=== PATIENT | male | born 1945 | race Caucasian/White ===

== ENCOUNTER 2018-05-20 19:59 | Observation (INO) | payer MEDICARE, OTHER ==
[~2018-05-20] VITALS: Ht 172.7 cm; Wt 78.3 kg
--- NOTE | 2018-05-20 20:53 | ED General ---
General Stated Complaint: CONGESTED,COUGH Source of Information: Patient Exam Limitations: No Limitations History of Present Illness Date Seen by Provider: May 20, 2018 Time Seen by Provider: 20:51 Initial Comments To ER with a 3 day history of progressively worsening shortness of breath, productive cough, sharp pain in the left lateral lower chest when coughing, nausea, diarrhea. Denies fevers or chills. He has been vomiting. He took his blood pressure medications earlier today and then vomited up water shortly thereafter, did not see any intact pills but his blood pressure is elevated and he suspects that he didn't absorb much of it. Timing/Duration: 1-2 Days Severity: Moderate Associated Systoms: Cough; No Fever/Chills; Nausea/Vomiting, Shortness of Air Allergies and Home Medications Allergies Coded Allergies: No Known Drug Allergies (Unverified , 05/20/18) Patient Home Medication List Home Medication List Reviewed: Yes Review of Systems Review of Systems Constitutional: see HPI; No chills, No fever EENTM: see HPI Respiratory: see HPI, cough, short of breath Cardiovascular: no symptoms reported Gastrointestinal: No abdominal pain; nausea, vomiting Genitourinary: no symptoms reported Musculoskeletal: no symptoms reported Skin: no symptoms reported Psychiatric/Neurological: No Symptoms Reported Past Tzcvzqc-Ncmpyr-Yoyrpe Hx Patient Social History Recent Foreign Travel: No Contact w/Someone Who Travel: No Physical Exam Vital Signs Vital Signs - First Documented 05/20/18 21:00 Temp 97.5 Pulse 83 Resp 27 B/P (MAP) 186/109 (134) Pulse Ox 97 O2 Delivery Room Air Capillary Refill : Height, Weight, BMI Height: '" Weight: lbs. oz. kg; BMI Method: General Appearance: WD/WN, Other (his oxygen saturation is 91% on room air. He is a lifelong nonsmoker and has no known structural lung disease. Despite this his respiratory rate is 28-30. Regardless of how his labs look, given his tachypnea and respiratory effort I would like to admit at least for observation. ) Eyes: Bilateral Eye Normal Inspection, Bilateral Eye PERRL, Bilateral Eye EOMI HEENT: PERRL/EOMI, TMs Normal Neck: Full Range of Motion, Normal Inspection Respiratory: No Accessory Muscle Use, No Respiratory Distress, Other (crackles posterior bilateral bases left greater than right) Cardiovascular: Regular Rate, Rhythm, Normal Peripheral Pulses Gastrointestinal: Normal Bowel Sounds, Non Tender, Soft Extremity: Normal Capillary Refill, Normal Inspection Neurologic/Psychiatric: Alert, Oriented x3 Skin: Normal Color, Warm/Dry Focused Exam Lactate Level 05/20/18 21:16: Lactic Acid Level 0.81 Lactic Acid Level Laboratory Tests Test 05/20/18 21:16 Lactic Acid Level 0.81 MMOL/L (0.50-2.00) Progress/Results/Core Measures Suspected Sepsis SIRS Temperature: Pulse: Respiratory Rate: Laboratory Tests 05/20/18 21:16: White Blood Count 10.1 Blood Pressure / Mean: 05/20/18 21:16: Lactic Acid Level 0.81 Laboratory Tests 05/20/18 21:16: Creatinine 5.69H, Platelet Count 317, Total Bilirubin 0.4 Results/Orders Lab Results Laboratory Tests Test 05/20/18 21:16 Range/Units White Blood Count 10.1 4.3-11.0 10^3/uL Red Blood Count 3.96 L 4.35-5.85 10^6/uL Hemoglobin 10.8 L 13.3-17.7 G/DL Hematocrit 33 L 40-54 % Mean Corpuscular Volume 83 80-99 FL Mean Corpuscular Hemoglobin 27 25-34 PG Mean Corpuscular Hemoglobin Concent 33 32-36 G/DL Red Cell Distribution Width 14.8 H 10.0-14.5 % Platelet Count 317 130-400 10^3/uL Mean Platelet Volume 9.5 7.4-10.4 FL Neutrophils (%) (Auto) 89 H 42-75 % Lymphocytes (%) (Auto) 7 L 12-44 % Monocytes (%) (Auto) 4 0-12 % Eosinophils (%) (Auto) 0 0-10 % Basophils (%) (Auto) 0 0-10 % Neutrophils # (Auto) 9.0 H 1.8-7.8 X 10^3 Lymphocytes # (Auto) 0.7 L 1.0-4.0 X 10^3 Monocytes # (Auto) 0.4 0.0-1.0 X 10^3 Eosinophils # (Auto) 0.0 0.0-0.3 10^3/uL Basophils # (Auto) 0.0 0.0-0.1 10^3/uL Neutrophils % (Manual) 87 % Lymphocytes % (Manual) 8 % Monocytes % (Manual) 3 % Eosinophils % (Manual) 0 % Basophils % (Manual) 0 % Metamyelocytes % 1 % Band Neutrophils 1 % Blood Morphology Comment NORMAL Sodium Level 135 135-145 MMOL/L Potassium Level 4.4 3.6-5.0 MMOL/L Chloride Level 103 98-107 MMOL/L Carbon Dioxide Level 14 L 21-32 MMOL/L Anion Gap 18 H 5-14 MMOL/L Blood Urea Nitrogen 59 H 7-18 MG/DL Creatinine 5.69 H 0.60-1.30 MG/DL Estimat Glomerular Filtration Rate 10 BUN/Creatinine Ratio 10 Glucose Level 138 H 70-105 MG/DL Lactic Acid Level 0.81 0.50-2.00 MMOL/L Calcium Level 8.8 8.5-10.1 MG/DL Corrected Calcium 8.8 8.5-10.1 MG/DL Total Bilirubin 0.4 0.1-1.0 MG/DL Aspartate Amino Transf (AST/SGOT) 30 5-34 U/L Alanine Aminotransferase (ALT/SGPT) 89 H 0-55 U/L Alkaline Phosphatase 175 H 40-136 U/L Troponin I < 0.028 <0.028 NG/ML Total Protein 7.7 6.4-8.2 GM/DL Albumin 4.0 3.2-4.5 GM/DL My Orders Orders - TORREY ANDERS APRN Cbc And Manual Diff (05/20/18 20:48) Comprehensive Metabolic Panel (05/20/18 20:48) Ua Culture If Indicated (05/20/18 20:48) Iv Heplock-Insert (Order) (05/20/18 20:48) Troponin I (05/20/18 20:48) Ekg Tracing (05/20/18 20:48) Chest Pa/Lat (2 View) (05/20/18 20:48) Metoprolol Tartrate Injection (Lopressor (05/20/18 21:00) Ns Iv 1000 Ml (Sodium Chloride 0.9%) (05/20/18 21:00) Ondansetron Injection (Zofran Injectio (05/20/18 21:00) Albuterol/Ipra Inhalation Soln (Duoneb I (05/20/18 21:30) Svn Small Volume Nebulizer (05/20/18 21:18) Blood Culture (05/20/18 21:20) Lactic Acid Analyzer (05/20/18 21:20) Ceftriaxone For Iv Use (Rocephin For I (05/20/18 21:30) Medications Given in ED Current Medications Medications Dose Ordered Sig/Kailey Route Start Time Stop Time Status Last Admin Dose Admin Albuterol/ Ipratropium 3 ml ONCE ONCE INH 05/20/18 21:30 05/20/18 21:31 DC 05/20/18 21:57 3 ML Ceftriaxone Sodium 1000 mg/ Sodium Chloride 50 ml @ 100 mls/hr ONCE ONCE IV 05/20/18 21:30 05/20/18 21:59 DC 05/20/18 21:54 100 MLS/HR Metoprolol Tartrate 5 mg ONCE ONCE IV 05/20/18 21:00 05/20/18 21:01 DC 05/20/18 21:26 5 MG Ondansetron HCl 4 mg ONCE ONCE IVP 05/20/18 21:00 05/20/18 21:01 DC 05/20/18 21:25 4 MG Vital Signs/I&O 05/20/18 05/20/18 21:00 21:57 Temp 97.5 Pulse 83 Resp 27 B/P (MAP) 186/109 (134) Pulse Ox 97 92 O2 Delivery Room Air Room Air Capillary Refill : Diagnostic Imaging Diagonstic Imaging: Xray Plain Films/CT/US/NM/MRI: chest Comments NAME: DENIS DAVIS [facility] REC#: [id number] PT STATUS: REG ER : 1945 PHYSICIAN: TORREY ANDERS APRN ADMIT DATE: 05/20/18/ER Draft Date of Exam:05/20/18 CHEST PA/LAT (2 VIEW) PATIENT HISTORY: Cough and congestion, shortness of air. TECHNIQUE: 2 views of the chest COMPARISON: None FINDINGS: Lung volumes are normal. There are airspace opacities in the left perihilar region in the left lung base. There is a small left pleural effusion with associated atelectasis. The cardiac silhouette is normal in size. No pneumothorax is seen. IMPRESSION: 1. Airspace opacities in the left lung concerning for pneumonia in the appropriate clinical setting. Recommend followup to resolution as an underlying neoplastic process is not excluded. Dictated on workstation # [id number] Dict: 05/20/182127 Trans: 05/20/182130 [facility] [id number] Interpreted by: CELI NOGUERA MD Electronically signed by: Departure Communication (Admissions) Time/Spoke to Admitting Phy: 22:[address] Bess. Discussed admission versus transfer. The patient is aware of his renal failure and states "that about normal" when I discuss his creatinine with him but I do not have any priors for comparison. He follows with Dr. Cantu out of [place] who uses [facility] here in [place] for blood draws. He states that he has a known chronic kidney disease secondary to his hypertension from an adrenal tumor and chronic hypertension. He did have a renal ultrasound here done in 2012 for this reason. I discussed with [facility] who accepted him in transfer. I then told the patient he would need to be transferred. He declined stating "no, I'll go home and follow up with Dr. Latrell roberts was before I go to [place]". I discussed with him that I would talk to Dr. Bess about admission for observation if the patient would be willing to sign a refusal of transport form acknowledging that we cannot manage emergent complications of renal failure here. He would be willing to sign this form. I spoke with Dr. Bess and he is agreeable keeping the patient here if we can give another liter of normal saline and recheck labs in the morning. He denies any structural lung disease or recent antibiotics or risk factors for healthcare associated pneumonia so I'll use Rocephin and doxycycline. Impression Primary Impression: Left lower lobe pneumonia Qualified Codes: J18.1 - Lobar pneumonia, unspecified organism Additional Impression: Chronic kidney disease Qualified Codes: N18.9 - Chronic kidney disease, unspecified Disposition: ADMITTED INPATIENT Condition: Stable Admissions Decision to Admit Reason: Admit from ER (General) Decision to Admit/Date: May 20, 2018 Time/Decision to Admit Time: 21:26 Departure-Patient Inst. Referrals: ELLA CANTU DO (PCP) Primary Care Physician TORREY ANDERS APRN May 20, 2018 20:53
[2018-05-20] MEDS ORDERED: ONDANSETRON 4 MG/2 ML (SDV) Z0FRAN IVP ONE (21:00)
[2018-05-20] MEDS ORDERED: NS IV 1000 ML 1,000 ML IV SCH (21:00)
[2018-05-20] MEDS ORDERED: meTOprolol 5 MG/5 ML (LOPRESSOR) VIAL IV ONE (21:00)
[2018-05-20 21:27] LABS: BASOPHILS % (AUTO) 0 % (0-10); EOSINOPHILS % (AUTO) 0 % (0-10); HEMATOCRIT 33 % (40-54); HEMOGLOBIN 10.8 G/DL (13.3-17.7); LYMPHOCYTES # (AUTO) 0.7 X 10^3 (1.0-4.0); LYMPHOCYTES % (AUTO) 7 % (12-44); MEAN CORPUSCULAR HEMOGLOBIN 27 PG (25-34); MEAN CORPUSCULAR HGB CONC 33 G/DL (32-36); MEAN CORPUSCULAR VOLUME 83 FL (80-99); MEAN PLATELET VOLUME 9.5 FL (7.4-10.4); MONOCYTES # (AUTO) 0.4 X 10^3 (0.0-1.0); MONOCYTES % (AUTO) 4 % (0-12); NEUTROPHILS % (AUTO) 89 % (42-75); PLATELET COUNT 317 10^3/uL (130-400); RED BLOOD COUNT 3.96 10^6/uL (4.35-5.85); RED CELL DISTRIBUTION WIDTH 14.8 % (10.0-14.5); WHITE BLOOD COUNT 10.1 10^3/uL (4.3-11.0)
[2018-05-20] MEDS ORDERED: RT-ALBUTEROL/IPRATROPIUM 3 ML (DUONEB) VIAL INH ONE (21:30)
[2018-05-20] MEDS ORDERED: cefTRIAXone FOR IV USE 1,000 MG in NS (IVPB) 50 ML IV ONE (21:30)
--- NOTE | 2018-05-20 21:32 | Diagnostic Imaging Report ---
PATIENT HISTORY: Cough and congestion, shortness of air. TECHNIQUE: 2 views of the chest COMPARISON: None FINDINGS: Lung volumes are normal. There are airspace opacities in the left perihilar region in the left lung base. There is a small left pleural effusion with associated atelectasis. The cardiac silhouette is normal in size. No pneumothorax is seen. IMPRESSION: 1. Airspace opacities in the left lung concerning for pneumonia in the appropriate clinical setting. Recommend followup to resolution as an underlying neoplastic process is not excluded. Dictated by: Dictated on workstation # [id number]
[2018-05-20 21:46] LABS: ALANINE AMINOTRANSFERASE 89 U/L (0-55); ALKALINE PHOSPHATASE 175 U/L (40-136); BILIRUBIN,TOTAL 0.4 MG/DL (0.1-1.0); BUN/CREATININE RATIO 10; CALCIUM 8.8 MG/DL (8.5-10.1); CARBON DIOXIDE 14 MMOL/L (21-32); CHLORIDE 103 MMOL/L (98-107); CREATININE SERUM 5.69 MG/DL (0.60-1.30); GFR ESTIMATED 10; GLUCOSE 138 MG/DL (70-105); POTASSIUM 4.4 MMOL/L (3.6-5.0); SODIUM 135 MMOL/L (135-145); TOTAL PROTEIN 7.7 GM/DL (6.4-8.2)
[2018-05-20 22:03] LABS: BAND NEUTROPHILS 1 %; BASOPHILS % (MANUAL) 0 %; EOSINOPHILS % (MANUAL) 0 %; LYMPHOCYTES % (MANUAL) 8 %; METAMYELOCYTES % 1 %; MONOCYTES % (MANUAL) 3 %; NEUTROPHILS % (MANUAL) 87 %
[2018-05-20 22:04] LABS: RBC MORPH NORMAL
[2018-05-20] MEDS ORDERED: LACTATED RINGERS 1,000 ML IV SCH (23:00)
[2018-05-21] VITALS (8 sets, daily range): BP systolic 168–190; BP diastolic 85–102
--- NOTE | 2018-05-21 00:15 | NUR ---
Hayden was informed that pt could not give urine and will need one during admission. He understood.
--- NOTE | 2018-05-21 00:17 | NUR ---
Per providers orders, pt took night meds prior to going to 4th floor.
--- NOTE | 2018-05-21 00:20 | NUR ---
DENIS DAVIS admitted to room 422-1, with an admitting diagnosis of LLL pneumonia, on 05/20/18 from ED via bed, accompanied by ED staff. DENIS DAVIS introduced to surroundings, call light, bed controls, phone, TV, temperature control, lights, meal times, smoking policy, visitor policy, side rail policy, bathrooms and showers. Patient Rights given to patient in the handbook. DENIS DAVIS verbalizes understanding that [facility] is not responsible for the loss or damage to any personal effects or valuables that are kept in the patients posession during their hospitalization. The following Patient Care Plans were discussed with the patient: Discharge Planning, activity intolerance, and ineffective airway clearance. DENIS DAVIS verbalizes understanding of Interdisciplinary Patient Education. Patient and/or family were informed about the Rapid Response Team and its purpose.
[2018-05-21] MEDS ORDERED: NS IV 1000 ML 1,000 ML ONE (00:30)
[2018-05-21] MEDS: NS IV 1000 ML 1,000 ML IV SCH ×2 (00:44→08:35)
[2018-05-21] MEDS ORDERED: DOXYCYCLINE INJECTION 100 MG in NS (IVPB) 100 ML IV SCH (00:45)
[2018-05-21] MEDS ORDERED: CATHETER FLUSH 10 ML SYR IV PRN (00:45)
[2018-05-21] MEDS ORDERED: ONDANSETRON 4 MG/2 ML (SDV) Z0FRAN IV PRN (00:45)
[2018-05-21] MEDS ORDERED: RT-ALBUTEROL SULF 2.5 MG/3 ML PRE-MIX VIAL INH PRN (02:15)
[2018-05-21 02:26] LABS: BILIRUBIN,URINE NEGATIVE (NEGATIVE); CLARITY,URINE CLEAR; COLOR,URINE YELLOW; GLUCOSE, URINE (UA) 2+ (NEGATIVE); KETONES,URINE NEGATIVE (NEGATIVE); LEUKOCYTE ESTERASE ,URINE NEGATIVE (NEGATIVE); NITRITE,URINE NEGATIVE (NEGATIVE); PH,URINE 6 (5-9); PROTEIN,URINE 4+ (NEGATIVE); UROBILINOGEN,URINE NORMAL (NORMAL)
[2018-05-21 02:32] LABS: BACTERIA,URINE TRACE /HPF; RBC,URINE RARE /HPF; SQUAMOUS EPITHELIAL CELL,UR RARE /HPF; WBC,URINE RARE /HPF
[2018-05-21] MEDS ORDERED: RT-ALBUTEROL SULF 2.5 MG/3 ML PRE-MIX VIAL INH SCH (03:00)
[2018-05-21] MEDS: CATHETER FLUSH 10 ML SYR IV SCH ×3 (03:53→20:26)
[2018-05-21 05:57] LABS: BASOPHILS % (AUTO) 0 % (0-10); EOSINOPHILS % (AUTO) 0 % (0-10); HEMATOCRIT 27 % (40-54); HEMOGLOBIN 8.5 G/DL (13.3-17.7); LYMPHOCYTES # (AUTO) 0.8 X 10^3 (1.0-4.0); LYMPHOCYTES % (AUTO) 12 % (12-44); MEAN CORPUSCULAR HEMOGLOBIN 27 PG (25-34); MEAN CORPUSCULAR HGB CONC 32 G/DL (32-36); MEAN CORPUSCULAR VOLUME 84 FL (80-99); MEAN PLATELET VOLUME 9.5 FL (7.4-10.4); MONOCYTES # (AUTO) 0.5 X 10^3 (0.0-1.0); MONOCYTES % (AUTO) 8 % (0-12); NEUTROPHILS # (AUTO) 5.5 X 10^3 (1.8-7.8); NEUTROPHILS % (AUTO) 80 % (42-75); PLATELET COUNT 242 10^3/uL (130-400); RED BLOOD COUNT 3.17 10^6/uL (4.35-5.85); RED CELL DISTRIBUTION WIDTH 14.5 % (10.0-14.5); WHITE BLOOD COUNT 6.8 10^3/uL (4.3-11.0)
[2018-05-21 06:36] LABS: CALCIUM 7.5 MG/DL (8.5-10.1); CREATININE SERUM 5.27 MG/DL (0.60-1.30); POTASSIUM 4.4 MMOL/L (3.6-5.0)
[2018-05-21] MEDS: RT-ALBUTEROL SULF 2.5 MG/3 ML PRE-MIX VIAL INH SCH ×3 (06:56→19:12)
[2018-05-21] MEDS ORDERED: FLU QUADRIvalent (5+ YOA) 2018-2019 (AFLURIA) 0.5 ML IM ONE (08:00)
[2018-05-21] MEDS ORDERED: CLON0.2T PO (09:10)
[2018-05-21] MEDS ORDERED: AMLO10TA6 PO (09:10)
[2018-05-21] MEDS ORDERED: METO-395 PO (09:10)
[2018-05-21] MEDS ORDERED: LACT1CAP72 PO (09:13)
[2018-05-21] MEDS ORDERED: OMG1KC PO (09:13)
[2018-05-21] MEDS ORDERED: VALE100C PO (09:13)
[2018-05-21] MEDS ORDERED: MELA5CAP PO (09:13)
[2018-05-21] MEDS ORDERED: CHOL10007 PO (09:13)
[2018-05-21] MEDS ORDERED: ASCO-262 PO (09:13)
[2018-05-21] MEDS ORDERED: DIPH25CA79 PO (09:13)
--- NOTE | 2018-05-21 09:21 | NUR ---
SPOKE WITH THE PATIENT ABOUT HIS MEDICATIONS. HE HAD HIS 3 PRESCRIPTION BOTTLES WITH HIM AND VERIFIED HOW HE TAKES THEM. IN ADDITION THE EXT MED HX SHOWS HE FILLED SPIRONOLACTONE 25MG #24 02-18-18 HOWEVER HE STATES HE IS NOT CURRENTLY TAKING IT. THERE WAS SOME CONFUSION ON THE DIRECTIONS AND HE WAS TAKING IT 1/2 DAILY HOWEVER IT WAS NOT WRITTEN THAT WAY WHEN HE FILLED IT SO HE RAN OUT EARLY THEN AFTER HE WAS OUT FOR SO LONG HE JUST DIDN'T RESUME TAKING IT. HE STATES HE NEEDS TO SPEAK WITH HIS PCP ABOUT THIS. HE STATES IT HAS BEEN SEVERAL WEEKS SINCE HE HAS HAD A DOSE. HE TAKES THE FOLLOWING OTC: VITAMIN C DAILY VITAMIN D DAILY PROBIOTIC DAILY FISH OIL DAILY VALERIAN ROOT HS (SLEEP) BENADRYL HS (SLEEP) MELATONIN HS (SLEEP)
--- NOTE | 2018-05-21 11:00 | NUR ---
Voiced concern about patient's blood pressure to attending physician at this time, also mentioned patient's concern about possible blood in his stool. Monitoring vital signs closely. No new orders received. Med reconciliation currently not addressed yet by attending physician. Will continue to monitor.
--- NOTE | 2018-05-21 11:53 | History & Physical-Hospitalist ---
History of Present Illness HPI/Chief Complaint The patient is a 72-year-old white male who presented to the emergency room last night with complaints of nausea and generalized weakness. He reported that he began to feel ill on Saturday. This progressed through Saturday and by Saturday he felt terrible. He finally gave up and came to the emergency room yesterday. He had nausea but only if he put food in his mouth. Yesterday morning he placed his anti-hypertensives in his mouth and swallowed with water only to vomit. He has been hypertensive for many years. 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 This was surgically removed but did not change his blood pressure issues much. In recent years he knows that his kidney function has declined. He has seen Dr. Latrell roberts in [place]. His circumstances had changed considerably his after a long illness. He has an undependable car and finds it difficult to get to [place]. He had previously seen a beam racker in consultation in [place].found that to be too expensive. He is unable to give any numerical information relative to the recent serum creatinines Source: patient Exam Limitations: no limitations Date Seen 05/21/18 Time Seen by a Provider: 11:44 Attending Physician Gerardo Lemos MD PCP Rafita Aguirre DO Referring Physician Date of Admission May 20, 2018 at 21:19 Home Medications & Allergies Home Medications Reviewed patient Home Medication Reconciliation performed by pharmacy medication reconciliations preventative maintenance technician and/or nursing. Patients Allergies have been reviewed. Allergies Allergies Coded Allergies No Known Drug Allergies (Unverified05/20/18) Past Wwusedi-Tefjxz-Wehrkv Hx Past Med/Social Hx: Reviewed Nursing Past Med/Soc Hx Patient Social History Alcohol Use: Denies Use Recreational Drug Use: No Smoking Status: Never a Smoker Physical Abuse Screen: No Sexual Abuse: No Recent Foreign Travel: No Contact w/other who traveled: No Recent Hopitalizations: No Recent Infectious Disease Expo: No Seasonal Allergies Seasonal Allergies: No Past Medical History Surgeries: Adrenal Currently Using CPAP: No Currently Using BIPAP: No Cardiac: Hypertension Musculoskeletal: Scoliosis Psychosocial: Depression History of Blood Disorders: No Adverse Reaction to Blood Dobbs: No Family History Aneurysm 19 MOTHER FH: lung cancer 19 FATHER Hypertension 19 MOTHER G8 SISTER Review of Systems Constitutional: see HPI EENTM: no symptoms reported Respiratory: cough Cardiovascular: no symptoms reported Gastrointestinal: nausea Genitourinary: no symptoms reported Musculoskeletal: no symptoms reported Skin: no symptoms reported Psychiatric/Neurological: No Symptoms Reported Physical Exam Physical Exam Vital Signs Vital Signs - First Documented 05/20/18 05/21/18 21:00 20:00 Temp 97.5 Pulse 83 Resp 27 B/P (MAP) 186/109 (134) Pulse Ox 97 O2 Delivery Room Air FiO2 50 Capillary Refill : Less Than 3 Seconds Height, Weight, BMI Height: 5'8.00" Weight: 172lbs. 11.2oz. 78.683194kr; 26.3 BMI Method:Stated General Appearance: Mild Distress HEENT: Normal ENT Inspection Neck: Normal Inspection Respiratory: Decreased Breath Sounds, Rhonci Cardiovascular: Regular Rate, Rhythm, No Edema, No Gallop, No JVD, No Murmur, Normal Peripheral Pulses Gastrointestinal: Normal Bowel Sounds, No Organomegaly, No Pulsatile Mass, Non Tender, Soft Back: Normal Inspection, No CVA Tenderness, No Vertebral Tenderness Extremity: Normal Capillary Refill, Normal Inspection, Normal Range of Motion, Non Tender, No Calf Tenderness Neurologic/Psychiatric: Alert, Oriented x3, No Motor/Sensory Deficits, Normal Mood/Affect Skin: Normal Color, Warm/Dry Lymphatic: No Adenopathy Results Results/Procedures Labs Patient resulted labs reviewed. Assessment/Plan Admission Diagnosis Dehydration. 2.end-stage renal failure. 3.hypertension. 4.past history of adrenal adenoma/hyper Aldosteronism Admission Status: Observation Clinical Quality Measures DVT/VTE Risk/Contraindication: Risk Factor Score Per Nursin RFS Level Per Nursing on Admit: 4+=Very High GERARDO LEMOS MD May 21, 2018 11:53
--- NOTE | 2018-05-21 14:00 | NUR ---
This RN spoke with Dr. Bess at this time about his lack of ability to breath, o2 saturations down to 89% at this time on 2 L per N/C. New orders received to increase the oxygen and give lasix 40 mg iv x1 now. RT paged and breathing treatment given and patient is maintaining his saturations at this time. Addendum: 05/21/18 at 1751 by BRAEDEN ROSENTHAL RN noted by this RN that crackles were present bilaterally to all burciaga of his lungs.
[2018-05-21] MEDS ORDERED: FUROSEMIDE 40 MG/4 ML INJ (LASIX) IVP NR ×2 (14:04→17:30)
[2018-05-21] MEDS: meTOprolol SUCCINATE 100 MG (TOPROL XL) TAB PO SCH ×2 (14:11→19:48)
--- NOTE | 2018-05-21 15:38 | Progress Note-Hospitalist ---
Progress Note Progress Notes/Assess & Plan Date Seen 05/21/18 Time Seen by Provider: 15:37 Assessment & Plan I have talked to the hospitalist service at [facility] in [place]. They have accepted him in transfer for nephrology services. Focused Exam Lactate Level 05/20/18 21:16: Lactic Acid Level 0.81 JOSS LEMOS MD May 21, 2018 15:38
[2018-05-21] MEDS ORDERED: DOXYCYCLINE 100 MG (VIBRAMYCIN) TABLET PO SCH (17:00)
--- NOTE | 2018-05-21 17:25 | NUR ---
Patient rang his call light at this time and reports that he is short of air again, this RN paged RT at this time.
--- NOTE | 2018-05-21 17:52 | NUR ---
RT staff requesting that this RN contact Dr. Bess for orders to try the bipap at this time. Patient reported to the RT staff that " i'm getting tierd of breathing." This RN notified Dr. Bess at this time of his oxygen saturations that were 86% on 7L. New orders received at this time to implement the bipap and give another dose of lasix 40 mg iv. This RN will cont to monitor this patient until he transfers from this facility.
--- NOTE | 2018-05-21 18:14 | NUR ---
PATIENT IS RESTING IN BED COMFORTABLY WITH BIPAP ON AT THIS TIME. DENIES PAIN TO THIS RN, THIS RN WILL CONT. TO MONITOR THIS PATIENT UNTIL SHIFT CHANGE OR TRANSFER TO [facility].
[2018-05-21] MEDS ORDERED: cefTRIAXone 1 GM/NS 50 ML IVPB IV SCH ×2 (21:00)
[2018-05-21] MEDS ORDERED: cloNIDine 0.2 MG (CATAPRES) TAB PO SCH (21:00)
--- NOTE | 2018-05-21 21:17 | NUR ---
This RN contacted [facility] Admissions to see if a bed was available for the pt to transfer yet and they said that they didn't currently have a bed yet.
--- NOTE | 2018-05-21 21:30 | NUR ---
This RN told Jewelry Sales Coordinator that [facility] still doesn't have a bed and pt BP is still elevated 170's/90's after BP medications. Ethylene Plant Operator reported to this RN that she called and spoke with their trailer park manager and was told that they have one bed available but that the room needed cleaned and informed her that they would call her back with the room number.
--- NOTE | 2018-05-22 00:29 | NUR ---
This RN called and spoke with admissions and was tod that the patient's bed will be ready as soon as it's done being cleaned but gave this RN the okay to begin transport. Patient will be taken to room 183 on the medical unit and number to call to give report is [phone].
--- NOTE | 2018-05-22 00:43 | NUR ---
[facility] Transport truck on the way to transfer pt to [facility] in [place]. Addendum: 05/22/18 at 0150 by HEATHER DENNIS RN Dispatch was informed by this RN that truck with BiPAP will be needed for this pt.
--- NOTE | 2018-05-22 00:46 | NUR ---
This RN called report to SRIDHAR Zurita at [facility] in [place].
[2018-05-22 00:56] VITALS: BP 167/87
--- NOTE | 2018-05-22 01:15 | NUR ---
[facility] arrived and has no BiPAP machine but has CPAP available. RT Zion called to room by this RN to see if pt is stable enough to leave on CPAP. RT Zion assisted with switching pt to CPAP at 10 sonograms of H2O setting. Patient O2 sats 93% while on CPAP before leaving.
--- NOTE | 2018-05-22 01:30 | NUR ---
Transport left facility with pt to transfer to [facility] in [place].
[2018-05-22] MEDS ORDERED: OMEGA 3 (FISH OIL) 1000 MG CAP PO SCH (09:00)
[2018-05-22] MEDS ORDERED: amLODIPine 10 MG (NORVASC) TAB PO SCH (09:00)
== END 2018-05-22 01:30 | disposition short-term general hospital (02) ==
LOC: EDUNIT# 19:59 → ER 20:00 → 4TH 21:19
PROVIDERS: ADMIT Internal Medicine; ATTEND Internal Medicine
DX: I12.0 Hypertensive chronic kidney disease with stage 5 chronic kidney disease or end stage renal disease (principal); N18.6 End stage renal disease; E86.0 Dehydration; J18.1 Lobar pneumonia, unspecified organism; M41.9 Scoliosis, unspecified; F32.9 Major depressive disorder, single episode, unspecified
CPT/HCPCS: 36415; 71046; 80048; 80053; 81000; 83605; 84484; 85007; 85025; 85027; 87040; 93005; 94640; 94660; 94760; 96361; 96365; 96375; G0378

== ENCOUNTER → 2018-07-14 | Outpatient (CLI) | payer MEDICARE ==
[~2018-07-14] VITALS: Ht 172.7 cm; Wt 70.2 kg
[~2018-07-14] MED LIST: AMLO10TA7 PO; ASCO-262 PO; CHOL10007 PO; CLON0.2T PO; DIPH25CA79 PO; LACT1CAP72 PO; MELA5CAP PO; METO-395 PO; NIFE10CA PO; OMG1KC PO; VALE100C PO
== END | disposition home or self-care (01) ==
LOC: PREOP 05:33
PROVIDERS: ATTEND Surgery
DX: Z01.818 Encounter for other preprocedural examination (principal)

== ENCOUNTER → 2018-08-08 | Outpatient (CLI) | payer MEDICARE | END | disposition home or self-care (01) | LOC: PREOP 05:38 | PROVIDERS: ATTEND Family Medicine | DX: Z01.818 Encounter for other preprocedural examination (principal) ==

== ENCOUNTER 2018-08-14 07:25 | Day surgery (SDC) | payer MEDICARE ==
[~2018-08-14] VITALS: Ht 172.7 cm; Wt 70.2 kg
[2018-08-14] MEDS ORDERED: ceFAZolin INJECTION 1,000 MG in WATER (STERILE) FOR INJECTION 10 ML IV ONE (07:30)
[2018-08-14] MEDS ORDERED: LACTATED RINGERS 1,000 ML IV PRN (07:30)
[2018-08-14 08:15] VITALS: BP 155/86
[2018-08-14 08:16] LABS: CALCIUM 8.8 MG/DL (8.5-10.1); CREATININE SERUM 4.51 MG/DL (0.60-1.30); POTASSIUM 4.8 MMOL/L (3.6-5.0)
[2018-08-14] MEDS ORDERED: NS IV 500 ML 500 ML IV SCH (09:15)
[2018-08-14] MEDS ORDERED: ONDANSETRON 4 MG/2 ML (SDV) Z0FRAN ONE ×2 (09:24→11:46)
[2018-08-14] MEDS ORDERED: SEVOFLURANE (ULTANE) 15 ML INHAL SOLN ONE ×2 (09:24→12:54)
[2018-08-14] MEDS ORDERED: fentaNYL INJECTION 100 MCG/2 ML AMP ONE ×3 (09:24→13:14)
[2018-08-14] MEDS ORDERED: LIDOCAINE PF 2% 5 ML (XYLOCAINE) VIAL ONE ×2 (09:24→11:46)
[2018-08-14] MEDS ORDERED: proPOfol 200 MG/20 ML (DIPRIVAN) VIAL IV ONE ×2 (09:24→11:46)
[2018-08-14] MEDS ORDERED: BUP/EPI 0.5% 1:200,000 (SENSORCAINE) 30 ML VIAL ONE (11:39)
[2018-08-14] MEDS ORDERED: HEParin (CENTRAL IV FLUSH) 500 UNIT/5 ML SYR ONE (11:39)
[2018-08-14] MEDS ORDERED: LIDOCAINE 1% INJ 20 ML 20 ML VIAL ONE (11:39)
[2018-08-14] MEDS ORDERED: ROCURONIUM 10 MG/ML 5 ML SYRINGE IV ONE (11:46)
[2018-08-14] MEDS ORDERED: DEXAMETHASONE 10 MG/ML (DECADRON) 1 ML VIAL ONE (11:46)
[2018-08-14] MEDS ORDERED: NEOSTIGMINE 1 MG/ML 5 ML SYRINGE ONE (12:44)
[2018-08-14] MEDS ORDERED: GLYCOPYRROLATE 0.2 MG/ML (ROBINUL) 2 ML VIAL ONE (12:44)
--- NOTE | 2018-08-14 13:12 | Progress Note-Post Operative ---
Post-Operative Progess Note Surgeon (s)/Tying Machine Operator Lumber (s) Surgeon DUSTY MANJARREZ DO Tying Machine Operator Lumber: Dr. Carlson Pre-Operative Diagnosis Chronic kidney disease, UMBILICAL HERNIA Post-Operative Diagnosis same Procedure & Operative Findings Date of Procedure 08/14/18 Procedure Performed/Findings lap primary umiblical hernia repair placement peritoneal dialysis catheter 57 cm Anesthesia Type gen Estimated Blood Loss Estimated blood loss (mL): min Specimens/Packing Specimens Removed na DUSTY MANJARREZ DO Aug 14, 2018 13:12
[2018-08-14] MEDS ORDERED: ACHD5005 PO (13:14)
[2018-08-14] MEDS ORDERED: ONDANSETRON 4 MG/2 ML (SDV) Z0FRAN IVP PRN (13:15)
[2018-08-14] MEDS ORDERED: fentaNYL INJECTION 100 MCG/2 ML AMP IVP ONE (13:15)
--- NOTE | 2018-08-14 13:15 | Discharge Inst-Simple/Standard ---
Discharge Inst-Standard Discharge Medications New, Converted or Re-Newed RX: RX on Chart Patient Instructions/Follow Up Plan of Care/Instructions/FU: 2 weeks Aman Activity as Tolerated: No Discharge Diet: Regular Diet Other Inst to Patient Follow up Appt: Make appointment for 2 week. Instructions: No lifting greater than 10 pounds. No strenuous activity. May shower in 24 hours, no tub bath or soaking. Use incentive spirometer at home as directed. No Smoking Skin/Wound Care: Keep areas clean and dry. Symptoms to Report: Appetite Changes, Extremity Discoloration, Numbness/Tingling, Swelling Increased , Bleeding Excessive, Eyesight Changes, Pain Increased, Urine Color Change, Constipation(Persistent), Fever over 101 degree F, Pain/Pressure in chest, Urinating Difficulty, Cough Up/Vomit Blood, Heart Beat Irreg/Pounding, Pain/ Pressure in jaw, Vaginal Bleeding Increase, Cramps in feet or legs, Lightheadedness, Pain/Pressure in shoulder, Diarrhea(Persistent), Memory Changes Suddenly, Questions/Concerns, Weight gain consecutive days, Dizziness/ Fainting, Nausea/Vomiting, Shortness of Breath, Weight gain over 2 pounds If questions or concerns contact your physician Or seek help at emergency department. DUSTY MANJARREZ DO Aug 14, 2018 13:15
--- NOTE | 2018-08-14 13:35 | Anesthesia-General Post-Op ---
General Patient Condition Mental Status/LOC: Same as Preop Cardiovascular: Satisfactory Nausea/Vomiting: Absent Respiratory: Satisfactory Pain: Controlled Complications: Absent Post Op Complications Complications None Follow Up Care/Instructions Patient Instructions None needed. Anesthesia/Patient Condition Patient Condition Patient is doing well, no complaints, stable vital signs, no apparent adverse anesthesia problems. ALANIS MALAVE DO Aug 14, 2018 13:35
[2018-08-14 13:55] VITALS: BP 162/94
[2018-08-14 14:25] VITALS: BP 168/101
[2018-08-14 14:55] VITALS: BP 175/105
[2018-08-14 15:05] VITALS: BP 175/105
--- NOTE | 2018-08-15 07:07 | OPERATIVE REPORT ---
DATE OF SERVICE: 08/14/2018 PREOPERATIVE DIAGNOSES: Chronic kidney disease and umbilical hernia. POSTOPERATIVE DIAGNOSES: Chronic kidney disease and umbilical hernia. PROCEDURE: Laparoscopic primary umbilical hernia repair and placement of peritoneal dialysis catheter, 57 cm. SURGEON: Dusty Newton DO. SENIOR CLINICAL STUDY MANAGER: Dr. Carlson, assisted in retraction, dissection and closure. ANESTHESIA: General. ESTIMATED BLOOD LOSS: Minimal. COMPLICATIONS: None. INDICATIONS: The patient is a 72-year-old male with umbilical hernia. He wishes to have it repaired and also with need of peritoneal dialysis catheter. He understands the risks and benefits of the procedure and wished to proceed with procedure. Consent was signed in the chart. DESCRIPTION OF PROCEDURE: The patient was taken to the operating suite and was prepped and draped in sterile fashion. A surgical pause was performed. An incision was made superior to the umbilicus. A 12 mm incision was made. The cautery was used to dissect down to the fascia, which was scored, grasped, elevated and the abdomen was then entered. A 0 Vicryl was placed in a [id number] fashion for closure at the end of the case. A balloon trocar was inserted and pneumoperitoneum was achieved. Under direct visualization of the laparoscope, the hernia was visualized. There was a small defect and no contents within it. A stab incision was made and the 0 Vicryl was placed for closure. Just to the right of the umbilicus, an 8 mm incision was made and an 8 mm trocar was inserted in the angle towards the pelvis for insertion of the peritoneal dialysis catheter. The peritoneal dialysis catheter was inserted and the cuff was brought just inside of the rectus muscle. The catheter was then tunneled out extending on the right laterally. The catheter was then flushed with 500 mL of saline and withdrew, filled without difficulty and the remainder of the saline was left for keeping the catheter flow. The incisions were then closed using 4-0 Monocryl. The skin incision where the 0 Vicryl was placed on the fascia previously was then tied. The skin was then closed using a 4-0 Monocryl. For positioning reasons of the catheter, a 5 mm trocar was placed in the left lower quadrant previous to closure and this was withdrawn as well. The skin was then closed using a 4-0 Monocryl. Over the incisions, the areas were washed and dried and skin Affix was placed over the incisions after they were closed. A sterile bandage was applied. The patient tolerated the procedure well without any complications and he was taken to the recovery room in stable condition. Dr. Carlson assisted in retraction, dissection and closure. Job ID: [id number] DocumentID: [id number] Dictated Date: 08/14/2018 13:53:55 Legal Aide Date: 08/14/2018 16:00:08 Dictated By: DUSTY NEWTON DO
== END 2018-08-14 15:25 | disposition home or self-care (01) ==
LOC: SDC 07:25
PROVIDERS: ATTEND Surgery
DX: K42.9 Umbilical hernia without obstruction or gangrene (principal); I12.9 Hypertensive chronic kidney disease with stage 1 through stage 4 chronic kidney disease, or unspecified chronic kidney disease; N18.9 Chronic kidney disease, unspecified; G57.93 Unspecified mononeuropathy of bilateral lower limbs; Z79.899 Other long term (current) drug therapy
CPT/HCPCS: 36415; 80048; 87081; 94664

== ENCOUNTER 2018-11-26 06:18 | Outpatient (CLI) | payer MEDICARE ==
[~2018-11-26] VITALS: Ht 172.7 cm; Wt 69.9 kg
[~2018-11-26 06:18] MED LIST changes: +ACHD5005 PO
== END 2018-11-26 11:26 | disposition home or self-care (01) ==
LOC: PREOP 06:18
PROVIDERS: ATTEND Surgery
DX: Z01.818 Encounter for other preprocedural examination (principal)

== ENCOUNTER 2018-11-27 11:28 | Day surgery (SDC) | payer MEDICARE ==
[~2018-11-27] VITALS: Ht 172.7 cm; Wt 69.9 kg
[2018-11-27] MEDS ORDERED: ceFAZolin INJECTION 1,000 MG ONE (11:39)
[2018-11-27 11:50] VITALS: BP 131/78
[2018-11-27] MEDS ORDERED: LACTATED RINGERS 1,000 ML IV PRN (12:16)
[2018-11-27] MEDS ORDERED: ceFAZolin INJECTION 1,000 MG in WATER (STERILE) FOR INJECTION 10 ML IV ONE (12:30)
[2018-11-27] MEDS ORDERED: NS IV 500 ML 500 ML IV SCH (12:45)
--- NOTE | 2018-11-27 13:30 | Progress Note-Pre Operative ---
Pre-Operative Progress Note H&P Reviewed The H&P was reviewed, patient examined and no changes noted. Date Seen by Provider: Nov 27, 2018 Time Seen by Provider: 13:30 Date H&P Reviewed: Nov 27, 2018 Time H&P Reviewed: 13:30 Pre-Operative Diagnosis: renal failure DUSTY MANJARREZ DO Nov 27, 2018 13:30
[2018-11-27] MEDS ORDERED: LIDOCAINE 1% INJ 20 ML 20 ML VIAL ONE (13:31)
[2018-11-27] MEDS ORDERED: BUP/EPI 0.5% 1:200,000 (MARCAINE) 10ML VIAL IJ ONE (13:31)
[2018-11-27] MEDS ORDERED: LIDOCAINE PF 2% 5 ML (XYLOCAINE) VIAL ONE (13:53)
[2018-11-27] MEDS ORDERED: proPOfol 200 MG/20 ML (DIPRIVAN) VIAL IV ONE (13:53)
[2018-11-27] MEDS ORDERED: MIDAZOLAM 2 MG/2 ML (VERSED) VIAL ONE (13:54)
[2018-11-27 14:33] VITALS: BP 114/71
[2018-11-27 14:40] VITALS: BP 117/68
--- NOTE | 2018-11-27 14:48 | Discharge Inst-Simple/Standard ---
Discharge Inst-Standard Patient Instructions/Follow Up Plan of Care/Instructions/FU: 2 weeks luis Activity as Tolerated: Yes Discharge Diet: Regular Diet Other Inst to Patient Follow up Appt: Make appointment for 2 week. Instructions: No strenuous activity. May shower in 24 hours, no tub bath or soaking. Use incentive spirometer at home as directed. No Smoking Skin/Wound Care: May remove bandages in 24 hours and keep area clean and dry. Replace bandage daily till healed. Symptoms to Report: Appetite Changes, Extremity Discoloration, Numbness/Tingling, Swelling Incr eased, Bleeding Excessive, Eyesight Changes, Pain Increased, Urine Color Change, Constipation(Persistent), Fever over 101 degree F, Pain/Pressure in chest, Urinating Difficulty, Cough Up/Vomit Blood, Heart Beat Irreg/Pounding, Pain/Pressure in jaw, Vaginal Bleeding Increase, Cramps in feet or legs, Lightheadedness, Pain/Pressure in shoulder, Diarrhea(Persistent), Memory Changes Suddenly, Questions/Concerns, Weight gain consecutive days, Dizziness/Fainting, Nausea/Vomiting, Shortness of Breath, Weight gain over 2 pounds If questions or concerns contact your physician Or seek help at emergency department. DUSTY MANJARREZ DO Nov 27, 2018 14:48
[2018-11-27 14:50] VITALS: BP 116/71
--- NOTE | 2018-11-27 14:50 | Progress Note-Post Operative ---
Post-Operative Progess Note Surgeon (s)/Network Cable Installer (s) Surgeon DUSTY MANJARREZ DO Network Cable Installer: na Pre-Operative Diagnosis renal failure Post-Operative Diagnosis same Procedure & Operative Findings Date of Procedure 11/27/18 Procedure Performed/Findings removal hemodialysis catheter Anesthesia Type mac c local Estimated Blood Loss Estimated blood loss (mL): min Specimens/Packing Specimens Removed na DUSTY MANJARREZ DO Nov 27, 2018 14:50
[2018-11-27 15:00] VITALS: BP_SYST 118; BP_SYST 125; BP_DIAS 73
[2018-11-27 15:30] VITALS: BP 142/85
--- NOTE | 2018-11-27 17:58 | Anesthesia-General Post-Op ---
MAC Patient Condition Mental Status/LOC: Same as Preop Cardiovascular: Satisfactory Nausea/Vomiting: Absent Respiratory: Satisfactory Pain: Controlled Complications: Absent Post Op Complications Complications None Follow Up Care/Instructions Patient Instructions None needed. Anesthesiology Discharge Order Discharge Order Patient is doing well, no complaints, stable vital signs, no apparent adverse anesthesia problems. No complications reported per nursing. MAURICIO MOSS CRNA Nov 27, 2018 17:58
--- NOTE | 2018-11-28 04:30 | OPERATIVE REPORT ---
DATE OF SERVICE: 11/27/2018 PREOPERATIVE DIAGNOSIS: Chronic kidney disease. POSTOPERATIVE DIAGNOSIS: Chronic kidney disease. PROCEDURE: Removal hemodialysis catheter, right chest. SURGEON: Dusty Newton DO ANESTHESIA: MAC with local. ESTIMATED BLOOD LOSS: Minimal. COMPLICATIONS: None. INDICATIONS: The patient is a 73-year-old male with renal failure, who has chosen to do peritoneal dialysis. The patient still has hemodialysis catheter, which needs to be removed. He has been cleared for this to be removed. He understands risks and benefits of procedure and wished to proceed with procedure. Consent was signed in the chart. DESCRIPTION OF PROCEDURE: The patient was taken to the operating suite. He was prepped and draped in sterile fashion. Timeout was performed. Local anesthetic was infiltrated around the catheter. A hemostat was used to begin dissecting around the catheter with gentle traction until the cuff was dissected around and the catheter was freed and then was slowly withdrawn until completely removed. Pressure was held for 10 minutes at the insertion site. The area was then washed and dried and sterile bandage was applied. The patient tolerated procedure well without any complications, taken to recovery room in stable condition. Job ID: [id number] DocumentID: [id number] Dictated Date: 11/27/2018 17:08:51 Instrument Tester Date: 11/28/2018 02:57:42 Dictated By: DUSTY NEWTON DO
== END 2018-11-27 15:45 | disposition home or self-care (01) ==
LOC: SDC 11:28
PROVIDERS: ATTEND Surgery
DX: I12.9 Hypertensive chronic kidney disease with stage 1 through stage 4 chronic kidney disease, or unspecified chronic kidney disease (principal); N18.9 Chronic kidney disease, unspecified; Z11.2 Encounter for screening for other bacterial diseases; K42.9 Umbilical hernia without obstruction or gangrene; F32.9 Major depressive disorder, single episode, unspecified; M41.9 Scoliosis, unspecified; Z87.01 Personal history of pneumonia (recurrent); Z79.899 Other long term (current) drug therapy
CPT/HCPCS: 87081

== ENCOUNTER 2019-02-25 18:22 | Emergency (ER) | payer MEDICARE ==
[~2019-02-25] VITALS: Ht 172 cm; Wt 81.0 kg
--- NOTE | 2019-02-25 18:50 | ED General ---
General Chief Complaint: General Problems/Pain Stated Complaint: WEAKNESS Nursing Triage Note: Pt to [facility] via WC with son present. Pt c/o overall weakness overall weakness for a few weeks. Pt states he just discontinued peritoneal dialysis 2 wks ago. Nursing Sepsis Screen: No Definite Risk Source of Information: Patient Exam Limitations: No Limitations (ALICIA SIFUENTES STUDENT) History of Present Illness Date Seen by Provider: Feb 25, 2019 Time Seen by Provider: 18:30 Initial Comments Patient presents to the ED today complaining of two weeks of worsening fatigue and weakness throughout the body. He is a dialysis patient that had been receiving treatment since May. In the spring, they created a peritoneal access which resulted in significant nausea, prohibiting the patient from eating. He decided to stop receiving dialysis two weeks ago; the nausea went away but this is when the fatigue and weakness began. He denies any other associated symptoms. Timing/Duration: Other (2 weeks) Severity: Moderate Modifying Factors: improves with Immobilization; worse with Movement; improves with Rest Associated Systoms: Loss of Appetite, Weakness (ALICIA SIFUENTES STUDENT) Initial Comments Denies recent fever or chills. Notes fatigue is increasing since stopping peritoneal dialysis. He follows with Dr. Mccarthy at [facility] in [place]. Otherwise as above. Timing/Duration: Other (2 weeks) Severity: Moderate Associated Systoms: No Chest Pain, No Cough, No Diaphoresis, No Fever/Chills; Loss of Appetite; No Nausea/Vomiting; Shortness of Air, Weakness (RICARDO BOURNE MD) Allergies and Home Medications Allergies Coded Allergies: No Known Drug Allergies (Unverified , 07/14/18) Home Medications Amlodipine Besylate 10 Mg Tablet, 10 MG PO DAILY, (Reported) Ascorbate Calcium 500 Mg Tablet, 500 MG PO DAILY, (Reported) Cholecalciferol (Vitamin D3) 1,000 Unit Capsule, 1,000 UNIT PO DAILY, (Reported) Clonidine HCl 0.2 Mg Tablet, 0.2 MG PO BID, (Reported) Diphenhydramine HCl 25 Mg Capsule, 25 MG PO HS, (Reported) Lactobacillus Combo No.10 1 Each Capsule, 1 CAP PO DAILY, (Reported) Melatonin 5 Mg Capsule, 5 MG PO HS, (Reported) Metoprolol Succinate 100 Mg Tab.er.24h, 100 MG PO HS, (Reported) Nifedipine 10 Mg Capsule, 10 MG PO DAILY, (Reported) Clever 3 Polyunsat Fatty Acids 1,000 Mg Cap, 1,000 MG PO DAILY, (Reported) Valerian Root 100 Mg Capsule, 100 MG PO HS, (Reported) Patient Home Medication List Home Medication List Reviewed: Yes (RICARDO BOURNE MD) Review of Systems Review of Systems Constitutional: see HPI EENTM: no symptoms reported Respiratory: no symptoms reported Cardiovascular: no symptoms reported Gastrointestinal: see HPI Genitourinary: no symptoms reported Musculoskeletal: see HPI Skin: no symptoms reported Psychiatric/Neurological: No Symptoms Reported Hematologic/Lymphatic: No Symptoms Reported Immunological/Allergic: no symptoms reported (ALICIA SIFUENTES STUDENT) Constitutional: see HPI EENTM: no symptoms reported Respiratory: No cough, No dyspnea on exertion; short of breath; No wheezing Cardiovascular: No chest pain, No edema Gastrointestinal: see HPI Genitourinary: no symptoms reported Musculoskeletal: No back pain; muscle weakness Skin: change in color (pallor); No lesions Psychiatric/Neurological: See HPI (RICARDO BOURNE MD) All Other Systems Reviewed Negative Unless Noted: Yes (RICARDO BOURNE MD) Past Dqddcej-Wvyxzr-Fklvbn Hx Past Med/Social Hx: Reviewed Nursing Past Med/Soc Hx (RICARDO BOURNE MD) Patient Social History 2nd Hand Smoke Exposure: No Recent Foreign Travel: No Contact w/Someone Who Travel: No Recent Infectious Disease Expo: No Recent Hopitalizations: Yes (MAY 2018-PNEUMOIA) (ALICIA SIFUENTES STUDENT) Seasonal Allergies Seasonal Allergies: No (ALICIA SIFUENTES) Past Medical History Surgeries: Yes (left adrenal gland removed, umb hernia with peritoneal cath) Adrenal Respiratory: Yes Pneumonia Currently Using CPAP: No Currently Using BIPAP: No Cardiac: Yes Hypertension Neurological: No Genitourinary: Yes (STARTING DIALYSIS) Renal Failure Gastrointestinal: No Musculoskeletal: Yes Scoliosis 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, 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) HEENT: Yes (GLASSES) Loss of Vision: Bilateral Hearing Impairment: Denies Cancer: No Psychosocial: Yes (depression after , patient says its better now) Depression Integumentary: No Blood Disorders: Yes (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) Adverse Reaction/Blood Tranf: No (ALICIA SIFUENTES) Family Medical History Reviewed Nursing Family Hx (RICARDO BOURNE MD) Aneurysm 19 MOTHER FH: lung cancer 19 FATHER Hypertension 19 MOTHER G8 SISTER Physical Exam Vital Signs Vital Signs - First Documented 02/25/19 18:28 Temp 35.1 Pulse 84 Resp 19 B/P (MAP) 140/77 (98) Pulse Ox 100 O2 Delivery Room Air (RICARDO BOURNE MD) Vital Signs Capillary Refill : Less Than 3 Seconds (ALICIA SIFUENTES STUDENT) Height, Weight, BMI Height: 5'8.00" Weight: 154lbs. 0.0oz. 69.469091mv; 27.00 BMI Method:Stated General Appearance: Other (Patient appears very fatigued) Eyes: Bilateral Eye Conjunctivae Pale HEENT: PERRL/EOMI, Pharynx Normal Neck: Normal Inspection, Non Tender, Supple Respiratory: Chest Non Tender, No Accessory Muscle Use, No Respiratory Distress, Crackles Cardiovascular: Regular Rate, Rhythm, No Gallop, No JVD, No Murmur, Normal Peripheral Pulses, Other Gastrointestinal: Normal Bowel Sounds, No Organomegaly, No Pulsatile Mass, Non Tender, Soft Back: Normal Inspection, No CVA Tenderness, No Vertebral Tenderness Extremity: Non Tender, No Calf Tenderness, Pedal Edema Neurologic/Psychiatric: Alert, Oriented x3, Normal Mood/Affect Skin: Pallor Lymphatic: No Adenopathy (ALICIA SIFUENTES STUDENT) General Appearance: No Apparent Distress, WD/WN HEENT: Pharynx Normal, Pale Conjunctivae (L), Pale Conjunctivae (R) Neck: Non Tender, Supple Respiratory: Chest Non Tender, No Accessory Muscle Use, No Respiratory Distress, Crackles Cardiovascular: Regular Rate, Rhythm, No Murmur, Normal Peripheral Pulses Gastrointestinal: Non Tender, Soft Back: Normal Inspection, No CVA Tenderness, No Vertebral Tenderness Extremity: Non Tender, No Calf Tenderness Neurologic/Psychiatric: Alert, Oriented x3, Normal Mood/Affect Skin: Warm/Dry, Pallor (RICARDO BOURNE MD) Focused Exam Lactate Level 02/25/19 19:27: Lactic Acid Level 1.01 (RICARDO BOURNE MD) Lactic Acid Level Laboratory Tests Test 02/25/19 19:27 Lactic Acid Level 1.01 MMOL/L (0.50-2.00) (RICARDO BOURNE MD) Progress/Results/Core Measures Suspected Sepsis Recent Fever Within 48 Hours: No Infection Criteria Present: None New/Unexplained Altered Menta: No Sepsis Screen: No Definite Risk SIRS Temperature: Pulse: 84 Respiratory Rate: 19 Blood Pressure 140 /77 Mean: 98 (ALICIA SIFUENTES PA STUDENT) Results/Orders Lab Results Laboratory Tests Test 02/25/19 18:40 02/25/19 19:27 Range/Units White Blood Count 9.1 4.3-11.0 10^3/uL Red Blood Count 2.49 L 4.35-5.85 10^6/uL Hemoglobin 7.5 L 13.3-17.7 G/DL Hematocrit 22 L 40-54 % Mean Corpuscular Volume 86 80-99 FL Mean Corpuscular Hemoglobin 30 25-34 PG Mean Corpuscular Hemoglobin Concent 35 32-36 G/DL Red Cell Distribution Width 12.4 10.0-14.5 % Platelet Count 292 130-400 10^3/uL Mean Platelet Volume 10.0 7.4-10.4 FL Neutrophils (%) (Auto) 82 H 42-75 % Lymphocytes (%) (Auto) 12 12-44 % Monocytes (%) (Auto) 6 0-12 % Eosinophils (%) (Auto) 0 0-10 % Basophils (%) (Auto) 0 0-10 % Neutrophils # (Auto) 7.4 1.8-7.8 X 10^3 Lymphocytes # (Auto) 1.1 1.0-4.0 X 10^3 Monocytes # (Auto) 0.5 0.0-1.0 X 10^3 Eosinophils # (Auto) 0.0 0.0-0.3 10^3/uL Basophils # (Auto) 0.0 0.0-0.1 10^3/uL Prothrombin Time 13.2 12.2-14.7 SEC INR Comment 1.0 0.8-1.4 Activated Partial Thromboplast Time 30 24-35 SEC Sodium Level 122 *L 135-145 MMOL/L Potassium Level 4.7 3.6-5.0 MMOL/L Chloride Level 80 L 98-107 MMOL/L Carbon Dioxide Level 15 L 21-32 MMOL/L Anion Gap 27 H 5-14 MMOL/L Blood Urea Nitrogen 117 *H 7-18 MG/DL Creatinine 28.22 H 0.60-1.30 MG/DL Estimat Glomerular Filtration Rate 2 BUN/Creatinine Ratio 4 Glucose Level 140 H 70-105 MG/DL Calcium Level 7.0 L 8.5-10.1 MG/DL Corrected Calcium 7.3 L 8.5-10.1 MG/DL Phosphorus Level 9.5 H 2.3-4.7 MG/DL Magnesium Level 2.8 H 1.6-2.4 MG/DL Total Bilirubin 0.5 0.1-1.0 MG/DL Aspartate Amino Transf (AST/SGOT) 21 5-34 U/L Alanine Aminotransferase (ALT/SGPT) 31 0-55 U/L Alkaline Phosphatase 124 40-136 U/L C-Reactive Protein High Sensitivity 5.92 H 0.00-0.50 MG/DL Total Protein 6.9 6.4-8.2 GM/DL Albumin 3.6 3.2-4.5 GM/DL Lactic Acid Level 1.01 0.50-2.00 MMOL/L (RICARDO BOURNE MD) My Orders Orders - RICARDO BOURNE MD Chest Pa/Lat (2 View) (02/25/19 18:42) Cbc With Automated Diff (02/25/19 18:42) Comprehensive Metabolic Panel (02/25/19 18:42) Hs C Reactive Protein (02/25/19 18:42) Magnesium (02/25/19 18:42) Protime With Inr (02/25/19 18:42) Partial Thromboplastin Time (02/25/19 18:42) Ua Culture If Indicated (02/25/19 18:42) Phosphorus (02/25/19 18:42) Ed Iv/Invasive Line Start (02/25/19 18:42) Ekg Tracing (02/25/19 18:42) Lactic Acid Analyzer (02/25/19 19:20) Blood Culture (02/25/19 19:20) Ns Iv 500 Ml (Sodium Chloride 0.9%) (02/25/19 20:33) (RICARDO BOURNE MD) Medications Given in ED Current Medications Medications Dose Ordered Sig/Kailey Route Start Time Stop Time Status Last Admin Dose Admin Sodium Chloride 500 ml @ 0 mls/hr Q0M ONCE IV 02/25/19 20:33 02/25/19 20:35 DC 02/25/19 20:40 0 MLS/HR (RICARDO BOURNE MD) Vital Signs/I&O 02/25/19 18:28 Temp 35.1 Pulse 84 Resp 19 B/P (MAP) 140/77 (98) Pulse Ox 100 O2 Delivery Room Air (RICARDO BOURNE MD) Vital Signs/I&O Capillary Refill : Less Than 3 Seconds (ALICIA SIFUENTES PA STUDENT) Blood Pressure Mean: 98 Progress Note : Progress Note Seen and evaluated the patient and agree with above except as indicated. Have directed the plan of care. IV 2, labs, EKG and chest x-ray ordered. Monitor patient. 1929: Creatinine greater than 28 and BUN elevated. Sodium and chloride low potassium okay. Patient will require transfer to dialysis center. Concerns for 5 basilar atelectasis/infiltrate so we will go ahead and get blood cultures and lactic acid. Awaiting UA. We will begin transfer proceedings. 2046: I did speak with Dr. Watson, hospitalist on-call at [facility] in [facility]. She accepts patient for transfer due to need for dialysis which we are unable to provide here. I did discuss this with the patient and he agrees. I have ordered normal saline 500 mL bolus. We will hold on antibiotics at this point as the chest x-ray is likely atelectasis. This was discussed with the accepting physician and she agrees. Patient will go by EMS. There may be delayed due to multiple transfers occurring currently. This was discussed with the accepting hospital they agreed. Pending bed assignment. Monitor patient. (RICARDO BOURNE MD) ECG Initial ECG Impression Date: Feb 25, 2019 Initial ECG Impression Time: 18:46 Initial ECG Rate: 80 Initial ECG Rhythm: Normal Sinus Comment Sinus rhythm with normal axis. No evidence of ST elevation IL. Borderline prolonged QT interval. Similar to previous of 05/20/18. Interpreted by me. (RICARDO BOURNE MD) Diagnostic Imaging Diagonstic Imaging: Xray Plain Films/CT/US/NM/MRI: chest Comments NAME: DENIS DAVIS MED REC#: [id number] PT STATUS: REG ER : 1945 PHYSICIAN: RICARDO BOURNE MD ADMIT DATE: 02/25/19/ER Signed Date of Exam: 02/25/19 CHEST PA/LAT (2 VIEW) EXAMINATION: PA and lateral chest at 7:05 p.m. INDICATION: Kidney failure, weakness. FINDINGS: The heart size is within normal limits and stable when compared to 05/20/2018. The previous study did note alveolar/interstitial pulmonary infiltrates involving the left lung. On this study, the left lung does seem better aerated, but a small amount of atelectasis/infiltrate and fluid has developed in the left lung base. Furthermore, the right lower lobe is now partially obscured by atelectasis/infiltrate and fluid. There is also now a vague area of increased density about the right hilum. The lung apices are clear. The mediastinum is not widened. The osseous structures are intact. IMPRESSION: There are mixed results. The left lung does seem better aerated when compared to the prior study. However, bibasilar atelectasis/infiltrate and small bilateral pleural effusions have developed since the prior study, with greater involvement on the right. A follow-up study would be recommended for further evaluation. Dictated by: Dictated on workstation # [id number] Dict: 02/25/191908 Trans: 02/25/191912 Interpreted by: YOLI MACIAS MD Electronically signed by: YOLI MACIAS MD 02/25/191912 (RICARDO BOURNE MD) Departure Impression Primary Impression: End stage renal disease on dialysis Additional Impressions: Anemia Qualified Codes: D64.9 - Anemia, unspecified Elevated serum creatinine Hyponatremia Disposition: XF SHT-TRM HOSP Condition: Stable Transfer Transfer Reason: Exceeds level of care Time Spoke to Accepting Phy: 20:47 Transfer Facility: [place], [place], Dr. Watson accepting Method of Transfer: EMS (RICARDO BOURNE MD) Departure-Patient Inst. Referrals: ELLA CANTU DO (PCP/Family) Primary Care Physician ALICIA SIFUENTES STUDENT Feb 25, 2019 18:50 RICARDO BOURNE MD Feb 25, 2019 19:40
[2019-02-25 18:55] LABS: BASOPHILS % (AUTO) 0 % (0-10); EOSINOPHILS % (AUTO) 0 % (0-10); HEMATOCRIT 22 % (40-54); HEMOGLOBIN 7.5 G/DL (13.3-17.7); LYMPHOCYTES # (AUTO) 1.1 X 10^3 (1.0-4.0); LYMPHOCYTES % (AUTO) 12 % (12-44); MEAN CORPUSCULAR HEMOGLOBIN 30 PG (25-34); MEAN CORPUSCULAR HGB CONC 35 G/DL (32-36); MEAN CORPUSCULAR VOLUME 86 FL (80-99); MONOCYTES # (AUTO) 0.5 X 10^3 (0.0-1.0); MONOCYTES % (AUTO) 6 % (0-12); NEUTROPHILS # (AUTO) 7.4 X 10^3 (1.8-7.8); NEUTROPHILS % (AUTO) 82 % (42-75); PLATELET COUNT 292 10^3/uL (130-400); RED CELL DISTRIBUTION WIDTH 12.4 % (10.0-14.5); WHITE BLOOD COUNT 9.1 10^3/uL (4.3-11.0)
[2019-02-25 19:02] LABS: PROTHROMBIN TIME PATIENT 13.2 SEC (12.2-14.7)
[2019-02-25 19:09] LABS: ALBUMIN 3.6 GM/DL (3.2-4.5); BILIRUBIN,TOTAL 0.5 MG/DL (0.1-1.0); CREATININE SERUM 28.22 MG/DL (0.60-1.30); MAGNESIUM 2.8 MG/DL (1.6-2.4); PHOSPHORUS 9.5 MG/DL (2.3-4.7); POTASSIUM 4.7 MMOL/L (3.6-5.0); TOTAL PROTEIN 6.9 GM/DL (6.4-8.2)
--- NOTE | 2019-02-25 19:12 | Diagnostic Imaging Report ---
EXAMINATION: PA and lateral chest at 7:05 p.m. INDICATION: Kidney failure, weakness. FINDINGS: The heart size is within normal limits and stable when compared to 05/20/2018. The previous study did note alveolar/interstitial pulmonary infiltrates involving the left lung. On this study, the left lung does seem better aerated, but a small amount of atelectasis/infiltrate and fluid has developed in the left lung base. Furthermore, the right lower lobe is now partially obscured by atelectasis/infiltrate and fluid. There is also now a vague area of increased density about the right hilum. The lung apices are clear. The mediastinum is not widened. The osseous structures are intact. IMPRESSION: There are mixed results. The left lung does seem better aerated when compared to the prior study. However, bibasilar atelectasis/infiltrate and small bilateral pleural effusions have developed since the prior study, with greater involvement on the right. A follow-up study would be recommended for further evaluation. Dictated by: Dictated on workstation # [id number]
[2019-02-25] MEDS ORDERED: NS IV 500 ML 500 ML IV ONE (20:33)
--- NOTE | 2019-02-25 21:41 | NUR ---
updated pt that we are waiting on a room number from [facility]. Pt is relaxing in bed at this time and states he does not have any needs.
--- NOTE | 2019-02-25 22:13 | NUR ---
Recieved room number from [facility] at this time.
--- NOTE | 2019-02-25 22:22 | NUR ---
Report called to SRIDHAR Mcfadden at this time.
--- NOTE | 2019-02-25 22:26 | NUR ---
[facility] dispatch called out at this time for transfer.
[2019-02-26 00:57] VITALS: BP 136/67
== END 2019-02-26 00:59 | disposition short-term general hospital (02) ==
LOC: EDUNIT# 18:22 → ER 18:23
DX: I12.0 Hypertensive chronic kidney disease with stage 5 chronic kidney disease or end stage renal disease (principal); N18.6 End stage renal disease; D63.1 Anemia in chronic kidney disease; R79.89 Other specified abnormal findings of blood chemistry; E87.1 Hypo-osmolality and hyponatremia; F32.9 Major depressive disorder, single episode, unspecified; Z99.2 Dependence on renal dialysis; Z80.0 Family history of malignant neoplasm of digestive organs; Z87.01 Personal history of pneumonia (recurrent); Z86.018 Personal history of other benign neoplasm; Z82.49 Family history of ischemic heart disease and other diseases of the circulatory system
CPT/HCPCS: 36415; 71046; 80053; 83605; 83735; 84100; 85025; 85610; 85730; 86141; 87040; 93005

== ENCOUNTER → 2019-04-01 | Outpatient (CLI) | payer MEDICARE | LOC: LAB 15:07 | PROVIDERS: ATTEND Internal Medicine Cardiovascular Disease | DX: I10 Essential (primary) hypertension (principal) | CPT/HCPCS: 36415; 82088 ==

== ENCOUNTER → 2019-04-07 | Outpatient (CLI) | payer MEDICARE ==
[~2019-04-07] VITALS: Ht 173 cm; Wt 70.0 kg
[~2019-04-07] MED LIST changes: +CATHETER FLUSH 10 ML SYR IV PRN; +REGADENOSON 0.4 MG/5 ML SYR (LEXISCAN) IV ONE
[2019-04-07 09:13] VITALS: BP 172/103
== END ==
LOC: CARD 07:35
PROVIDERS: ATTEND Internal Medicine Cardiovascular Disease
DX: I48.0 Paroxysmal atrial fibrillation (principal); I12.0 Hypertensive chronic kidney disease with stage 5 chronic kidney disease or end stage renal disease; N18.5 Chronic kidney disease, stage 5; I50.31 Acute diastolic (congestive) heart failure
CPT/HCPCS: 78452; 93017

== ENCOUNTER 2019-04-10 00:11 | Emergency (ER) | payer MEDICARE ==
[~2019-04-10] VITALS: Ht 172 cm; Wt 54.0 kg
[~2019-04-10 00:11] MED LIST changes: -CATHETER FLUSH 10 ML SYR IV PRN; -REGADENOSON 0.4 MG/5 ML SYR (LEXISCAN) IV ONE
[2019-04-10 00:32] LABS: BASOPHILS % (AUTO) 0 % (0-10); EOSINOPHILS # (AUTO) 0.1 10^3/uL (0.0-0.3); EOSINOPHILS % (AUTO) 1 % (0-10); HEMATOCRIT 33 % (40-54); HEMOGLOBIN 10.3 G/DL (13.3-17.7); LYMPHOCYTES # (AUTO) 1.9 X 10^3 (1.0-4.0); LYMPHOCYTES % (AUTO) 16 % (12-44); MEAN CORPUSCULAR HEMOGLOBIN 30 PG (25-34); MEAN CORPUSCULAR HGB CONC 32 G/DL (32-36); MEAN CORPUSCULAR VOLUME 97 FL (80-99); MEAN PLATELET VOLUME 9.4 FL (7.4-10.4); MONOCYTES # (AUTO) 0.5 X 10^3 (0.0-1.0); MONOCYTES % (AUTO) 4 % (0-12); NEUTROPHILS # (AUTO) 9.6 X 10^3 (1.8-7.8); NEUTROPHILS % (AUTO) 79 % (42-75); PLATELET COUNT 288 10^3/uL (130-400); RED CELL DISTRIBUTION WIDTH 16.1 % (10.0-14.5); WHITE BLOOD COUNT 12.2 10^3/uL (4.3-11.0)
[2019-04-10 00:42] LABS: INR 1.1 (0.8-1.4); PROTHROMBIN TIME PATIENT 15.1 SEC (12.2-14.7)
[2019-04-10 00:48] LABS: ALBUMIN 3.7 GM/DL (3.2-4.5); BILIRUBIN,TOTAL 0.5 MG/DL (0.1-1.0); CALCIUM 8.3 MG/DL (8.5-10.1); CREATININE SERUM 6.51 MG/DL (0.60-1.30); TOTAL PROTEIN 6.8 GM/DL (6.4-8.2)
[2019-04-10] MEDS ORDERED: CEFEPIME INJECTION 1,000 MG in WATER (STERILE) FOR INJECTION 10 ML IV ONE (01:00)
[2019-04-10 01:22] VITALS: BP 179/102
--- NOTE | 2019-04-10 01:45 | ED Respiratory ---
General Chief Complaint: Respiratory Problems Stated Complaint: SOB Source: patient Exam Limitations: no limitations History of Present Illness Date Seen by Provider: Apr 10, 2019 Time Seen by Provider: 00:13 Initial Comments This 73-year-old gentleman on dialysis for end-stage renal failure is brought to the emergency room in respiratory distress. He normally uses oxygen at 4 L by nasal cannula and increased it to 5 L at home. He developed cough within the last 24 hours. His last dialysis was on April 08. EMS reports a DuoNeb treatment was administered along with nasal cannula oxygen which improved his auction saturation to 96 percent. On arrival he is very pale, moving air very poorly, and has extremely wet breath sounds. BiPAP was immediately ordered. Patient denied any fever. He denies any history of respiratory problems such as COPD. He receives his nephrology care at [facility]. Allergies and Home Medications Allergies Coded Allergies: No Known Drug Allergies (Unverified , 07/14/18) Home Medications Amlodipine Besylate 10 Mg Tablet, 10 MG PO DAILY, (Reported) Ascorbate Calcium 500 Mg Tablet, 500 MG PO DAILY, (Reported) Cholecalciferol (Vitamin D3) 1,000 Unit Capsule, 1,000 UNIT PO DAILY, (Reported) Clonidine HCl 0.2 Mg Tablet, 0.2 MG PO BID, (Reported) Diphenhydramine HCl 25 Mg Capsule, 25 MG PO HS, (Reported) Lactobacillus Combo No.10 1 Each Capsule, 1 CAP PO DAILY, (Reported) Melatonin 5 Mg Capsule, 5 MG PO HS, (Reported) Metoprolol Succinate 100 Mg Tab.er.24h, 100 MG PO HS, (Reported) Nifedipine 10 Mg Capsule, 10 MG PO DAILY, (Reported) Mica 3 Polyunsat Fatty Acids 1,000 Mg Cap, 1,000 MG PO DAILY, (Reported) Valerian Root 100 Mg Capsule, 100 MG PO HS, (Reported) Patient Home Medication List Home Medication List Reviewed: Yes Review of Systems Review of Systems Constitutional: no symptoms reported EENTM: no symptoms reported Respiratory: see HPI Cardiovascular: no symptoms reported Gastrointestinal: no symptoms reported Genitourinary: see HPI Musculoskeletal: no symptoms reported Skin: no symptoms reported Psychiatric/Neurological: No Symptoms Reported Hematologic/Lymphatic: No Symptoms Reported Past Ujqqobm-Aizjvx-Goypyc Hx Past Med/Social Hx: Reviewed and Corrections made Patient Social History 2nd Hand Smoke Exposure: No Recent Foreign Travel: No Contact w/Someone Who Travel: No Recent Hopitalizations: Yes (MAY 2018-PNEUMOIA) Seasonal Allergies Seasonal Allergies: No Past Medical History Surgeries: Yes (left adrenal gland removed, umb hernia with peritoneal cath, dialysis catheter and right chest) Adrenal Respiratory: Yes (chronic hypoxia, uses supplemental O2 at 4 L/m) Pneumonia Currently Using CPAP: No Currently Using BIPAP: No Cardiac: Yes Hypertension Neurological: No Genitourinary: Yes Renal Failure, Dialysis Gastrointestinal: No Musculoskeletal: Yes Scoliosis 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, 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) HEENT: Yes (GLASSES) Loss of Vision: Bilateral Hearing Impairment: Denies Cancer: No Psychosocial: Yes (depression after , patient says its better now) Depression Integumentary: No Blood Disorders: Yes (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) Adverse Reaction/Blood Tranf: No Family Medical History Reviewed Nursing Family Hx Aneurysm 19 MOTHER FH: lung cancer 19 FATHER Hypertension 19 MOTHER G8 SISTER Physical Exam Vital Signs - First Documented 04/09/19 04/10/19 00:15 00:13 Temp 36.7 Pulse 112 Resp 40 B/P (MAP) 163/103 (123) Pulse Ox 100 O2 Delivery NIV Bilevel O2 Flow Rate 80.00 Capillary Refill : Height: 5'8.00" Weight: 154lbs. 0.0oz. [id number]; 23.38 BMI Method:Stated General Appearance: WD/WN, moderate distress HEENT: PERRL/EOMI, normal ENT inspection Neck: normal inspection Respiratory: respiratory distress, accessory muscle use, crackles, rhonchi, other (poor air movement with very coarse rhonchi and crackles throughout. 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 II-XII nml as tested, no motor/sensory deficits, alert, normal mood/affect, oriented x 3 Skin: normal color, warm/dry Focused Exam Lactate Level 04/10/19 00:18: Lactic Acid Level 3.93*H 04/10/19 03:00: Lactic Acid Level 0.75 Lactic Acid Level Laboratory Tests Test 04/10/19 00:18 04/10/19 03:00 Lactic Acid Level 3.93 MMOL/L (0.50-2.00) *H 0.75 MMOL/L (0.50-2.00) Progress/Results/Core Measures Suspected Sepsis SIRS Temperature: Pulse: Respiratory Rate: Laboratory Tests 04/10/19 00:18: White Blood Count 12.2H Blood Pressure / Mean: 04/10/19 00:18: Lactic Acid Level 3.93*H 04/10/19 03:00: Lactic Acid Level 0.75 Laboratory Tests 04/10/19 00:18: Creatinine 6.51H, INR Comment 1.1, Platelet Count 288, Total Bilirubin 0.5 Results/Orders Lab Results Laboratory Tests Test 04/10/19 00:18 04/10/19 03:00 Range/Units White Blood Count 12.2 H 4.3-11.0 10^3/uL Red Blood Count 3.39 L 4.35-5.85 10^6/uL Hemoglobin 10.3 L 13.3-17.7 G/DL Hematocrit 33 L 40-54 % Mean Corpuscular Volume 97 80-99 FL Mean Corpuscular Hemoglobin 30 25-34 PG Mean Corpuscular Hemoglobin Concent 32 32-36 G/DL Red Cell Distribution Width 16.1 H 10.0-14.5 % Platelet Count 288 130-400 10^3/uL Mean Platelet Volume 9.4 7.4-10.4 FL Neutrophils (%) (Auto) 79 H 42-75 % Lymphocytes (%) (Auto) 16 12-44 % Monocytes (%) (Auto) 4 0-12 % Eosinophils (%) (Auto) 1 0-10 % Basophils (%) (Auto) 0 0-10 % Neutrophils # (Auto) 9.6 H 1.8-7.8 X 10^3 Lymphocytes # (Auto) 1.9 1.0-4.0 X 10^3 Monocytes # (Auto) 0.5 0.0-1.0 X 10^3 Eosinophils # (Auto) 0.1 0.0-0.3 10^3/uL Basophils # (Auto) 0.0 0.0-0.1 10^3/uL Prothrombin Time 15.1 H 12.2-14.7 SEC INR Comment 1.1 0.8-1.4 Activated Partial Thromboplast Time 32 24-35 SEC Sodium Level 136 135-145 MMOL/L Potassium Level 6.0 H 3.6-5.0 MMOL/L Chloride Level 97 L 98-107 MMOL/L Carbon Dioxide Level 22 21-32 MMOL/L Anion Gap 17 H 5-14 MMOL/L Blood Urea Nitrogen 42 H 7-18 MG/DL Creatinine 6.51 H 0.60-1.30 MG/DL Estimat Glomerular Filtration Rate 8 BUN/Creatinine Ratio 6 Glucose Level 173 H 70-105 MG/DL Lactic Acid Level 3.93 *H 0.75 0.50-2.00 MMOL/L Calcium Level 8.3 L 8.5-10.1 MG/DL Corrected Calcium 8.5 8.5-10.1 MG/DL Total Bilirubin 0.5 0.1-1.0 MG/DL Aspartate Amino Transf (AST/SGOT) 53 H 5-34 U/L Alanine Aminotransferase (ALT/SGPT) 87 H 0-55 U/L Alkaline Phosphatase 185 H 40-136 U/L C-Reactive Protein High Sensitivity 4.64 H 0.00-0.50 MG/DL Total Protein 6.8 6.4-8.2 GM/DL Albumin 3.7 3.2-4.5 GM/DL My Orders Orders - LIZETTE BOO MD Cbc With Automated Diff (04/10/19:) Comprehensive Metabolic Panel (04/10/19:) Blood Culture (04/10/19:) Sputum Culture (04/10/19:) Protime With Inr (04/10/19:) Partial Thromboplastin Time (04/10/19:) Chest 1 View, Ap/Pa Only (04/10/19:) Ed Iv/Invasive Line Start (04/10/19:19) Ed Iv/Invasive Line Start (04/10/19:) Vital Signs Adult Sepsis Patie Q15M (04/10/19:) O2 (04/10/19:) Remove Rings In Anticipation O (04/10/19:) Lactic Acid Analyzer (04/10/19:) Hs C Reactive Protein (04/10/19 00:22) Ekg Tracing (04/10/19:) Monitor-Rhythm Ecg Trace Only (04/10/19:) Sodium Polystyrene Sulfonate (Kayexalate (04/10/19 02:00) Furosemide Injection (Lasix Injection) (04/10/19 02:00) Calcium Gluconate 10% Inj (Calcium Glu (04/10/19 02:00) Insulin (Regular) Human (Humulin R (Per (04/10/19 02:00) D50w (Emergency) Syringe (Dextrose 50% 5 (04/10/19 02:00) Accucheck Stat ONCE (04/10/19 03:15) Medications Given in ED Current Medications Medications Dose Ordered Sig/Kailey Route Start Time Stop Time Status Last Admin Dose Admin Calcium Gluconate 4.65 meq ONCE ONCE IV 04/10/19 02:00 04/10/19 02:02 DC 04/10/19 02:47 4.65 MEQ Cefepime HCl 1000 mg/Sterile Water 10 ml @ 200 mls/hr ONCE ONCE IV 04/10/19 01:00 04/10/19 01:02 DC 04/10/19 01:36 200 MLS/HR Dextrose 50 ml ONCE ONCE IV 04/10/19 02:00 04/10/19 02:02 DC 04/10/19 02:46 50 ML Furosemide 80 mg ONCE ONCE IVP 04/10/19 02:00 04/10/19 02:02 DC 04/10/19 02:47 80 MG Insulin Human Regular 5 unit ONCE ONCE IV 04/10/19 02:00 04/10/19 02:02 DC 04/10/19 03:00 5 UNIT Sodium Polystyrene Sulfonate 15 gm ONCE ONCE PO 04/10/19 02:00 04/10/19 02:02 DC 04/10/19 02:47 15 GM Vital Signs/I&O 04/09/19 04/10/19 04/10/19 04/10/19 00:15 00:13 00:13 01:22 Temp 36.7 Pulse 112 66 68 Resp 40 32 20 B/P (MAP) 163/103 (123) Pulse Ox 100 99 99 100 O2 Delivery NIV Bilevel NIV Bilevel O2 Flow Rate 80.00 60.00 Capillary Refill : Progress Note #1: Time: 01:43 Progress Note Patient received a DuoNeb treatment by EMS. He was placed on BiPAP immediately upon arrival with excellent improvement in both respiratory comfort and breath sounds on auscultation. He has mild leukocytosis and mild elevation in CRP. Pulmonary congestion with superimposed pneumonia cannot be ruled out on x-ray. He is being treated for possible pneumonia, and antibiotic therapy is being initiated with cefepime. Progress Note #2: Time: 03:05 Progress Note Patient continues to do well. He does however get very short of breath and anxious when BiPAP is removed. Case was discussed with Dr. Ojeda, hospitalist at [facility] at 01:35. He accepted transfer. He requested that the hyperkalemia be addressed with Kayexalate, insulin, D50, and calcium gluconate, and Lasix. These medications were administered. EMS is preparing to transfer now. ECG Initial ECG Impression Date: Apr 10, 2019 Initial ECG Impression Time: 01:57 Initial ECG Rate: 64 Initial ECG Rhythm: Normal Sinus Initial ECG Intervals: Normal Initial ECG Impression: Normal Comment Normal sinus rhythm with no ST elevation or depression. No abnormal intervals or axis deviation. Peaked T waves in V3 and V4 consistent with hyperkalemia. Diagnostic Imaging Diagonstic Imaging: Xray Plain Films/CT/US/NM/MRI: chest Comments Chest x-ray shows pulmonary congestion with possible superimposed infiltrate, left greater than right Departure Impression Primary Impression: Respiratory distress Additional Impressions: End stage renal failure on dialysis Hyperkalemia Disposition: 02 XFER SHT-TRM HOSP Condition: Improved Transfer Transfer Reason: Exceeds level of care Time Spoke to Accepting Phy: 01:[address] Ojeda Transfer Time: 03:20 Transfer Facility: [facility] Method of Transfer: EMS Departure-Patient Inst. Referrals: ELLA CANTU DO (PCP/Family) Primary Care Physician LIZETTE BOO MD Apr 10, 2019 01:45 POS
[2019-04-10] MEDS ORDERED: SOD POLYSTERENE 15 GM/60 ML (KAYEXALATE) UNIT DOSE PO ONE (02:00)
[2019-04-10] MEDS ORDERED: DEXTROSE 50% 50 ML (IMS) SYR IV ONE (02:00)
[2019-04-10] MEDS ORDERED: inSUlin (REGULAR) HUMAN 1 UNIT/0.01 ML (CHARGE PER UNIT) IV ONE (02:00)
[2019-04-10] MEDS ORDERED: CALCIUM GLUC. 10% 4.65 MEQ/10 ML VIAL IV ONE (02:00)
[2019-04-10] MEDS ORDERED: FUROSEMIDE 40 MG/4 ML INJ (LASIX) IVP ONE (02:00)
--- NOTE | 2019-04-10 03:20 | NUR ---
EMS STAFF ONSITE FOR PT TRANSPORT.
[2019-04-10 03:45] VITALS: BP 193/106
--- NOTE | 2019-04-10 06:15 | Diagnostic Imaging Report ---
INDICATION: Shortness of breath COMPARISON: 02/25/2019 FINDINGS: Single view of the chest demonstrates new infiltrates in the hilum and bases bilaterally. The heart is prominent. There are increasing bilateral pleural effusions, left greater than right. There is no pneumothorax. The central venous catheter is in good position. IMPRESSION: New bilateral pulmonary infiltrates with effusions representing CHF versus pneumonia. Follow-up recommended. Dictated by: Dictated on workstation # [id number]
== END 2019-04-10 03:45 | disposition short-term general hospital (02) ==
LOC: EDUNIT# 00:11 → ER 00:13
DX: I12.0 Hypertensive chronic kidney disease with stage 5 chronic kidney disease or end stage renal disease (principal); N18.6 End stage renal disease; E87.5 Hyperkalemia; R09.02 Hypoxemia; R06.03 Acute respiratory distress; J44.9 Chronic obstructive pulmonary disease, unspecified; F32.9 Major depressive disorder, single episode, unspecified; D63.1 Anemia in chronic kidney disease; Z80.1 Family history of malignant neoplasm of trachea, bronchus and lung; Z87.01 Personal history of pneumonia (recurrent); Z86.018 Personal history of other benign neoplasm; Z99.2 Dependence on renal dialysis; Z99.81 Dependence on supplemental oxygen; Z82.49 Family history of ischemic heart disease and other diseases of the circulatory system
CPT/HCPCS: 36415; 71045; 80053; 83605; 85025; 85610; 85730; 86141; 87040; 87070; 87077; 87185; 87186; 87205; 93005; 93041

== ENCOUNTER 2019-11-03 05:47 | Outpatient (RCR) | payer MEDICARE ==
[~2019-11-03] VITALS: Ht 172 cm; Wt 68.6 kg
[~2019-11-03 05:47] MED LIST changes: +ASPI-586 PO; +CALC667T7 PO; +CARV25TA PO; +FOLI1TAB40 PO; +GUAI400T86 PO; +HYDR-83 PO; -METO-395 PO; +MTP100TCR PO; +NIFE60TA2 PO
== END 2019-11-03 15:43 | disposition home or self-care (01) ==
LOC: PREOP 05:47
PROVIDERS: ATTEND Surgery
DX: Z01.818 Encounter for other preprocedural examination (principal); Z11.59 Encounter for screening for other viral diseases
CPT/HCPCS: 87635

== ENCOUNTER 2019-11-06 12:11 | Day surgery (SDC) | payer MEDICARE ==
[2019-11-06] VITALS (7 sets, daily range): BP systolic 11–145; BP diastolic 66–79
[~2019-11-06] VITALS: Ht 172 cm; Wt 68.6 kg
[2019-11-06] MEDS ORDERED: ceFAZolin INJECTION 1,000 MG in WATER (STERILE) FOR INJECTION 10 ML IV ONE (12:30)
[2019-11-06] MEDS ORDERED: BUP/EPI 0.5% 1:200,000 (SENSORCAINE) 30 ML VIAL ONE (12:31)
--- OUTSIDE RECORDS SUMMARY | 2019-11-06 12:31 | XMS REPORT | Continuity of Care Document ---
Author Organization Unknown Address Unknown Phone Unavailable Allergies Active Description Code Type Severity Reaction Onset Reported/Identified Relationship to Patient Clinical Status Yes No Known Drug Allergies [id number] Drug Allergy Unknown N/A 11/02/2019 Medications There is no data. Problems Date Dx Coded Attending Type Code Diagnosis Diagnosed By 05/20/2018 ORIANA ALCANTARA MD Ot 585 .3 CHRONIC KIDNEY DISEASE, STAGE III (MODER 05/20/2018 ORIANA ALCANTARA MD Ot 585 .3 CHRONIC KIDNEY DISEASE, STAGE III (MODER 05/22/2018 JOSS LEMOS MD Ot E86 .0 DEHYDRATION 05/22/2018 JOSS LEMOS MD Ot F32 .9 MAJOR DEPRESSIVE DISORDER, SINGLE EPISOD 05/22/2018 JOSS LEMOS MD Ot I12 .0 HYP CHR KIDNEY DISEASE W STAGE 5 CHR KID 05/22/2018 JOSS LEMOS MD Ot J18 .1 LOBAR PNEUMONIA, UNSPECIFIED ORGANISM 05/22/2018 JOSS LEMOS MD Ot M41 .9 SCOLIOSIS, UNSPECIFIED 05/22/2018 JOSS LEMOS MD Ot N18 .6 END STAGE RENAL DISEASE 07/15/2018 DUSTY MANJARREZ DO Ot Z01.818 ENCOUNTER FOR OTHER PREPROCEDURAL EXAMIN 08/11/2018 ERIK MANJARREZ DO Ot Z01.818 ENCOUNTER FOR OTHER PREPROCEDURAL EXAMIN 08/14/2018 DUSTY MANJARREZ DO Ot G57. 93 UNSPECIFIED MONONEUROPATHY OF BILATERAL 08/14/2018 DUSTY MANJARREZ DO Ot I12. 9 HYPERTENSIVE CHRONIC KIDNEY DISEASE W ST 08/14/2018 DUSTY MANJARREZ DO Ot K42. 9 UMBILICAL HERNIA WITHOUT OBSTRUCTION OR 08/14/2018 DUSTY MANJARREZ DO Ot N18. 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 93 UNSPECIFIED MONONEUROPATHY OF BILATERAL 08/18/2018 DUSTY MANJARREZ DO Ot I12. 9 HYPERTENSIVE CHRONIC KIDNEY DISEASE W ST 08/18/2018 DUSTY MANJARREZ DO Ot K42. 9 UMBILICAL HERNIA WITHOUT OBSTRUCTION OR 08/18/2018 DUSTY MANJARREZ DO Ot N18. 9 CHRONIC KIDNEY DISEASE, UNSPECIFIED 08/18/2018 DUSTY MANJARREZ DO Ot Z79.899 OTHER CARE HOME (CURRENT) DRUG THERAPY 11/26/2018 DUSTY MANJARREZ DO Ot Z01.818 ENCOUNTER FOR OTHER PREPROCEDURAL EXAMIN 11/27/2018 DUSTY MANJARREZ DO Ot Z01.818 ENCOUNTER FOR OTHER PREPROCEDURAL EXAMIN 11/27/2018 DUSTY MANJARREZ DO Ot F32. 9 MAJOR DEPRESSIVE DISORDER, SINGLE EPISOD 11/27/2018 DUSTY MANJARREZ DO Ot I12. 9 HYPERTENSIVE CHRONIC KIDNEY DISEASE W ST 11/27/2018 DUSTY MANJARREZ DO Ot K42. 9 UMBILICAL HERNIA WITHOUT OBSTRUCTION OR 11/27/2018 DUSTY MANJARREZ DO Ot M41. 9 SCOLIOSIS, UNSPECIFIED 11/27/2018 DUSTY MANAJRREZ DO Ot N18. 9 CHRONIC KIDNEY DISEASE, UNSPECIFIED 11/27/2018 DUSTY MANJARREZ DO Ot Z11. 2 ENCOUNTER FOR SCREENING FOR OTHER BACTER 11/27/2018 DUSTY MANJARREZ DO Ot Z79.899 OTHER PROGRAM DIRECTOR/MORNING SHOW HOST (CURRENT) DRUG THERAPY 11/27/2018 DUSTY MANJARREZ DO Ot Z87. 01 PERSONAL HISTORY OF PNEUMONIA (RECURRENT 02/26/2019 STEFFEN MITCHELL, RICARDO Rubin Ot D63.1 ANEMIA IN CHRONIC KIDNEY DISEASE 02/26/2019 RICARDO BOURNE MD Ot E87.1 HYPO-OSMOLALITY AND HYPONATREMIA 02/26/2019 RICARDO BOURNE MD Ot F32.9 MAJOR DEPRESSIVE DISORDER, SINGLE EPISOD 02/26/2019 RICARDO BOURNE MD Ot I12.0 HYP CHR KIDNEY DISEASE W STAGE 5 CHR KID 02/26/2019 RICARDO BOURNE MD Ot N18.6 END STAGE RENAL DISEASE 02/26/2019 RICARDO BOURNE MD Ot R53.1 WEAKNESS 02/26/2019 RICARDO BOURNE MD, Ot R79.89 OTHER SPECIFIED ABNORMAL FINDINGS OF BLO 02/26/2019 RICARDO BOURNE MD, Ot Z80.0 FAMILY HISTORY OF MALIGNANT NEOPLASM OF 02/26/2019 RICARDO BOURNE MD, Ot Z82.49 FAMILY HX OF ISCHEM HEART DIS AND OTH DI 02/26/2019 RICARDO BOURNE MD, Ot Z86.018 PERSONAL HISTORY OF OTHER BENIGN NEOPLAS 02/26/2019 RICARDO BOURNE MD, Ot Z87.01 PERSONAL HISTORY OF PNEUMONIA (RECURRENT 02/26/2019 RICARDO BOURNE MD, Ot Z99.2 DEPENDENCE ON RENAL DIALYSIS 04/03/2019 RICHELLE MITCHELL FACC, ALI FACP CCDS Ot I10 ESSENTIAL (PRIMARY) HYPERTENSION 04/10/2019 RICHELLE MITCHELL FACC, ALI FACP CCDS Ot I12.0 HYP CHR KIDNEY DISEASE W STAGE 5 CHR KID 04/10/2019 RICHELLE MITCHELL FACC, ALI FACP CCDS Ot I48.0 PAROXYSMAL ATRIAL FIBRILLATION 04/10/2019 RICHELLE MITCHELL FACC, ALI FACP CCDS Ot I50.31 ACUTE DIASTOLIC (CONGESTIVE) HEART FAILU 04/10/2019 RICHELLE MITCHELL FACC, ALI FACP CCDS Ot N18.5 CHRONIC KIDNEY DISEASE, STAGE 5 04/10/2019 LIZETTE BOO MD Ot D63.1 ANEMIA IN CHRONIC KIDNEY DISEASE 04/10/2019 LIZETTE BOO MD Ot E87.5 HYPERKALEMIA 04/10/2019 LIZETTE BOO MD Ot F32.9 MAJOR DEPRESSIVE DISORDER, SINGLE EPISOD 04/10/2019 LIZETTE BOO MD Ot I12.0 HYP CHR KIDNEY DISEASE W STAGE 5 CHR KID 04/10/2019 LIZETTE BOO MD Ot J44.9 CHRONIC OBSTRUCTIVE PULMONARY DISEASE, U 04/10/2019 LIZETTE BOO MD Ot N18.6 END STAGE RENAL DISEASE 04/10/2019 LIZETTE BOO MD Ot R06.03 ACUTE RESPIRATORY DISTRESS 04/10/2019 LIZETTE BOO MD Ot R09.02 HYPOXEMIA 04/10/2019 LIZETTE BOO MD Ot Z80.1 FAMILY HISTORY OF MALIG NEOPLASM OF TRAC 04/10/2019 LIZETTE BOO MD Ot Z82.49 FAMILY HX OF ISCHEM HEART DIS AND OTH DI 04/10/2019 LIZETTE BOO MD Ot Z86.018 PERSONAL HISTORY OF OTHER BENIGN NEOPLAS 04/10/2019 LIZETTE BOO MD Ot Z87.01 PERSONAL HISTORY OF PNEUMONIA (RECURRENT 04/10/2019 LIZETTE BOO MD Ot Z99.2 DEPENDENCE ON RENAL DIALYSIS 04/10/2019 LIZETTE BOO MD Ot Z99.81 DEPENDENCE ON SUPPLEMENTAL OXYGEN 04/14/2019 LIZETTE BOO MD Ot D63.1 ANEMIA IN CHRONIC KIDNEY DISEASE 04/14/2019 LIZETTE BOO MD Ot E87.5 HYPERKALEMIA 04/14/2019 LIZETTE BOO MD Ot F32.9 MAJOR DEPRESSIVE DISORDER, SINGLE EPISOD 04/14/2019 LIZETTE BOO MD Ot I12.0 HYP CHR KIDNEY DISEASE W STAGE 5 CHR KID 04/14/2019 LIZETTE BOO MD Ot J44.9 CHRONIC OBSTRUCTIVE PULMONARY DISEASE, U 04/14/2019 LIZETTE BOO MD Ot N18.6 END STAGE RENAL DISEASE 04/14/2019 LIZETTE BOO MD Ot R06.03 ACUTE RESPIRATORY DISTRESS 04/14/2019 LIZETTE BOO MD Ot R09.02 HYPOXEMIA 04/14/2019 LIZETTE BOO MD Ot Z80.1 FAMILY HISTORY OF MALIG NEOPLASM OF TRAC 04/14/2019 LIZETTE BOO MD Ot Z82.49 FAMILY HX OF ISCHEM HEART DIS AND OTH DI 04/14/2019 LIZETTE BOO MD Ot Z86.018 PERSONAL HISTORY OF OTHER BENIGN NEOPLAS 04/14/2019 LIZETTE BOO MD Ot Z87.01 PERSONAL HISTORY OF PNEUMONIA (RECURRENT 04/14/2019 LIZETTE BOO MD Ot Z99.2 DEPENDENCE ON RENAL DIALYSIS 04/14/2019 LIZETTE BOO MD Ot Z99.81 DEPENDENCE ON SUPPLEMENTAL OXYGEN 04/24/2019 RICHELLE MITCHELL FACC, VANDANA NEVILLE CCDS Ot I12.0 HYP CHR KIDNEY DISEASE W STAGE 5 CHR KID 04/24/2019 RICHELLE MITCHELL FACC, VANDANA LITTLEPhillip CCDS Ot I48.0 PAROXYSMAL ATRIAL FIBRILLATION 04/24/2019 RICHELLE MITCHELL FACC, VANDANA LITTLEP CCDS Ot I50.31 ACUTE DIASTOLIC (CONGESTIVE) HEART FAILU 04/24/2019 RICHELLE MITCHELL FACC, VANDANA NEVILLE CCDS Ot N18.5 CHRONIC KIDNEY DISEASE, STAGE 5 Procedures There is no data. Results Test Result Range Blood CBC with ordered manual differenti al panel - 05/20/18 21:16 Blood leukocytes automated count (number/volume) 10.1 10*3/uL 4.3-11.0 Blood erythrocytes automated count (number/volume) 3.96 10*6/uL 4.35-5.85 Venous blood hemoglobin measurement (mass/volume) 10.8 g/dL 13.3-17.7 Blood hematocrit (volume fraction) 33 % 40-54 Automated erythrocyte mean corpuscular volume 83 [ foz_us] 80-99 Automated erythrocyte mean corpuscular h emoglobin (mass per erythrocyte) 27 pg 25-34 Automated erythrocyte mean corpuscular h emoglobin concentration measurement (mass/volume) 33 g/dL 32-36 Automated erythrocyte distribution width ratio 14. 8 % 10.0- 14.5 Automated blood platelet count (count/volume) 317 10*3/uL 130-400 Automated blood platelet mean volume measurement 9.5 [foz_us] 7.4-10.4 Automated blood neutrophils/100 leukocytes 89 % 42-75 Automated blood lymphocytes/100 leukocytes 7 % 12-44 Blood monocytes/100 leukocytes 3 % NRG Automated blood eosinophils/100 leukocytes 0 % 0-10 Automated blood basophils/100 leukocytes 0 % 0-10 Blood neutrophils automated count (number/volume) 9.0 10*3 1.8-7.8 Blood lymphocytes automated count (number/volume) 0.7 10*3 1.0-4.0 Blood monocytes automated count (number/volume) 0. 4 10*3 0.0-1.0 Automated eosinophil count 0.0 10*3/uL 0 .0-0.3 Automated blood basophil count (count/volume) 0.0 10*3/uL 0.0-0.1 Manual blood segmented neutrophils/100 leukocytes 87 % NRG Blood band neutrophils/100 leukocytes 1 % NRG Manual blood lymphocytes/100 leukocytes 8 % NRG Manual eosinophils/100 leukocytes in nose 0 % NRG Manual blood basophils/100 leukocytes 0 % NRG Blood erythrocyte morphology finding identification NORMAL NRG Manual blood metamyelocytes/100 leukocytes 1 % NRG Blood lactic acid measurement (moles/vol ume) - 05/20/18 21:16 Blood lactic acid measurement (moles/volume) 0.81 mmol/L 0.50-2.00 Comprehensive metabolic panel - 05/20/18 21:16 Serum or plasma sodium measurement (moles/volume) 135 mmol/L 135-145 Serum or plasma potassium measurement (moles/volume) 4.4 mmol/L 3.6-5.0 Serum or plasma chloride measurement (moles/volume) 103 mmol/L 98-107 Carbon dioxide 14 mmol/L 21-32 Serum or plasma anion gap determination (moles/volume) 18 mmol/L 5-14 Serum or plasma urea nitrogen measurement (mass/volume ) 59 mg/dL 7-18 Serum or plasma creatinine measurement (mass/volume) 5.69 mg/dL 0.60-1.30 Serum or plasma urea nitrogen/creatinine mass ratio 10 NRG Serum or plasma creatinine measurement w ith calculation of estimated glomerular filtration rate 10 NRG Serum or plasma glucose measurement (mass/volume) 138 mg/dL 70-105 Serum or plasma calcium measurement (mass/volume) 8.8 mg/dL 8.5-10.1 Serum or plasma total bilirubin measurement (mass/volu me) 0.4 mg/dL 0.1-1.0 Serum or plasma alkaline phosphatase lorrie surement (enzymatic activity/volume) 175 U/L 40-136 Serum or plasma aspartate aminotransfera se measurement (enzymatic activity/volume) 30 U/L 5-34 Serum or plasma alanine aminotransferase measurement (enzymatic activity/volume) 89 U/L 0-55 Serum or plasma protein measurement (mass/volume) 7.7 g/dL 6.4-8.2 Serum or plasma albumin measurement (mass/volume) 4.0 g/dL 3.2-4.5 CALCIUM CORRECTED 8.8 mg/dL 8.5-10.1 Serum or plasma troponin i.cardiac measu rement (mass/volume) - 01/08/19 21:16 Serum or plasma troponin i.cardiac measurement (mass/v olume) < ng/mL <0.028 Bacterial blood culture - 05/20/18 21:16 Bacterial blood culture NG NRG Bacterial blood culture - 05/20/18 21:36 Bacterial blood culture NG NRG Complete urinalysis with reflex to cultu re - 05/21/18 00:50 Urine color determination YELLOW NRG Urine clarity determination CLEAR NR G Urine pH measurement by test strip 6 5-9 Specific gravity of urine by test strip 1.010 1.016-1.022 Urine protein assay by test strip, semi-quantitative 4+ NEGATIVE Urine glucose detection by automated test strip 2+ NEGATIVE Erythrocytes detection in urine sediment by light micr oscopy 2+ NEGATIVE Urine ketones detection by automated test strip NE GATIVE NEGATIVE Urine nitrite detection by test strip NEGATIVE NEGATIVE Urine total bilirubin detection by test strip NEGA TIVE NEGATIVE Urine urobilinogen measurement by automated test strip (mass/volume) NORMAL NORMAL Urine leukocyte esterase detection by dipstick NEG ATIVE NEGATIVE Automated urine sediment erythrocyte cou nt by microscopy (number/high power field) RARE NRG Automated urine sediment leukocyte count by microscopy (number/high power field) RARE NRG Bacteria detection in urine sediment by light microsco py TRACE NRG Squamous epithelial cells detection in u rine sediment by light microscopy RARE NRG Crystals detection in urine sediment by light microsco py NONE NRG Casts detection in urine sediment by light microscopy NONE NRG Mucus detection in urine sediment by light microscopy SMALL NRG Complete urinalysis with reflex to culture NO NRG Complete blood count (CBC) with automate d white blood cell (WBC) differential - 05/21/18 05:45 Blood leukocytes automated count (number/volume) 6.8 10*3/uL 4.3-11.0 Blood erythrocytes automated count (number/volume) 3.17 10*6/uL 4.35-5.85 Venous blood hemoglobin measurement (mass/volume) 8.5 g/dL 13.3-17.7 Blood hematocrit (volume fraction) 27 % 40-54 Automated erythrocyte mean corpuscular volume 84 [ foz_us] 80-99 Automated erythrocyte mean corpuscular h emoglobin (mass per erythrocyte) 27 pg 25-34 Automated erythrocyte mean corpuscular h emoglobin concentration measurement (mass/volume) 32 g/dL 32-36 Automated erythrocyte distribution width ratio 14. 5 % 10.0- 14.5 Automated blood platelet count (count/volume) 242 10*3/uL 130-400 Automated blood platelet mean volume measurement 9.5 [foz_us] 7.4-10.4 Automated blood neutrophils/100 leukocytes 80 % 42-75 Automated blood lymphocytes/100 leukocytes 12 % 12-44 Blood monocytes/100 leukocytes 8 % 0-12 Automated blood eosinophils/100 leukocytes 0 % 0-10 Automated blood basophils/100 leukocytes 0 % 0-10 Blood neutrophils automated count (number/volume) 5.5 10*3 1.8-7.8 Blood lymphocytes automated count (number/volume) 0.8 10*3 1.0-4.0 Blood monocytes automated count (number/volume) 0. 5 10*3 0.0-1.0 Automated eosinophil count 0.0 10*3/uL 0 .0-0.3 Automated blood basophil count (count/volume) 0.0 10*3/uL 0.0-0.1 Whole blood basic metabolic panel - 01/29 05:45 Serum or plasma sodium measurement (moles/volume) 135 mmol/L 135-145 Serum or plasma potassium measurement (moles/volume) 4.4 mmol/L 3.6-5.0 Serum or plasma chloride measurement (moles/volume) 108 mmol/L 98-107 Carbon dioxide 14 mmol/L 21-32 Serum or plasma anion gap determination (moles/volume) 13 mmol/L 5-14 Serum or plasma urea nitrogen measurement (mass/volume ) 57 mg/dL 7-18 Serum or plasma creatinine measurement (mass/volume) 5.27 mg/dL 0.60-1.30 Serum or plasma urea nitrogen/creatinine mass ratio 11 NRG Serum or plasma creatinine measurement w ith calculation of estimated glomerular filtration rate 11 NRG Serum or plasma glucose measurement (mass/volume) 116 mg/dL 70-105 Serum or plasma calcium measurement (mass/volume) 7.5 mg/dL 8.5-10.1 Methicillin resistant Staphylococcus aur eus (MRSA) screening culture - 08/14/18 07:35 Methicillin resistant Staphylococcus aureus (MRSA) scr eening culture NEG NRG Whole blood basic metabolic panel - 08/29 07:50 Serum or plasma sodium measurement (moles/volume) 134 mmol/L 135-145 Serum or plasma potassium measurement (moles/volume) 4.8 mmol/L 3.6-5.0 Serum or plasma chloride measurement (moles/volume) 99 mmol/L 98-107 Carbon dioxide 22 mmol/L 21-32 Serum or plasma anion gap determination (moles/volume) 13 mmol/L 5-14 Serum or plasma urea nitrogen measurement (mass/volume ) 34 mg/dL 7-18 Serum or plasma creatinine measurement (mass/volume) 4.51 mg/dL 0.60-1.30 Serum or plasma urea nitrogen/creatinine mass ratio 8 NRG Serum or plasma creatinine measurement w ith calculation of estimated glomerular filtration rate 13 NRG Serum or plasma glucose measurement (mass/volume) 102 mg/dL 70-105 Serum or plasma calcium measurement (mass/volume) 8.8 mg/dL 8.5-10.1 Methicillin resistant Staphylococcus aur eus (MRSA) screening culture - 11/27/18 11:47 Methicillin resistant Staphylococcus aureus (MRSA) scr eening culture NEG NRG Complete blood count (CBC) with automate d white blood cell (WBC) differential - 02/25/19 18:40 Blood leukocytes automated count (number/volume) 9.1 10*3/uL 4.3-11.0 Blood erythrocytes automated count (number/volume) 2.49 10*6/uL 4.35-5.85 Venous blood hemoglobin measurement (mass/volume) 7.5 g/dL 13.3-17.7 Blood hematocrit (volume fraction) 22 % 40-54 Automated erythrocyte mean corpuscular volume 86 [ foz_us] 80-99 Automated erythrocyte mean corpuscular h emoglobin (mass per erythrocyte) 30 pg 25-34 Automated erythrocyte mean corpuscular h emoglobin concentration measurement (mass/volume) 35 g/dL 32-36 Automated erythrocyte distribution width ratio 12. 4 % 10.0- 14.5 Automated blood platelet count (count/volume) 292 10*3/uL 130-400 Automated blood platelet mean volume measurement 10.0 [foz_us] 7.4-10.4 Automated blood neutrophils/100 leukocytes 82 % 42-75 Automated blood lymphocytes/100 leukocytes 12 % 12-44 Blood monocytes/100 leukocytes 6 % 0-12 Automated blood eosinophils/100 leukocytes 0 % 0-10 Automated blood basophils/100 leukocytes 0 % 0-10 Blood neutrophils automated count (number/volume) 7.4 10*3 1.8-7.8 Blood lymphocytes automated count (number/volume) 1.1 10*3 1.0-4.0 Blood monocytes automated count (number/volume) 0. 5 10*3 0.0-1.0 Automated eosinophil count 0.0 10*3/uL 0 .0-0.3 Automated blood basophil count (count/volume) 0.0 10*3/uL 0.0-0.1 PT panel in platelet poor plasma by coag ulation assay - 02/25/19 18:40 Prothrombin time (PT) in platelet poor plasma by coagu lation assay 13.2 s 12.2-14.7 INR in platelet poor plasma or blood by coagulation as say 1.0 0.8-1.4 Activated partial thromboplastin time (a PTT) in platelet poor plasma bycoagulation assay - 02/25/19 18:40 Activated partial thromboplastin time (a PTT) in platelet poor plasma bycoagulation assay 30 s 24-35 Comprehensive metabolic panel - 02/25/19 18:40 Serum or plasma sodium measurement (moles/volume) 122 mmol/L 135-145 Serum or plasma potassium measurement (moles/volume) 4.7 mmol/L 3.6-5.0 Serum or plasma chloride measurement (moles/volume) 80 mmol/L 98-107 Carbon dioxide 15 mmol/L 21-32 Serum or plasma anion gap determination (moles/volume) 27 mmol/L 5-14 Serum or plasma urea nitrogen measurement (mass/volume ) 117 mg/dL 7-18 Serum or plasma creatinine measurement (mass/volume) 28.22 mg/dL 0.60-1.30 Serum or plasma urea nitrogen/creatinine mass ratio 4 NRG Serum or plasma creatinine measurement w ith calculation of estimated glomerular filtration rate 2 NRG Serum or plasma glucose measurement (mass/volume) 140 mg/dL 70-105 Serum or plasma calcium measurement (mass/volume) 7.0 mg/dL 8.5-10.1 Serum or plasma total bilirubin measurement (mass/volu me) 0.5 mg/dL 0.1-1.0 Serum or plasma alkaline phosphatase lorrie surement (enzymatic activity/volume) 124 U/L 40-136 Serum or plasma aspartate aminotransfera se measurement (enzymatic activity/volume) 21 U/L 5-34 Serum or plasma alanine aminotransferase measurement (enzymatic activity/volume) 31 U/L 0-55 Serum or plasma protein measurement (mass/volume) 6.9 g/dL 6.4-8.2 Serum or plasma albumin measurement (mass/volume) 3.6 g/dL 3.2-4.5 CALCIUM CORRECTED 7.3 mg/dL 8.5-10.1 Serum or plasma phosphate measurement (m ass/volume) - 02/25/19 18:40 Serum or plasma phosphate measurement (mass/volume) 9.5 mg/dL 2.3-4.7 Magnesium - 02/25/19 18:40 Magnesium 2.8 mg/dL 1.6-2.4 Serum or plasma C reactive protein measu rement (mass/volume) - 02/25/19 18:40 Serum or plasma C reactive protein measurement (mass/v olume) 5.92 mg/dL 0.00-0.50 Blood lactic acid measurement (moles/vol ume) - 02/25/19 19:27 Blood lactic acid measurement (moles/volume) 1.01 mmol/L 0.50-2.00 Bacterial blood culture - 02/25/19 19:27 Bacterial blood culture NG NRG Bacterial blood culture - 02/25/19 19:30 Bacterial blood culture NG NRG [id number] - 04/01/19 15:33 [id number] 15.6 % NRG Plasma renin activity - 04/01/19 15:33 RENIN 0.3 ng/mL NRG Complete blood count (CBC) with automate d white blood cell (WBC) differential - 04/10/19 00:18 Blood leukocytes automated count (number/volume) 12.2 10*3/uL 4.3-11.0 Blood erythrocytes automated count (number/volume) 3.39 10*6/uL 4.35-5.85 Venous blood hemoglobin measurement (mass/volume) 10.3 g/dL 13.3-17.7 Blood hematocrit (volume fraction) 33 % 40-54 Automated erythrocyte mean corpuscular volume 97 [ foz_us] 80-99 Automated erythrocyte mean corpuscular h emoglobin (mass per erythrocyte) 30 pg 25-34 Automated erythrocyte mean corpuscular h emoglobin concentration measurement (mass/volume) 32 g/dL 32-36 Automated erythrocyte distribution width ratio 16. 1 % 10.0- 14.5 Automated blood platelet count (count/volume) 288 10*3/uL 130-400 Automated blood platelet mean volume measurement 9.4 [foz_us] 7.4-10.4 Automated blood neutrophils/100 leukocytes 79 % 42-75 Automated blood lymphocytes/100 leukocytes 16 % 12-44 Blood monocytes/100 leukocytes 4 % 0-12 Automated blood eosinophils/100 leukocytes 1 % 0-10 Automated blood basophils/100 leukocytes 0 % 0-10 Blood neutrophils automated count (number/volume) 9.6 10*3 1.8-7.8 Blood lymphocytes automated count (number/volume) 1.9 10*3 1.0-4.0 Blood monocytes automated count (number/volume) 0. 5 10*3 0.0-1.0 Automated eosinophil count 0.1 10*3/uL 0 .0-0.3 Automated blood basophil count (count/volume) 0.0 10*3/uL 0.0-0.1 Blood lactic acid measurement (moles/vol ume) - 04/10/19 00:18 Blood lactic acid measurement (moles/volume) 3.93 mmol/L 0.50-2.00 Comprehensive metabolic panel - 04/10/19 00:18 Serum or plasma sodium measurement (moles/volume) 136 mmol/L 135-145 Serum or plasma potassium measurement (moles/volume) 6.0 mmol/L 3.6-5.0 Serum or plasma chloride measurement (moles/volume) 97 mmol/L 98-107 Carbon dioxide 22 mmol/L 21-32 Serum or plasma anion gap determination (moles/volume) 17 mmol/L 5-14 Serum or plasma urea nitrogen measurement (mass/volume ) 42 mg/dL 7-18 Serum or plasma creatinine measurement (mass/volume) 6.51 mg/dL 0.60-1.30 Serum or plasma urea nitrogen/creatinine mass ratio 6 NRG Serum or plasma creatinine measurement w ith calculation of estimated glomerular filtration rate 8 NRG Serum or plasma glucose measurement (mass/volume) 173 mg/dL 70-105 Serum or plasma calcium measurement (mass/volume) 8.3 mg/dL 8.5-10.1 Serum or plasma total bilirubin measurement (mass/volu me) 0.5 mg/dL 0.1-1.0 Serum or plasma alkaline phosphatase lorrie surement (enzymatic activity/volume) 185 U/L 40-136 Serum or plasma aspartate aminotransfera se measurement (enzymatic activity/volume) 53 U/L 5-34 Serum or plasma alanine aminotransferase measurement (enzymatic activity/volume) 87 U/L 0-55 Serum or plasma protein measurement (mass/volume) 6.8 g/dL 6.4-8.2 Serum or plasma albumin measurement (mass/volume) 3.7 g/dL 3.2-4.5 CALCIUM CORRECTED 8.5 mg/dL 8.5-10.1 Serum or plasma C reactive protein measu rement (mass/volume) - 04/10/19 00:18 Serum or plasma C reactive protein measurement (mass/v olume) 4.64 mg/dL 0.00-0.50 PT panel in platelet poor plasma by coag ulation assay - 04/10/19 00:18 Prothrombin time (PT) in platelet poor plasma by coagu lation assay 15.1 s 12.2-14.7 INR in platelet poor plasma or blood by coagulation as say 1.1 0.8-1.4 Activated partial thromboplastin time (a PTT) in platelet poor plasma bycoagulation assay - 04/10/19 00:18 Activated partial thromboplastin time (a PTT) in platelet poor plasma bycoagulation assay 32 s 24-35 Bacterial blood culture - 04/10/19 00:18 Bacterial blood culture NG NRG Sputum Gram stain - 04/10/19 00:31 Sputum Gram stain RELEVANT, INTERPRET WITH CAUTION . NRG Bacterial sputum culture - 04/10/19 00:3 1 FREE TEXT EXTERNAL SUSCEPTIBILITY REPORTED 04-13-19 , 1313 NR QUANTITY OF GROWTH . NRG CALL POSITIVES (F1 HELP) FINAL FAXED TO [facility] 04-13-19 NR PBP2 METHICILLIN-SENSITIVE STAPH AUREUS NRG Bacterial sputum culture SEE COMMEN NRG Dirithromycin susceptibility test by dis k diffusion - 04/10/19 00:31 Oxacillin susceptibility test by minimum inhibitory co ncentration 0.5 NRG Clindamycin susceptibility test by minimum inhibitory concentration <= NRG Erythromycin susceptibility test by minimum inhibitory concentration <= NRG Trimethoprim/sulfamethoxazole susceptibi lity test by minimum inhibitoryconcentration <= NRG Vancomycin susceptibility test by minimum inhibitory c oncentration 1 NRG Levofloxacin susceptibility test by minimum inhibitory concentration <= NRG Rifampin susceptibility test by minimum inhibitory con centration <= NRG Cefazolin susceptibility test by minimum inhibitory co ncentration <= NRG Linezolid susceptibility test by minimum inhibitory co ncentration 2 NRG Penicillin G susceptibility test by minimum inhibitory concentration > NRG Moxifloxacin susceptibility test by minimum inhibitory concentration <= NRG Minocycline susc CELSO <= NRG Bacterial blood culture - 04/10/19 00:41 Bacterial blood culture NG NRG Serum or plasma lactate measurement (mol es/volume) - 04/10/19 03:00 Serum or plasma lactate measurement (moles/volume) 0.75 mmol/L 0.50-2.00 Coronavirus SARS-CoV-2 SO 2018 - 0 07:57 Coronavirus Ab [Units/volume] in Serum Negative Negative Encounters ACCT No. Visit Date/Time Discharge Status Pt. Type Provider Facility Loc./Unit Complaint [id number] 11/03/2019 05:47:00 15:43:00 DIS Outpatient DUSTY MANJARREZ DO [facility] PREOP CHRONIC KIDNEY DISEASE [id number] 04/10/2019 00:13:00 03:45:00 DIS Emergency LIZETTE BOO MD [facility] [facility] SOB [id number] 04/07/2019 07:35:00 23:59:59 CLS Outpatient VANDANA PEOPLES MD, FACC, FACP DS [facility] CARD PAF, HYPERT ENSION [id number] 04/01/2019 15:07:00 23:59:59 CLS Outpatient VANDANA PEOPLES MD, FACC, FACP DS [facility] LAB HYPERTENSIO N [id number] 02/25/2019 18:23:00 00:59:00 DIS Emergency RICARDO BOURNE MD [facility] ER WEAKNESS [id number] 11/27/2018 11:28:00 15:45:00 DIS Outpatient DUSTY MANJARREZ DO [facility] SDC RENAL FAILURE [id number] 11/26/2018 06:18:00 11:26:00 DIS Outpatient DUSTY MANJARREZ DO [facility] PREOP RENAL FAILURE [id number] 08/14/2018 07:25:00 23:59:59 CLS Outpatient DUSTY MANJARREZ DO Via [facility] DIALYSIS,UMBILICAL [place] [id number] 08/08/2018 05:38:00 23:59:59 CLS Outpatient MANJARREZ ERIK PASCAL [facility] PREOP UMBILICAL HERNIA REPAIR , PERITONEAL DIALYSIS CATH [id number] 07/14/2018 05:33:00 23:59:59 CLS Outpatient DUSTY MANJARREZ DO [facility] PREOP DIALYSIS,UMBILICAL [place] [id number] 05/20/2018 21:19:00 01:30:00 DIS Inpatient AMINTA MITCHELL, JOSS Soto [facility] 4TH LLL PNUEMONIA [id number] 12/01/2012 11:17:00 23:59:59 CLS Outpatient QUINTON MITCHELL, KATE Mariee [facility] RAD CKD 3 [id number] 11/06/2019 13:00:00 P EN Preadmit DUSTY [facility]
[2019-11-06] MEDS ORDERED: NS IV 500 ML 500 ML IV PRN (12:34)
--- NOTE | 2019-11-06 12:35 | NUR ---
no cmp needed per jamaal kaur, exercise teacher
[2019-11-06] MEDS ORDERED: proPOfol 200 MG/20 ML (DIPRIVAN) VIAL IV ONE ×3 (12:36→13:28)
--- NOTE | 2019-11-06 12:42 | Progress Note-Pre Operative ---
Pre-Operative Progress Note H&P Reviewed The H&P was reviewed, patient examined and no changes noted. Date Seen by Provider: Nov 06, 2019 Time Seen by Provider: 12:41 Date H&P Reviewed: Nov 06, 2019 Time H&P Reviewed: 12:41 Pre-Operative Diagnosis: CHRONIC KIDNEY DISEASE DUSTY MANJARREZ DO Nov 06, 2019 12:42
[2019-11-06] MEDS ORDERED: LIDOCAINE PF 2% 5 ML (XYLOCAINE) VIAL ONE (12:44)
[2019-11-06] MEDS ORDERED: ceFAZolin INJECTION 1,000 MG ONE (12:47)
[2019-11-06] MEDS ORDERED: WATER (STERILE) FOR INJECTION 10 ML ONE (12:47)
--- NOTE | 2019-11-06 13:25 | Progress Note-Post Operative ---
Post-Operative Progess Note Surgeon (s)/Medical Billing Supervisor (s) Surgeon DUSTY MANJARREZ DO Medical Billing Supervisor: na Pre-Operative Diagnosis CHRONIC KIDNEY DISEASE Post-Operative Diagnosis same Procedure & Operative Findings Date of Procedure 11/06/19 Procedure Performed/Findings removal right chest hemodialysis catheter Anesthesia Type mac c local Estimated Blood Loss Estimated blood loss (mL): min Specimens/Packing Specimens Removed na DUSTY MANJARREZ DO Nov 06, 2019 13:25
--- NOTE | 2019-11-06 13:27 | Discharge Inst-Simple/Standard ---
Discharge Inst-Standard Patient Instructions/Follow Up Plan of Care/Instructions/FU: 2 weeks Aman Activity as Tolerated: Yes Discharge Diet: Regular Diet Other Inst to Patient Follow up Appt: Make appointment for 2 week. Instructions: No strenuous activity. May shower in 24 hours, no tub bath or soaking. Use incentive spirometer at home as directed. No Smoking Skin/Wound Care: Keep area clean and dry until skin heals. Symptoms to Report: Appetite Changes, Extremity Discoloration, Numbness/Tingling, Swelling Increased, Bleeding Excessive, Eyesight Changes, Pain Increased, Urine Color Change, Constipation(Persistent), Fever over 101 degree F, Pain/Pressure in chest, Urinating Difficulty, Cough Up/Vomit Blood, Heart Beat Irreg/Pounding, Pain/Pressure in jaw, Vaginal Bleeding Increase, Cramps in feet or legs, Lightheadedness, Pain/Pressure in shoulder, Diarrhea(Persistent), Memory Changes Suddenly, Questions/Concerns, Weight gain consecutive days, Dizziness/Fainting, Nausea/Vomiting, Shortness of Breath, Weight gain over 2 pounds If questions or concerns contact your physician Or seek help at emergency department. DUSTY MANJARREZ DO Nov 06, 2019 13:27
--- NOTE | 2019-11-06 14:32 | Anesthesia-General Post-Op ---
MAC Patient Condition Mental Status/LOC: Same as Preop Cardiovascular: Satisfactory Nausea/Vomiting: Absent Respiratory: Satisfactory Pain: Controlled Complications: Absent Post Op Complications Complications None Follow Up Care/Instructions Patient Instructions None needed. Anesthesiology Discharge Order Discharge Order Patient is doing well, no complaints, stable vital signs, no apparent adverse anesthesia problems. No complications reported per nursing. MAURICIO MOSS GRAIN ELEVATOR MAN Nov 06, 2019 14:32
--- NOTE | 2019-11-07 01:02 | OPERATIVE REPORT ---
DATE OF SERVICE: 11/06/2019 PREOPERATIVE DIAGNOSIS: Chronic kidney disease. POSTOPERATIVE DIAGNOSIS: Chronic kidney disease. PROCEDURE PERFORMED: Removal of right chest hemodialysis catheter. SURGEON: Dusty Newton DO ANESTHESIA: MAC with local. ESTIMATED BLOOD LOSS: Minimal. COMPLICATIONS: None. INDICATIONS: The patient is a 74-year-old male with a need for hemodialysis catheter to be removed. He has a left fistula access now on the left upper extremity. He understands the risks and benefits of procedure and wished to proceed with the procedure. Consent was signed in the chart. DESCRIPTION OF PROCEDURE: The patient was taken to the operating suite and was prepped and draped in sterile fashion. Timeout was performed. Local anesthetic was infiltrated around the catheter. Hemostat was used to dissect around the catheter until the cuff was able to be freed and the catheter was then removed in its entirety. The pressure was held at the insertion point on the internal jugular vein and hemostasis was achieved. The area was washed and dried, and sterile bandage was applied. The patient tolerated the procedure well without any complications and taken to recovery room in stable condition. Job ID: [id number] DocumentID: [id number] Dictated Date: 11/06/2019 13:30:29 Building Performance Specialist Date: 11/06/2019 20:45:28 Dictated By: DUSTY NEWTON DO
== END 2019-11-06 15:00 | disposition home or self-care (01) ==
LOC: SDC 12:11
PROVIDERS: ATTEND Surgery
DX: Z49.01 Encounter for fitting and adjustment of extracorporeal dialysis catheter (principal); I13.2 Hypertensive heart and chronic kidney disease with heart failure and with stage 5 chronic kidney disease, or end stage renal disease; N18.5 Chronic kidney disease, stage 5; I48.0 Paroxysmal atrial fibrillation; Z79.01 Long term (current) use of anticoagulants; Z82.3 Family history of stroke; Z79.82 Long term (current) use of aspirin; Z79.899 Other long term (current) drug therapy
CPT/HCPCS: 87081

== ENCOUNTER 2019-12-04 16:40 | Observation (INO) | payer MEDICARE ==
[~2019-12-04] VITALS: Ht 172.7 cm; Wt 68.0 kg
[~2019-12-04 16:40] MED LIST changes: +HYDR-3812 PO; -HYDR-83 PO
--- NOTE | 2019-12-04 17:04 | ED Respiratory ---
General Stated Complaint: SOB Source: patient Exam Limitations: no limitations (KAREN KWONG) History of Present Illness Date Seen by Provider: Dec 04, 2019 Time Seen by Provider: 16:35 Initial Comments Patient presents ER by EMS from [facility] where he was finishing up his Saturday dialysis for his end-stage renal disease secondary to hypertension. He was having shortness of air progressively worsening over the past several weeks. He has a history of anemia on Epogen. He follows with Dr. Mccarthy, nephrology at [place], [place]. He said about 6 months ago this happened and he had to go to [place] for about a week or so and get blood products. He has not needed any since then. No history of heart disease. No chest pain cough fever chills nausea vomiting diarrhea. His shortness of breath is worse with exertion but not as bad at rest. He says he was instructed by the techs at dialysis if his symptoms got worse he needed to go to the ER so he decided to come get checked out. He is not having any black tarry stools or hematemesis. No history of colonoscopy or EGD. He is on aspirin. No history of lung disease or smoking ever. He does not depend on supplemental oxygen. EMS reports he was 87% on room air when they arrived safely put him on 3 L which brought him up to 99-100%. (KAREN KWONG) Allergies and Home Medications Allergies Coded Allergies: No Known Drug Allergies (Unverified , 11/02/19) Home Medications Ascorbate Calcium 500 Mg Tablet, 500 MG PO DAILY, (Reported) Aspirin 81 Mg Tablet.dr, 81 MG PO DAILY, (Reported) Calcium Acetate 667 Mg Tablet, 4 CAP PO TID, (Reported) Carvedilol 25 Mg Tablet, 25 MG PO BID, (Reported) Cholecalciferol (Vitamin D3) 25 Mcg Capsule, 25 MCG PO DAILY, (Reported) Clonidine HCl 0.2 Mg Tablet, 0.4 MG PO BID, (Reported) Diphenhydramine HCl 25 Mg Capsule, 25 MG PO HS, (Reported) Folic Acid/Vitamin B Comp W-C 1 Each Tablet, 1 EACH PO DAILY, (Reported) Guaifenesin 400 Mg Tablet, 400 MG PO BID, (Reported) Hydrocodone/Acetaminophen 1 Each Tablet, 1 EACH PO PRN, (Reported) Lactobacillus Combo No.10 1 Each Capsule, 1 CAP PO DAILY, (Reported) Melatonin 5 Mg Capsule, 5 MG PO HS, (Reported) Nifedipine 60 Mg Tab.er.24, 60 MG PO BID, (Reported) Valerian Root 100 Mg Capsule, 100 MG PO HS, (Reported) Patient Home Medication List Home Medication List Reviewed: Yes (KAREN KWONG) Review of Systems Review of Systems Constitutional: No chills, No fever, No malaise; weakness EENTM: No ear discharge, No ear pain Respiratory: No cough, No orthopnea, No phlegm; short of breath; No wheezing Genitourinary: No discharge, No dysuria Musculoskeletal: No back pain, No joint pain Skin: No pruritus, No rash (KAREN KWONG) All Other Systems Reviewed Negative Unless Noted: Yes (KAREN KWONG) Past Ixkclxf-Rcuvps-Htzzts Hx Patient Social History Alcohol Use: Denies Use Recreational Drug Use: No Smoking Status: Never a Smoker 2nd Hand Smoke Exposure: No Recent Hopitalizations: No (KAREN KWONG) Immunizations Up To Date Tetanus Booster (TDap): Unknown PED Vaccines UTD: Yes (KAREN KWONG) Seasonal Allergies Seasonal Allergies: Yes (MILD) (KAREN KWONG) Past Medical History Surgeries: Yes (L ADRENAL GLAND REMOVED, HEMODIALYSIS CATHETER/REMOVAL AND REPLACEMENT X2) Adrenal Respiratory: No Pneumonia Currently Using CPAP: No Currently Using BIPAP: No Cardiac: Yes Hypertension Neurological: No Sexually Transmitted Disease: No HIV/AIDS: No Genitourinary: Yes Renal Failure, Dialysis Gastrointestinal: No Musculoskeletal: Yes Scoliosis 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, 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 0.0oz. 69.823601xi; 23.18 BMI Method:Stated General Appearance: WD/WN, mild distress Eyes: Bilateral Eye Normal Inspection, Bilateral Eye PERRL, Bilateral Eye EOMI HEENT: PERRL/EOMI, normal ENT inspection, pharynx normal Neck: full range of motion, normal inspection Respiratory: lungs clear, normal breath sounds, no accessory muscle use, resp iratory distress (Xiks-ez-vphfizte with oxygen sats 92% on room air at rest) Cardiovascular: normal peripheral pulses, regular rate, rhythm Gastrointestinal: normal bowel sounds, non tender, soft Extremities: normal range of motion, non-tender, normal capillary refill, pedal edema (trace) Neurologic/Psychiatric: no motor/sensory deficits, alert, normal mood/affect, oriented x 3 Skin: normal color, warm/dry (KAREN KWONG) Progress/Results/Core Measures Suspected Sepsis SIRS Temperature: Pulse: Respiratory Rate: Blood Pressure / Mean: (KAREN KWONG) Results/Orders Lab Results Laboratory Tests Test 12/04/19 16:54 12/04/19 16:59 Range/Units C-Reactive Protein High Sensitivity 4.53 H 0.00-0.50 MG/DL White Blood Count 8.0 4.3-11.0 10^3/uL Red Blood Count 3.25 L 4.35-5.85 10^6/uL Hemoglobin 9.9 L 13.3-17.7 G/DL Hematocrit 32 L 40-54 % Mean Corpuscular Volume 99 80-99 FL Mean Corpuscular Hemoglobin 30 25-34 PG Mean Corpuscular Hemoglobin Concent 31 L 32-36 G/DL Red Cell Distribution Width 15.6 H 10.0-14.5 % Platelet Count 412 H 130-400 10^3/uL Mean Platelet Volume 9.1 7.4-10.4 FL Neutrophils (%) (Auto) 76 H 42-75 % Lymphocytes (%) (Auto) 15 12-44 % Monocytes (%) (Auto) 6 0-12 % Eosinophils (%) (Auto) 2 0-10 % Basophils (%) (Auto) 0 0-10 % Neutrophils # (Auto) 6.1 1.8-7.8 X 10^3 Lymphocytes # (Auto) 1.2 1.0-4.0 X 10^3 Monocytes # (Auto) 0.5 0.0-1.0 X 10^3 Eosinophils # (Auto) 0.2 0.0-0.3 10^3/uL Basophils # (Auto) 0.0 0.0-0.1 10^3/uL Prothrombin Time 13.4 12.2-14.7 SEC INR Comment 1.0 0.8-1.4 Activated Partial Thromboplast Time 34 24-35 SEC Blood Gas Puncture Site R RAD Blood Gas Patient Temperature 37.1 Arterial Blood pH 7.56 H 7.37-7.43 Arterial Blood Partial Pressure CO2 36 35-45 MMHG Arterial Blood Partial Pressure O2 75 L 79-93 MMHG Arterial Blood HCO3 32 H 23-27 MMOL/L Arterial Blood Total CO2 33.3 H 21.0-31.0 MMOL/L Arterial Blood Oxygen Saturation 94 94-100 % Arterial Blood Base Excess 9.2 H -2.5-2.5 MMOL/L Franklin Test YES-POS Blood Gas Ventilator Setting NO Blood Gas Inspired Oxygen 2LNC Sodium Level 138 135-145 MMOL/L Potassium Level 3.8 3.6-5.0 MMOL/L Chloride Level 96 L 98-107 MMOL/L Carbon Dioxide Level 32 21-32 MMOL/L Anion Gap 10 5-14 MMOL/L Blood Urea Nitrogen 23 H 7-18 MG/DL Creatinine 4.43 H 0.60-1.30 MG/DL Estimat Glomerular Filtration Rate 13 BUN/Creatinine Ratio 5 Glucose Level 100 70-105 MG/DL Calcium Level 8.4 L 8.5-10.1 MG/DL Corrected Calcium 8.7 8.5-10.1 MG/DL Magnesium Level 2.1 1.6-2.4 MG/DL Total Bilirubin 0.4 0.1-1.0 MG/DL Aspartate Amino Transf (AST/SGOT) 33 5-34 U/L Alanine Aminotransferase (ALT/SGPT) 36 0-55 U/L Alkaline Phosphatase 129 40-136 U/L Myoglobin 228.5 H 10.0-92.0 NG/ML Troponin I < 0.028 <0.028 NG/ML Total Protein 6.8 6.4-8.2 GM/DL Albumin 3.6 3.2-4.5 GM/DL (LIZETTE BOO MD) My Orders Orders - LIZETTE BOO MD Hs C Reactive Protein (12/04/19 17:27) Consult Physician (12/04/19 19:01) (LIZETTE BOO MD) Vital Signs/I&O 12/04/19 12/04/19 16:40 16:40 Temp 37.1 Pulse 86 Resp 20 B/P (MAP) 174/94 (120) Pulse Ox 98 O2 Delivery Nasal Cannula Nasal Cannula O2 Flow Rate 2.00 2.00 (LIZETTE BOO MD) Vital Signs/I&O Capillary Refill : (KAREN KWONG) Progress Note : Time: 16:59 Progress Note We'll keep him on 2 L which is keeping him in the 96-98% range. We'll get a chest x-ray EKG labs to include an ABG. (KAREN KWONG) Progress Note #1: Time: 19:03 Progress Note Care of this patient was assumed from Dr. Kwong. There was no significant concern for infection after review of x-ray and labs. Shortness of breath has been more insidious process over several weeks. Chest x-ray did show pulmonary congestion and pleural effusions. Dr. Carlson was consulted and performed bedside ultrasound finding a significant amount of fluid on the left chest and a lesser amount on the right chest. After discussion of options, patient elects to proceed with thoracentesis of the left chest in the emergency room. After consent was obtained Dr. Carlson perform the procedure which yielded 700 mL of pleural fluid. We will obtain a postprocedural chest x-ray and test patient's function and oxygen saturation after ambulation. Progress Note #2: Time: 19:37 Progress Note Oxygen saturation was 90-92 percent on room air after ambulating 100 feet. Dy spnea was still present but improved. Patient took his evening medications. He does not feel comfortable committing to discharge home as he lives alone and he wants to be sure he remains stable through the night. Dr. Carlson and Dr. Shah agree with admission for observation. If he is still having dyspnea and hypoxia in the morning, and attempt may be made at thoracentesis of the right chest. I addressed CODE STATUS and patient elects DO NOT RESUSCITATE. (LIZETTE BOO MD) ECG Initial ECG Impression Date: Dec 04, 2019 Initial ECG Impression Time: 16:50 Initial ECG Rate: 87 Initial ECG Rhythm: Normal Sinus Initial ECG Intervals: QT (531) Initial ECG Impression: Normal, Nonspecific Changes Initial ECG Comparisson: No Previous ECG Available Comment Sinus arrhythmia without clinically relevant ST changes. (KAREN KWONG) Initial ECG Impression Date: Dec 04, 2019 (LIZETTE BOO MD) Diagnostic Imaging Diagonstic Imaging: Xray Plain Films/CT/US/NM/MRI: chest Reviewed: Reviewed by Me (KAREN KWONG) Comments Chest x-ray reviewed by me and report reviewed. Compared with prior. See report below: NAME: [facility] REC#: [id number] PT STATUS: REG ER : 1945 PHYSICIAN: TORREY ANDERS PNEUMATIC SYSTEM CONVEYOR OPERATOR ADMIT DATE: 12/04/19/ER Draft Date of Exam:12/04/19 CHEST 1 VIEW, AP/PA ONLY INDICATION: Dyspnea, nausea and emesis. EXAMINATION: AP view of the chest is obtained with comparison made to study of 04/10/2019. FINDINGS: There is continued pulmonary venous congestion with basilar atelectasis and probable edema. There is also blunting of left costophrenic sulcus. Overall aeration of the lungs has slightly improved. Right jugular central venous catheter has been discontinued. IMPRESSION: Mild overall improvement in pulmonary edema with residual perihilar and basilar density and associated pleural fluid, greater on the left. Findings suggest probable mild improvement in congestive heart failure. Dictated on workstation # [id number] Dict: 12/04/19 1722 Trans: 12/04/19 1725 [facility] [id number] Interpreted by: KATLIN BURRELL MD (LIZETTE BOO MD) Transfer of Care Transfer of Care Time: 17:05 Care transferred to: Dr. Malik (KAREN KWONG) Departure Communication (Admissions) Time/Spoke to Admitting Phy: 19:30 Dr. Shah Time/Spoke to Consulting Phy: 19:25 Dr. Carlson (LIZETTE BOO MD) Impression Primary Impression: Pleural effusion Additional Impressions: Dyspnea Qualified Codes: R06.00 - Dyspnea, unspecified Hypoxia End stage renal disease on dialysis Disposition: ADMITTED INPATIENT Condition: Improved Admissions Decision to Admit Reason: Admit from ER (General) Decision to Admit/Date: Dec 04, 2019 Time/Decision to Admit Time: 19:30 (LIZETET BOO MD) Departure-Patient Inst. Referrals: ELLA CANTU DO (PCP/Family) Primary Care Physician KAREN KWONG Dec 04, 2019 17:04 LIZETTE BOO MD Dec 04, 2019 17:40
[2019-12-04 17:07] LABS: BASOPHILS % (AUTO) 0 % (0-10); EOSINOPHILS # (AUTO) 0.2 10^3/uL (0.0-0.3); EOSINOPHILS % (AUTO) 2 % (0-10); HEMATOCRIT 32 % (40-54); HEMOGLOBIN 9.9 G/DL (13.3-17.7); LYMPHOCYTES # (AUTO) 1.2 X 10^3 (1.0-4.0); LYMPHOCYTES % (AUTO) 15 % (12-44); MEAN CORPUSCULAR HEMOGLOBIN 30 PG (25-34); MEAN CORPUSCULAR HGB CONC 31 G/DL (32-36); MEAN CORPUSCULAR VOLUME 99 FL (80-99); MEAN PLATELET VOLUME 9.1 FL (7.4-10.4); MONOCYTES # (AUTO) 0.5 X 10^3 (0.0-1.0); MONOCYTES % (AUTO) 6 % (0-12); NEUTROPHILS # (AUTO) 6.1 X 10^3 (1.8-7.8); NEUTROPHILS % (AUTO) 76 % (42-75); PLATELET COUNT 412 10^3/uL (130-400); RED CELL DISTRIBUTION WIDTH 15.6 % (10.0-14.5)
[2019-12-04 17:12] LABS: ABG BASE EXCESS 9.2 MMOL/L (-2.5-2.5); ABG OXYGEN SATURATION 94 % (94-100); ABG PCO2 36 MMHG (35-45); ABG PH 7.56 (7.37-7.43); ABG PO2 75 MMHG (79-93); ABG TCO2 33.3 MMOL/L (21.0-31.0); ALLENS TEST YES-POS
[2019-12-04 17:13] LABS: INSPIRED O2 2LNC; PATIENT TEMP 37.1; VENTILATOR NO
[2019-12-04 17:24] LABS: ALBUMIN 3.6 GM/DL (3.2-4.5); POTASSIUM 3.8 MMOL/L (3.6-5.0)
--- NOTE | 2019-12-04 17:25 | Diagnostic Imaging Report ---
INDICATION: Dyspnea, nausea and emesis. EXAMINATION: AP view of the chest is obtained with comparison made to study of 04/10/2019. FINDINGS: There is continued pulmonary venous congestion with basilar atelectasis and probable edema. There is also blunting of left costophrenic sulcus. Overall aeration of the lungs has slightly improved. Right jugular central venous catheter has been discontinued. IMPRESSION: Mild overall improvement in pulmonary edema with residual perihilar and basilar density and associated pleural fluid, greater on the left. Findings suggest probable mild improvement in congestive heart failure. Dictated by: Dictated on workstation # [id number]
[2019-12-04 17:26] LABS: CALCIUM 8.4 MG/DL (8.5-10.1)
[2019-12-04 17:27] LABS: PROTHROMBIN TIME PATIENT 13.4 SEC (12.2-14.7); TOTAL PROTEIN 6.8 GM/DL (6.4-8.2)
[2019-12-04 17:29] LABS: BILIRUBIN,TOTAL 0.4 MG/DL (0.1-1.0)
[2019-12-04 17:30] LABS: CREATININE SERUM 4.43 MG/DL (0.60-1.30)
[2019-12-04 17:34] LABS: MAGNESIUM 2.1 MG/DL (1.6-2.4)
--- NOTE | 2019-12-04 19:18 | Diagnostic Imaging Report ---
INDICATION: Dyspnea with nausea and emesis. EXAMINATION: AP view of the chest was obtained. COMPARISON: Study of earlier in the day. There is continued mild pulmonary venous congestion and blunting of the costophrenic sulci, greater on the left. No pneumothorax or other significant change is identified. IMPRESSION: Findings remain compatible with probable congestive heart failure and pulmonary edema with bilateral pleural fluid, greater on the left. Dictated by: Dictated on workstation # [id number]
--- NOTE | 2019-12-04 19:40 | Consultation - Surgery ---
History of Present Illness History of Present Illness Patient Consulted On(cordelia/time) 12/04/19 19:34 Time Seen by Provider: 18:14 History of Present Illness Surgery asked to consult regarding Pleural Effusion. HPI per ED: Patient presents ER by EMS from [facility] where he was finishing up his Saturday dialysis for his end-stage renal disease secondary to hypertension. He was having shortness of air progressively worsening over the past several weeks. He has a history of anemia on Epogen. He follows with Dr. Mccarthy, nephrology at [place], [place]. He said about 6 months ago this happened and he had to go to [place] for about a week or so and get blood products. He has not needed any since then. No history of heart disease. No chest pain cough fever chills nausea vomiting diarrhea. His shortness of breath is worse with exertion but not as bad at rest. He says he was instructed by the techs at dialysis if his symptoms got worse he needed to go to the ER so he decided to come get checked out. He is not having any black tarry stools or hematemesis. No history of colonoscopy or EGD. He is on aspirin. No history of lung disease or smoking ever. He does not depend on supplemental oxygen. EMS reports he was 87% on room air when they arrived safely put him on 3 L which brought him up to 99-100%. When I saw pt he was sitting up in bed with minimal respiratory distress, but Pulse ox was 94% on NC. He stated last time this happened they had to drain his lungs and got 1500ml off left and 700ml from the right. Allergies and Home Medications Allergies Coded Allergies: No Known Drug Allergies (Unverified , 11/02/19) Home Medications Ascorbate Calcium 500 Mg Tablet, 500 MG PO DAILY, (Reported) Aspirin 81 Mg Tablet.dr, 81 MG PO DAILY, (Reported) Calcium Acetate 667 Mg Tablet, 4 CAP PO TID, (Reported) Carvedilol 25 Mg Tablet, 25 MG PO BID, (Reported) Cholecalciferol (Vitamin D3) 25 Mcg Capsule, 25 MCG PO DAILY, (Reported) Clonidine HCl 0.2 Mg Tablet, 0.4 MG PO BID, (Reported) Diphenhydramine HCl 25 Mg Capsule, 25 MG PO HS, (Reported) Folic Acid/Vitamin B Comp W-C 1 Each Tablet, 1 EACH PO DAILY, (Reported) Guaifenesin 400 Mg Tablet, 400 MG PO BID, (Reported) Hydrocodone/Acetaminophen 1 Each Tablet, 1 EACH PO PRN, (Reported) Lactobacillus Combo No.10 1 Each Capsule, 1 CAP PO DAILY, (Reported) Melatonin 5 Mg Capsule, 5 MG PO HS, (Reported) Nifedipine 60 Mg Tab.er.24, 60 MG PO BID, (Reported) Valerian Root 100 Mg Capsule, 100 MG PO HS, (Reported) Patient Home Medication List Home Medication List Reviewed: Yes Past Ulgfwei-Ibjufr-Lezjkf Hx Patient Social History Alcohol Use: Denies Use Recreational Drug Use: No Smoking Status: Never a Smoker 2nd Hand Smoke Exposure: No Recent Foreign Travel: No Contact w/Someone Who Travel: No Recent Infectious Disease Expo: No Recent Hopitalizations: No Immunizations Up To Date Tetanus Booster (TDap): Unknown PED Vaccines UTD: Yes Seasonal Allergies Seasonal Allergies: Yes (MILD) Surgeries History of Surgeries: Yes (L ADRENAL GLAND REMOVED, HEMODIALYSIS CATHETER/REMOVAL AND REPLACEMENT X2) Surgeries: Adrenal Respiratory History of Respiratory Disorde: Yes (hx of pleural effusions) Respiratory Disorders: Pneumonia Cardiovascular History of Cardiac Disorders: Yes Cardiac Disorders: Hypertension Neurological History of Neurological Disord: No Reproductive System Sexually Transmitted Disease: No HIV/AIDS: No Genitourinary History of Genitourinary Disor: Yes Genitourinary Disorders: Renal Failure, Dialysis Gastrointestinal History of Gastrointestinal Di: No Musculoskeletal History of Musculoskeletal Dis: Yes Musculoskeletal Disorders: Scoliosis Endocrine History of Endocrine Disorders: Yes (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, 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) HEENT History of HEENT Disorders: Yes (GLASSES) Loss of Vision: Bilateral Hearing Impairment: Denies Cancer History of Cancer: No Psychosocial History of Psychiatric Problem: No Behavioral Health Disorders: Depression Integumentary History of Skin or Integumenta: No Blood Transfusions History of Blood Disorders: Yes (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) Adverse Reaction to a Blood Tr: No Family Medical History Significant Family History: Cancer, Hypertension Family Medial History: Aneurysm 19 MOTHER FH: lung cancer 19 FATHER Hypertension 19 MOTHER G8 SISTER Review of Systems-General Constitutional: malaise, weakness EENTM: No blurred vision, No double vision, No mouth pain, No mouth swelling, No epistaxis Respiratory: dyspnea on exertion; No hemoptysis; short of breath Cardiovascular: No chest pain, No palpitations Gastrointestinal: No abdominal pain, No nausea, No vomiting Genitourinary: No dysuria, No frequency, No hematuria Musculoskeletal: joint pain, joint swelling, muscle stiffness Skin: No change in color, No change in hair/nails Psychiatric/Neurological: Denies Anxiety, Denies Depressed, Denies Seizure, Denies Tremors Other pt denies any hx of abnormal bleeding or bruising Physical Exam-General Problems Physical Exam Vital Signs Vital Signs - First Documented 12/04/19 16:40 Temp 37.1 Pulse 86 Resp 20 B/P (MAP) 174/94 (120) Pulse Ox 98 O2 Delivery Nasal Cannula O2 Flow Rate 2.00 Capillary Refill : Less Than 3 Seconds General Appearance: mild distress, thin Eyes: Bilateral Eye PERRL, Bilateral Eye EOMI HEENT: pharynx normal; No scleral icterus (R), No scleral icterus (L) Neck: non-tender, full range of motion, normal inspection Respiratory: respiratory distress (mild), decreased breath sounds (at bases), accessory muscle use, crackles (at bases) Cardiovascular: regular rate, rhythm, no murmur Gastrointestinal: normal bowel sounds, non tender, soft, no organomegaly, no pulsatile mass Back: no CVA tenderness, no vertebral tenderness Extremities: normal range of motion, no pedal edema, no calf tenderness, normal capillary refill Neurologic/Psychiatric: registered nurse II-XII nml as tested, no motor/sensory deficits, alert, normal mood/affect, oriented x 3 Skin: normal color, warm/dry Lymphatic: no adenopathy (neck, axilla or groin) Data Review Labs Laboratory Tests 12/04/19 16:54: C-Reactive Protein High Sensitivity 4.53H 12/04/19 16:59: White Blood Count 8.0, Red Blood Count 3.25L, Hemoglobin 9.9L, Hematocrit 32L, Mean Corpuscular Volume 99, Mean Corpuscular Hemoglobin 30, Mean Corpuscular Hemoglobin Concent 31L, Red Cell Distribution Width 15.6H, Platelet Count 412H, Mean Platelet Volume 9.1, Neutrophils (%) (Auto) 76H, Lymphocytes (%) (Auto) 15, Monocytes (%) (Auto) 6, Eosinophils (%) (Auto) 2, Basophils (%) (Auto) 0, Neutrophils # (Auto) 6.1, Lymphocytes # (Auto) 1.2, Monocytes # (Auto) 0.5, Eosinophils # (Auto) 0.2, Basophils # (Auto) 0.0, Prothrombin Time 13.4, INR Comment 1.0, Activated Partial Thromboplast Time 34, Blood Gas Puncture Site R RAD, Blood Gas Patient Temperature 37.1, Arterial Blood pH 7.56H, Arterial Blood Partial Pressure CO2 36, Arterial Blood Partial Pressure O2 75L, Arterial Blood HCO3 32H, Arterial Blood Total CO2 33.3H, Arterial Blood Oxygen Saturation 94, Arterial Blood Base Excess 9.2H, Franklin Test YES-POS, Blood Gas Ventilator Setting NO, Blood Gas Inspired Oxygen 2LNC, Sodium Level 138, Potassium Level 3.8, Chloride Level 96L, Carbon Dioxide Level 32, Anion Gap 10, Blood Urea Nitrogen 23H, Creatinine 4.43H, Estimat Glomerular Filtration Rate 13, BUN/Creatinine Ratio 5, Glucose Level 100, Calcium Level 8.4L, Corrected Calcium 8.7, Magnesium Level 2.1, Total Bilirubin 0.4, Aspartate Amino Transf (AST/SGOT) 33, Alanine Aminotransferase (ALT/SGPT) 36, Alkaline Phosphatase 129, Myoglobin 228.5H, Troponin I < 0.028, Total Protein 6.8, Albumin 3.6 Radiology Signed Date of Exam:12/04/19 CHEST 1 VIEW, AP/PA ONLY INDICATION: Dyspnea, nausea and emesis. EXAMINATION: AP view of the chest is obtained with comparison made to study of 04/10/2019. FINDINGS: There is continued pulmonary venous congestion with basilar atelectasis and probable edema. There is also blunting of left costophrenic sulcus. Overall aeration of the lungs has slightly improved. Right jugular central venous catheter has been discontinued. IMPRESSION: Mild overall improvement in pulmonary edema with residual perihilar and basilar density and associated pleural fluid, greater on the left. Findings suggest probable mild improvement in congestive heart failure. Dictated by: Dictated on workstation # [id number] Dict: 12/04/191721 Trans: 12/04/19 183 [facility] [id number] Interpreted by: KATLIN BURRELL MD Electronically signed by: KATLIN BURRELL MD 12/04/19 183 Assessment/Plan Assessment/Plan Assessment/Plan Pleural Effusion SOB Congestive Heart Failure End Stage Renal Disease I put an US on the pt to assess the amount of fluid in his pleural cavity; he had it bilaterally but left was worse than the right. We discussed options; going to [place], Thoracentesis here and then either home or stay the night to be monitored. I told him I would like to start with the left and then possibly do a thoracentesis on the right; but the right side has less fluid and therefore higher possibility of pneumothorax from procedure. In addition, all pt really wanted was to be able to breathe better and he make get that from just draining the left side. We discussed risks and complications of the procedure; not limited to pain, bleeding, infection, scar and pneumothorax. All questions answered to his satisfaction and will do thoracentesis at bedside. ALLAN LEACH DO Dec 04, 2019 19:40
--- NOTE | 2019-12-04 19:53 | Progress Note-Post Operative ---
Post-Operative Progess Note Surgeon (s)/Water Quality Technician (s) Surgeon ALLAN LEACH DO Water Quality Technician: none Pre-Operative Diagnosis Pleural effusion Left worse than right Post-Operative Diagnosis pleural effusion b/l Procedure & Operative Findings Date of Procedure 12/04/19 Procedure Performed/Findings Left Side Thoracentesis with US guidance Anesthesia Type Local lidocaine Estimated Blood Loss Estimated blood loss (mL): scant Specimens/Packing Specimens Removed appx 700ml of yellowish fluid ALLAN LEACH DO Dec 04, 2019 19:53
--- NOTE | 2019-12-04 20:25 | NUR ---
DENIS DVAIS admitted to room 409-1, with an admitting diagnosis of pleural effusion, hypoxia, ESRD on dialysis, on 12/04/19 from [place] via wheelchair, accompanied by staff.DENIS DAVIS introduced to surroundings, call light, bed controls, phone, TV, temperature control, lights, meal times, smoking policy, visitor policy, side rail policy, bathrooms and showers. Patient Rights given to patient in the handbook. DENIS DAVIS verbalizes understanding that [facility] is not responsible for the loss or damage to any personal effects or valuables that are kept in the patients posession during their hospitalization. DENIS DAVIS verbalizes understanding of Interdisciplinary Patient Education. Patient and/or family were informed about the Rapid Response Team and its purpose.
[2019-12-04 20:30] VITALS: BP 158/83
--- OUTSIDE RECORDS SUMMARY | 2019-12-04 20:55 | XMS REPORT | Continuity of Care Document ---
Author Organization Unknown Address Unknown Phone Unavailable Allergies Active Description Code Type Severity Reaction Onset Reported/Identified Relationship to Patient Clinical Status Yes No Known Drug Allergies [id number] Drug Allergy Unknown N/A 11/02/2019 Medications There [...] 08/14/2018 DUSTY MANJARREZ DO Ot Z79.899 OTHER DIE HARDENER (CURRENT) DRUG THERAPY 08/18/2018 DUSTY MANJARREZ DO Ot G57. 93 UNSPECIFIED MONONEUROPATHY OF BILATERAL 08/18/2018 DUSTY MANJARREZ DO Ot I12. 9 HYPERTENSIVE CHRONIC KIDNEY DISEASE W ST 08/18/2018 DUSTY MANJARREZ DO Ot K42. 9 UMBILICAL HERNIA WITHOUT OBSTRUCTION OR 08/18/2018 DUSTY MANJARREZ DO Ot N18. 9 CHRONIC KIDNEY DISEASE, UNSPECIFIED 08/18/2018 DUSTY MANJARREZ DO Ot Z79.899 OTHER ALF (CURRENT) DRUG THERAPY 11/26/2018 DUSTY MANJARREZ DO [...] Ot M41. 9 SCOLIOSIS, UNSPECIFIED 11/27/2018 DUSTY MANJARREZ DO Ot N18. 9 CHRONIC KIDNEY DISEASE, UNSPECIFIED 11/27/2018 DUSTY MANJARREZ DO Ot Z11. 2 ENCOUNTER FOR SCREENING FOR OTHER BACTER 11/27/2018 DUSTY MANJARREZ DO Ot Z79.899 OTHER DIE HARDENER (CURRENT) DRUG THERAPY 11/27/2018 DUSTY MANJARREZ DO [...] CHR KID 04/24/2019 RICHELLE MITCHELL FACC, VANDANA FITCHP CCDS Ot I48.0 PAROXYSMAL ATRIAL FIBRILLATION 04/24/2019 RICHELLE MITCHELL FACC, VANDANA FITCHP CCDS Ot I50.31 ACUTE DIASTOLIC (CONGESTIVE) HEART FAILU 04/24/2019 RICHELLE MITCHELL FACC, VANDANA NEVILLE CCDS Ot N18.5 CHRONIC KIDNEY DISEASE, STAGE 5 11/06/2019 MANJARREZ DO, DUSTY D Ot I13. 2 HYP HRT CHR KDNY DIS W HRT FAIL AND W 11/06/2019 MANJARREZ DO, DUSTY D Ot I48. 0 PAROXYSMAL ATRIAL FIBRILLATION 11/06/2019 MANJARREZ DO, DUSTY D Ot N18. 5 CHRONIC KIDNEY DISEASE, STAGE 5 11/06/2019 MANJARREZ DO, DUSTY D Ot Z49. 01 ENCOUNTER FOR FIT/ADJST OF EXTRACORPOREA 11/06/2019 MANJARREZ DO, DUSTY D Ot Z79. 01 DIE HARDENER (CURRENT) USE OF ANTICOAGULANT 11/06/2019 MANJARREZ DO, DUSTY D Ot Z79. 82 DIE HARDENER (CURRENT) USE OF ASPIRIN 11/06/2019 MANJARREZ DO, DUSTY D Ot Z79.899 OTHER DIE HARDENER (CURRENT) DRUG THERAPY 11/06/2019 MANJARREZ DO, DUSTY D Ot Z82. 3 FAMILY HISTORY OF STROKE 11/10/2019 MANJARREZ DO, DUSTY D Ot I13. 2 HYP HRT CHR KDNY DIS W HRT FAIL AND W 11/10/2019 MANJARREZ DO, DUSTY D Ot I48. 0 PAROXYSMAL ATRIAL FIBRILLATION 11/10/2019 MANJARREZ DO, DUSTY D Ot N18. 5 CHRONIC KIDNEY DISEASE, STAGE 5 11/10/2019 MANJARREZ DO, DUSTY D Ot Z49. 01 ENCOUNTER FOR FIT/ADJST OF EXTRACORPOREA 11/10/2019 MANJARREZ DO, DUSTY D Ot Z79. 01 ALF (CURRENT) USE OF ANTICOAGULANT 11/10/2019 MANJARREZ DO, DUSTY D Ot Z79. 82 ALF (CURRENT) USE OF ASPIRIN 11/10/2019 MANJARREZ DO, DUSTY D Ot Z79.899 OTHER DIE HARDENER (CURRENT) DRUG THERAPY 11/10/2019 MANJARREZ DO, DUSTY D Ot Z82. 3 FAMILY HISTORY OF STROKE Procedures There is no data. Results Test [...] plasma troponin i.cardiac measu rement (mass/volume) - 05/20/18 21:16 Serum or plasma troponin i.cardiac measurement [...] 02/25/19 19:30 Bacterial blood culture NG NRG [id number] - 04/01/19 15:33 [id number] 15.6 % NRG Plasma renin activity - [...] TEXT EXTERNAL SUSCEPTIBILITY REPORTED 04-13-19 , 1313 NRG QUANTITY OF GROWTH . NRG CALL POSITIVES (F1 HELP) FINAL FAXED TO [facility] 04-13-19 NRG PBP2 METHICILLIN-SENSITIVE STAPH AUREUS NRG Bacterial sputum [...] (moles/volume) 0.75 mmol/L 0.50-2.00 Coronavirus SARS-CoV-2 SO 2019 - 0 07:57 Coronavirus Ab [Units/volume] in Serum Negative Negative Methicillin resistant Staphylococcus aur eus (MRSA) screening culture - 11/06/19 12:40 Methicillin resistant Staphylococcus aureus (MRSA) scr eening culture NEG NRG Serum or plasma C reactive protein measu rement (mass/volume) - 12/04/19 16:54 Serum or plasma C reactive protein measurement (mass/v olume) 4.53 mg/dL 0.00-0.50 Complete blood count (CBC) with automate d white blood cell (WBC) differential - 12/04/19 16:59 Blood leukocytes automated count (number/volume) 8.0 10*3/uL 4.3-11.0 Blood erythrocytes automated count (number/volume) 3.25 10*6/uL 4.35-5.85 Venous blood hemoglobin measurement (mass/volume) 9.9 g/dL 13.3-17.7 Blood hematocrit (volume fraction) 32 % 40-54 Automated erythrocyte mean corpuscular volume 99 [ foz_us] 80-99 Automated erythrocyte mean corpuscular h emoglobin (mass per erythrocyte) 30 pg 25-34 Automated erythrocyte mean corpuscular h emoglobin concentration measurement (mass/volume) 31 g/dL 32-36 Automated erythrocyte distribution width ratio 15. 6 % 10.0- 14.5 Automated blood platelet count (count/volume) 412 10*3/uL 130-400 Automated blood platelet mean volume measurement 9.1 [foz_us] 7.4-10.4 Automated blood neutrophils/100 leukocytes 76 % 42-75 Automated blood lymphocytes/100 leukocytes 15 % 12-44 Blood monocytes/100 leukocytes 6 % 0-12 Automated blood eosinophils/100 leukocytes 2 % 0-10 Automated blood basophils/100 leukocytes 0 % 0-10 Blood neutrophils automated count (number/volume) 6.1 10*3 1.8-7.8 Blood lymphocytes automated count (number/volume) 1.2 10*3 1.0-4.0 Blood monocytes automated count (number/volume) 0. 5 10*3 0.0-1.0 Automated eosinophil count 0.2 10*3/uL 0 .0-0.3 Automated blood basophil count (count/volume) 0.0 10*3/uL 0.0-0.1 Arterial blood gas measurement - 0 16:59 Blood pCO2 36 mm[Hg] 35-45 Blood pO2 75 mm[Hg] 79-93 Arterial blood bicarbonate measurement (moles/volume) 32 mmol/L 23-27 Arterial blood base excess by calculation 9.2 mmol /L -2.5-2.5 Arterial blood oxygen saturation measurement 94 % 94-100 * Inhaled oxygen flow rate 2LNC NRG Arterial blood pH measurement with patient temperature correction 7.56 7.37-7.43 Arterial blood carbon dioxide, total measurement (mole s/volume) 33.3 mmol/L 21.0-31.0 Body site R RAD NRG Assessment of wrist artery patency prior to arterial p uncture YES-POS NRG Setting of ventilation mode NO NR G Measurement of body temperature 37.1 NRG Comprehensive metabolic panel - 12/04/19 16:59 Serum or plasma sodium measurement (moles/volume) 138 mmol/L 135-145 Serum or plasma potassium measurement (moles/volume) 3.8 mmol/L 3.6-5.0 Serum or plasma chloride measurement (moles/volume) 96 mmol/L 98-107 Carbon dioxide 32 mmol/L 21-32 Serum or plasma anion gap determination (moles/volume) 10 mmol/L 5-14 Serum or plasma urea nitrogen measurement (mass/volume ) 23 mg/dL 7-18 Serum or plasma creatinine measurement (mass/volume) 4.43 mg/dL 0.60-1.30 Serum or plasma urea nitrogen/creatinine mass ratio 5 NRG Serum or plasma creatinine measurement w ith calculation of estimated glomerular filtration rate 13 NRG Serum or plasma glucose measurement (mass/volume) 100 mg/dL 70-105 Serum or plasma calcium measurement (mass/volume) 8.4 mg/dL 8.5-10.1 Serum or plasma total bilirubin measurement (mass/volu me) 0.4 mg/dL 0.1-1.0 Serum or plasma alkaline phosphatase lorrie surement (enzymatic activity/volume) 129 U/L 40-136 Serum or plasma aspartate aminotransfera se measurement (enzymatic activity/volume) 33 U/L 5-34 Serum or plasma alanine aminotransferase measurement (enzymatic activity/volume) 36 U/L 0-55 Serum or plasma protein measurement (mass/volume) 6.8 g/dL 6.4-8.2 Serum or plasma albumin measurement (mass/volume) 3.6 g/dL 3.2-4.5 CALCIUM CORRECTED 8.7 mg/dL 8.5-10.1 PT panel in platelet poor plasma by coag ulation assay - 12/04/19 16:59 Prothrombin time (PT) in platelet poor plasma by coagu lation assay 13.4 s 12.2-14.7 INR in platelet poor plasma or blood by coagulation as say 1.0 0.8-1.4 Activated partial thromboplastin time (a PTT) in platelet poor plasma bycoagulation assay - 12/04/19 16:59 Activated partial thromboplastin time (a PTT) in platelet poor plasma bycoagulation assay 34 s 24-35 Magnesium - 12/04/19 16:59 Magnesium 2.1 mg/dL 1.6-2.4 Myoglobin, serum - 12/04/19 16:59 Myoglobin, serum 228.5 ng/mL 10.0-92.0 Serum or plasma troponin i.cardiac measu rement (mass/volume) - 12/04/19 16:59 Serum or plasma troponin i.cardiac measurement (mass/v olume) < ng/mL <0.028 Encounters ACCT No. Visit Date/Time Discharge Status Pt. Type Provider Facility Loc./Unit Complaint [id number] 11/06/2019 12:11:00 15:00:00 DIS Outpatient DUSTY MANJARREZ DO [facility] SDC CHRONIC KIDNEY DISEASE [id number] 11/03/2019 05:47:00 15:43:00 DIS Outpatient DUSTY MANJARREZ DO [facility] PREOP CHRONIC KIDNEY DISEASE [id number] 04/10/2019 00:13:00 03:45:00 DIS Emergency LIZETTE BOO MD [facility] ER SOB [id number] 04/07/2019 07:35:00 23:59:59 CLS Outpatient RICHELLE MITCHELL FACC, VANDANA FITCHP CC DS [facility] CARD PAF, HYPERT ENSION [id number] 04/01/2019 15:07:00 23:59:59 CLS Outpatient RICHELLE MITCHELL FACC, VANDANA NEVILLE CC DS [facility] LAB HYPERTENSIO N [id number] 02/25/2019 18:23:00 00:59:00 DIS Emergency STEFFEN MITCHELL, RICARDO Rubin [facility] ER WEAKNESS [id number] 11/27/2018 11:28:00 15:45:00 DIS Outpatient MANJARREZ DODUSTY D [facility] RENAL FAILURE [id number] 11/26/2018 06:18:00 11:26:00 DIS Outpatient MANJARREZ DODUSTY D [facility] PREOP RENAL FAILURE [id number] 08/14/2018 07:25:00 23:59:59 CLS Outpatient MANJARREZ DODUSTY [facility] DIALYSIS,UMBILICAL [place] [id number] 08/08/2018 05:38:00 23:59:59 CLS Outpatient MANJARREZ ERIK PASCAL [facility] PREOP UMBILICAL HERNIA REPAIR , PERITONEAL DIALYSIS CATH [id number] 07/14/2018 05:33:00 23:59:59 CLS Outpatient DUSTY MANJARREZ DO [facility] PREOP DIALYSIS,UMBILICAL ENID [place] [id number] 05/20/2018 21:19:00 01:30:00 DIS Inpatient AMINTA MITCHELL, JOSS Soto [facility] 4TH LLL PNUEMONIA [id number] 12/01/2012 11:17:00 23:59:59 CLS Outpatient QUINTON MITCHELL, KATE Mariee [facility] RAD CKD 3 [id number] 12/04/2019 19:37:[address] Inpatient HAWA MITCHELL, LANEY Mariee [facility] 4TH PLEURAL EFFUSION,HYPOXIA,ESR D ON DIALYSIS
[2019-12-04] MEDS ORDERED: ONDANSETRON 4 MG/2 ML (SDV) Z0FRAN IV PRN (21:15)
--- OUTSIDE RECORDS SUMMARY | 2019-12-04 21:52 | XMS REPORT | Continuity of Care Document ---
Author Organization Unknown Address Unknown Phone Unavailable Allergies Active Description Code Type Severity Reaction Onset Reported/Identified Relationship to Patient Clinical Status Yes No Known Drug Allergies [id number] Drug Allergy Unknown N/A 11/02/2019 Medications There [...] 08/14/2018 DUSTY MANJARREZ DO Ot Z79.899 OTHER NON CDL DRIVER (CURRENT) DRUG THERAPY 08/18/2018 DUSTY MANJARREZ DO Ot G57. 93 UNSPECIFIED MONONEUROPATHY OF BILATERAL 08/18/2018 DUSTY MANJARREZ DO Ot I12. 9 HYPERTENSIVE CHRONIC KIDNEY DISEASE W ST 08/18/2018 DUSTY MANJARREZ DO Ot K42. 9 UMBILICAL HERNIA WITHOUT OBSTRUCTION OR 08/18/2018 DUSTY MANJARREZ DO Ot N18. 9 CHRONIC KIDNEY DISEASE, UNSPECIFIED 08/18/2018 DUSTY MANJARREZ DO Ot Z79.899 OTHER HALF-WAY (CURRENT) DRUG THERAPY 11/26/2018 DUSTY MANJARREZ DO Ot Z01.818 ENCOUNTER FOR OTHER PREPROCEDURAL EXAMIN 11/27/2018 DUSTY MANJARREZ DO Ot Z01.818 ENCOUNTER FOR OTHER PREPROCEDURAL EXAMIN 11/27/2018 DUSTY MANJARREZ DO Ot F32. 9 MAJOR DEPRESSIVE DISORDER, SINGLE EPISOD 11/27/2018 DUSTY MANJARREZ DO Ot I12. 9 HYPERTENSIVE CHRONIC KIDNEY DISEASE W ST 11/27/2018 DSUTY MANJARREZ DO Ot K42. 9 UMBILICAL HERNIA WITHOUT OBSTRUCTION OR 11/27/2018 DUSTY MANJARREZ DO Ot M41. 9 SCOLIOSIS, UNSPECIFIED 11/27/2018 DUSTY MANJARREZ DO Ot N18. 9 CHRONIC KIDNEY DISEASE, UNSPECIFIED 11/27/2018 DUSTY MANJARREZ DO Ot Z11. 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 01 NON CDL DRIVER (CURRENT) USE OF ANTICOAGULANT 11/06/2019 MANJARREZ DO, DUSTY D Ot Z79. 82 NON CDL DRIVER (CURRENT) USE OF ASPIRIN 11/06/2019 MANJARREZ DO, DUSTY D Ot Z79.899 OTHER NON CDL DRIVER (CURRENT) DRUG THERAPY 11/06/2019 MANJARREZ DO, DUSTY [...] MANJARREZ DO, DUSTY D Ot Z79. 01 HALF-WAY (CURRENT) USE OF ANTICOAGULANT 11/10/2019 MANJARREZ DO, DUSTY D Ot Z79. 82 HALF-WAY (CURRENT) USE OF ASPIRIN 11/10/2019 MANJARREZ DO, DUSTY D Ot Z79.899 OTHER NON CDL DRIVER (CURRENT) DRUG THERAPY 11/10/2019 MANJARREZ DO, DUSTY [...] 02/25/19 19:30 Bacterial blood culture NG NRG [id number] - 04/01/19 15:33 [id number] 15.6 % NRG Plasma renin activity - [...] CALL POSITIVES (F1 HELP) FINAL FAXED TO [facility] 04-13-19 NRG PBP2 METHICILLIN-SENSITIVE STAPH AUREUS [...] Status Pt. Type Provider Facility Loc./Unit Complaint [id number] 11/06/2019 12:11:00 15:00:00 DIS Outpatient DUSTY MANJARREZ DO [facility] SDC CHRONIC KIDNEY DISEASE [id number] 11/03/2019 05:47:00 15:43:00 DIS Outpatient DUSTY MANJARREZ DO [facility] PREOP CHRONIC KIDNEY DISEASE [id number] 04/10/2019 00:13:00 03:45:00 DIS Emergency LIZETTE BOO MD [facility] ER SOB [id number] 04/07/2019 07:35:00 23:59:59 CLS Outpatient RICHELLE MITCHELL FACC, VANDANA FITCHP CC DS [facility] CARD PAF, HYPERT ENSION [id number] 04/01/2019 15:07:00 23:59:59 CLS Outpatient RICHELLE MITCHELL FACC, VANDANA NEVILLE CC DS [facility] LAB HYPERTENSIO N [id number] 02/25/2019 18:23:00 00:59:00 DIS Emergency STEFFEN MITCHELL, RICARDO Rubin [facility] ER WEAKNESS [id number] 11/27/2018 11:28:00 15:45:00 DIS Outpatient MANJARREZ DODUSTY D [facility] RENAL FAILURE [id number] 11/26/2018 06:18:00 11:26:00 DIS Outpatient MANJARREZ DODUSTY D [facility] PREOP RENAL FAILURE [id number] 08/14/2018 07:25:00 23:59:59 CLS Outpatient MANJARREZ DODUSTY [facility] DIALYSIS,UMBILICAL [place] [id number] 08/08/2018 05:38:00 23:59:59 CLS Outpatient MANJARREZ ERIK PASCAL [facility] PREOP UMBILICAL HERNIA REPAIR , PERITONEAL DIALYSIS CATH [id number] 07/14/2018 05:33:00 23:59:59 CLS Outpatient DUSTY MANJARREZ DO [facility] PREOP DIALYSIS,UMBILICAL [place] [id number] 05/20/2018 21:19:00 01:30:00 DIS Inpatient AMINTA MITCHELL, JOSS Soto [facility] 4TH LLL PNUEMONIA [id number] 12/01/2012 11:17:00 23:59:59 CLS Outpatient QUINTON MITCHELL, KATE Mariee [facility] RAD CKD 3 [id number] 12/04/2019 19:37:[address] Inpatient HAWA MITCHELL, LANEY Mariee [facility] 4TH PLEURAL EFFUSION,HYPOXIA,ESR D ON DIALYSIS
[2019-12-04 23:50] VITALS: BP 162/81
--- NOTE | 2019-12-05 01:25 | NUR ---
PT EXPRESSES CONCERN ABOUT HIS BLOOD PRESSURE OF 162/81. STATES HE USUALLY TAKE CLONIDINE 0.2-0.4 PRN FOR ELEVATED BLOOR PRESSURE. THIS NURSE NOTIFIED OF PT'S CONCERNS. ORDERED CLONIDINE 0.2 ONCE.
[2019-12-05] MEDS ORDERED: cloNIDine 0.2 MG (CATAPRES) TAB PO ONE ×2 (01:30→12:15)
--- NOTE | 2019-12-05 03:39 | NUR ---
pt provided this nurse with his home medication list. This nurse was able to reconcile part of the list. some medications did not have a dosage or frequency listed, and patient does not know.
[2019-12-05 04:25] VITALS: BP 161/86
--- NOTE | 2019-12-05 05:11 | OPERATIVE REPORT ---
DATE OF SERVICE: 12/04/2019 PREOPERATIVE DIAGNOSIS: Bilateral pleural effusions, left worse than right. POSTOPERATIVE DIAGNOSIS: Bilateral pleural effusions. PROCEDURE: Left-sided thoracentesis with ultrasound guidance. SURGEON: Demar Carlson DO VENTILATION MECHANIC: None. ANESTHESIA: Local lidocaine. BLOOD LOSS: Scant. FLUIDS: None. SPECIMEN: Just over 700 mL of yellowish fluid. INDICATION FOR PROCEDURE: The patient is a 74-year-old male with a history of congestive heart failure, pleural effusions and some shortness of breath, needing a thoracentesis. FINDINGS: The patient had a thoracentesis on the left side. The pre-ultrasound image showed a lot of fluid; postop day image showed less fluid, and we got out about just over 700 mL of yellowish fluid. He was breathing better and was actually 92% on room air after walking. PROCEDURE NOTE: After informed consent was obtained, the patient in his bed in the ER was placed, kind of hunched over a table, resting on a pillow, shirt was pulled up. He was then sterilely prepped, checked with the ultrasound, could see fluid in the lung, went just below the clavicle just lateral probably to the midclavicular line on the posterior and marked this area with a marking pen and then this area was sterilely prepped and draped in normal fashion. Local lidocaine was used to infiltrate the skin and then able to push this needle in and got a flash of ascitic fluid, then pulled this needle out. I made a stab incision with a #11 blade and then used the paracentesis safety needle, advanced carefully through this area along the same direction as we used for the local lidocaine, able to get into the pleural cavity, got a good flash of ascitic fluid and then advanced the catheter and removed the safety needle. Once this was done, we then hooked this up to a vacutainer and got out about 700. Attempted to have the patient sit up. Also pulled the catheter out just a little bit and then attached to another vacutainer and only got out few more mL and then could not get any more fluid to come out. At this point, then pulled the catheter out and placed a Band-Aid. Area was cleaned and dried and the patient tolerated this. Sponge, instrument and needle count correct at the end of the case. Job ID: [id number] DocumentID: [id number] Dictated Date: 12/04/2019 19:53:36 District Plant Supervisor Date: 12/05/2019 05:10:46 Dictated By: DO KELLI SELBY
[2019-12-05 05:59] LABS: TRIGLYCERIDES 194 MG/DL (<150); VLDL CHOLESTEROL 39 MG/DL (5-40)
[2019-12-05 06:04] LABS: HDL CHOLESTEROL 32 MG/DL (40-60)
[2019-12-05 07:30] VITALS: BP 173/83
[2019-12-05] MEDS ORDERED: CALCIUM ACETATE 667 MG CAP (PHOSLO) PO SCH (08:00)
[2019-12-05] MEDS ORDERED: NIFEdipine ER 60 MG (PROCARDIA XL) TAB PO SCH (09:00)
[2019-12-05] MEDS ORDERED: ASPIRIN E.C. 81 MG (ECOTRIN) TAB PO SCH (09:00)
[2019-12-05] MEDS ORDERED: CARVEDILOL 12.5 MG (COREG) TABLET PO SCH (09:00)
--- NOTE | 2019-12-05 11:59 | Discharge Summary ---
Discharge Summary Hospital Course Was the Problem List Reviewed?: Yes Problems/Dx: (1) Pleural effusion Status: Acute (2) End stage renal disease on dialysis Status: Chronic Hospital Course Date of Admission: Dec 04, 2019 at 19:37 Admission Diagnosis : Pleural effusion Family Physician/Provider: Rafita Aguirre DO Date of Discharge: 12/05/19 Discharge Diagnosis: Pleural effusion Hospital Course: Alli Fine is a 74-year-old male with ESRD on hemodialysis who presented with shortness of breath and was found to have bilateral pleural effusions. Gen. surgery was consulted and performed a thoracentesis of the left pleural fluid and removed about 700 mL. He had required some supplemental oxygen initially but this need resolved. His pleural effusion was thought to be due to volume overload with end-stage renal disease. He should continue hemodialysis as scheduled. He should follow-up with his primary care physician. Labs and Pending Lab Test: Laboratory Tests 12/04/19 16:54: C-Reactive Protein High Sensitivity 4.53H 12/04/19 16:59: White Blood Count 8.0, Red Blood Count 3.25L, Hemoglobin 9.9L, Hematocrit 32L, Mean Corpuscular Volume 99, Mean Corpuscular Hemoglobin 30, Mean Corpuscular Hemoglobin Concent 31L, Red Cell Distribution Width 15.6H, Platelet Count 412H, Mean Platelet Volume 9.1, Neutrophils (%) (Auto) 76H, Lymphocytes (%) (Auto) 15, Monocytes (%) (Auto) 6, Eosinophils (%) (Auto) 2, Basophils (%) (Auto) 0, Neutrophils # (Auto) 6.1, Lymphocytes # (Auto) 1.2, Monocytes # (Auto) 0.5, Eosinophils # (Auto) 0.2, Basophils # (Auto) 0.0, Prothrombin Time 13.4, INR Comment 1.0, Activated Partial Thromboplast Time 34, Blood Gas Puncture Site R RAD, Blood Gas Patient Temperature 37.1, Arterial Blood pH 7.56H, Arterial Blood Partial Pressure CO2 36, Arterial Blood Partial Pressure O2 75L, Arterial Blood HCO3 32H, Arterial Blood Total CO2 33.3H, Arterial Blood Oxygen Saturation 94, Arterial Blood Base Excess 9.2H, Franklin Test YES-POS, Blood Gas Ventilator Setting NO, Blood Gas Inspired Oxygen 2LNC, Sodium Level 138, Potassium Level 3.8, Chloride Level 96L, Carbon Dioxide Level 32, Anion Gap 10, Blood Urea Nitrogen 23H, Creatinine 4.43H, Estimat Glomerular Filtration Rate 13, BUN/Creatinine Ratio 5, Glucose Level 100, Calcium Level 8.4L, Corrected Calcium 8.7, Magnesium Level 2.1, Total Bilirubin 0.4, Aspartate Amino Transf (AST/SGOT) 33, Alanine Aminotransferase (ALT/SGPT) 36, Alkaline Phosphatase 129, Myoglobin 228.5H, Troponin I < 0.028, Total Protein 6.8, Albumin 3.6 12/05/19 05:11: Triglycerides Level 194H, Total Cholesterol [Pending], Cholesterol Level , LDL Cholesterol Direct [Pending], VLDL Cholesterol 39, HDL Cholesterol 32L Home Meds Active Reported Guaifenesin 400 Mg Tablet 400 Mg PO BID Hydrocodone-Acetamin 5-325 mg (Hydrocodone/Acetaminophen) 1 Each Tablet 1 Each PO PRN Dialyvite Tablet (Folic Acid/Vitamin B Comp W-C) 1 Each Tablet 1 Each PO DAILY Calcium Acetate 667 Mg Tablet 4 Cap PO TID Aspir 81 (Aspirin) 81 Mg Tablet.dr 81 Mg PO DAILY Carvedilol 25 Mg Tablet 25 Mg PO BID Vitamin D3 (Cholecalciferol (Vitamin D3)) 25 Mcg Capsule 25 Mcg PO DAILY Procardia Xl (Nifedipine) 60 Mg Tab.er.24 60 Mg PO BID Probiotic (Lactobacillus Combo No.10) 1 Each Capsule 1 Cap PO DAILY Vitamin C (Ascorbate Calcium) 500 Mg Tablet 500 Mg PO DAILY Benadryl (Diphenhydramine HCl) 25 Mg Capsule 25 Mg PO HS Melatonin 5 Mg Capsule 5 Mg PO HS Valerian Root 100 Mg Capsule 100 Mg PO HS Clonidine HCl 0.2 Mg Tablet 0.4 Mg PO BID Assessment/Pt Instructions Take medications as prescribed. Follow-up with your primary care physician. Continue hemodialysis MWF. Discharge Planning: <30 minutes discharge planning Discharge Instructions Discharge Diet: Low Sodium Diet Activity as Tolerated: Yes Discharge Physical Examination Vital Signs Vital Signs Date Time Temp Pulse Resp B/P (MAP) Pulse Ox O2 Delivery O2 Flow Rate FiO2 12/05/19 08:00 98 Nasal Cannula 1.00 12/05/19 07:30 35.9 81 20 173/83 (113) General Appearance: No Apparent Distress, WD/WN HEENT: PERRL/EOMI, Pharynx Normal Respiratory: Lungs Clear, Normal Breath Sounds, No Respiratory Distress Cardiovascular: Regular Rate, Rhythm, No Edema, No Murmur Gastrointestinal: Normal Bowel Sounds, Non Tender, Soft Extremity: Normal Inspection, Non Tender, No Pedal Edema Skin: Normal Color, Warm/Dry Neurologic/Psychiatric: Alert, Oriented x3, No Motor/Sensory Deficits, Normal Mood/Affect Allergies: Coded Allergies: No Known Drug Allergies (Unverified , 11/02/19) Discharge Summary Date of Admission Dec 04, 2019 at 19:37 Date of Discharge Discharge Date: Dec 05, 2019 Discharge Time: 09:45 Admission Diagnosis Pleural effusion Consults/Procedures Consulations General surgery Discharge Diagnosis (1) Pleural effusion Status: Acute (2) End stage renal disease on dialysis Status: Chronic Clinical Quality Measures DVT/VTE Risk/Contraindication: Risk Factor Score Per Nursin RFS Level Per Nursing on Admit: 3=High LANEY SHAIKH MD Dec 05, 2019 11:53
[2019-12-05 12:00] VITALS: BP 185/84
[2019-12-05 12:11] LABS: CHOLESTEROL 140 MG/DL (< 200)
--- NOTE | 2019-12-05 12:32 | NUR ---
Patient given one time dose of clonidine 0.2mg at this time for BP of 185/84, will continue to monitor.
--- NOTE | 2019-12-05 13:22 | NUR ---
Verbal orders from Dr. Carlson to call in prescription for Phenergan 25mg PO q4h PRN for nausea #40 tablets Prescription called into [facility] at this time.
[2019-12-05] MEDS ORDERED: PROM25TA14 PO (13:38)
--- NOTE | 2019-12-05 13:45 | Progress Note - Surgery ---
Subjective Time Seen by a Provider: 12:07 Subjective/Events-last exam Pt seen and examined, not having any trouble breathing and Pulse Ox 94-99% on RA. He does complain of nausea and vomiting; vomited up lunch, but ate breakfast without any problem. He states this has been occurring for past 3 weeks and is not really sure if a nything brings it on or makes it better. He had a similar episode last summer, but thought it was due to his peritoneal dialysis catheter. Once catheter was removed things seemed to get better. Review of Systems General: No Fatigue, No Malaise Pulmonary: No Dyspnea, No Cough Cardiovascular: No: Chest Pain, Palpitations Gastrointestinal: Nausea, Vomiting; No: Abdominal Pain Genitourinary: No Dysuria, No Frequency Objective Exam Vital Signs Date Time Temp Pulse Resp B/P (MAP) Pulse Ox O2 Delivery O2 Flow Rate FiO2 12/05/19 13:00 74 12/05/19 12:00 35.3 75 20 185/84 (117) 93 Nasal Cannula 1.00 12/05/19 08:00 98 Nasal Cannula 1.00 12/05/19 07:30 35.9 81 20 173/83 (113) 98 Nasal Cannula 1.00 12/05/19 07:00 77 12/05/19 04:25 37.8 78 20 161/86 (111) 92 Nasal Cannula 1.00 12/05/19 02:45 94 Nasal Cannula 1.00 12/05/19 01:00 88 12/04/19 23:50 37.2 81 20 162/81 (108) 92 Nasal Cannula 1.00 12/04/19 22:30 92 Room Air 12/04/19 22:04 89 12/04/19 20:30 Room Air 12/04/19 20:30 36.4 68 20 158/83 96 Room Air 2.00 12/04/19 20:15 86 14 179/95 94 Room Air 12/04/19 16:40 37.1 86 20 174/94 (120) 98 Nasal Cannula 2.00 12/04/19 16:40 Nasal Cannula 2.00 I & O 12/05/19 07:00 Intake Total 100 ml Balance 100 ml Capillary Refill : Less Than 3 Seconds General Appearance: No Apparent Distress, WD/WN HEENT: PERRL/EOMI, Pharynx Normal Respiratory: Lungs Clear, Normal Breath Sounds (upper lobes), No Accessory Muscle Use, No Respiratory Distress, Crackles (at bases), Decreased Breath Sounds (at bases) Cardiovascular: Regular Rate, Rhythm, No Edema, No Murmur Gastrointestinal: normal bowel sounds, non tender, soft, no organomegaly, no pulsatile mass Extremity: Normal Inspection, Non Tender, No Pedal Edema Neurologic/Psychiatric: Alert, Oriented x3, No Motor/Sensory Deficits, Normal Mood/Affect Skin: Normal Color, Warm/Dry Results Lab Laboratory Tests 12/04/19 16:54: C-Reactive Protein High Sensitivity 4.53H 12/04/19 16:59: White Blood Count 8.0, Red Blood Count 3.25L, Hemoglobin 9.9L, Hematocrit 32L, Mean Corpuscular Volume 99, Mean Corpuscular Hemoglobin 30, Mean Corpuscular Hemoglobin Concent 31L, Red Cell Distribution Width 15.6H, Platelet Count 412H, Mean Platelet Volume 9.1, Neutrophils (%) (Auto) 76H, Lymphocytes (%) (Auto) 15, Monocytes (%) (Auto) 6, Eosinophils (%) (Auto) 2, Basophils (%) (Auto) 0, Neutrophils # (Auto) 6.1, Lymphocytes # (Auto) 1.2, Monocytes # (Auto) 0.5, Eosinophils # (Auto) 0.2, Basophils # (Auto) 0.0, Prothrombin Time 13.4, INR Comment 1.0, Activated Partial Thromboplast Time 34, Blood Gas Puncture Site R RAD, Blood Gas Patient Temperature 37.1, Arterial Blood pH 7.56H, Arterial Blood Partial Pressure CO2 36, Arterial Blood Partial Pressure O2 75L, Arterial Blood HCO3 32H, Arterial Blood Total CO2 33.3H, Arterial Blood Oxygen Saturation 94, Arterial Blood Base Excess 9.2H, Franklin Test YES-POS, Blood Gas Ventilator Setting NO, Blood Gas Inspired Oxygen 2LNC, Sodium Level 138, Potassium Level 3. 8, Chloride Level 96L, Carbon Dioxide Level 32, Anion Gap 10, Blood Urea Nitrogen 23H, Creatinine 4.43H, Estimat Glomerular Filtration Rate 13, BUN/Creatinine Ratio 5, Glucose Level 100, Calcium Level 8.4L, Corrected Calcium 8.7, Magnesium Level 2.1, Total Bilirubin 0.4, Aspartate Amino Transf (AST/SGOT) 33, Alanine Aminotransferase (ALT/SGPT) 36, Alkaline Phosphatase 129, Myoglobin 228.5H, Troponin I < 0.028, Total Protein 6.8, Albumin 3.6 12/05/19 05:11: Triglycerides Level 194H, Cholesterol Level 140, LDL Cholesterol Direct 83, VLDL Cholesterol 39, HDL Cholesterol 32L Assessment/Plan Assessment/Plan Assessment/Plan Pleural Effusion - improved SOB - resolved Congestive Heart Failure End Stage Renal Disease Nausea and Vomiting Pt is much better from a pulmonary standpoint and not requiring any supplemental O2; most likely this can be improved with his dialysis (M-W-F). We discussed EGD/Colonoscopy and work-up for his N/V; which can be done inpt or outpt (because it is chronic). I recommended he continue the work-up as an outpt and [facility] the Zofran does not seem to be helping. He can see a GI in [place] or I would be more than happy to help here in [place] (most of his other doctors are in [place]). Clinical Quality Measures DVT/VTE Risk/Contraindication: Risk Factor Score Per Nursin RFS Level Per Nursing on Admit: 3=High ALLAN LEACH DO Dec 05, 2019 13:45
[2019-12-05 14:00] VITALS: BP 185/84
== END 2019-12-05 14:00 | disposition home or self-care (01) ==
LOC: EDUNIT# 16:40 → ER 16:42 → 4TH 19:37
PROVIDERS: ADMIT Internal Medicine; ATTEND Internal Medicine
DX: J90 Pleural effusion, not elsewhere classified (principal); I13.2 Hypertensive heart and chronic kidney disease with heart failure and with stage 5 chronic kidney disease, or end stage renal disease; I50.9 Heart failure, unspecified; N18.6 End stage renal disease; R11.2 Nausea with vomiting, unspecified; F32.9 Major depressive disorder, single episode, unspecified; Z66 Do not resuscitate; R09.02 Hypoxemia; Z99.2 Dependence on renal dialysis; Z79.82 Long term (current) use of aspirin; Z79.899 Other long term (current) drug therapy; D64.9 Anemia, unspecified; M41.9 Scoliosis, unspecified; Z87.01 Personal history of pneumonia (recurrent)
CPT/HCPCS: 32555; 71045; 80053; 80061; 82805; 83735; 83874; 84484; 85025; 85610; 85730; 86141; 93005; 94760 ×2; 99291; G0378; 36415

== ENCOUNTER 2020-01-09 18:05 | Emergency (ER) | payer MEDICARE ==
[~2020-01-09] VITALS: Ht 172.7 cm; Wt 68.0 kg
[~2020-01-09 18:05] MED LIST changes: +PROM25TA14 PO
[2020-01-09] MEDS ORDERED: ONDANSETRON 4 MG/2 ML (SDV) Z0FRAN IVP ONE (19:00)
--- NOTE | 2020-01-09 19:27 | ED General ---
General Chief Complaint: General Problems/Pain Stated Complaint: TIRED,NAUSEA Nursing Triage Note: PT AMB TO TRIAGE WITH COMPLAINT OF FEELING "ROUGH". STATES HAS NOT FELT WELL TODAY, STATES HAS BEEN TIRED, WEAK, AND OUT OF SORTS. STATES HE FEELS LIKE HE DOES AFTER HAVING DIALYSIS. LAST HAD DIALYSIS YESTERDAY Nursing Sepsis Screen: No Definite Risk Source of Information: Patient Exam Limitations: No Limitations (LIZETTE FERRIS MD) Source of Information: Patient Exam Limitations: No Limitations (CHUY JOHN STUDENT) History of Present Illness Date Seen by Provider: Jan 09, 2020 (LIZETTE FERRIS MD) Time Seen by Provider: 19:17 Initial Comments This is a 74 YO male who presents to the ED for complaints of fatigue and nausea. Pt states he has a hard time describing his sx, just says he "feels like crap". Pt has history of CKD secondary to HTN and dialyszed yesterday. He says this is normally the way he feels after dialysis, but usually feels better the next day. Pt says he felt fine this morning and took a walk, but in the afternoon his sx of nausea and fatigue began. He took some Phenergan today, which improved his nausea. Next dialysis is scheduled for Saturday. Pt takes Lasix on the days he does not have dialysis and is sometimes able to produce a small amount of urine. Denies respiratory sx, fever, chills, headache, or COVID exposures. Modifying Factors: improves with Medication Associated Systoms: No Cough, No Fever/Chills, No Headaches (CHUY JOHN STUDENT) Allergies and Home Medications Allergies Coded Allergies: No Known Drug Allergies (Unverified , 11/02/19) Home Medications Ascorbate Calcium 500 Mg Tablet, 500 MG PO DAILY, (Reported) Aspirin 81 Mg Tablet.dr, 81 MG PO DAILY, (Reported) Calcium Acetate 667 Mg Tablet, 4 CAP PO TID, (Reported) Carvedilol 25 Mg Tablet, 25 MG PO BID, (Reported) Cholecalciferol (Vitamin D3) 25 Mcg Capsule, 25 MCG PO DAILY, (Reported) Clonidine HCl 0.2 Mg Tablet, 0.4 MG PO BID, (Reported) Diphenhydramine HCl 25 Mg Capsule, 25 MG PO HS, (Reported) Folic Acid/Vitamin B Comp W-C 1 Each Tablet, 1 EACH PO DAILY, (Reported) Guaifenesin 400 Mg Tablet, 400 MG PO BID, (Reported) Hydrocodone/Acetaminophen 1 Each Tablet, 1 EACH PO PRN, (Reported) Lactobacillus Combo No.10 1 Each Capsule, 1 CAP PO DAILY, (Reported) Melatonin 5 Mg Capsule, 5 MG PO HS, (Reported) Nifedipine 60 Mg Tab.er.24, 60 MG PO BID, (Reported) Promethazine HCl 25 Mg Tablet, 25 MG PO Q6H PRN for NAUSEA/VOMITING Prescribed by: ALLAN LEACH on 12/05/19 1338 Valerian Root 100 Mg Capsule, 100 MG PO HS, (Reported) Patient Home Medication List Home Medication List Reviewed: Yes (LIZETTE FERRIS MD) Review of Systems Review of Systems Constitutional: see HPI EENTM: see HPI Respiratory: no symptoms reported Cardiovascular: no symptoms reported Gastrointestinal: see HPI Genitourinary: no symptoms reported Musculoskeletal: no symptoms reported Skin: no symptoms reported Psychiatric/Neurological: No Symptoms Reported Hematologic/Lymphatic: See HPI Immunological/Allergic: no symptoms reported (CHUY JOHN MED STUDENT) All Other Systems Reviewed Negative Unless Noted: Yes (CHUY JOHN MED STUDENT) Past Dchmrea-Qfbmvs-Sprlgp Hx Past Med/Social Hx: Reviewed Nursing Past Med/Soc Hx (LIZETTE FERRIS MD) Patient Social History Alcohol Use: Denies Use Recreational Drug Use: No Smoking Status: Never a Smoker 2nd Hand Smoke Exposure: No Recent Foreign Travel: No Contact w/Someone Who Travel: No Recent Infectious Disease Expo: No Recent Hopitalizations: No (LIZETTE FERRIS MD) Immunizations Up To Date Tetanus Booster (TDap): Unknown PED Vaccines UTD: Yes Date of Pneumonia Vaccine: Dec 05, 2015 (LIZETTE FERRIS MD) Seasonal Allergies Seasonal Allergies: Yes (MILD) (LIZETTE FERRIS MD) Past Medical History Surgeries: Yes (L ADRENAL GLAND REMOVED, HEMODIALYSIS CATHETER/REMOVAL AND REPLACEMENT X2) Adrenal Respiratory: Yes (hx of pleural effusions) Pneumonia Currently Using CPAP: No Currently Using BIPAP: No Cardiac: Yes Hypertension Neurological: No Sexually Transmitted Disease: No HIV/AIDS: No Genitourinary: Yes Renal Failure, Dialysis Gastrointestinal: No Musculoskeletal: Yes Scoliosis 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, 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) HEENT: Yes (GLASSES) Loss of Vision: Bilateral Hearing Impairment: Denies Cancer: No Psychosocial: No Depression Integumentary: No Blood Disorders: Yes (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) Adverse Reaction/Blood Tranf: No (LIZETTE FERRIS MD) Family Medical History Aneurysm 19 MOTHER FH: lung cancer 19 FATHER Hypertension 19 MOTHER G8 SISTER Cancer, Hypertension (LIZETTE FERRIS MD) Physical Exam-Suspected Sepsis Physical Exam Vital Signs Vital Signs - First Documented 01/09/20 18:43 Temp 36.5 Pulse 80 Resp 20 B/P (MAP) 153/92 (112) Pulse Ox 100 O2 Delivery Room Air (CHUY JOHN STUDENT) Vital Signs Capillary Refill : Less Than 3 Seconds (LIZETTE FERRIS MD) Blood Pressure Mean: 112 Height, Weight, BMI Height: 5'8.00" Weight: 154lbs. 0.0oz. [id number]; 22.00 BMI Method:Stated (LIZETTE FERRIS MD) General Appearance: No Apparent Distress, WD/WN Eyes: Bilateral Eye EOMI HEENT: Moist Mucous Membranes Neck: Normal Inspection, Supple Respiratory: Lungs Clear, Normal Breath Sounds, No Accessory Muscle Use, No Respiratory Distress Cardiovascular: Regular Rate, Rhythm, No Murmur Gastrointestinal: Non Tender, Soft Extremity: Normal Inspection, Normal Range of Motion Neurologic/Psychiatric: Alert, Oriented x3, Normal Mood/Affect Skin: normal color, warm/dry Lymphatic: No Adenopathy (CHUY JOHN STUDENT) Progress/Results/Core Measures Suspected Sepsis Recent Fever Within 48 Hours: No Infection Criteria Present: None New/Unexplained Altered Menta: No Sepsis Screen: No Definite Risk SIRS Temperature: Pulse: 80 Respiratory Rate: 20 Laboratory Tests 01/09/20 19:35: White Blood Count 7.3 Blood Pressure 153 /92 Mean: 112 Laboratory Tests 01/09/20 19:35: Creatinine 5.43H, Platelet Count 276, Total Bilirubin 0.5 (LIZETTE FERRIS MD) Results/Orders Lab Results Laboratory Tests Test 01/09/20 19:35 Range/Units White Blood Count 7.3 4.3-11.0 10^3/uL Red Blood Count 4.33 L 4.35-5.85 10^6/uL Hemoglobin 13.2 L 13.3-17.7 G/DL Hematocrit 42 40-54 % Mean Corpuscular Volume 97 80-99 FL Mean Corpuscular Hemoglobin 31 25-34 PG Mean Corpuscular Hemoglobin Concent 32 32-36 G/DL Red Cell Distribution Width 15.9 H 10.0-14.5 % Platelet Count 276 130-400 10^3/uL Mean Platelet Volume 8.9 7.4-10.4 FL Neutrophils (%) (Auto) 67 42-75 % Lymphocytes (%) (Auto) 21 12-44 % Monocytes (%) (Auto) 9 0-12 % Eosinophils (%) (Auto) 3 0-10 % Basophils (%) (Auto) 1 0-10 % Neutrophils # (Auto) 4.9 1.8-7.8 X 10^3 Lymphocytes # (Auto) 1.5 1.0-4.0 X 10^3 Monocytes # (Auto) 0.6 0.0-1.0 X 10^3 Eosinophils # (Auto) 0.2 0.0-0.3 10^3/uL Basophils # (Auto) 0.0 0.0-0.1 10^3/uL Sodium Level 135 135-145 MMOL/L Potassium Level 3.9 3.6-5.0 MMOL/L Chloride Level 93 L 98-107 MMOL/L Carbon Dioxide Level 27 21-32 MMOL/L Anion Gap 15 H 5-14 MMOL/L Blood Urea Nitrogen 30 H 7-18 MG/DL Creatinine 5.43 H 0.60-1.30 MG/DL Estimat Glomerular Filtration Rate 10 BUN/Creatinine Ratio 6 Glucose Level 96 70-105 MG/DL Calcium Level 9.1 8.5-10.1 MG/DL Corrected Calcium 9.1 8.5-10.1 MG/DL Magnesium Level 2.4 1.6-2.4 MG/DL Total Bilirubin 0.5 0.1-1.0 MG/DL Aspartate Amino Transf (AST/SGOT) 29 5-34 U/L Alanine Aminotransferase (ALT/SGPT) 29 0-55 U/L Alkaline Phosphatase 90 40-136 U/L Total Protein 7.0 6.4-8.2 GM/DL Albumin 4.0 3.2-4.5 GM/DL (CHUY JOHN MED STUDENT) Medications Given in ED Current Medications Medications Dose Ordered Sig/Kailey Route Start Time Stop Time Status Last Admin Dose Admin Ondansetron HCl 8 mg ONCE ONCE IVP 01/09/20 19:00 01/09/20 19:03 DC 01/09/20 19:35 8 MG (CHUY JOHN MED STUDENT) Vital Signs/I&O 01/09/20 01/09/20 18:43 21:13 Temp 36.5 36.6 Pulse 80 71 Resp 20 18 B/P (MAP) 153/92 (112) 150/85 (112) Pulse Ox 100 100 O2 Delivery Room Air Room Air (CHUY JOHN STUDENT) Vital Signs/I&O Capillary Refill : Less Than 3 Seconds (LIZETTE FERRIS MD) Blood Pressure Mean: 112 Departure Impression Primary Impression: Malaise Additional Impression: End stage renal disease on dialysis Disposition: HOME, SELF-CARE Condition: Improved Departure-Patient Inst. Decision time for Depature: 21:03 (LIZETTE FERRIS MD) Referrals: ELLA CANTU DO (PCP/Family) Primary Care Physician Patient Instructions: Dialysis and Diet Add. Discharge Instructions: Follow-up with your primary care provider as soon as possible if you are still having symptoms by Saturday. If symptoms worsen, please return to the ER. You may call Dr. Ferris in the ER until 6:00 AM with any questions or concerns. All discharge instructions reviewed with patient and/or family. Voiced understanding. I have personally interviewed and examined this patient along with Chuy li, MS 3. I have reviewed MS 3 documentation and agree with her history, physical, and assessments except were otherwise noted. patient presented to the emergency room with concerns about a general feeling of malaise. He had a difficult time defining the sensation. However, while awaiting my assessment symptoms spontaneously resolved and he feels at his baseline now. Urinalysis was not collected as he was not able to produce a urine specimen while in the ER. I sent him home with a specimen cup and invited him to call me to arrange for an outpatient urinalysis if he felt symptoms were returning. Exam: Gen.: Alert, oriented, no acute distress HEENT: Normocephalic and atraumatic Heart: Regular rate and rhythm without murmur Lungs: Clear to auscultation bilaterally with normal effort Abdomen: Soft, nontender Neuropsych: Alert, oriented, no focal deficits, normal mood and affect. (LIZETTE FERRIS MD) LIZETTE FERRIS MD Jan 09, 2020 19:27 CHUY JOHN MED STUDENT Jan 09, 2020 19:49
--- NOTE | 2020-01-09 19:35 | NUR ---
pt denies being able to void at this time.
[2020-01-09 19:42] LABS: BASOPHILS % (AUTO) 1 % (0-10); EOSINOPHILS # (AUTO) 0.2 10^3/uL (0.0-0.3); EOSINOPHILS % (AUTO) 3 % (0-10); HEMATOCRIT 42 % (40-54); HEMOGLOBIN 13.2 G/DL (13.3-17.7); LYMPHOCYTES # (AUTO) 1.5 X 10^3 (1.0-4.0); LYMPHOCYTES % (AUTO) 21 % (12-44); MEAN CORPUSCULAR HEMOGLOBIN 31 PG (25-34); MEAN CORPUSCULAR HGB CONC 32 G/DL (32-36); MEAN CORPUSCULAR VOLUME 97 FL (80-99); MEAN PLATELET VOLUME 8.9 FL (7.4-10.4); MONOCYTES # (AUTO) 0.6 X 10^3 (0.0-1.0); MONOCYTES % (AUTO) 9 % (0-12); NEUTROPHILS # (AUTO) 4.9 X 10^3 (1.8-7.8); NEUTROPHILS % (AUTO) 67 % (42-75); PLATELET COUNT 276 10^3/uL (130-400); RED CELL DISTRIBUTION WIDTH 15.9 % (10.0-14.5); WHITE BLOOD COUNT 7.3 10^3/uL (4.3-11.0)
[2020-01-09 19:53] LABS: POTASSIUM 3.9 MMOL/L (3.6-5.0)
[2020-01-09 19:55] LABS: CALCIUM 9.1 MG/DL (8.5-10.1)
[2020-01-09 19:58] LABS: BILIRUBIN,TOTAL 0.5 MG/DL (0.1-1.0)
[2020-01-09 20:00] LABS: CREATININE SERUM 5.43 MG/DL (0.60-1.30)
[2020-01-09 20:02] LABS: MAGNESIUM 2.4 MG/DL (1.6-2.4)
[2020-01-09 21:13] VITALS: BP 150/85
== END 2020-01-09 21:16 | disposition home or self-care (01) ==
LOC: EDUNIT# 18:05 → ER 18:07
DX: I12.0 Hypertensive chronic kidney disease with stage 5 chronic kidney disease or end stage renal disease (principal); N18.6 End stage renal disease; D63.1 Anemia in chronic kidney disease; Z99.2 Dependence on renal dialysis; Z79.82 Long term (current) use of aspirin; Z80.1 Family history of malignant neoplasm of trachea, bronchus and lung
CPT/HCPCS: 36415; 80053; 83735; 85025

== ENCOUNTER 2020-05-21 19:56 | Emergency (ER) | payer MEDICARE, OTHER ==
[~2020-05-21] VITALS: Ht 172.7 cm; Wt 74.8 kg
[~2020-05-21 19:56] MED LIST changes: +AMLO-251 PO; -AMLO10TA7 PO; +CLN.2T PO; -CLON0.2T PO; -HYDR-3812 PO
[2020-05-21] MEDS ORDERED: ONDANSETRON 4 MG/2 ML (SDV) Z0FRAN IVP ONE (20:00)
--- NOTE | 2020-05-21 20:05 | ED General ---
General Stated Complaint: DISORIENTED Source of Information: Patient Exam Limitations: No Limitations History of Present Illness Date Seen by Provider: May 21, 2020 Time Seen by Provider: 20:03 Initial Comments To ER with c/o dizziness that began around 5pm today followed by vomiting. He is a hemodialysis patient on MWF and received a full dose yesterday. Timing/Duration: 1-2 Days Severity: Moderate Associated Systoms: Nausea/Vomiting Allergies and Home Medications Allergies Coded Allergies: No Known Drug Allergies (Unverified , 11/02/19) Home Medications Ascorbate Calcium 500 Mg Tablet, 500 MG PO DAILY, (Reported) Aspirin 81 Mg Tablet.dr, 81 MG PO DAILY, (Reported) Calcium Acetate 667 Mg Tablet, 4 CAP PO TID, (Reported) Carvedilol 25 Mg Tablet, 25 MG PO BID, (Reported) Cholecalciferol (Vitamin D3) 25 Mcg Capsule, 25 MCG PO DAILY, (Reported) Clonidine HCl 0.2 Mg Tablet, 0.4 MG PO BID, (Reported) Diphenhydramine HCl 25 Mg Capsule, 25 MG PO HS, (Reported) Folic Acid/Vitamin B Comp W-C 1 Each Tablet, 1 EACH PO DAILY, (Reported) Guaifenesin 400 Mg Tablet, 400 MG PO BID, (Reported) Hydrocodone/Acetaminophen 1 Each Tablet, 1 EACH PO PRN, (Reported) Lactobacillus Combo No.10 1 Each Capsule, 1 CAP PO DAILY, (Reported) Melatonin 5 Mg Capsule, 5 MG PO HS, (Reported) Nifedipine 60 Mg Tab.er.24, 60 MG PO BID, (Reported) Promethazine HCl 25 Mg Tablet, 25 MG PO Q6H PRN for NAUSEA/VOMITING Prescribed by: ALLAN LEACH on 12/05/19 1338 Valerian Root 100 Mg Capsule, 100 MG PO HS, (Reported) Patient Home Medication List Home Medication List Reviewed: Yes Review of Systems Review of Systems Constitutional: see HPI EENTM: see HPI Respiratory: no symptoms reported Cardiovascular: no symptoms reported; No chest pain (he denies chest pain) Genitourinary: no symptoms reported Musculoskeletal: no symptoms reported Skin: no symptoms reported Psychiatric/Neurological: No Symptoms Reported Hematologic/Lymphatic: No Symptoms Reported Immunological/Allergic: no symptoms reported Past Bsuuwkv-Iqkurx-Vwwcgi Hx Patient Social History 2nd Hand Smoke Exposure: No Recent Hopitalizations: No Immunizations Up To Date Tetanus Booster (TDap): Unknown PED Vaccines UTD: Yes Date of Pneumonia Vaccine: Dec 05, 2015 Seasonal Allergies Seasonal Allergies: Yes (MILD) Past Medical History Surgeries: Yes (L ADRENAL GLAND REMOVED, HEMODIALYSIS CATHETER/REMOVAL AND REPLACEMENT X2) Adrenal Respiratory: Yes (hx of pleural effusions) Pneumonia Currently Using CPAP: No Currently Using BIPAP: No Cardiac: Yes Hypertension Neurological: No Sexually Transmitted Disease: No HIV/AIDS: No Genitourinary: Yes Renal Failure, Dialysis Gastrointestinal: No Musculoskeletal: Yes Scoliosis 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, 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 0.0oz. [id number]; 22.00 BMI Method:Stated General Appearance: No Apparent Distress, WD/WN Eyes: Bilateral Eye Normal Inspection, Bilateral Eye PERRL, Bilateral Eye EOMI Neck: Full Range of Motion, Normal Inspection Respiratory: Lungs Clear, Normal Breath Sounds, No Accessory Muscle Use, No Respiratory Distress Cardiovascular: Regular Rate, Rhythm, Normal Peripheral Pulses Gastrointestinal: Normal Bowel Sounds, Non Tender, Soft Extremity: Normal Capillary Refill, Normal Inspection Neurologic/Psychiatric: Alert, Oriented x3 Skin: Warm/Dry, Other (ashen with cyanotic nail beds but sats are fine. He believes his color to be normal for him. ) Focused Exam Lactate Level 05/21/20 20:24: Lactic Acid Level 0.93 Lactic Acid Level Laboratory Tests Test 05/21/20 20:24 Lactic Acid Level 0.93 MMOL/L (0.50-2.00) Progress/Results/Core Measures Suspected Sepsis SIRS Temperature: Pulse: Respiratory Rate: Laboratory Tests 05/21/20 20:02: White Blood Count 8.7 Blood Pressure / Mean: 05/21/20 20:24: Lactic Acid Level 0.93 Laboratory Tests 05/21/20 20:02: Creatinine 7.31H, Platelet Count 254, Total Bilirubin 0.4 Results/Orders Lab Results Laboratory Tests Test 05/21/20 20:02 05/21/20 20:10 05/21/20 20:24 Range/Units White Blood Count 8.7 4.3-11.0 10^3/uL Red Blood Count 3.58 L 4.30-5.52 10^6/uL Hemoglobin 11.3 L 13.3-17.7 g/dL Hematocrit 35 L 40-54 % Mean Corpuscular Volume 98 80-99 fL Mean Corpuscular Hemoglobin 32 25-34 pg Mean Corpuscular Hemoglobin Concent 32 32-36 g/dL Red Cell Distribution Width 13.4 10.0-14.5 % Platelet Count 254 130-400 10^3/uL Mean Platelet Volume 9.0 9.0-12.2 fL Immature Granulocyte % (Auto) 0 % Neutrophils (%) (Auto) 77 H 42-75 % Lymphocytes (%) (Auto) 13 12-44 % Monocytes (%) (Auto) 9 0-12 % Eosinophils (%) (Auto) 0 0-10 % Basophils (%) (Auto) 0 0-10 % Neutrophils # (Auto) 6.7 1.8-7.8 10^3/uL Lymphocytes # (Auto) 1.1 1.0-4.0 10^3/uL Monocytes # (Auto) 0.8 0.0-1.0 10^3/uL Eosinophils # (Auto) 0.0 0.0-0.3 10^3/uL Basophils # (Auto) 0.0 0.0-0.1 10^3/uL Immature Granulocyte # (Auto) 0.0 0.0-0.1 10^3/uL Methemoglobin 0.5 0.4-1.5 % Sodium Level 133 L 135-145 MMOL/L Potassium Level 5.4 H 3.6-5.0 MMOL/L Chloride Level 89 L 98-107 MMOL/L Carbon Dioxide Level 25 21-32 MMOL/L Anion Gap 19 H 5-14 MMOL/L Blood Urea Nitrogen 56 H 7-18 MG/DL Creatinine 7.31 H 0.60-1.30 MG/DL Estimat Glomerular Filtration Rate 7 BUN/Creatinine Ratio 8 Glucose Level 146 H 70-105 MG/DL Calcium Level 8.9 8.5-10.1 MG/DL Corrected Calcium 8.7 8.5-10.1 MG/DL Total Bilirubin 0.4 0.1-1.0 MG/DL Aspartate Amino Transf (AST/SGOT) 44 H 5-34 U/L Alanine Aminotransferase (ALT/SGPT) 37 0-55 U/L Alkaline Phosphatase 109 40-136 U/L Troponin I < 0.028 <0.028 NG/ML Total Protein 7.8 6.4-8.2 GM/DL Albumin 4.3 3.2-4.5 GM/DL Coronavirus 2019 (JERARDO) Positive H Negative Lactic Acid Level 0.93 0.50-2.00 MMOL/L My Orders Orders - TORREY ANDERS APRN Cbc With Automated Diff (05/21/20 19:59) Comprehensive Metabolic Panel (05/21/20 19:59) Blood Culture (05/21/20 19:59) Lactic Acid Analyzer (05/21/20 19:59) Ekg Tracing (05/21/20 19:59) Troponin I (05/21/20 19:59) Chest 1 View, Ap/Pa Only (05/21/20 19:59) Ed Iv/Invasive Line Start (05/21/20 19:59) Methemoglobin (05/21/20 19:59) Ondansetron Injection (Zofran Injectio (05/21/20 20:00) Ct Head Wo (05/21/20 20:02) Covid 19 Inhouse Test (05/21/20 20:06) Medications Given in ED Current Medications Medications Dose Ordered Sig/Kailey Route Start Time Stop Time Status Last Admin Dose Admin Ondansetron HCl 8 mg ONCE ONCE IVP 05/21/20 20:00 05/21/20 20:01 DC 05/21/20 20:18 8 MG Vital Signs/I&O 05/21/20 05/21/20 19:56 21:27 Temp 37.3 Pulse 80 79 Resp 18 14 B/P (MAP) 167/85 (112) 149/88 Pulse Ox 97 96 O2 Delivery Room Air Room Air Capillary Refill : Diagnostic Imaging Diagonstic Imaging: Xray, CT Comments NAME: DENIS DAVIS MED REC#: [id number] PT STATUS: REG ER : 1945 PHYSICIAN: TORREY ANDERS APRN ADMIT DATE: 05/21/20/ER Draft Date of Exam:05/21/20 CT HEAD WO INDICATION: Altered mental status, dizziness and vomiting, dialysis patient. TECHNIQUE: Multiple contiguous axial images were obtained through the brain without the use of intravenous contrast. Auto Exposure Controls were utilized during the CT exam to meet ALARA standards for radiation dose reduction. COMPARISON: There is no prior CT for comparison. FINDINGS: There are diffuse atrophic changes of moderate severity. There are patchy low-density changes throughout the deep white matter compatible with chronic ischemic change. There is no subdural or epidural collection. There is no acute hemorrhage, mass effect or midline shift. Ventricles are normal in size. 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 Calvarial windows appear normal. IMPRESSION: Diffuse atrophic changes. Extensive chronic ischemic changes in the deep white matter with an old lacunar infarct in the left thalamus. No acute hemorrhage, mass effect or acute appearing intracranial process. Dictated on workstation # [id number] Dict: 05/21/202058 Trans: 05/21/202102 [facility] [id number] Interpreted by: MARISOL BURRIS MD Electronically signed by: Departure Communication (Admissions) He is 97 % on room air without accessory muscle use. HR 75. Does not need to be admitted at this time. He does meet criteria for Bamlanivimab so Ill fill out the paperwork for that. I discussed with him the experimental nature of this drug and the emergency use authorization by the FDA. He would like to use it if possible. He has been alert and oriented during his entire stay here, very pleasant and with an NIH of 0. Impression Primary Impression: CKD (chronic kidney disease) requiring chronic dialysis Additional Impression: COVID-19 Disposition: 01 HOME, SELF-CARE Condition: Stable Departure-Patient Inst. Decision time for Depature: 21:48 Referrals: ELLA CANTU DO (PCP/Family) Primary Care Physician Patient Instructions: Coronavirus Disease 2019 (COVID-19) ED Add. Discharge Instructions: 1. Your Covid test is positive. You are high risk for developing complications from Covid and because of that you meet criteria for infusion of a monoclonal antibody called Bamlanivimab. The hospital will call you on Saturday to determine the time for you to show up for the infusion. TORREY ANDERS APRN May 21, 2020 20:05
[2020-05-21 20:11] LABS: BASOPHILS % (AUTO) 0 % (0-10); EOSINOPHILS % (AUTO) 0 % (0-10); HEMATOCRIT 35 % (40-54); HEMOGLOBIN 11.3 g/dL (13.3-17.7); LYMPHOCYTES # (AUTO) 1.1 10^3/uL (1.0-4.0); LYMPHOCYTES % (AUTO) 13 % (12-44); MEAN CORPUSCULAR HEMOGLOBIN 32 pg (25-34); MEAN CORPUSCULAR HGB CONC 32 g/dL (32-36); MEAN CORPUSCULAR VOLUME 98 fL (80-99); MONOCYTES # (AUTO) 0.8 10^3/uL (0.0-1.0); MONOCYTES % (AUTO) 9 % (0-12); NEUTROPHILS # (AUTO) 6.7 10^3/uL (1.8-7.8); NEUTROPHILS % (AUTO) 77 % (42-75); PLATELET COUNT 254 10^3/uL (130-400); WHITE BLOOD COUNT 8.7 10^3/uL (4.3-11.0)
[2020-05-21 20:33] LABS: ALANINE AMINOTRANSFERASE 37 U/L (0-55); ALBUMIN 4.3 GM/DL (3.2-4.5); ALKALINE PHOSPHATASE 109 U/L (40-136); BILIRUBIN,TOTAL 0.4 MG/DL (0.1-1.0); BUN/CREATININE RATIO 8; CALCIUM 8.9 MG/DL (8.5-10.1); CARBON DIOXIDE 25 MMOL/L (21-32); CHLORIDE 89 MMOL/L (98-107); CREATININE SERUM 7.31 MG/DL (0.60-1.30); GFR ESTIMATED 7; GLUCOSE 146 MG/DL (70-105); POTASSIUM 5.4 MMOL/L (3.6-5.0); SODIUM 133 MMOL/L (135-145); TOTAL PROTEIN 7.8 GM/DL (6.4-8.2)
--- NOTE | 2020-05-21 21:02 | Diagnostic Imaging Report ---
INDICATION: Weakness and dizziness, dialysis patient. EXAMINATION: Frontal chest was obtained at 0851 p.m. COMPARISON: 12/04/2019. FINDINGS: The heart is mildly enlarged. There is mild central vascular congestion without acute edema. There is improved aeration of both lung bases compared to the prior study. The left pleural effusion seen on the prior study has resolved. There is no pleural fluid at this time. There is no pneumothorax. IMPRESSION: Mild cardiomegaly and central vascular prominence with no dottie edema, consolidation or pleural fluid. Overall improvement compared to the prior study of 12/04/2019. Dictated by: Dictated on workstation # [id number]
--- NOTE | 2020-05-21 21:04 | Diagnostic Imaging Report ---
INDICATION: Altered mental status, dizziness and vomiting, dialysis patient. TECHNIQUE: Multiple contiguous axial images were obtained through the brain without the use of intravenous contrast. Auto Exposure Controls were utilized during the CT exam to meet ALARA standards for radiation dose reduction. COMPARISON: There is no prior CT for comparison. FINDINGS: There are diffuse atrophic changes of moderate severity. There are patchy low-density changes throughout the deep white matter compatible with chronic ischemic change. There is no subdural or epidural collection. There is no acute hemorrhage, mass effect or midline shift. Ventricles are normal in size. 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 Calvarial windows appear normal. IMPRESSION: Diffuse atrophic changes. Extensive chronic ischemic changes in the deep white matter with an old lacunar infarct in the left thalamus. No acute hemorrhage, mass effect or acute appearing intracranial process. Dictated by: Dictated on workstation # [id number]
[2020-05-21] MEDS ORDERED: RX-ONDANSETRON 4 MG ODT (ZOFRAN) PPK #4 PO STA (22:06)
[2020-05-21 22:20] VITALS: BP 127/77
--- NOTE | 2020-05-21 22:55 | NUR ---
PT 'S SON IS HERE. PT'S IV WAS TAKEN OUT AND GIVEN TAKE HOME RX.
== END 2020-05-21 22:55 | disposition home or self-care (01) ==
LOC: ER 19:56
DX: I12.0 Hypertensive chronic kidney disease with stage 5 chronic kidney disease or end stage renal disease (principal); N18.6 End stage renal disease; U07.1 COVID-19; Z80.1 Family history of malignant neoplasm of trachea, bronchus and lung; Z82.49 Family history of ischemic heart disease and other diseases of the circulatory system; Z79.82 Long term (current) use of aspirin
CPT/HCPCS: 70450; 71045; 80053; 83050; 83605; 84484; 85025; 87040; 99284; U0002; 36415; 87635; 93005

== ENCOUNTER 2020-05-23 22:00 | Emergency (ER) | payer OTHER ==
[~2020-05-23] VITALS: Ht 172.7 cm; Wt 74.8 kg
[2020-05-23] MEDS ORDERED: LACTATED RINGERS 1,000 ML IV ONE (22:15)
[2020-05-23] MEDS ORDERED: ACETAMINOPHEN 500 MG TAB (TYLENOL) PO ONE (22:30)
--- NOTE | 2020-05-23 22:35 | NUR ---
urinal given to pt. urine specimen requested.
[2020-05-23 22:36] LABS: BASOPHILS % (AUTO) 0 % (0-10); EOSINOPHILS % (AUTO) 0 % (0-10); HEMATOCRIT 31 % (40-54); HEMOGLOBIN 10.5 g/dL (13.3-17.7); LYMPHOCYTES # (AUTO) 0.7 10^3/uL (1.0-4.0); LYMPHOCYTES % (AUTO) 13 % (12-44); MEAN CORPUSCULAR HEMOGLOBIN 32 pg (25-34); MEAN CORPUSCULAR HGB CONC 34 g/dL (32-36); MEAN CORPUSCULAR VOLUME 95 fL (80-99); MEAN PLATELET VOLUME 9.3 fL (9.0-12.2); MONOCYTES # (AUTO) 0.6 10^3/uL (0.0-1.0); MONOCYTES % (AUTO) 10 % (0-12); NEUTROPHILS # (AUTO) 4.5 10^3/uL (1.8-7.8); NEUTROPHILS % (AUTO) 77 % (42-75); PLATELET COUNT 258 10^3/uL (130-400); WHITE BLOOD COUNT 5.8 10^3/uL (4.3-11.0)
[2020-05-23 22:47] LABS: CALCIUM 8.3 MG/DL (8.5-10.1)
[2020-05-23 22:49] LABS: TOTAL PROTEIN 7.8 GM/DL (6.4-8.2)
[2020-05-23 22:50] LABS: BILIRUBIN,TOTAL 0.3 MG/DL (0.1-1.0)
[2020-05-23 22:51] LABS: FIBRIN DEGRADATION PRODUCTS 1.71 UG/ML (0.00-0.49); PROTHROMBIN TIME PATIENT 13.8 SEC (12.2-14.7)
[2020-05-23 22:52] LABS: CREATININE SERUM 5.28 MG/DL (0.60-1.30)
[2020-05-23 23:09] LABS: ERYTHROCYTE SEDIMENTATION RATE 83 MM/HR (0-30)
[2020-05-23] MEDS ORDERED: cefTRIAXone FOR IV USE 1,000 MG in WATER (STERILE) FOR INJECTION 10 ML IV ONE (23:45)
[2020-05-23] MEDS ORDERED: AZITHROMYCIN 250 MG TAB (ZITHROMAX) PO ONE (23:45)
[2020-05-23] MEDS ORDERED: CEFD300C3 PO (23:55)
[2020-05-23] MEDS ORDERED: AZIT500T PO (23:55)
--- NOTE | 2020-05-23 23:55 | ED General ---
General Chief Complaint: Altered Mental Status Stated Complaint: AMS/COVID POSITIVE Nursing Triage Note: brought in by [facility] for c/o altered mental status. Nursing Sepsis Screen: Possible Sepsis Risk Source of Information: Patient, Old Records History of Present Illness Date Seen by Provider: May 23, 2020 Time Seen by Provider: 22:07 Initial Comments PT ARRIVES VIA EMS FROM HOME EMS WAS CALLED FOR "ALTERED MENTAL STATUS" --"NOT COHERENT USUAL" PT IS COVID+ AND SEEN HERE 05/21/19 AND WAS SCHEDULED TO HAVE OUTPATIENT MONOCLONAL ANTIBODY INFUSION ( BAMLANIVIMAB) TODAY, BUT WAS A NO-SHOW. PT STATES "NOBODY CALLED ME" PT IS DIALYSIS PATIENT--[id number]--AND HAD NORMAL DIALYSIS TODAY PT HAS FEVER OF 102.6 ON ARRIVAL--PT IS UNAWARE THAT HE HAD FEVER, HAS NOT CHECKED TEMP AT HOME AND HAS NOT TAKEN ANY TYLENOL OR ANYTHING FOR HIS FEVER NO COUGH NO SHORTNESS OF BREATH DENIES NAUSEA/VOMITING/DIARRHEA/ABDOMINAL PAIN DENIES HEADACHE DENIES BODY ACHES DENIES LOSS OF TASTE OR SMELL DENIES SORE THROAT PT HAS NO COMPLAINTS. PT HAD COMPLAINTS OF DIZZINESS AND VOMITING ON 05/21/20, BUT PT STATES HE IS NOT HAVING THOSE SYMPTOMS TODAY. O2 SAT 98% ON ROOM AIR FOR EMS AND IS SAME ON ARRIVAL HERE. [id number]--SPOKE WITH PT'S SON, WHO CLAIMS HE DID NOT KNOW THAT PT WAS SCHEDULED FOR THE INFUSION TODAY. PCP: MADHAVI URIAS ICT HELP DESK OFFICER: DR. MARTINEZ-GOES TO [facility] Allergies and Home Medications Allergies Coded Allergies: No Known Drug Allergies (Unverified , 11/02/19) Home Medications Ascorbate Calcium 500 Mg Tablet, 500 MG PO DAILY, (Reported) Aspirin 81 Mg Tablet.dr, 81 MG PO DAILY, (Reported) Azithromycin 500 Mg Tablet, 500 MG PO DAILY Prescribed by: DOROTEO STEVENS on 05/23/202354 Calcium Acetate 667 Mg Tablet, 4 CAP PO TID, (Reported) Carvedilol 25 Mg Tablet, 25 MG PO BID, (Reported) Cefdinir 300 Mg Capsule, 300 MG PO BID Prescribed by: DOROTEO STEVENS on 05/23/202354 Cholecalciferol (Vitamin D3) 25 Mcg Capsule, 25 MCG PO DAILY, (Reported) Clonidine HCl 0.2 Mg Tablet, 0.4 MG PO BID, (Reported) Diphenhydramine HCl 25 Mg Capsule, 25 MG PO HS, (Reported) Folic Acid/Vitamin B Comp W-C 1 Each Tablet, 1 EACH PO DAILY, (Reported) Guaifenesin 400 Mg Tablet, 400 MG PO BID, (Reported) Hydrocodone/Acetaminophen 1 Each Tablet, 1 EACH PO PRN, (Reported) Lactobacillus Combo No.10 1 Each Capsule, 1 CAP PO DAILY, (Reported) Melatonin 5 Mg Capsule, 5 MG PO HS, (Reported) Nifedipine 60 Mg Tab.er.24, 60 MG PO BID, (Reported) Promethazine HCl 25 Mg Tablet, 25 MG PO Q6H PRN for NAUSEA/VOMITING Prescribed by: ALLAN LEACH on 12/05/19 1338 Valerian Root 100 Mg Capsule, 100 MG PO HS, (Reported) Patient Home Medication List Home Medication List Reviewed: Yes Review of Systems Review of Systems Constitutional: see HPI EENTM: no symptoms reported Respiratory: see HPI; No cough, No short of breath Cardiovascular: No chest pain Gastrointestinal: no symptoms reported; No abdominal pain, No diarrhea, No nausea, No vomiting Genitourinary: no symptoms reported Musculoskeletal: no symptoms reported Skin: no symptoms reported Psychiatric/Neurological: See HPI; Denies Headache Hematologic/Lymphatic: No Symptoms Reported Past [id number] Hx Past Med/Social Hx: Reviewed and Corrections made Patient Social History Alcohol Use: Denies Use Smoking Status: Never a Smoker 2nd Hand Smoke Exposure: No Recent Infectious Disease Expo: No Recent Hopitalizations: No Immunizations Up To Date Tetanus Booster (TDap): Unknown PED Vaccines UTD: Yes Date of Pneumonia Vaccine: Dec 05, 2015 Seasonal Allergies Seasonal Allergies: Yes (MILD) Past Medical History Surgeries: Yes (L ADRENAL GLAND REMOVED, HEMODIALYSIS CATHETER/REMOVAL AND REPLACEMENT X2) Adrenal Respiratory: Yes (hx of pleural effusions; COVID + 05/21/20) Pneumonia Currently Using CPAP: No Currently Using BIPAP: No Cardiac: Yes Hypertension Neurological: No Sexually Transmitted Disease: No HIV/AIDS: No Genitourinary: Yes Renal Failure, Dialysis Gastrointestinal: No Musculoskeletal: Yes Scoliosis 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, 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 0.0oz. [id number]; 25.00 BMI Method:Stated General Appearance: No Apparent Distress, WD/WN, Other (DOES NOT APPEAR ACUTELY ILL OR TO BE IN ANY DISCOMFORT OR DISTRESS. ) HEENT: Other (ORAL MUCOSA MOIST) Respiratory: Normal Breath Sounds, No Accessory Muscle Use, No Respiratory Distress Cardiovascular: Regular Rate, Rhythm, No Edema, No JVD, No Murmur Gastrointestinal: Non Tender, Soft Back: No CVA Tenderness Extremity: Normal Inspection, No Pedal Edema Neurologic/Psychiatric: Alert, Oriented x3 (BUT HAS LIMITED MEMORY), No Motor/Sensory Deficits (GROSSLY INTACT), Normal Mood/Affect, cruise guide II-XII Norm as Tested Skin: Normal Color, Warm/Dry Focused Exam Lactate Level 05/23/20 21:10: Lactic Acid Level 1.31 Lactic Acid Level Progress/Results/Core Measures Suspected Sepsis Recent Fever Within 48 Hours: Yes Infection Criteria Present: Documented Infection New/Unexplained Altered Menta: No Sepsis Screen: Possible Sepsis Risk SIRS Temperature: Pulse: 132 Respiratory Rate: 18 Laboratory Tests 05/23/20 21:10: White Blood Count 5.8 Blood Pressure 164 /93 Mean: 116 05/23/20 21:10: Lactic Acid Level 1.31 Laboratory Tests 05/23/20 21:10: Creatinine 5.28#H, INR Comment 1.0, Platelet Count 258, Total Bilirubin 0.3 Results/Orders Lab Results Laboratory Tests Test 05/23/20 21:10 Range/Units White Blood Count 5.8 4.3-11.0 10^3/uL Red Blood Count 3.29 L 4.30-5.52 10^6/uL Hemoglobin 10.5 L 13.3-17.7 g/dL Hematocrit 31 L 40-54 % Mean Corpuscular Volume 95 80-99 fL Mean Corpuscular Hemoglobin 32 25-34 pg Mean Corpuscular Hemoglobin Concent 34 32-36 g/dL Red Cell Distribution Width 13.7 10.0-14.5 % Platelet Count 258 130-400 10^3/uL Mean Platelet Volume 9.3 9.0-12.2 fL Immature Granulocyte % (Auto) 0 % Neutrophils (%) (Auto) 77 H 42-75 % Lymphocytes (%) (Auto) 13 12-44 % Monocytes (%) (Auto) 10 0-12 % Eosinophils (%) (Auto) 0 0-10 % Basophils (%) (Auto) 0 0-10 % Neutrophils # (Auto) 4.5 1.8-7.8 10^3/uL Lymphocytes # (Auto) 0.7 L 1.0-4.0 10^3/uL Monocytes # (Auto) 0.6 0.0-1.0 10^3/uL Eosinophils # (Auto) 0.0 0.0-0.3 10^3/uL Basophils # (Auto) 0.0 0.0-0.1 10^3/uL Immature Granulocyte # (Auto) 0.0 0.0-0.1 10^3/uL Erythrocyte Sedimentation Rate 83 H 0-30 MM/HR Prothrombin Time 13.8 12.2-14.7 SEC INR Comment 1.0 0.8-1.4 Activated Partial Thromboplast Time 34 24-35 SEC D-Dimer 1.71 H 0.00-0.49 UG/ML Sodium Level 134 L 135-145 MMOL/L Potassium Level 4.0 3.6-5.0 MMOL/L Chloride Level 90 L 98-107 MMOL/L Carbon Dioxide Level 26 21-32 MMOL/L Anion Gap 18 H 5-14 MMOL/L Blood Urea Nitrogen 35 H 7-18 MG/DL Creatinine 5.28 #H 0.60-1.30 MG/DL Estimat Glomerular Filtration Rate 11 BUN/Creatinine Ratio 7 Glucose Level 90 70-105 MG/DL Lactic Acid Level 1.31 0.50-2.00 MMOL/L Calcium Level 8.3 L 8.5-10.1 MG/DL Corrected Calcium 8.3 L 8.5-10.1 MG/DL Total Bilirubin 0.3 0.1-1.0 MG/DL Aspartate Amino Transf (AST/SGOT) 45 H 5-34 U/L Alanine Aminotransferase (ALT/SGPT) 36 0-55 U/L Alkaline Phosphatase 88 40-136 U/L Lactate Dehydrogenase 272 H 125-220 U/L C-Reactive Protein High Sensitivity 7.64 H 0.00-0.50 MG/DL Total Protein 7.8 6.4-8.2 GM/DL Albumin 4.0 3.2-4.5 GM/DL Procalcitonin 2.50 H <0.10 NG/ML Micro Results Microbiology 05/23/20 Influenza Types A,B Antigen (CELSO) - Final, Complete 05/23/20 Blood Culture - Preliminary, Resulted No growth 05/23/20 Blood Culture - Preliminary, Resulted No growth My Orders Orders - ODROTEO STEVENS DO Cbc With Automated Diff (05/23/20 22:05) Comprehensive Metabolic Panel (05/23/20 22:05) Fibrin Degradation Products (05/23/20 22:05) Procalcitonin (Pct) (05/23/20 22:05) Hs C Reactive Protein (05/23/20 22:05) Erythrocyte Sedimentation Rate (05/23/20 22:05) LDH (05/23/20 22:05) Blood Culture (05/23/20 22:05) Influenza A And B Antigens (05/23/20 22:05) Chest 1 View, Ap/Pa Only (05/23/20 22:05) Protime With Inr (05/23/20 22:05) Partial Thromboplastin Time (05/23/20 22:05) Ed Iv/Invasive Line Start (05/23/20 22:05) Vital Signs Adult Sepsis Patie Q15M (05/23/20 22:05) O2 (05/23/20 22:05) Remove Rings In Anticipation O (05/23/20 22:05) Lactic Acid Analyzer (05/23/20 22:05) Ed Iv/Invasive Line Start (05/23/20 22:05) Lactated Ringers (Lr 1000 Ml Iv Solution (05/23/20 22:15) Acetaminophen Tablet (Tylenol Tablet) (05/23/20 22:30) Ceftriaxone For Iv Use (Rocephin For I (05/23/20 23:45) Azithromycin Tablet (Zithromax Tablet) (05/23/20 23:45) Medications Given in ED Vital Signs/I&O Capillary Refill : Less Than 3 Seconds Blood Pressure Mean: 116 Progress Note : Progress Note PLACED IN ISOLATION ROOM PPE WORN AT ALL TIMES TEMP 102.6 ON ARRIVAL. GIVEN TYLENOL FOR FEVER AND TEMP DOWN TO 100.0 AT DISMISSAL PT DOES NOT APPEAR CONFUSED OR LETHARGIC PT HAS NO COMPLAINTS OF ANY KIND DURING ENTIRE ER STAY O2 SATS 97-98% ON ROOM AIR THROUGHOUT ER STAY ADVISED PT OF NEED FOR MONOCLONAL ANTIBODY INFUSION, AND WILL ARRANGE FOR PT TO HAVE IT DONE TOMORROW. WILL DISCUSS THIS WITH SON WELL. WILL TREAT WITH ANTIBIOTICS A PRECAUTION, DUE TO HIGH RISK OF COMPLICATIONS SUCH PNEUMONIA Diagnostic Imaging Comments CXR--MILD VASCULAR CONGESTION, NO OBVIOUS CONSOLIDATION. POSSIBLE BILATERAL ATELECTASIS--PENDING RADIOLOGIST REVIEW Departure Communication (Admissions) [id number]--SPOKE WITH PT'S SON AND UPDATE GIVEN. ADVISED HIM OF MISSED APPOINTMENT FOR INFUSION TODAY ( HE CLAIMS HE WAS UNAWARE OF THIS). ADVISED SON IT WOULD BE RESCHEDULED FOR TOMORROW, AND HE IS TO CALL TOMORROW AND SPEAK WITH PHARMACY OR RIMMA ARANDA RN TO ARRANGE THIS IF HE HAS NOT HEARD FROM HOSPITAL IN THE MORNING. 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 Referrals: ELLA CANTU DO (PCP/Family) Primary Care Physician Patient Instructions: Bamlanivimab, Bamlanivimab FDA Fact Sheet, COVID19 Add. Discharge Instructions: CONTINUE YOUR REGULAR MEDICATIONS PRESCRIBED CONTINUE DIALYSIS USUAL TYLENOL 1 GRAM EVERY 6 HOURS NEEDED FOR FEVER OVER 101 CHECK YOUR TEMPERATURE EVERY 4-6 HOURS CALL THE [facility] NUMBER AND SPEAK WITH PHARMACY OR WITH RIMMA ARANDA RN IN ER TO SCHEDULE TIME TO COME IN A GET YOUR MONOCLONAL ANTIBODY ( BAMLANIVIMAB) INFUSION. RETURN TO ER IF YOU DEVELOP DIFFICULTY BREATHING OR WORSENING OF SYMPTOMS All discharge instructions reviewed with patient and/or family. Voiced und erstanding. Scripts Azithromycin (Zithromax) 500 Mg Tablet 500 MG PO DAILY for 5 Days, #5 TAB Prov: DOROTEO STEVENS DO 05/23/20 Cefdinir (Cefdinir) 300 Mg Capsule 300 MG PO BID, #20 CAP Prov: DOROTEO STEVENS DO 05/23/20 DOROTEO STEVENS DO May 23, 2020 23:55
--- NOTE | 2020-05-23 23:58 | NUR ---
PT'S SON CALLED ET. UPDATED BY DR STEVENS.
[2020-05-24] VITALS: BP 123/89
--- NOTE | 2020-05-24 06:53 | Diagnostic Imaging Report ---
History: COVID positive, shortness of air COMPARISON: 05/21/2020 FINDINGS: Single frontal view chest demonstrates increased airspace opacities in the peripheral left midlung. There are mild right infrahilar opacities, which may be chronic. No pleural effusion or pneumothorax is seen. Lung volumes are large. The cardiac silhouette is normal in size. There is mild central vascular congestion. IMPRESSION: 1. Peripheral airspace opacities in the left lung, concerning for pneumonia. Report was faxed/called to Dr. Arroyo by joshua at 6:53 am. Dictated by: Dictated on workstation # [id number]
== END 2020-05-24 00:32 | disposition home or self-care (01) ==
LOC: EDUNIT# 22:00 → ER 22:01
DX: U07.1 COVID-19 (principal); I12.0 Hypertensive chronic kidney disease with stage 5 chronic kidney disease or end stage renal disease; N18.6 End stage renal disease; D63.1 Anemia in chronic kidney disease; F32.9 Major depressive disorder, single episode, unspecified; Z99.2 Dependence on renal dialysis; Z86.018 Personal history of other benign neoplasm; Z80.1 Family history of malignant neoplasm of trachea, bronchus and lung; Z79.82 Long term (current) use of aspirin
CPT/HCPCS: 36415; 71045; 80053; 83605; 83615; 84145; 85025; 85379; 85610; 85652; 85730; 86141; 87040; 87804

== ENCOUNTER 2020-05-26 12:24 | Emergency (ER) | payer OTHER ==
[~2020-05-26] VITALS: Ht 172 cm; Wt 68.0 kg
[~2020-05-26 12:24] MED LIST changes: +AZIT500T PO; +CEFD300C3 PO
[2020-05-26] MEDS ORDERED: NS IV 1000 ML 1,000 ML ONE (12:37)
[2020-05-26] MEDS ORDERED: ACETAMINOPHEN 500 MG TAB (TYLENOL) ONE (12:37)
--- NOTE | 2020-05-26 12:41 | ED General ---
General Chief Complaint: General Problems/Pain Stated Complaint: COVID + Nursing Triage Note: DX WITH COVID ON SAT. STATES HE IS NO LONGER ABLE TO CARE FOR HIM SELF DUE TO WEAKNESS AND DOES NOT HAVE TRANSPORTATION TO DIALYSIS DUE TO COVID. Nursing Sepsis Screen: No Definite Risk Source of Information: Patient Exam Limitations: No Limitations History of Present Illness Date Seen by Provider: May 26, 2020 Time Seen by Provider: 12:24 Initial Comments Patient presents ER by EMS from home with chief complaint he was diagnosed 5 days ago with COVID-19 with weakness, body aches chills. No recent fever nausea vomiting but he has had some diarrhea. He says he feels tired like he cannot go on living alone. He has 2 sons who live in [facility] who tell him they are going to move him closer to them after he is done with his Covid. He is on dialysis Saturday. His last dialysis was yesterday. He has difficulties getting to dialysis because of transportation. His primary care doctor is in [place]. He does feel short of breath and is not having a productive cough. He came to the ER where he was diagnosed and was set up to do Bamlanivimab on Saturday as well as Saturday and missed both appointments due to transportation. The patient does not have a history of coronary disease or lung disease. Never a smoker. Nephrology by Dr. Mccarthy. EMS reports he was able to walk to the cot and they felt that he looks better today than he did when they ran him over the weekend. Allergies and Home Medications Allergies Coded Allergies: No Known Drug Allergies (Unverified , 11/02/19) Home Medications Ascorbate Calcium 500 Mg Tablet, 500 MG PO DAILY, (Reported) Aspirin 81 Mg Tablet.dr, 81 MG PO DAILY, (Reported) Azithromycin 500 Mg Tablet, 500 MG PO DAILY Prescribed by: DOROTEO STEVENS on 05/23/202354 Calcium Acetate 667 Mg Tablet, 4 CAP PO TID, (Reported) Carvedilol 25 Mg Tablet, 25 MG PO BID, (Reported) Cefdinir 300 Mg Capsule, 300 MG PO BID Prescribed by: DOROTEO STEVENS on 05/23/202354 Cholecalciferol (Vitamin D3) 25 Mcg Capsule, 25 MCG PO DAILY, (Reported) Clonidine HCl 0.2 Mg Tablet, 0.4 MG PO BID, (Reported) Diphenhydramine HCl 25 Mg Capsule, 25 MG PO HS, (Reported) Folic Acid/Vitamin B Comp W-C 1 Each Tablet, 1 EACH PO DAILY, (Reported) Guaifenesin 400 Mg Tablet, 400 MG PO BID, (Reported) Hydrocodone/Acetaminophen 1 Each Tablet, 1 EACH PO PRN, (Reported) Lactobacillus Combo No.10 1 Each Capsule, 1 CAP PO DAILY, (Reported) Melatonin 5 Mg Capsule, 5 MG PO HS, (Reported) Nifedipine 60 Mg Tab.er.24, 60 MG PO BID, (Reported) Promethazine HCl 25 Mg Tablet, 25 MG PO Q6H PRN for NAUSEA/VOMITING Prescribed by: ALLAN LEACH on 12/05/19 1338 Valerian Root 100 Mg Capsule, 100 MG PO HS, (Reported) Patient Home Medication List Home Medication List Reviewed: Yes Review of Systems Review of Systems Constitutional: No chills, No diaphoresis EENTM: No ear discharge, No ear pain Respiratory: No cough, No short of breath Cardiovascular: No chest pain, No Hx of Intervention, No palpitations Gastrointestinal: No abdominal pain; diarrhea; No nausea, No vomiting Genitourinary: No discharge, No dysuria Musculoskeletal: No back pain, No joint pain Skin: No dryness, No lesions Psychiatric/Neurological: Denies Anxiety; Depressed All Other Systems Reviewed Negative Unless Noted: Yes Past Etwnjgf-Evztlw-Uffbpb Hx Patient Social History Alcohol Use: Denies Use Smoking Status: Never a Smoker 2nd Hand Smoke Exposure: No Recent Infectious Disease Expo: No Recent Hopitalizations: No Immunizations Up To Date Tetanus Booster (TDap): Unknown PED Vaccines UTD: Yes Date of Pneumonia Vaccine: Dec 05, 2015 Seasonal Allergies Seasonal Allergies: Yes (MILD) Past Medical History Surgeries: Yes (L ADRENAL GLAND REMOVED, HEMODIALYSIS CATHETER/REMOVAL AND REPLACEMENT X2) Adrenal Respiratory: Yes (hx of pleural effusions; COVID + 05/21/20) Pneumonia Currently Using CPAP: No Currently Using BIPAP: No Cardiac: Yes Hypertension Neurological: No Sexually Transmitted Disease: No HIV/AIDS: No Genitourinary: Yes Renal Failure, Dialysis Gastrointestinal: No Musculoskeletal: Yes Scoliosis 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, 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) HEENT: Yes (GLASSES) Loss of Vision: Bilateral Hearing Impairment: Denies Cancer: No Psychosocial: Yes Depression Integumentary: No Blood Disorders: Yes (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 0.0oz. [id number]; 22.00 BMI Method:Stated General Appearance: Anxious, Mild Distress Eyes: Bilateral Eye Normal Inspection, Bilateral Eye PERRL, Bilateral Eye EOMI HEENT: PERRL/EOMI, TMs Normal, Normal ENT Inspection; No Pharynx Normal, No Moist Mucous Membranes (Mildly dry oral mucosa) Neck: Full Range of Motion, Normal Inspection Respiratory: Lungs Clear, Normal Breath Sounds, No Accessory Muscle Use, Respiratory Distress (Mild respiratory distress with oxygen saturations 93% on room air at rest.) Cardiovascular: Regular Rate, Rhythm, Normal Peripheral Pulses Gastrointestinal: Normal Bowel Sounds, Non Tender, Soft Extremity: Normal Capillary Refill, Normal Inspection, No Pedal Edema Neurologic/Psychiatric: Alert, Oriented x3, Other (Flat, depressed affect) Skin: Normal Color, Warm/Dry Progress/Results/Core Measures Suspected Sepsis Recent Fever Within 48 Hours: No Infection Criteria Present: None New/Unexplained Altered Menta: No Sepsis Screen: No Definite Risk SIRS Temperature: Pulse: 90 Respiratory Rate: 16 Laboratory Tests 05/26/20 12:25: White Blood Count 6.4 Blood Pressure 131 /70 Mean: 90 Laboratory Tests 05/26/20 12:25: Creatinine 7.75#H, INR Comment 1.1, Platelet Count 243, Total Bilirubin 0.4 Results/Orders Lab Results Laboratory Tests Test 05/26/20 12:25 05/26/20 12:36 Range/Units White Blood Count 6.4 4.3-11.0 10^3/uL Red Blood Count 3.30 L 4.30-5.52 10^6/uL Hemoglobin 10.2 L 13.3-17.7 g/dL Hematocrit 31 L 40-54 % Mean Corpuscular Volume 95 80-99 fL Mean Corpuscular Hemoglobin 31 25-34 pg Mean Corpuscular Hemoglobin Concent 33 32-36 g/dL Red Cell Distribution Width 13.8 10.0-14.5 % Platelet Count 243 130-400 10^3/uL Mean Platelet Volume 9.9 9.0-12.2 fL Immature Granulocyte % (Auto) 1 % Neutrophils (%) (Auto) 79 H 42-75 % Lymphocytes (%) (Auto) 15 12-44 % Monocytes (%) (Auto) 5 0-12 % Eosinophils (%) (Auto) 0 0-10 % Basophils (%) (Auto) 0 0-10 % Neutrophils # (Auto) 5.0 1.8-7.8 10^3/uL Lymphocytes # (Auto) 1.0 1.0-4.0 10^3/uL Monocytes # (Auto) 0.3 0.0-1.0 10^3/uL Eosinophils # (Auto) 0.0 0.0-0.3 10^3/uL Basophils # (Auto) 0.0 0.0-0.1 10^3/uL Immature Granulocyte # (Auto) 0.0 0.0-0.1 10^3/uL Prothrombin Time 14.3 12.2-14.7 SEC INR Comment 1.1 0.8-1.4 Activated Partial Thromboplast Time 39 H 24-35 SEC D-Dimer 2.24 H 0.00-0.49 UG/ML Sodium Level 135 135-145 MMOL/L Potassium Level 4.1 3.6-5.0 MMOL/L Chloride Level 93 L 98-107 MMOL/L Carbon Dioxide Level 24 21-32 MMOL/L Anion Gap 18 H 5-14 MMOL/L Blood Urea Nitrogen 53 H 7-18 MG/DL Creatinine 7.75 #H 0.60-1.30 MG/DL Estimat Glomerular Filtration Rate 7 BUN/Creatinine Ratio 7 Glucose Level 110 H 70-105 MG/DL Calcium Level 7.9 L 8.5-10.1 MG/DL Corrected Calcium 8.2 L 8.5-10.1 MG/DL Total Bilirubin 0.4 0.1-1.0 MG/DL Aspartate Amino Transf (AST/SGOT) 54 H 5-34 U/L Alanine Aminotransferase (ALT/SGPT) 34 0-55 U/L Alkaline Phosphatase 74 40-136 U/L C-Reactive Protein High Sensitivity 17.38 H 0.00-0.50 MG/DL Total Protein 7.2 6.4-8.2 GM/DL Albumin 3.6 3.2-4.5 GM/DL Procalcitonin 2.61 H <0.10 NG/ML Blood Gas Puncture Site RT RAD Blood Gas Patient Temperature 97.7 Arterial Blood pH 7.56 H 7.37-7.43 Arterial Blood Partial Pressure CO2 29 L 35-45 MMHG Arterial Blood Partial Pressure O2 61 L 79-93 MMHG Arterial Blood HCO3 27 23-27 MMOL/L Arterial Blood Total CO2 27.7 21.0-31.0 MMOL/L Arterial Blood Oxygen Saturation 92 L 94-100 % Arterial Blood Base Excess 4.2 H -2.5-2.5 MMOL/L Franklin Test YES-POS Blood Gas Ventilator Setting NO Blood Gas Inspired Oxygen ROOM AIR Micro Results Microbiology 05/26/20 Influenza Types A,B Antigen (CELOS) - Final, Complete My Orders Orders - KAREN MARTINEZ Arterial Blood Gas (05/26/20 12:37) Ed Iv/Invasive Line Start (05/26/20 12:39) Ns Iv 1000 Ml (Sodium Chloride 0.9%) (05/26/20 12:45) Acetaminophen Tablet (Tylenol Tablet) (05/26/20 12:45) Dexamethasone Injection (Decadron Inje (05/26/20 12:39) Ua Culture If Indicated (05/26/20 12:40) Cbc With Automated Diff (05/26/20 12:40) Comprehensive Metabolic Panel (05/26/20 12:40) Hs C Reactive Protein (05/26/20 12:40) Procalcitonin (Pct) (05/26/20 12:40) Chest 1 View, Ap/Pa Only (05/26/20 12:40) Fibrin Degradation Products (05/26/20 12:40) Protime With Inr (05/26/20 12:41) Partial Thromboplastin Time (05/26/20 12:41) Blood Culture (05/26/20 12:41) Ns Iv 1000 Ml (Sodium Chloride 0.9%) (05/26/20 12:37) Acetaminophen Tablet (Tylenol Tablet) (05/26/20 12:37) Influenza A And B Antigens (05/26/20 13:12) Cefepime Injection (Maxipime Injection) (05/26/20 13:45) Vancomycin Injection (Vancomycin Injecti (05/26/20 13:45) Guaifenesin Tablet (Mucinex Tablet) (05/26/20 13:45) Sputum Culture (05/26/20 13:39) Urine Culture (05/26/20 13:40) Vital Signs Adult Sepsis Patie Q15M (05/26/20 13:40) O2 (05/26/20 13:40) Remove Rings In Anticipation O (05/26/20 13:40) Heparin Injection (Heparin Injection) (05/26/20 14:00) Heparin (Bolus Per Protocol) (Heparin (B (05/26/20 13:52) Vancomycin Injection (Vancomycin Injecti (05/26/20 14:01) Medications Given in ED Current Medications Medications Dose Ordered Sig/Kailey Route Start Time Stop Time Status Last Admin Dose Admin Acetaminophen 1,000 mg ONCE ONCE PO 05/26/20 12:45 05/26/20 12:46 DC 05/26/20 12:43 1,000 MG Cefepime HCl 1000 mg/Sterile Water 10 ml @ 200 mls/hr ONCE ONCE IV 05/26/20 13:45 05/26/20 13:47 DC 05/26/20 14:00 200 MLS/HR Guaifenesin 600 mg ONCE ONCE PO 05/26/20 13:45 05/26/20 13:46 DC 05/26/20 13:58 600 MG Heparin Sodium (Porcine) 5,000 units ONCE ONCE SC 05/26/20 14:00 05/26/20 14:01 DC 05/26/20 14:03 5,000 UNITS Vancomycin HCl 1250 mg/Sodium Chloride 250 ml @ 210 mls/hr ONCE ONCE IV 05/26/20 13:45 05/26/20 14:56 DC 05/26/20 14:12 210 MLS/HR Vital Signs/I&O 05/26/20 05/26/20 12:24 12:57 Temp 36.5 Pulse 90 Resp 16 B/P (MAP) 131/70 (90) Pulse Ox 96 O2 Delivery Room Air Nasal Cannula O2 Flow Rate 2.00 Capillary Refill : Less Than 3 Seconds Blood Pressure Mean: 90 Progress Note #1: Time: 13:00 Progress Note Patient is having some general malaise and weakness possibly related to his low oxygen saturation. We got an ABG ordered and will get a chest x-ray looking for opportunistic infection as well as CRP and procalcitonin. Tylenol 1000 mg for his body aches. Normal saline as he does clinically appear to be a little dry. Progress Note #2: Time: 13:41 Progress Note Interval increased left upper lobe consolidation concerning for bacterial pneumonia with significant increased markers of inflammation. His hypoxemia is corrected with 2 L of oxygen by nasal cannula keeping his oxygen sats at 99%. He has asked for something to help with his sputum so we ordered some Mucinex. Discussed admission with the patient and he agrees. We do not have inpatient dialysis available here. 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 [facility] in [place] is also on diversion however they will call me back with a doctor for [facility]. Diagnostic Imaging Diagonstic Imaging: Xray Plain Films/CT/US/NM/MRI: chest Comments NAME: DENIS DAVIS MED REC#: [id number] PT STATUS: REG ER : 1945 PHYSICIAN: KAREN MARTINEZ MD ADMIT DATE: 05/26/20/ER Signed Date of Exam:05/26/20 CHEST 1 VIEW, AP/PA ONLY HISTORY: Shortness of air, COVID positive. TECHNIQUE: Frontal view of the chest. COMPARISON: 05/23/2020. FINDINGS: Lung volumes are large. There is increased airspace consolidation in the left upper lung compared to the prior exam. No pleural effusion or pneumothorax is seen. The cardiac silhouette is stable in size. IMPRESSION: 1. Increased airspace consolidation in the left upper lobe, consistent with worsening pneumonia. Dictated by: Dictated on workstation # [id number] Dict: 05/26/20 1308 Trans: 05/26/20 1321 [id number] [id number] Interpreted by: CELI NOGUERA MD Electronically signed by: CELI NOGUERA MD 05/26/20 1321 Reviewed: Reviewed by Me Departure Impression Primary Impression: COVID-19 Disposition: 02 XFER SHT-TRM HOSP Condition: Stable Transfer Transfer Reason: Exceeds level of care (Intermittent hemodialysis inpatient) Time Spoke to Accepting Phy: 14:15 Transfer Progress Notes Discussed the case with Dr. Garcia. He accepts the patient to the floor at [place], [place]. 1500: [facility] [place] Transfer Facility: [place], [place] Method of Transfer: EMS Departure-Patient Inst. Referrals: ELLA CANTU DO (PCP/Family) Primary Care Physician KAREN MARTINEZ May 26, 2020 12:41
[2020-05-26 12:45] LABS: ABG BASE EXCESS 4.2 MMOL/L (-2.5-2.5); ABG OXYGEN SATURATION 92 % (94-100); ABG PCO2 29 MMHG (35-45); ABG PH 7.56 (7.37-7.43); ABG PO2 61 MMHG (79-93); ABG TCO2 27.7 MMOL/L (21.0-31.0)
[2020-05-26] MEDS ORDERED: ACETAMINOPHEN 500 MG TAB (TYLENOL) PO ONE (12:45)
[2020-05-26] MEDS ORDERED: NS IV 1000 ML 1,000 ML IV SCH (12:45)
[2020-05-26 12:48] LABS: ALLENS TEST YES-POS; INSPIRED O2 ROOM AIR; VENTILATOR NO
[2020-05-26 12:48] LABS: BASOPHILS % (AUTO) 0 % (0-10); EOSINOPHILS % (AUTO) 0 % (0-10); HEMATOCRIT 31 % (40-54); HEMOGLOBIN 10.2 g/dL (13.3-17.7); LYMPHOCYTES % (AUTO) 15 % (12-44); MEAN CORPUSCULAR HEMOGLOBIN 31 pg (25-34); MEAN CORPUSCULAR HGB CONC 33 g/dL (32-36); MEAN CORPUSCULAR VOLUME 95 fL (80-99); MEAN PLATELET VOLUME 9.9 fL (9.0-12.2); MONOCYTES # (AUTO) 0.3 10^3/uL (0.0-1.0); MONOCYTES % (AUTO) 5 % (0-12); NEUTROPHILS % (AUTO) 79 % (42-75); PLATELET COUNT 243 10^3/uL (130-400); WHITE BLOOD COUNT 6.4 10^3/uL (4.3-11.0)
[2020-05-26 12:49] LABS: PATIENT TEMP 97.7
[2020-05-26 12:53] LABS: ALBUMIN 3.6 GM/DL (3.2-4.5); POTASSIUM 4.1 MMOL/L (3.6-5.0)
[2020-05-26 12:54] LABS: CALCIUM 7.9 MG/DL (8.5-10.1)
[2020-05-26 12:56] LABS: TOTAL PROTEIN 7.2 GM/DL (6.4-8.2)
[2020-05-26 12:57] LABS: BILIRUBIN,TOTAL 0.4 MG/DL (0.1-1.0)
[2020-05-26 12:59] LABS: CREATININE SERUM 7.75 MG/DL (0.60-1.30)
[2020-05-26 13:03] LABS: FIBRIN DEGRADATION PRODUCTS 2.24 UG/ML (0.00-0.49); INR 1.1 (0.8-1.4); PROTHROMBIN TIME PATIENT 14.3 SEC (12.2-14.7)
--- NOTE | 2020-05-26 13:16 | Diagnostic Imaging Report ---
HISTORY: Shortness of air, COVID positive. TECHNIQUE: Frontal view of the chest. COMPARISON: 05/23/2020. FINDINGS: Lung volumes are large. There is increased airspace consolidation in the left upper lung compared to the prior exam. No pleural effusion or pneumothorax is seen. The cardiac silhouette is stable in size. IMPRESSION: 1. Increased airspace consolidation in the left upper lobe, consistent with worsening pneumonia. Dictated by: Dictated on workstation # [id number]
[2020-05-26] MEDS ORDERED: guaiFENesin (MUCINEX) 600 MG TAB PO ONE (13:45)
[2020-05-26] MEDS ORDERED: CEFEPIME INJECTION 1,000 MG in WATER (STERILE) FOR INJECTION 10 ML IV ONE (13:45)
[2020-05-26] MEDS ORDERED: VANCOMYCIN INJECTION 1,250 MG in NS (IVPB) 250 ML IV ONE (13:45)
--- NOTE | 2020-05-26 13:45 | NUR ---
IN TALKING TO PT AT THIS TIME. PHARMACY NOTIFIED OF NEEDING MUCINEX.
[2020-05-26] MEDS ORDERED: HEParin 1000 UNIT/ML (10ML VIAL) FOR BOLUS ONE (13:52)
[2020-05-26] MEDS ORDERED: VANCOMYCIN 500 MG/VIAL IV ONE (14:01)
--- NOTE | 2020-05-26 14:10 | NUR ---
PT TALKED TO SON ON THE PHONE.
--- NOTE | 2020-05-26 14:21 | NUR ---
[facility] HAS ACCEDPTED ET THEY WILL CALL WITH A ROOM NUMBER.
--- NOTE | 2020-05-26 14:22 | NUR ---
TALKING TO THE PT AT THIS TIME.
--- NOTE | 2020-05-26 15:04 | NUR ---
[facility] CONTACTED FOR TRANSFER.
--- NOTE | 2020-05-26 15:22 | NUR ---
PT NOTIFIED THAT WE HAVE BEEN GIVEN A ROOM AT [facility] AND EMS HAS BEEN CONTACTED.
--- NOTE | 2020-05-26 15:49 | NUR ---
[facility] here to transfer pt.
[2020-05-26 16:00] VITALS: BP 112/61
== END 2020-05-26 16:00 | disposition short-term general hospital (02) ==
LOC: EDUNIT# 12:24 → ER 12:25
DX: U07.1 COVID-19 (principal); F41.9 Anxiety disorder, unspecified; F32.9 Major depressive disorder, single episode, unspecified; I10 Essential (primary) hypertension; Z80.1 Family history of malignant neoplasm of trachea, bronchus and lung; Z82.49 Family history of ischemic heart disease and other diseases of the circulatory system; Z79.82 Long term (current) use of aspirin
CPT/HCPCS: 36415; 71045; 80053; 82805; 84145; 85025; 85379; 85610; 85730; 86141; 87040; 87804

== ENCOUNTER 2021-06-26 18:27 | Emergency (ER) | payer MEDICARE, OTHER ==
[~2021-06-26] VITALS: Ht 172 cm; Wt 65.0 kg
[2021-06-26] MEDS ORDERED: ONDANSETRON 4 MG/2 ML (SDV) Z0FRAN ONE (19:08)
[2021-06-26] MEDS ORDERED: ONDANSETRON 4 MG/2 ML (SDV) Z0FRAN IVP ONE (19:15)
--- NOTE | 2021-06-26 19:45 | Diagnostic Imaging Report ---
EXAMINATION: Chest 1 view HISTORY: SOB COMPARISON: 05/26/2020 FINDINGS: Heart size is upper limits of normal. There is prominence of the pulmonary vasculature. There are interstitial and airspace opacities within the mid and lower lungs. Small bilateral pleural effusions. No pneumothorax. The osseous structures are intact. IMPRESSION: 1. Cardiomegaly and findings of pulmonary vascular congestion. 2. Interstitial and airspace opacities within the mid and lower lungs which can be seen with pulmonary edema or pneumonia. Dictated by: Dictated on workstation # [id number]
[2021-06-26 20:11] LABS: BASOPHILS % (AUTO) 0 % (0-10); EOSINOPHILS % (AUTO) 0 % (0-10); HEMATOCRIT 31 % (40-54); HEMOGLOBIN 9.9 g/dL (13.3-17.7); LYMPHOCYTES # (AUTO) 0.6 10^3/uL (1.0-4.0); LYMPHOCYTES % (AUTO) 3 % (12-44); MEAN CORPUSCULAR HEMOGLOBIN 32 pg (25-34); MEAN CORPUSCULAR HGB CONC 32 g/dL (32-36); MEAN CORPUSCULAR VOLUME 100 fL (80-99); MEAN PLATELET VOLUME 9.5 fL (9.0-12.2); MONOCYTES # (AUTO) 0.7 10^3/uL (0.0-1.0); MONOCYTES % (AUTO) 4 % (0-12); NEUTROPHILS # (AUTO) 15.5 10^3/uL (1.8-7.8); NEUTROPHILS % (AUTO) 92 % (42-75); PLATELET COUNT 303 10^3/uL (130-400); WHITE BLOOD COUNT 16.9 10^3/uL (4.3-11.0)
[2021-06-26 20:28] LABS: PROTHROMBIN TIME PATIENT 13.2 SEC (12.2-14.7)
[2021-06-26 20:35] LABS: BILIRUBIN,TOTAL 0.6 MG/DL (0.1-1.0); CALCIUM 8.5 MG/DL (8.5-10.1); CREATININE SERUM 8.7 MG/DL (0.60-1.30); TOTAL PROTEIN 7.5 GM/DL (6.4-8.2)
[2021-06-26 20:36] LABS: LYMPHOCYTES % (MANUAL) 2 %; MONOCYTES % (MANUAL) 3 %; NEUTROPHILS % (MANUAL) 95 %; RBC MORPH NORMAL
[2021-06-26 21:00] LABS: POTASSIUM 6.6 MMOL/L (3.6-5.0)
[2021-06-26 21:25] LABS: ABG BASE EXCESS 1.3 MMOL/L (-2.5-2.5); ABG OXYGEN SATURATION 92 % (94-100); ABG PCO2 30 MMHG (35-45); ABG PH 7.52 (7.37-7.43); ABG PO2 55 MMHG (79-93); ABG TCO2 25.2 MMOL/L (21.0-31.0)
[2021-06-26 21:26] LABS: ALLENS TEST YES-POS; INSPIRED O2 4L; PATIENT TEMP 35.8; VENTILATOR NO
[2021-06-26] MEDS ORDERED: SODIUM BICARB 8.4% 50 MEQ/50 ML (ABBOTT) SYR IV ONE (21:30)
[2021-06-26] MEDS ORDERED: DEXTROSE 50% 50 ML (IMS) SYR IV ONE (21:30)
[2021-06-26] MEDS ORDERED: inSUlin (REGULAR) HUMAN 1 UNIT/0.01 ML (CHARGE PER UNIT) SC ONE (21:30)
[2021-06-26] MEDS ORDERED: CALCIUM GLUC. 10% 4.65 MEQ/10 ML VIAL IV ONE (21:30)
--- NOTE | 2021-06-26 21:33 | ED General ---
General Chief Complaint: General Problems/Pain Stated Complaint: N/V, SOB Nursing Triage Note: PT BROUGHT TO ED VIA [facility] FOR SOB, WEAKNESS, DIARRHEA, AND DIZZINESS THAT STARTED TODAY. PT USED TO USE OXYGEN AT HOME BUT REPORTS NOT HADN'T USED IT IN YEARS. 89% ON ROOM AIR. EMS PLACED 20G IN RIGHT HAND. Source of Information: Patient, EMS Exam Limitations: No Limitations History of Present Illness Date Seen by Provider: Jun 26, 2021 Time Seen by Provider: 19:00 Initial Comments Patient is a 75-year-old male who presents to the emergency room with a chief complaint of generalized weakness, dizziness, nausea vomiting, diarrhea and shortness of breath. Symptoms started Saturday night of last week into Saturday morning. Patient states that he felt a little bit better yesterday but symptoms worsened today. He missed his scheduled hemodialysis. He normally dialyzes on Wednesdays and Fridays. 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 Patient states that he was COVID vaccinated in August, he has not received a booster. He denies any known fever. He is not on blood thinners. He has no known diabetes or coronary artery disease. 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 He states that he does most of the time mask when he goes out to [facility] in the community. He denies any known Covid positive contacts. He states he feels a little bit of chest "tightness" with his shortness of breath. No blood in his vomitus or stool. He still makes urine. All other review of systems reviewed and negative except as stated. Timing/Duration: 2-3 Days Severity: Moderate Modifying Factors: improves with Immobilization; worse with Movement Associated Systoms: Loss of Appetite, Malaise, Nausea/Vomiting, Shortness of Air, Weakness Allergies and Home Medications Allergies Coded Allergies: No Known Drug Allergies (Unverified , 11/02/19) Patient Home Medication List Home Medication List Reviewed: Yes Ascorbate Calcium (Vitamin C) 500 Mg Tablet, 500 MG PO DAILY, (Reported) Entered as Reported by: HEATHER BERGERON on 05/21/18 0913 Aspirin (Aspir 81) 81 Mg Tablet., 81 MG PO DAILY, (Reported) Entered as Reported by: MARY MCCRARY on 11/02/19 145 Azithromycin (Zithromax) 500 Mg Tablet, 500 MG PO DAILY Prescribed by: DOROTEO STEVENS on 05/23/20 235 Calcium Acetate (Calcium Acetate) 667 Mg Tablet, 4 CAP PO TID, (Reported) Entered as Reported by: MARY MCCRARY on 11/02/19 145 Carvedilol (Carvedilol) 25 Mg Tablet, 25 MG PO BID, (Reported) Entered as Reported by: MARY MCCRARY on 11/02/19 145 Cefdinir (Cefdinir) 300 Mg Capsule, 300 MG PO BID Prescribed by: DOROTEO STEVENS on 05/23/202354 Cholecalciferol (Vitamin D3) (Vitamin D3) 25 Mcg Capsule, 25 MCG PO DAILY, (Reported) Entered as Reported by: MARY MCCRARY on 11/02/19 145 Clonidine HCl (Clonidine HCl) 0.2 Mg Tablet, 0.4 MG PO BID, (Reported) Entered as Reported by: HEATHER BERGERON on 05/21/18 09 Diphenhydramine HCl (Benadryl) 25 Mg Capsule, 25 MG PO HS, (Reported) Entered as Reported by: HEATHER BERGERON on 05/21/18 09 Folic Acid/Vitamin B Comp W-C (Dialyvite Tablet) 1 Each Tablet, 1 EACH PO DAILY, (Reported) Entered as Reported by: MARY MCCRARY on 11/02/19 145 Guaifenesin (Guaifenesin) 400 Mg Tablet, 400 MG PO BID, (Reported) Entered as Reported by: MARY MCCRARY on 11/02/19 145 Hydrocodone/Acetaminophen (Hydrocodone-Acetamin 5-325 mg) 1 Each Tablet, 1 EACH PO PRN, (Reported) Entered as Reported by: MARY MCCRARY on 11/02/19 145 Lactobacillus Combo No.10 (Probiotic) 1 Each Capsule, 1 CAP PO DAILY, (Reported) Entered as Reported by: HEATHER BERGERON on 05/21/18 09 Melatonin (Melatonin) 5 Mg Capsule, 5 MG PO HS, (Reported) Entered as Reported by: HEATHER BERGERON on 05/21/18 09 Nifedipine (Procardia Xl) 60 Mg Tab.er.24, 60 MG PO BID, (Reported) Entered as Reported by: MARY MCCRARY on 11/02/19 1455 Promethazine HCl (Promethazine Tablet) 25 Mg Tablet, 25 MG PO Q6H PRN for NAUSEA/VOMITING Prescribed by: ALLAN LEACH on 12/05/19 1338 Valerian Root (Valerian Root) 100 Mg Capsule, 100 MG PO HS, (Reported) Entered as Reported by: HEATHER BERGERON on 05/21/18 0913 Review of Systems Review of Systems Constitutional: see HPI EENTM: throat pain ("slight") Respiratory: short of breath Cardiovascular: chest pain ("tightness") Gastrointestinal: diarrhea, loss of appetite, nausea, vomiting ("dry heaves") Musculoskeletal: back pain (back "Ache") Skin: no symptoms reported Psychiatric/Neurological: Weakness (generalized) All Other Systems Reviewed Negative Unless Noted: Yes Past Yjzxuqc-Cnfmei-Yxesky Hx Patient Social History Tobacco Use?: No Substance use?: No Alcohol Use?: No Pt feels they are or have been: No Immunizations Up To Date Tetanus Booster (TDap): Unknown PED Vaccines UTD: Yes First/Initial COVID19 Vaccinat: 07/03 Second COVID19 Vaccination Moises: 07/31 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 SURGERY; ADRENAL GLAND MASS REMOVAL 2011. Surgeries: Yes (L ADRENAL GLAND REMOVED, HEMODIALYSIS CATHETER/REMOVAL AND REPLACEMENT X2) Adrenal Respiratory: Yes (hx of pleural effusions; COVID + 05/21/20) Pneumonia Currently Using CPAP: No Currently Using BIPAP: No Cardiac: Yes Hypertension Neurological: No Sexually Transmitted Disease: No HIV/AIDS: No Genitourinary: Yes Renal Failure, Dialysis Gastrointestinal: No Musculoskeletal: Yes Scoliosis 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, 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) HEENT: Yes (GLASSES) Loss of Vision: Bilateral Hearing Impairment: Denies Cancer: No Psychosocial: Yes Depression Integumentary: No Blood Disorders: Yes (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) Adverse Reaction/Blood Tranf: No Family Medical History Aneurysm 19 MOTHER FH: lung cancer 19 FATHER Hypertension 19 MOTHER G8 SISTER Cancer, Hypertension Physical Exam Vital Signs Vital Signs - First Documented 06/26/21 18:30 Temp 35.8 Pulse 95 Resp 24 B/P (MAP) 171/94 (119) Pulse Ox 96 O2 Delivery Nasal Cannula O2 Flow Rate 4.00 FiO2 96 Capillary Refill : Less Than 3 Seconds Height, Weight, BMI Height: 5'8.00" Weight: 154lbs. 0.0oz. 69.559351or; 21.00 BMI Method:Stated Focused Exam Lactate Level 06/26/21 19:48: Lactic Acid Level 1.09 Lactic Acid Level Laboratory Tests Test 06/26/21 19:48 Lactic Acid Level 1.09 MMOL/L (0.50-2.00) Progress/Results/Core Measures Suspected Sepsis SIRS Temperature: Pulse: 95 Respiratory Rate: 24 Laboratory Tests 06/26/21 19:48: White Blood Count 16.9H Blood Pressure 171 /94 Mean: 119 06/26/21 19:48: Lactic Acid Level 1.09 Laboratory Tests 06/26/21 19:48: Creatinine 8.70H, INR Comment 1.0, Platelet Count 303, Total Bilirubin 0.6 Results/Orders Lab Results Laboratory Tests Test 06/26/21 19:10 06/26/21 19:48 06/26/21 21:14 Range/Units Influenza Type A (RT-PCR) Not Detected Not Detecte Influenza Type B (RT-PCR) Not Detected Not Detecte SARS-CoV-2 RNA (RT-PCR) Detected H Not Detecte White Blood Count 16.9 H 4.3-11.0 10^3/uL Red Blood Count 3.08 L 4.30-5.52 10^6/uL Hemoglobin 9.9 L 13.3-17.7 g/dL Hematocrit 31 L 40-54 % Mean Corpuscular Volume 100 H 80-99 fL Mean Corpuscular Hemoglobin 32 25-34 pg Mean Corpuscular Hemoglobin Concent 32 32-36 g/dL Red Cell Distribution Width 13.7 10.0-14.5 % Platelet Count 303 130-400 10^3/uL Mean Platelet Volume 9.5 9.0-12.2 fL Immature Granulocyte % (Auto) 1 % Neutrophils (%) (Auto) 92 H 42-75 % Lymphocytes (%) (Auto) 3 L 12-44 % Monocytes (%) (Auto) 4 0-12 % Eosinophils (%) (Auto) 0 0-10 % Basophils (%) (Auto) 0 0-10 % Neutrophils # (Auto) 15.5 H 1.8-7.8 10^3/uL Lymphocytes # (Auto) 0.6 L 1.0-4.0 10^3/uL Monocytes # (Auto) 0.7 0.0-1.0 10^3/uL Eosinophils # (Auto) 0.0 0.0-0.3 10^3/uL Basophils # (Auto) 0.0 0.0-0.1 10^3/uL Immature Granulocyte # (Auto) 0.1 0.0-0.1 10^3/uL Neutrophils % (Manual) 95 % Lymphocytes % (Manual) 2 % Monocytes % (Manual) 3 % Blood Morphology Comment NORMAL Prothrombin Time 13.2 12.2-14.7 SEC INR Comment 1.0 0.8-1.4 Activated Partial Thromboplast Time 21 L 24-35 SEC Sodium Level 130 L 135-145 MMOL/L Potassium Level 6.6 #*H 3.6-5.0 MMOL/L Chloride Level 94 L 98-107 MMOL/L Carbon Dioxide Level 18 L 21-32 MMOL/L Anion Gap 18 H 5-14 MMOL/L Blood Urea Nitrogen 75 H 7-18 MG/DL Creatinine 8.70 H 0.60-1.30 MG/DL Estimat Glomerular Filtration Rate 6 BUN/Creatinine Ratio 9 Glucose Level 154 H 70-105 MG/DL Lactic Acid Level 1.09 0.50-2.00 MMOL/L Calcium Level 8.5 8.5-10.1 MG/DL Corrected Calcium 8.5 8.5-10.1 MG/DL Total Bilirubin 0.6 0.1-1.0 MG/DL Aspartate Amino Transf (AST/SGOT) 26 5-34 U/L Alanine Aminotransferase (ALT/SGPT) 42 0-55 U/L Alkaline Phosphatase 87 40-136 U/L Troponin I 0.072 H <0.028 NG/ML C-Reactive Protein High Sensitivity 4.72 H 0.00-0.50 MG/DL Total Protein 7.5 6.4-8.2 GM/DL Albumin 4.0 3.2-4.5 GM/DL Procalcitonin 0.94 H <0.10 NG/ML Blood Gas Puncture Site R RAD Blood Gas Patient Temperature 35.8 Arterial Blood pH 7.52 H 7.37-7.43 Arterial Blood Partial Pressure CO2 30 L 35-45 MMHG Arterial Blood Partial Pressure O2 55 L 79-93 MMHG Arterial Blood HCO3 24 23-27 MMOL/L Arterial Blood Total CO2 25.2 21.0-31.0 MMOL/L Arterial Blood Oxygen Saturation 92 L 94-100 % Arterial Blood Base Excess 1.3 -2.5-2.5 MMOL/L Franklin Test YES-POS Blood Gas Ventilator Setting NO Blood Gas Inspired Oxygen 4L My Orders Orders - IRA ORR MD Ondansetron Injection (Zofran Injectio (06/26/21 19:08) Cbc With Automated Diff (06/26/21 19:12) Comprehensive Metabolic Panel (06/26/21 19:12) Blood Culture (06/26/21 19:12) Sputum Culture (06/26/21 19:12) Urinalysis (06/26/21 19:12) Urine Culture (06/26/21 19:12) Protime With Inr (06/26/21 19:12) Partial Thromboplastin Time (06/26/21 19:12) Chest 1 View, Ap/Pa Only (06/26/21 19:12) Ed Iv/Invasive Line Start (06/26/21 19:12) Ed Iv/Invasive Line Start (06/26/21 19:12) Vital Signs Adult Sepsis Patie Q15M (06/26/21 19:12) O2 (06/26/21 19:12) Remove Rings In Anticipation O (06/26/21 19:12) Lactic Acid Analyzer (06/26/21 19:12) Covid 19 Inhouse Test (06/26/21 19:12) Hs C Reactive Protein (06/26/21 19:12) Procalcitonin (Pct) (06/26/21 19:12) Influenza A And B By Pcr (06/26/21 19:12) Isolation Central Supply Req (06/26/21 19:12) Ondansetron Injection (Zofran Injectio (06/26/21 19:15) Ekg Tracing (06/26/21 19:12) Troponin I [place] (06/26/21 19:12) Manual Differential (06/26/21 19:48) D50w (Emergency) Syringe (Dextrose 50% 5 (06/26/21 21:30) Insulin (Regular) Human (Novolin R (Per (06/26/21 21:30) Sodium Bicarbonate 8.4% Syr (Sodium Bica (06/26/21 21:30) Calcium Gluconate 10% Inj (Calcium Glu (06/26/21 21:30) Arterial Blood Gas (06/26/21 21:22) Acetaminophen Tablet (Tylenol Tablet) (06/26/21 21:45) Dexamethasone Injection (Decadron Injec (06/26/21 21:45) Medications Given in ED Current Medications Medications Dose Ordered Sig/Kailey Route Start Time Stop Time Status Last Admin Dose Admin Acetaminophen 1,000 mg ONCE ONCE PO 06/26/21 21:45 06/26/21 21:46 DC 06/26/21 21:43 1,000 MG Dexamethasone Sodium Phosphate 6 mg ONCE ONCE IV 06/26/21 21:45 06/26/21 21:46 DC 06/26/21 21:48 6 MG Dextrose 50 ml ONCE ONCE IV 06/26/21 21:30 06/26/21 21:31 DC 06/26/21 21:53 50 ML Insulin Human Regular 10 unit ONCE ONCE SC 06/26/21 21:30 06/26/21 21:31 DC 06/26/21 21:46 10 UNIT Ondansetron HCl 4 mg ONCE ONCE IVP 06/26/21 19:15 06/26/21 19:16 DC 06/26/21 21:15 4 MG Vital Signs/I&O 06/26/21 06/26/21 18:30 18:30 Temp 35.8 Pulse 95 Resp 24 B/P (MAP) 171/94 (119) Pulse Ox 96 O2 Delivery Nasal Cannula O2 Flow Rate 4.00 4.00 FiO2 96 Capillary Refill : Less Than 3 Seconds Blood Pressure Mean: 119 Progress Note #1: Time: 21:32 Progress Note Patient reevaluated after imaging studies and labs returned. He does have evidence of Covid pneumonia on chest x-ray. He does have hyperkalemia. Will treat this with insulin, D50, bicarb and calcium gluconate. His EKG shows a slightly widened QRS at 114, QTc 501 and CO interval at 178. He is sinus rhythm at 88 bpm with no ectopy, ST segment elevation or depression. He does have suggestion of peaked T waves across the precordium. Patient is complaining of a little lower back ache for which she routinely takes Tylenol at night. This is offered and accepted. He is satting 98% on 3 to 4 L per nasal cannula. His blood pressure is good his pulse remains in the 80s. He is otherwise without complaint of nausea or diarrhea at this point. We will attempt to find hemodialysis bed with COVID capabilities. [facility] case started for bed placement and patient updated. Progress Note #2: Time: 22:01 Progress Note Discussed with [facility] - capability at [facility]. faxing Covid results and facesheet. They will call back ECG Initial ECG Impression Date: Jun 26, 2021 Initial ECG Impression Time: 19:29 Initial ECG Rate: 88 Initial ECG Rhythm: Normal Sinus Initial ECG Intervals CO 178 QRS 114 QTc 501 No ectopy, ST segment elevation or depression noted. Diagnostic Imaging Diagonstic Imaging: Xray Plain Films/CT/US/NM/MRI: chest Comments [facility] [place] NAME: DENIS DAVIS [facility] REC#: [id number] PT STATUS: REG ER : 1945 PHYSICIAN: IRA ORR MD ADMIT DATE: 06/26/21/ER Signed Date of Exam:06/26/21 CHEST 1 VIEW, AP/PA ONLY EXAMINATION: Chest 1 view HISTORY: SOB COMPARISON: 05/26/2020 FINDINGS: Heart size is upper limits of normal. There is prominence of the pulmonary vasculature. There are interstitial and airspace opacities within the mid and lower lungs. Small bilateral pleural effusions. No pneumothorax. The osseous structures are intact. IMPRESSION: 1. Cardiomegaly and findings of pulmonary vascular congestion. 2. Interstitial and airspace opacities within the mid and lower lungs which can be seen with pulmonary edema or pneumonia. Dictated by: Dictated on workstation # [id number] Dict: 06/26/211941 Trans: 06/26/211947 [facility] [id number] Interpreted by: RAY GARCES DO Electronically signed by: RAY GARCES DO 06/26/211947 Critical Care Note Critical Care Start Time: 19:00 Total Time (minutes) Critical care time 1 hour in the evaluation and management of this 75-year-old with hypoxia, end-stage renal disease, nausea vomiting diarrhea, Covid pneumonia. Time includes evaluation and management, supplemental oxygenation, medication for symptoms. Review of medical record. Discussion with transferring/admitting provider at outlying facility. Departure Impression Primary Impression: Pneumonia due to COVID-19 virus Additional Impressions: ESRD (end stage renal disease) on dialysis Hyperkalemia Departure-Patient Inst. Referrals: ELLA CANTU DO (PCP/Family) Primary Care Physician IRA ORR MD Jun 26, 2021 21:33
[2021-06-26] MEDS ORDERED: ACETAMINOPHEN 500 MG TAB (TYLENOL) PO ONE (21:45)
[2021-06-26] MEDS ORDERED: SOD POLYSTERENE 15 GM/60 ML (KAYEXALATE) UNIT DOSE PO ONE (23:15)
[2021-06-27 02:03] LABS: POTASSIUM 5.6 MMOL/L (3.6-5.0)
[2021-06-27 02:04] LABS: CALCIUM 8.6 MG/DL (8.5-10.1)
[2021-06-27 02:08] LABS: CREATININE SERUM 9.17 MG/DL (0.60-1.30)
[2021-06-27 06:53] LABS: BILIRUBIN,URINE NEGATIVE (NEGATIVE); CLARITY,URINE SL CLOUDY; COLOR,URINE YELLOW; GLUCOSE, URINE (UA) 1+ (NEGATIVE); KETONES,URINE NEGATIVE (NEGATIVE); LEUKOCYTE ESTERASE ,URINE NEGATIVE (NEGATIVE); NITRITE,URINE NEGATIVE (NEGATIVE); PH,URINE 8.5 (5-9); PROTEIN,URINE 1+ (NEGATIVE)
[2021-06-27 07:00] LABS: BACTERIA,URINE TRACE /HPF; RBC,URINE 0-2 /HPF; SQUAMOUS EPITHELIAL CELL,UR 0-2 /HPF; WBC,URINE 0-2 /HPF
[2021-06-27] MEDS ORDERED: BENZONATATE 100 MG (TESSALON) CAPSULE PO ONE (07:00)
[2021-06-27 09:01] VITALS: BP 168/101
== END 2021-06-27 09:13 | disposition short-term general hospital (02) ==
LOC: EDUNIT# 18:27 → ER 18:31
DX: U07.1 COVID-19 (principal); J12.82 Pneumonia due to coronavirus disease 2019; I12.0 Hypertensive chronic kidney disease with stage 5 chronic kidney disease or end stage renal disease; N18.6 End stage renal disease; E87.5 Hyperkalemia; Z79.82 Long term (current) use of aspirin
CPT/HCPCS: 36415; 71045; 80048; 80053; 81000; 82805; 83605; 84145; 84484; 85007; 85027; 85610; 85730; 86141; 87040; 87077; 87088; 87636; 93005

== ENCOUNTER 2021-09-24 12:10 | Emergency (ER) | payer MEDICARE ==
[~2021-09-24] VITALS: Ht 172 cm; Wt 65.7 kg
--- NOTE | 2021-09-24 12:35 | ED General ---
General Stated Complaint: DIALYSIS PT/NAUSEA/SCOLIOSIS PAIN Source of Information: Patient Exam Limitations: No Limitations History of Present Illness Date Seen by Provider: September 24, 2021 Time Seen by Provider: 12:32 Initial Comments Patient is a 76-year-old male with a history of hypertension, chronic kidney disease who presents to ED for nausea. Nausea has been constant for the past 2 to 3 weeks. He has had intermittent nausea over the past 4 years. Started dialysis 4 years ago secondary to kidney failure. 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 Currently following up with Dr. Matos parts casting machine operator at [place]. Dialysis Saturday and Saturday weekly. He states nauseous is worse after dialysis. Has not been able to eat over the past 2 to 3 weeks. Has been drinking tea. Patient is a vegetarian. Was placed on Zofran by nephrology with very minimal improvement. Denies of any abdominal pain, chest pain, shortness of breath, cough, fever. History of low back pain secondary to scoliosis with pain into the lower extremities. States this is chronic with no worsening pain today. Patient had some mild dizziness this morning and this is intermittent. Allergies and Home Medications Allergies Coded Allergies: No Known Drug Allergies (Unverified , 11/02/19) Patient Home Medication List Home Medication List Reviewed: Yes Ascorbate Calcium (Vitamin C) 500 Mg Tablet, 500 MG PO DAILY, (Reported) Entered as Reported by: HEATHER BERGERON on 05/21/18 0913 Aspirin (Aspir 81) 81 Mg Tablet.dr, 81 MG PO DAILY, (Reported) Entered as Reported by: MARY MCCRARY on 11/02/19 1455 Azithromycin (Zithromax) 500 Mg Tablet, 500 MG PO DAILY Prescribed by: DOROTEO STEVENS on 05/23/20 2355 Calcium Acetate (Calcium Acetate) 667 Mg Tablet, 4 CAP PO TID, (Reported) Entered as Reported by: MARY MCCRARY on 11/02/19 1455 Carvedilol (Carvedilol) 25 Mg Tablet, 25 MG PO BID, (Reported) Entered as Reported by: MARY MCCRARY on 11/02/19 1455 Cefdinir (Cefdinir) 300 Mg Capsule, 300 MG PO BID Prescribed by: DOROTEO STEVENS on 05/23/20 1502 Cholecalciferol (Vitamin D3) (Vitamin D3) 25 Mcg Capsule, 25 MCG PO DAILY, (Reported) Entered as Reported by: MARY MCCRARY on 11/02/19 145 Clonidine HCl (Clonidine HCl) 0.2 Mg Tablet, 0.4 MG PO BID, (Reported) Entered as Reported by: HEATHER BERGERON on 05/21/18 09 Diphenhydramine HCl (Benadryl) 25 Mg Capsule, 25 MG PO HS, (Reported) Entered as Reported by: HEATHER BERGERON on 05/21/18 09 Folic Acid/Vitamin B Comp W-C (Dialyvite Tablet) 1 Each Tablet, 1 EACH PO DAILY, (Reported) Entered as Reported by: MARY MCCRARY on 11/02/19 145 Guaifenesin (Guaifenesin) 400 Mg Tablet, 400 MG PO BID, (Reported) Entered as Reported by: MARY MCCRARY on 11/02/19 145 Hydrocodone/Acetaminophen (Hydrocodone-Acetamin 5-325 mg) 1 Each Tablet, 1 EACH PO PRN, (Reported) Entered as Reported by: MARY MCCRARY on 11/02/19 145 Lactobacillus Combo No.10 (Probiotic) 1 Each Capsule, 1 CAP PO DAILY, (Reported) Entered as Reported by: HEATHER BERGERON on 05/21/18912 Melatonin (Melatonin) 5 Mg Capsule, 5 MG PO HS, (Reported) Entered as Reported by: HEATHER BERGERON on 05/21/18912 Nifedipine (Procardia Xl) 60 Mg Tab.er.24, 60 MG PO BID, (Reported) Entered as Reported by: MARY MCCRARY on 11/02/19 145 Promethazine HCl (Promethazine Tablet) 25 Mg Tablet, 25 MG PO Q6H PRN for NAUSEA/VOMITING Prescribed by: ALLAN LEACH on 12/05/19 1338 Promethazine HCl (Promethazine Tablet) 25 Mg Tablet, 25 MG PO Q6H PRN for NAUSEA/VOMITING Prescribed by: REBECCA RUVALCABA on 09/24/21 1414 Valerian Root (Valerian Root) 100 Mg Capsule, 100 MG PO HS, (Reported) Entered as Reported by: HEATHER BERGERON on 05/21/18 0913 Review of Systems Review of Systems Constitutional: No chills, No diaphoresis, No fever, No malaise, No weakness EENTM: No blurred vision, No double vision, No hoarseness, No mouth pain, No throat swelling Respiratory: No cough, No short of breath Cardiovascular: No chest pain Gastrointestinal: No abdominal pain; diarrhea, nausea; No vomiting Genitourinary: No decreased output, No discharge Musculoskeletal: back pain; No joint pain Skin: No change in color, No change in hair/nails All Other Systems Reviewed Negative Unless Noted: Yes Past Mbnmtky-Uvrzyq-Ahefit Hx Immunizations Up To Date Tetanus Booster (TDap): Unknown PED Vaccines UTD: Yes First/Initial COVID19 Vaccinat: 07/03 Second COVID19 Vaccination Moises: 07/31 Seasonal Allergies Seasonal Allergies: Yes (MILD) Past Medical History Surgery/Hospitalization HX: PMH;SCOLIOSIS AND KIDNEY FAILURE. SURGERY; ADRENAL GLAND MASS REMOVAL 2011. Surgeries: Yes (L ADRENAL GLAND REMOVED, HEMODIALYSIS CATHETER/REMOVAL AND REPLACEMENT X2) Adrenal Respiratory: Yes (hx of pleural effusions; COVID + 05/21/20) Pneumonia Currently Using CPAP: No Currently Using BIPAP: No Cardiac: Yes Hypertension Neurological: No Sexually Transmitted Disease: No HIV/AIDS: No Genitourinary: Yes Renal Failure, Dialysis Gastrointestinal: No Musculoskeletal: Yes Scoliosis 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, 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) HEENT: Yes (GLASSES) Loss of Vision: Bilateral Hearing Impairment: Denies Cancer: No Psychosocial: Yes Depression Integumentary: No Blood Disorders: Yes (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) Adverse Reaction/Blood Tranf: No Family Medical History Aneurysm 19 MOTHER FH: lung cancer 19 FATHER Hypertension 19 MOTHER G8 SISTER Cancer, Hypertension Physical Exam Vital Signs Vital Signs - First Documented 09/24/21 12:38 Temp 36.1 Pulse 68 Resp 18 B/P (MAP) 149/68 (95) Pulse Ox 96 Capillary Refill : Height, Weight, BMI Height: 5'8.00" Weight: 154lbs. 0.0oz. 69.507515yr; 21.00 BMI Method:Stated General Appearance: No Apparent Distress, WD/WN Eyes: Bilateral Eye Normal Inspection, Bilateral Eye PERRL, Bilateral Eye EOMI HEENT: PERRL/EOMI, TMs Normal, Normal ENT Inspection, Pharynx Normal Neck: Full Range of Motion, Normal Inspection, Non Tender, Supple Respiratory: Chest Non Tender, Lungs Clear, Normal Breath Sounds, No Accessory Muscle Use, No Respiratory Distress Cardiovascular: Regular Rate, Rhythm, No Edema, No Gallop Gastrointestinal: Normal Bowel Sounds, No Organomegaly, Non Tender Extremity: Normal Capillary Refill, Normal Inspection, Normal Range of Motion, Non Tender Neurologic/Psychiatric: Alert, Oriented x3, No Motor/Sensory Deficits, Normal Mood/Affect, early childhood director II-XII Norm as Tested Progress/Results/Core Measures Suspected Sepsis SIRS Temperature: Pulse: Respiratory Rate: Laboratory Tests 09/24/21 12:27: White Blood Count 7.7 Blood Pressure / Mean: Laboratory Tests 09/24/21 12:27: Creatinine 7.01H, Platelet Count 242, Total Bilirubin 0.7 Results/Orders Lab Results Laboratory Tests Test 09/24/21 12:27 09/24/21 13:48 Range/Units White Blood Count 7.7 4.3-11.0 10^3/uL Red Blood Count 3.37 L 4.30-5.52 10^6/uL Hemoglobin 10.8 L 13.3-17.7 g/dL Hematocrit 33 L 40-54 % Mean Corpuscular Volume 98 80-99 fL Mean Corpuscular Hemoglobin 32 25-34 pg Mean Corpuscular Hemoglobin Concent 33 32-36 g/dL Red Cell Distribution Width 13.9 10.0-14.5 % Platelet Count 242 130-400 10^3/uL Mean Platelet Volume 9.6 9.0-12.2 fL Immature Granulocyte % (Auto) 0 % Neutrophils (%) (Auto) 81 H 42-75 % Lymphocytes (%) (Auto) 11 L 12-44 % Monocytes (%) (Auto) 5 0-12 % Eosinophils (%) (Auto) 1 0-10 % Basophils (%) (Auto) 0 0-10 % Neutrophils # (Auto) 6.3 1.8-7.8 10^3/uL Lymphocytes # (Auto) 0.9 L 1.0-4.0 10^3/uL Monocytes # (Auto) 0.4 0.0-1.0 10^3/uL Eosinophils # (Auto) 0.1 0.0-0.3 10^3/uL Basophils # (Auto) 0.0 0.0-0.1 10^3/uL Immature Granulocyte # (Auto) 0.0 0.0-0.1 10^3/uL Sodium Level 133 L 135-145 MMOL/L Potassium Level 5.1 H 4.4 3.6-5.0 MMOL/L Chloride Level 91 L 98-107 MMOL/L Carbon Dioxide Level 24 21-32 MMOL/L Anion Gap 18 H 5-14 MMOL/L Blood Urea Nitrogen 36 H 7-18 MG/DL Creatinine 7.01 H 0.60-1.30 MG/DL Estimat Glomerular Filtration Rate 7 BUN/Creatinine Ratio 5 Glucose Level 109 H 70-105 MG/DL Calcium Level 8.6 8.5-10.1 MG/DL Corrected Calcium 8.7 8.5-10.1 MG/DL Magnesium Level 2.3 1.6-2.4 MG/DL Total Bilirubin 0.7 0.1-1.0 MG/DL Aspartate Amino Transf (AST/SGOT) 44 H 5-34 U/L Alanine Aminotransferase (ALT/SGPT) 37 0-55 U/L Alkaline Phosphatase 86 40-136 U/L Total Protein 7.1 6.4-8.2 GM/DL Albumin 3.9 3.2-4.5 GM/DL My Orders Orders - JUAN GEIGER Cbc With Automated Diff (09/24/21 12:34) Comprehensive Metabolic Panel (09/24/21 12:34) Magnesium (09/24/21 12:34) Promethazine Injection (Phenergan Injec (09/24/21 13:45) Potassium (09/24/21 13:45) Medications Given in ED Current Medications Medications Dose Ordered Sig/Kailey Route Start Time Stop Time Status Last Admin Dose Admin Promethazine HCl 25 mg ONCE ONCE IVP 09/24/21 13:45 09/24/21 13:46 DC 09/24/21 13:46 25 MG Vital Signs/I&O 09/24/21 09/24/21 12:38 14:43 Temp 36.1 Pulse 68 60 Resp 18 18 B/P (MAP) 149/68 (95) 153/93 Pulse Ox 96 98 Capillary Refill : Departure Communication (PCP) Patient with a history of chronic kidney disease who presents ED with nausea. Has had intermittent nausea for the past 4 years since dialysis. Worse over the past 2 to 3 weeks. Difficulty eating. patient is unclear if they made any adjustments to his dialysis. He states he just has decreased appetite. Was placed on omeprazole by his parts casting machine operator. Patient is a vegetarian. Discussed starting with small food samples. Avoid spicy and fatty foods. Discussed tea versus sandy rambo. Discussed a bland diet. Patient was placed on Zofran with not enough improvement. Was given Phenergan here with improvement. Discussed given a dose for a few days until he can see his parts casting machine operator. Patient schedule d for dialysis tomorrow. Patient lab work showed sodium 133, chloride of 91, potassium of 4.4. This appears to be around his normal baseline. Patient was not given any type of fluid. He has no chest pain, shortness of breath, fever, headache, current dizziness, normal white blood count. Chronic anemia hemoglobin to 10. Patient with chronic low back pain refused any pain medi cation. Discussed with patient he appears well and nontoxic. I do feel like the nausea is secondary to his kidney disease and dialysis. May consider trying a different nausea medication but needs a follow-up with parts casting machine operator. Follow- up with your dialysis tomorrow. Patient agrees with plan of action. Impression Primary Impression: Nausea Additional Impression: CKD (chronic kidney disease) requiring chronic dialysis Disposition: 01 HOME, SELF-CARE Condition: Stable Departure-Patient Inst. Decision time for Depature: 14:10 Referrals: ELLA CANTU DO (PCP/Family) Primary Care Physician Patient Instructions: Chronic Kidney Disease Add. Discharge Instructions: Continue with dialysis. Discussed nausea with your parts casting machine operator. If any worsening symptoms return back to ED. need to follow-up with dialysis tomorrow. Scripts Promethazine HCl (Promethazine Tablet) 25 Mg Tablet 25 MG PO Q6H PRN for NAUSEA/VOMITING, #14 TAB Prov: JUAN GEIGER 09/24/21 JUAN GEIGER September 24, 2021 12:35
[2021-09-24 12:41] LABS: BASOPHILS % (AUTO) 0 % (0-10); EOSINOPHILS # (AUTO) 0.1 10^3/uL (0.0-0.3); EOSINOPHILS % (AUTO) 1 % (0-10); HEMATOCRIT 33 % (40-54); HEMOGLOBIN 10.8 g/dL (13.3-17.7); LYMPHOCYTES # (AUTO) 0.9 10^3/uL (1.0-4.0); LYMPHOCYTES % (AUTO) 11 % (12-44); MEAN CORPUSCULAR HEMOGLOBIN 32 pg (25-34); MEAN CORPUSCULAR HGB CONC 33 g/dL (32-36); MEAN CORPUSCULAR VOLUME 98 fL (80-99); MEAN PLATELET VOLUME 9.6 fL (9.0-12.2); MONOCYTES # (AUTO) 0.4 10^3/uL (0.0-1.0); MONOCYTES % (AUTO) 5 % (0-12); NEUTROPHILS # (AUTO) 6.3 10^3/uL (1.8-7.8); NEUTROPHILS % (AUTO) 81 % (42-75); PLATELET COUNT 242 10^3/uL (130-400); WHITE BLOOD COUNT 7.7 10^3/uL (4.3-11.0)
[2021-09-24 12:54] LABS: ALBUMIN 3.9 GM/DL (3.2-4.5)
[2021-09-24 12:56] LABS: CALCIUM 8.6 MG/DL (8.5-10.1)
[2021-09-24 12:57] LABS: POTASSIUM 5.1 MMOL/L (3.6-5.0); TOTAL PROTEIN 7.1 GM/DL (6.4-8.2)
[2021-09-24 12:58] LABS: BILIRUBIN,TOTAL 0.7 MG/DL (0.1-1.0)
[2021-09-24 13:00] LABS: CREATININE SERUM 7.01 MG/DL (0.60-1.30)
[2021-09-24 13:03] LABS: MAGNESIUM 2.3 MG/DL (1.6-2.4)
[2021-09-24] MEDS ORDERED: PROMETHAZINE INJ 25 MG/ML (PHENERGAN) AMP IVP ONE (13:45)
[2021-09-24] MEDS ORDERED: PROM25TA14 PO (14:14)
[2021-09-24 14:43] VITALS: BP 153/93
== END 2021-09-24 14:42 | disposition home or self-care (01) ==
LOC: EDUNIT# 12:10 → ER 12:12
DX: I12.9 Hypertensive chronic kidney disease with stage 1 through stage 4 chronic kidney disease, or unspecified chronic kidney disease (principal); N18.9 Chronic kidney disease, unspecified; D63.1 Anemia in chronic kidney disease; Z99.2 Dependence on renal dialysis; Z86.16 Personal history of COVID-19; Z28.311 Partially vaccinated for COVID-19
CPT/HCPCS: 36415; 80053; 83735; 84132; 85025

== ENCOUNTER 2021-12-18 04:26 | Emergency (ER) | payer MEDICARE ==
[~2021-12-18] VITALS: Ht 172 cm; Wt 65.0 kg
[2021-12-18] MEDS ORDERED: ONDANSETRON 4 MG (ZOFRAN) ORAL DISSOLVE TAB PO STA (04:41)
--- NOTE | 2021-12-18 04:47 | ED General ---
General Chief Complaint: General Problems/Pain Stated Complaint: NAUSEA,DIZZY Nursing Triage Note: PATIENT STATES LAST HOUR HE HAS BEEN NAUSEATED, WEAKNESS, SHORTNESS OF BREATH. 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 NO KNOWN FEVER NO COUGH NO ABDOMINAL PAIN STATES "A LITTLE BIT" OF DIARRHEA--"NOT MUCH" --THIS AM PT HAS ESRD ON DIALYSIS, ON [id number]---GOES TO [facility] IS DUE FOR DIALYSIS THIS AM AT 0800. PT STILL MAKES URINE--"JUST A LITTLE--NOT MUCH". DENIES ANY PAIN/DIFFICULTY URINATING PT WAS HYPOTENSIVE FOR EMS--BP 90/60 ON ARRIVAL HERE PT HAS NOT TAKEN ANY MORNING MEDICATIONS YET PT STATES HE STARTED TAKING MAGNESIUM THIS WEEKEND, OTHERWISE NO MEDICATION CHANGES. STATES "THERE'S BEEN SOME ISSUES WITH THE BLOOD PRESSURE AND I THOUGHT I HEARD THAT MAGNESIUM MIGHT HELP, SO I STARTED TAKING IT"--3-4 DAYS AGO. HE DID NOT DISCUSS THIS WITH ANY OF HIS DOCTORS OR DIALYSIS STAFF BEFORE HE STARTED TAKING IT. PT IS UNABLE TO STATE WHAT HIS BLOOD PRESSURE READINGS HAVE BEEN--ONLY STATES "IT VARIES" AND IS UNABLE TO STATE IF THEY HAVE BEEN HIGH OR LOW--ONLY STATES "IT VARIES" PT HAS HAD COVID-19 VACCINE X 2--A YEAR AGO. NO BOOSTER VACCINES PT HAS HAD COVID INFECTION TWICE--FIRST TIME WAS IN 2019 AND WAS TRANSFERRED TO [place], [place] THE SECOND TIME WAS IN JUNE OF THIS YEAR, AND WAS TRANSFERRED TO [place], [place]. PT IS NOT DIABETIC PT IS NOT ON ANY BLOOD THINNERS DENIES ANY CARDIAC PROBLEMS OR LUNG PROBLEMS. PCP: DR. CANTU WITH [facility] [place] TUTOR: DR. ALCANTARA AT [facility] [place] Allergies and Home Medications Allergies Coded Allergies: No Known Drug Allergies (Unverified , 11/02/19) Patient Home Medication List Ascorbate Calcium (Vitamin C) 500 Mg Tablet, 500 MG PO DAILY, (Reported) Entered as Reported by: HEATHER BERGERON on 05/21/18 09 Aspirin (Aspir 81) 81 Mg Tablet.dr, 81 MG PO DAILY, (Reported) Entered as Reported by: MARY MCCRARY on 11/02/19 1455 Azithromycin (Zithromax) 500 Mg Tablet, 500 MG PO DAILY Prescribed by: DOROTEO STEVENS on 05/23/20 2355 Calcium Acetate (Calcium Acetate) 667 Mg Tablet, 4 CAP PO TID, (Reported) Entered as Reported by: MARY MCCRARY on 11/02/19 1455 Carvedilol (Carvedilol) 25 Mg Tablet, 25 MG PO BID, (Reported) Entered as Reported by: MARY MCCRARY on 11/02/19 1455 Cefdinir (Cefdinir) 300 Mg Capsule, 300 MG PO BID Prescribed by: DOROTEO STEVENS on 05/23/20 2355 Cholecalciferol (Vitamin D3) (Vitamin D3) 25 Mcg Capsule, 25 MCG PO DAILY, (Reported) Entered as Reported by: MARY MCCRARY on 11/02/19 1455 Clonidine HCl (Clonidine HCl) 0.2 Mg Tablet, 0.4 MG PO BID, (Reported) Entered as Reported by: HEATHER BERGERON on 05/21/18 0910 Diphenhydramine HCl (Benadryl) 25 Mg Capsule, 25 MG PO HS, (Reported) Entered as Reported by: HEATHER BERGERON on 05/21/18 0913 Folic Acid/Vitamin B Comp W-C (Dialyvite Tablet) 1 Each Tablet, 1 EACH PO DAILY, (Reported) Entered as Reported by: MARY MCCRARY on 11/02/19 1455 Guaifenesin (Guaifenesin) 400 Mg Tablet, 400 MG PO BID, (Reported) Entered as Reported by: MARY MCCRARY on 11/02/19 1458 Hydrocodone/Acetaminophen (Hydrocodone-Acetamin 5-325 mg) 1 Each Tablet, 1 EACH PO PRN, (Reported) Entered as Reported by: MARY MCCRARY on 11/02/19 1455 Lactobacillus Combo No.10 (Probiotic) 1 Each Capsule, 1 CAP PO DAILY, (Reported) Entered as Reported by: HEATHER BERGERON on 05/21/18 09 Melatonin (Melatonin) 5 Mg Capsule, 5 MG PO HS, (Reported) Entered as Reported by: HEATHER BERGERON on 05/21/18912 Nifedipine (Procardia Xl) 60 Mg Tab.er.24, 60 MG PO BID, (Reported) Entered as Reported by: MARY MCCRARY on 11/02/19 1455 Promethazine HCl (Promethazine Tablet) 25 Mg Tablet, 25 MG PO Q6H PRN for NAUSEA/VOMITING Prescribed by: ALLAN LEACH on 12/05/19 1338 Promethazine HCl (Promethazine Tablet) 25 Mg Tablet, 25 MG PO Q6H PRN for NAUSEA/VOMITING Prescribed by: REBECCA RUVALCABA on 09/24/21 1414 Valerian Root (Valerian Root) 100 Mg Capsule, 100 MG PO HS, (Reported) Entered as Reported by: HEATHER BERGERON on 05/21/18912 Review of Systems Review of Systems Constitutional: see HPI, diaphoresis, dizziness, malaise, weakness EENTM: no symptoms reported Respiratory: see HPI, dyspnea on exertion, orthopnea, short of breath Cardiovascular: No chest pain, No edema, No palpitations, No syncope Gastrointestinal: see HPI; No abdominal pain; nausea; No vomiting Genitourinary: see HPI Musculoskeletal: no symptoms reported Skin: no symptoms reported Psychiatric/Neurological: No Symptoms Reported Hematologic/Lymphatic: No Symptoms Reported Immunological/Allergic: no symptoms reported Past Adqxuby-Daozhd-Ovkykc Hx Immunizations Up To Date Tetanus Booster (TDap): Unknown PED Vaccines UTD: Yes First/Initial COVID19 Vaccinat: 07/03 Second COVID19 Vaccination Moises: 07/31 Third COVID19 Vaccination Date: 07/03 Seasonal Allergies Seasonal Allergies: Yes (MILD) Past Medical History Surgery/Hospitalization HX: PMH;SCOLIOSIS AND KIDNEY FAILURE. 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 SURGERY; ADRENAL GLAND MASS REMOVAL 2011; LEFT ARM A-V FISTULA/DIALYSIS GRAFT. Surgeries: Yes (L ADRENAL GLAND REMOVED, HEMODIALYSIS CATHETER/REMOVAL / REPLACEMENT X2) Adrenal, Dialysis, Vascular Surgery Respiratory: Yes (hx of pleural effusions; COVID + 05/21/20 AND IN 2019) Pneumonia Currently Using CPAP: No Currently Using BIPAP: No Cardiac: Yes Hypertension Neurological: No Sexually Transmitted Disease: No HIV/AIDS: No Genitourinary: Yes (DIALYSIS M-W-F) Renal Failure, Dialysis Gastrointestinal: No Musculoskeletal: Yes Scoliosis 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, 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) Adrenal Disease HEENT: Yes (GLASSES) Loss of Vision: Bilateral Hearing Impairment: Denies Cancer: No Psychosocial: Yes Depression Integumentary: No Blood Disorders: Yes (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) Adverse Reaction/Blood Tranf: No Family Medical History Aneurysm 19 MOTHER FH: lung cancer 19 FATHER Hypertension 19 MOTHER G8 SISTER Cancer, Hypertension Physical Exam Vital Signs Vital Signs - First Documented 12/18/21 04:33 Temp 36.6 Pulse 60 Resp 23 B/P (MAP) 90/60 (70) Pulse Ox 98 O2 Delivery Nasal Cannula O2 Flow Rate 1.00 Capillary Refill : Less Than 3 Seconds Height, Weight, BMI Height: 5'8.00" Weight: 154lbs. 0.0oz. 69.293428vm; 21.00 BMI Method:Stated General Appearance: No Apparent Distress, Chronically ill, Other (FLAT/DEPRESSED AFFECT. DOES NOT APPEAR TO BE IN ANY DISCOMFORT OR DISTRESS) Respiratory: Normal Breath Sounds, No Accessory Muscle Use, No Respiratory Distress, Decreased Breath Sounds (IN BASES); No Rales, No Rhonci, No Wheezing Cardiovascular: Regular Rate, Rhythm, No Edema, No Murmur Gastrointestinal: Non Tender, Soft, Other (SOFT/REDUCIBLE UMBILICAL HERNIA) Extremity: Non Tender, No Calf Tenderness, No Pedal Edema Neurologic/Psychiatric: Alert, Oriented x3, No Motor/Sensory Deficits, manager financial systems II- XII Norm as Tested Skin: Warm/Dry, Other (COLOR IS CARR AND PALE. ) Focused Exam Lactate Level 12/18/21 04:57: Lactic Acid Level 1.23 Lactic Acid Level Laboratory Tests Test 12/18/21 04:57 Lactic Acid Level 1.23 MMOL/L (0.50-2.00) Progress/Results/Core Measures Suspected Sepsis SIRS Temperature: Pulse: 60 Respiratory Rate: 23 Laboratory Tests 12/18/21 04:57: White Blood Count 8.5 Blood Pressure 90 /60 Mean: 70 12/18/21 04:57: Lactic Acid Level 1.23 Laboratory Tests 12/18/21 04:57: INR Comment 1.0, Platelet Count 238, Total Bilirubin 0.6 Results/Orders Lab Results Laboratory Tests Test 12/18/21 04:45 12/18/21 04:57 Range/Units Influenza Type A (RT-PCR) Not Detected Not Detecte Influenza Type B (RT-PCR) Not Detected Not Detecte SARS-CoV-2 RNA (RT-PCR) Not Detected Not Detecte White Blood Count 8.5 4.3-11.0 10^3/uL Red Blood Count 3.96 L 4.30-5.52 10^6/uL Hemoglobin 11.3 L 13.3-17.7 g/dL Hematocrit 35 L 40-54 % Mean Corpuscular Volume 88 80-99 fL Mean Corpuscular Hemoglobin 29 25-34 pg Mean Corpuscular Hemoglobin Concent 32 32-36 g/dL Red Cell Distribution Width 15.8 H 10.0-14.5 % Platelet Count 238 130-400 10^3/uL Mean Platelet Volume 9.5 9.0-12.2 fL Immature Granulocyte % (Auto) 1 % Neutrophils (%) (Auto) 79 H 42-75 % Lymphocytes (%) (Auto) 12 12-44 % Monocytes (%) (Auto) 6 0-12 % Eosinophils (%) (Auto) 2 0-10 % Basophils (%) (Auto) 1 0-10 % Neutrophils # (Auto) 6.7 1.8-7.8 10^3/uL Lymphocytes # (Auto) 1.0 1.0-4.0 10^3/uL Monocytes # (Auto) 0.5 0.0-1.0 10^3/uL Eosinophils # (Auto) 0.2 0.0-0.3 10^3/uL Basophils # (Auto) 0.1 0.0-0.1 10^3/uL Immature Granulocyte # (Auto) 0.0 0.0-0.1 10^3/uL Prothrombin Time 13.9 12.2-14.7 SEC INR Comment 1.0 0.8-1.4 Activated Partial Thromboplast Time 32 24-35 SEC Sodium Level 138 135-145 MMOL/L Potassium Level 4.4 3.6-5.0 MMOL/L Chloride Level 97 L 98-107 MMOL/L Carbon Dioxide Level 23 21-32 MMOL/L Anion Gap 18 H 5-14 MMOL/L Blood Urea Nitrogen 51 H 7-18 MG/DL Estimat Glomerular Filtration Rate 7 BUN/Creatinine Ratio 7 Glucose Level 175 H 70-105 MG/DL Lactic Acid Level 1.23 0.50-2.00 MMOL/L Calcium Level 8.7 8.5-10.1 MG/DL Corrected Calcium 8.8 8.5-10.1 MG/DL Magnesium Level 2.6 H 1.6-2.4 MG/DL Total Bilirubin 0.6 0.1-1.0 MG/DL Aspartate Amino Transf (AST/SGOT) 24 5-34 U/L Alanine Aminotransferase (ALT/SGPT) 35 0-55 U/L Alkaline Phosphatase 114 40-136 U/L Troponin I < 0.028 <0.028 NG/ML Total Protein 6.8 6.4-8.2 GM/DL Albumin 3.9 3.2-4.5 GM/DL My Orders Orders - DOROTEO STEVENS DO Ed Iv/Invasive Line Start (12/18/21 04:41) Ekg Tracing (12/18/21 04:41) O2 (12/18/21 04:41) Monitor-Rhythm Ecg Trace Only (12/18/21 04:41) Chest 1 View, Ap/Pa Only (12/18/21 04:41) Cbc With Automated Diff (12/18/21 04:41) Comprehensive Metabolic Panel (12/18/21 04:41) Lactic Acid Analyzer (12/18/21 04:41) Magnesium (12/18/21 04:41) Protime With Inr (12/18/21 04:41) Partial Thromboplastin Time (12/18/21 04:41) Troponin I Lynne (12/18/21 04:41) Covid 19 Inhouse Test (12/18/21 04:41) Influenza A And B By Pcr (12/18/21 04:41) Isolation Central Supply Req (12/18/21 04:41) Ondansetron Oral Dissolve Tab (Zofran (12/18/21 04:41) Ondansetron Injection (Zofran Injectio (12/18/21 05:00) Medications Given in ED Current Medications Medications Dose Ordered Sig/Kailey Route Start Time Stop Time Status Last Admin Dose Admin Ondansetron HCl 4 mg ONCE ONCE IVP 12/18/21 05:00 12/18/21 05:01 DC 12/18/21 05:00 4 MG Vital Signs/I&O 12/18/21 12/18/21 04:33 04:38 Temp 36.6 Pulse 60 Resp 23 B/P (MAP) 90/60 (70) Pulse Ox 98 96 O2 Delivery Nasal Cannula Nasal Cannula O2 Flow Rate 1.00 2.00 Capillary Refill : Less Than 3 Seconds Blood Pressure Mean: 70 Progress Note : Progress Note PPE WORN COVID TESTING DONE GIVEN ZOFRAN FOR NAUSEA IV FLUIDS HELD AT THIS TIME DUE TO NEEDING DIALYSIS THIS AM, AND IS C/O BEING SHORT OF BREATH AND EVIDENCE OF FLUID OVERLOAD ON CXR BP QUICKLY UP TO >100 SYSTOLIC SHORTLY AFTER ARRIVAL, AND PT IS SITTING UP ON ER CART. VITALS REMAINED STABLE, WITH NO HYPOTENSION, NO HYPOXIA, NO ARRHTHMIAS, AND NO SYMPTOMS OF ANY KIND FOR THE REMAINDER OF ER STAY ECG Initial ECG Impression Date: Dec 18, 2021 Initial ECG Impression Time: 04:38 Initial ECG Rate: 60 Initial ECG Rhythm: Normal Sinus Initial ECG Impression: Nonspecific Changes Diagnostic Imaging Comments CXR--PLEURAL EFFUSIONS, CHF/FLUID OVERLOAD--PENDING RADIOLOGIST REVIEW Reviewed: Reviewed by Me Departure Impression Primary Impression: ESRD (end stage renal disease) on dialysis Disposition: 01 HOME, SELF-CARE Condition: Stable Departure-Patient Inst. Decision time for Depature: 05:40 Referrals: ELLA CANTU DO (PCP/Family) Primary Care Physician Patient Instructions: End Stage Kidney Disease (DC) Add. Discharge Instructions: GO TO DIALYSIS WHEN YOU LEAVE ER TAKE YOUR MEDICATION PRESCRIBED DISCUSS ANY MEDICATIONS, INCLUDING OVER THE COUNTER MEDICATIONS, WITH YOUR NEPH ROLOGIST AND YOUR FAMILY DR BEFORE YOU TAKE THEM. All discharge instructions reviewed with patient and/or family. Voiced under standing. DOROTEO STEVENS DO Dec 18, 2021 04:47
[2021-12-18] MEDS ORDERED: ONDANSETRON 4 MG/2 ML (SDV) Z0FRAN IVP ONE (05:00)
[2021-12-18 05:01] LABS: BASOPHILS # (AUTO) 0.1 10^3/uL (0.0-0.1); BASOPHILS % (AUTO) 1 % (0-10); EOSINOPHILS # (AUTO) 0.2 10^3/uL (0.0-0.3); EOSINOPHILS % (AUTO) 2 % (0-10); HEMATOCRIT 35 % (40-54); HEMOGLOBIN 11.3 g/dL (13.3-17.7); LYMPHOCYTES % (AUTO) 12 % (12-44); MEAN CORPUSCULAR HEMOGLOBIN 29 pg (25-34); MEAN CORPUSCULAR HGB CONC 32 g/dL (32-36); MEAN CORPUSCULAR VOLUME 88 fL (80-99); MEAN PLATELET VOLUME 9.5 fL (9.0-12.2); MONOCYTES # (AUTO) 0.5 10^3/uL (0.0-1.0); MONOCYTES % (AUTO) 6 % (0-12); NEUTROPHILS # (AUTO) 6.7 10^3/uL (1.8-7.8); NEUTROPHILS % (AUTO) 79 % (42-75); PLATELET COUNT 238 10^3/uL (130-400); WHITE BLOOD COUNT 8.5 10^3/uL (4.3-11.0)
[2021-12-18 05:17] LABS: ALBUMIN 3.9 GM/DL (3.2-4.5)
[2021-12-18 05:18] LABS: CHLORIDE 97 MMOL/L (98-107); POTASSIUM 4.4 MMOL/L (3.6-5.0); SODIUM 138 MMOL/L (135-145)
[2021-12-18 05:19] LABS: CALCIUM 8.7 MG/DL (8.5-10.1)
[2021-12-18 05:20] LABS: GLUCOSE 175 MG/DL (70-105); PROTHROMBIN TIME PATIENT 13.9 SEC (12.2-14.7); TOTAL PROTEIN 6.8 GM/DL (6.4-8.2)
[2021-12-18 05:21] LABS: CARBON DIOXIDE 23 MMOL/L (21-32)
[2021-12-18 05:22] LABS: BILIRUBIN,TOTAL 0.6 MG/DL (0.1-1.0)
[2021-12-18 05:23] LABS: ALKALINE PHOSPHATASE 114 U/L (40-136)
[2021-12-18 05:24] LABS: CREATININE SERUM 7.79 MG/DL (0.60-1.30); GFR ESTIMATED 7
[2021-12-18 05:25] LABS: BUN/CREATININE RATIO 7
[2021-12-18 05:27] LABS: ALANINE AMINOTRANSFERASE 35 U/L (0-55); MAGNESIUM 2.6 MG/DL (1.6-2.4)
--- NOTE | 2021-12-18 06:11 | Diagnostic Imaging Report ---
EXAMINATION: Chest 1 view HISTORY: DYSPNEA COMPARISON: 06/26/2021 FINDINGS: Heart size is mildly enlarged. There are bilateral pleural effusions, left greater than right. There are patchy interstitial opacities within the lung bases, left greater than right. No pneumothorax. The osseous structures are intact. IMPRESSION: 1. Bilateral pleural effusions with adjacent atelectasis or consolidation, left greater than right. Dictated by: Dictated on workstation # [id number]
[2021-12-18 06:27] VITALS: BP 92/64
== END 2021-12-18 06:29 | disposition home or self-care (01) ==
LOC: EDUNIT# 04:26 → ER 04:27
DX: I12.0 Hypertensive chronic kidney disease with stage 5 chronic kidney disease or end stage renal disease (principal); N18.6 End stage renal disease; D63.1 Anemia in chronic kidney disease; Z99.2 Dependence on renal dialysis; Z20.822 Contact with and (suspected) exposure to COVID-19
CPT/HCPCS: 36415; 71045; 80053; 83605; 83735; 84484; 85025; 85610; 85730; 87636; 93005; 93041

== ENCOUNTER 2022-02-09 12:38 | Emergency (ER) | payer MEDICARE ==
[~2022-02-09] VITALS: Ht 170.2 cm; Wt 63.5 kg
--- NOTE | 2022-02-09 13:19 | ED General ---
General Chief Complaint: General Problems/Pain Stated Complaint: IRR LAB RESULTS Nursing Triage Note: PT AMBULATORY TO ROOM. STATES FOR THE PAST COUPLE OF WEEKS HE HAS HAD NAUSEA, DIZZINESS, AND WEAKNESS. PT IS A DIALYSIS PT WHO GETS DIALYSIS MWF, LEFT UPPER ARM FISTULA IN PLACE. PT HAD OUTPT LABS DONE TODAY AND WAS SENT HERE FOR ABNORMAL LABS. PT STATES THEY WERE CONCERNED FOR "HIGH WBC" BUT DOES NOT HAVE A COPY OF LABS WITH HIM. History of Present Illness Date Seen by Provider: Feb 09, 2022 Time Seen by Provider: 13:15 Initial Comments Patient reports that for the past few weeks he has been having nausea, dizziness and weakness for the past few weeks. Was at dialysis today and had routine labs today and was told that his white blood cell count was 18,000. Does not produce much to any urine. Denies fever. Timing/Duration: Other (2 weeks) Modifying Factors: worse with Movement; improves with Rest Associated Systoms: No Chest Pain, No Fever/Chills, No Headaches; Nausea/Vomiting (no vomiting), Weakness (generalized) Allergies and Home Medications Allergies Coded Allergies: No Known Drug Allergies (Unverified , 11/02/19) Patient Home Medication List Home Medication List Reviewed: Yes Ascorbate Calcium (Vitamin C) 500 Mg Tablet, 500 MG PO DAILY, (Reported) Entered as Reported by: HEATHER BERGERON on 05/21/18 0913 Aspirin (Aspir 81) 81 Mg Tablet.dr, 81 MG PO DAILY, (Reported) Entered as Reported by: MARY MCCRARY on 11/02/19 1455 Azithromycin (Zithromax) 500 Mg Tablet, 500 MG PO DAILY Prescribed by: DOROTEO STEVENS on 05/23/20 2355 Calcium Acetate (Calcium Acetate) 667 Mg Tablet, 4 CAP PO TID, (Reported) Entered as Reported by: MARY MCCRARY on 11/02/19 1455 Carvedilol (Carvedilol) 25 Mg Tablet, 25 MG PO BID, (Reported) Entered as Reported by: MARY MCCRARY on 11/02/19 1455 Cefdinir (Cefdinir) 300 Mg Capsule, 300 MG PO BID Prescribed by: DOROTEO STEVENS on 05/23/20 2355 Cholecalciferol (Vitamin D3) (Vitamin D3) 25 Mcg Capsule, 25 MCG PO DAILY, (Reported) Entered as Reported by: MARY MCCRARY on 11/02/19 145 Clonidine HCl (Clonidine HCl) 0.2 Mg Tablet, 0.4 MG PO BID, (Reported) Entered as Reported by: HEATHER BERGERON on 05/21/18 09 Diphenhydramine HCl (Benadryl) 25 Mg Capsule, 25 MG PO HS, (Reported) Entered as Reported by: HEATHER BERGERON on 05/21/18912 Folic Acid/Vitamin B Comp W-C (Dialyvite Tablet) 1 Each Tablet, 1 EACH PO DAILY, (Reported) Entered as Reported by: MARY MCCRARY on 11/02/19 145 Guaifenesin (Guaifenesin) 400 Mg Tablet, 400 MG PO BID, (Reported) Entered as Reported by: MARY MCCRARY on 11/02/19 145 Hydrocodone/Acetaminophen (Hydrocodone-Acetamin 5-325 mg) 1 Each Tablet, 1 EACH PO PRN, (Reported) Entered as Reported by: MARY MCCRARY on 11/02/19 145 Lactobacillus Combo No.10 (Probiotic) 1 Each Capsule, 1 CAP PO DAILY, (Reported) Entered as Reported by: HEATHER BERGERON on 05/21/18912 Melatonin (Melatonin) 5 Mg Capsule, 5 MG PO HS, (Reported) Entered as Reported by: HEATHER BERGERON on 05/21/18912 Nifedipine (Procardia Xl) 60 Mg Tab.er.24, 60 MG PO BID, (Reported) Entered as Reported by: MARY MCCRARY on 11/02/19 145 Promethazine HCl (Promethazine Tablet) 25 Mg Tablet, 25 MG PO Q6H PRN for NAUSEA/VOMITING Prescribed by: ALLAN LEACH on 12/05/19 1338 Promethazine HCl (Promethazine Tablet) 25 Mg Tablet, 25 MG PO Q6H PRN for RYAN SEA/VOMITING Prescribed by: REBECCA RUVALCABA on 09/24/21 1414 Valerian Root (Valerian Root) 100 Mg Capsule, 100 MG PO HS, (Reported) Entered as Reported by: HEATHER BERGERON on 05/21/18912 Review of Systems Review of Systems Constitutional: No chills; dizziness; No fever; weakness (generalized) EENTM: no symptoms reported Respiratory: No cough; dyspnea on exertion, short of breath; No wheezing Cardiovascular: No chest pain, No edema Gastrointestinal: No abdominal pain, No diarrhea; nausea; No vomiting Genitourinary: no symptoms reported Skin: No pruritus, No rash Psychiatric/Neurological: Denies Headache; Weakness (generalized) All Other Systems Reviewed Negative Unless Noted: Yes Past Ybsqzce-Mlwcgt-Rhqrgh Hx Patient Social History Tobacco Use?: No Use of E-Cig and/or Vaping dev: No Substance use?: No Alcohol Use?: No Immunizations Up To Date Tetanus Booster (TDap): Unknown PED Vaccines UTD: Yes Influenza Vaccine Up-to-Date: No; Not Current First/Initial COVID19 Vaccinat: 07/03 Second COVID19 Vaccination Moises: 07/31 Third COVID19 Vaccination Date: 07/03 Seasonal Allergies Seasonal Allergies: Yes (MILD) Past Medical History Surgery/Hospitalization HX: PMH;SCOLIOSIS AND KIDNEY FAILURE. 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 SURGERY; ADRENAL GLAND MASS REMOVAL 2011; LEFT ARM A-V FISTULA/DIALYSIS GRAFT. Surgeries: Yes (L ADRENAL GLAND REMOVED, HEMODIALYSIS CATHETER/REMOVAL / REPLACEMENT X2) Adrenal, Dialysis, Vascular Surgery Respiratory: Yes (hx of pleural effusions; COVID + 05/21/20 AND IN 2019) Pneumonia Currently Using CPAP: No Currently Using BIPAP: No Cardiac: Yes Hypertension Neurological: No Sexually Transmitted Disease: No HIV/AIDS: No Genitourinary: Yes (DIALYSIS M-W-F) Renal Failure, Dialysis Gastrointestinal: No Musculoskeletal: Yes Scoliosis 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, 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) Adrenal Disease HEENT: Yes (GLASSES) Loss of Vision: Bilateral Hearing Impairment: Denies Cancer: No Psychosocial: Yes Depression Integumentary: No Blood Disorders: Yes (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 0.0oz. 69.786744dr; 21.00 BMI Method:Stated General Appearance: No Apparent Distress, WD/WN Neck: Full Range of Motion, Normal Inspection, Non Tender, Supple Respiratory: Chest Non Tender, Lungs Clear, Normal Breath Sounds, No Accessory Muscle Use, No Respiratory Distress Cardiovascular: Regular Rate, Rhythm, No Edema Gastrointestinal: Normal Bowel Sounds, No Organomegaly, No Pulsatile Mass, Non Tender, Soft Back: Normal Inspection Neurologic/Psychiatric: Alert, Oriented x3 Skin: Normal Color, Warm/Dry Progress/Results/Core Measures Suspected Sepsis SIRS Temperature: Pulse: 73 Respiratory Rate: 20 Laboratory Tests 02/09/22 13:25: White Blood Count 8.0 Blood Pressure 126 /65 Mean: 85 Laboratory Tests 02/09/22 13:25: Creatinine 3.31H, Platelet Count 225, Total Bilirubin 0.7 Results/Orders Lab Results Laboratory Tests Test 02/09/22 13:25 Range/Units White Blood Count 8.0 4.3-11.0 10^3/uL Red Blood Count 4.20 L 4.30-5.52 10^6/uL Hemoglobin 11.7 L 13.3-17.7 g/dL Hematocrit 37 L 40-54 % Mean Corpuscular Volume 88 80-99 fL Mean Corpuscular Hemoglobin 28 25-34 pg Mean Corpuscular Hemoglobin Concent 32 32-36 g/dL Red Cell Distribution Width 15.3 H 10.0-14.5 % Platelet Count 225 130-400 10^3/uL Mean Platelet Volume 9.8 9.0-12.2 fL Immature Granulocyte % (Auto) 1 % Neutrophils (%) (Auto) 82 H 42-75 % Lymphocytes (%) (Auto) 10 L 12-44 % Monocytes (%) (Auto) 7 0-12 % Eosinophils (%) (Auto) 1 0-10 % Basophils (%) (Auto) 0 0-10 % Neutrophils # (Auto) 6.5 1.8-7.8 10^3/uL Lymphocytes # (Auto) 0.8 L 1.0-4.0 10^3/uL Monocytes # (Auto) 0.6 0.0-1.0 10^3/uL Eosinophils # (Auto) 0.1 0.0-0.3 10^3/uL Basophils # (Auto) 0.0 0.0-0.1 10^3/uL Immature Granulocyte # (Auto) 0.0 0.0-0.1 10^3/uL Sodium Level 138 135-145 MMOL/L Potassium Level 3.1 L 3.6-5.0 MMOL/L Chloride Level 96 L 98-107 MMOL/L Carbon Dioxide Level 29 21-32 MMOL/L Anion Gap 13 5-14 MMOL/L Blood Urea Nitrogen 15 7-18 MG/DL Creatinine 3.31 H 0.60-1.30 MG/DL Estimat Glomerular Filtration Rate 18 BUN/Creatinine Ratio 5 Glucose Level 113 H 70-105 MG/DL Calcium Level 9.1 8.5-10.1 MG/DL Corrected Calcium 9.1 8.5-10.1 MG/DL Total Bilirubin 0.7 0.1-1.0 MG/DL Aspartate Amino Transf (AST/SGOT) 22 5-34 U/L Alanine Aminotransferase (ALT/SGPT) 27 0-55 U/L Alkaline Phosphatase 153 H 40-136 U/L Total Protein 7.7 6.4-8.2 GM/DL Albumin 4.0 3.2-4.5 GM/DL My Orders Orders - DANTE GERARDO APRN Cbc With Automated Diff (02/09/22 13:19) Comprehensive Metabolic Panel (02/09/22 13:19) Chest 1 View, Ap/Pa Only (02/09/22 13:19) Vital Signs/I&O 02/09/22 02/09/22 13:00 15:12 Temp 36.6 Pulse 73 69 Resp 20 20 B/P (MAP) 126/65 (85) 115/71 Pulse Ox 97 98 Capillary Refill : Blood Pressure Mean: 85 Progress Note : Progress Note Sent after dialysis because of elevated WBC count. Patient does report general ized weakness, dizziness and nausea. Will check labs and determine further treatment from there. 1500: CXR shows improvement of previous seen pleural infusions. WBC count today was 8.0. Potassium was slightly low. He did just have dialysis today. Opted to not supplement at this time due to impaired kidney function. Patient was agreeable in going home. Reasons to return to the ER were discussed with patient in addition. Diagnostic Imaging Diagonstic Imaging: Xray Plain Films/CT/US/NM/MRI: chest Comments NAME: DENIS DAVIS [facility] REC#: [id number] PT STATUS: REG ER : 1945 PHYSICIAN: DANTE GERARDO APRN ADMIT DATE: 02/09/22/ER Signed Date of Exam:02/09/22 CHEST 1 VIEW, AP/PA ONLY EXAMINATION: Chest 1 view HISTORY: shortness of breath COMPARISON: 12/18/2021. FINDINGS: Heart size and pulmonary vasculature are normal. There is a left pleural effusion which is mildly decreased from 12/18/2021. There are persistent interstitial and airspace opacities within the mid and left lower lung. Previously seen right pleural effusion has resolved. No pneumothorax. The osseous structures are intact. IMPRESSION: 1. Decreased pleural effusions within the lung bases with small residual left pleural effusion and adjacent atelectasis or consolidation. Dictated by: Dictated on workstation # [id number] Dict: 02/09/22 1429 Trans: 02/09/22 1438 [id number] Interpreted by: RAY GARCES DO Electronically signed by: RAY GARCES DO 02/09/22 1438 Departure Impression Primary Impression: CKD (chronic kidney disease) requiring chronic dialysis Disposition: 01 HOME, SELF-CARE Condition: Stable Departure-Patient Inst. Decision time for Depature: 15:02 Referrals: ELLA CANTU DO (PCP/Family) Primary Care Physician Add. Discharge Instructions: 1. Home and rest. 2. Continue medications as directed. 3. Continue dialysis as directed. 4. Follow up with PCP as needed. 5. Return here if worse or concerns. All discharge instructions reviewed with patient and/or family. Voiced understanding. DANTE GERARDO APRN Feb 09, 2022 13:19
[2022-02-09 13:41] LABS: BASOPHILS % (AUTO) 0 % (0-10); EOSINOPHILS # (AUTO) 0.1 10^3/uL (0.0-0.3); EOSINOPHILS % (AUTO) 1 % (0-10); HEMATOCRIT 37 % (40-54); HEMOGLOBIN 11.7 g/dL (13.3-17.7); LYMPHOCYTES # (AUTO) 0.8 10^3/uL (1.0-4.0); LYMPHOCYTES % (AUTO) 10 % (12-44); MEAN CORPUSCULAR HEMOGLOBIN 28 pg (25-34); MEAN CORPUSCULAR HGB CONC 32 g/dL (32-36); MEAN CORPUSCULAR VOLUME 88 fL (80-99); MEAN PLATELET VOLUME 9.8 fL (9.0-12.2); MONOCYTES # (AUTO) 0.6 10^3/uL (0.0-1.0); MONOCYTES % (AUTO) 7 % (0-12); NEUTROPHILS # (AUTO) 6.5 10^3/uL (1.8-7.8); NEUTROPHILS % (AUTO) 82 % (42-75); PLATELET COUNT 225 10^3/uL (130-400)
[2022-02-09 13:49] LABS: POTASSIUM 3.1 MMOL/L (3.6-5.0)
[2022-02-09 13:50] LABS: CALCIUM 9.1 MG/DL (8.5-10.1)
[2022-02-09 13:51] LABS: TOTAL PROTEIN 7.7 GM/DL (6.4-8.2)
[2022-02-09 13:53] LABS: BILIRUBIN,TOTAL 0.7 MG/DL (0.1-1.0)
[2022-02-09 13:55] LABS: CREATININE SERUM 3.31 MG/DL (0.60-1.30)
--- NOTE | 2022-02-09 14:34 | Diagnostic Imaging Report ---
EXAMINATION: Chest 1 view HISTORY: shortness of breath COMPARISON: 12/18/2021. FINDINGS: Heart size and pulmonary vasculature are normal. There is a left pleural effusion which is mildly decreased from 12/18/2021. There are persistent interstitial and airspace opacities within the mid and left lower lung. Previously seen right pleural effusion has resolved. No pneumothorax. The osseous structures are intact. IMPRESSION: 1. Decreased pleural effusions within the lung bases with small residual left pleural effusion and adjacent atelectasis or consolidation. Dictated by: Dictated on workstation # [id number]
[2022-02-09 15:12] VITALS: BP 115/71
== END 2022-02-09 15:13 | disposition home or self-care (01) ==
LOC: EDUNIT# 12:38 → ER 12:40
DX: I12.9 Hypertensive chronic kidney disease with stage 1 through stage 4 chronic kidney disease, or unspecified chronic kidney disease (principal); N18.9 Chronic kidney disease, unspecified; Z99.2 Dependence on renal dialysis; Z86.16 Personal history of COVID-19
CPT/HCPCS: 36415; 71045; 80053; 85025

== ENCOUNTER 2022-02-16 17:59 | Emergency (ER) | payer MEDICARE ==
[~2022-02-16] VITALS: Ht 167.7 cm; Wt 58.9 kg
[2022-02-16] MEDS ORDERED: fentaNYL INJ 100 MCG/2 ML AMP IVP ONE (18:30)
[2022-02-16] MEDS ORDERED: LIDOCAINE UROJET 2% GEL 10 ML PKG TOP ONE (18:30)
[2022-02-16] MEDS ORDERED: cefTRIAXone 1 GM PRE-MIX 50 ML IV ONE (18:30)
--- NOTE | 2022-02-16 18:34 | ED GU-Female ---
General Chief Complaint: - Reproductive Stated Complaint: DIFFICULTY URINATING/UTI SYMPTOMS Nursing Triage Note: PT TO RM 9 BY WC WITH COMPLAINT OF URINARY PAIN AND DIARRHEA. SYMPTOMS STARTED SATURDAY NIGHT. PT STATES HE WAS PRESCRIBED CIPROFLOXACIN TODAY. HAD DIALYSIS TODAY Source: patient Exam Limitations: no limitations History of Present Illness Date Seen by Provider: Feb 16, 2022 Time Seen by Provider: 18:29 Initial Comments To er with c/o UTI. He has penile burning and pain worse with urinating x3 days and diarrhea. he is a hemodialysis patient and had a full course of dialysis today. His sugar grinder Dr verdin gave him a dose of ciprofloxacin today but he denies any improvement. no fevers or chills or nausea or vomiting. He has tachycardia and has recently had his carvedilol increased from one tab to 1.5 tab po daily but he does not take that on dialysis days. PCP is Dr Cantu out of [place]. He does still produce a small amount of urine. Timing/Duration: constant Severity/Quality: moderate Location: urethral Radiation: none Activities at Onset: none Prior Genitourinary Problems: none Associated Symptoms: dysuria Allergies and Home Medications Allergies Coded Allergies: No Known Drug Allergies (Unverified , 11/02/19) Patient Home Medication List Home Medication List Reviewed: Yes Ascorbate Calcium (Vitamin C) 500 Mg Tablet, 500 MG PO DAILY, (Reported) Entered as Reported by: HEATHER BERGERON on 05/21/18 0913 Aspirin (Aspir 81) 81 Mg Tablet.dr, 81 MG PO DAILY, (Reported) Entered as Reported by: MARY MCCRARY on 11/02/19 1455 Azithromycin (Zithromax) 500 Mg Tablet, 500 MG PO DAILY Prescribed by: DOROTEO STEVENS on 05/23/20 2355 Calcium Acetate (Calcium Acetate) 667 Mg Tablet, 4 CAP PO TID, (Reported) Entered as Reported by: MARY MCCRARY on 11/02/19 145 Carvedilol (Carvedilol) 25 Mg Tablet, 25 MG PO BID, (Reported) Entered as Reported by: MARY MCCRARY on 11/02/19 1455 Cefdinir (Cefdinir) 300 Mg Capsule, 300 MG PO BID Prescribed by: DOROTEO STEVENS on 05/23/20 2355 Cholecalciferol (Vitamin D3) (Vitamin D3) 25 Mcg Capsule, 25 MCG PO DAILY, (Reported) Entered as Reported by: MARY MCCRARY on 11/02/19 145 Clonidine HCl (Clonidine HCl) 0.2 Mg Tablet, 0.4 MG PO BID, (Reported) Entered as Reported by: HEATHER BERGERON on 05/21/18 09 Diphenhydramine HCl (Benadryl) 25 Mg Capsule, 25 MG PO HS, (Reported) Entered as Reported by: HEATHER BERGERON on 05/21/18912 Folic Acid/Vitamin B Comp W-C (Dialyvite Tablet) 1 Each Tablet, 1 EACH PO DAILY, (Reported) Entered as Reported by: MARY MCCRARY on 11/02/19 145 Guaifenesin (Guaifenesin) 400 Mg Tablet, 400 MG PO BID, (Reported) Entered as Reported by: MARY MCCRARY on 11/02/19 145 Hydrocodone/Acetaminophen (Hydrocodone-Acetamin 5-325 mg) 1 Each Tablet, 1 EACH PO PRN, (Reported) Entered as Reported by: MARY MCCRARY on 11/02/19 145 Hydrocodone/Acetaminophen (Hydrocodone-Acetamin 5-325 mg) 5 Mg-325 Mg Tablet, 1 TAB PO Q4H PRN for PAIN-MODERATE (5-7) Prescribed by: TORREY ANDERS on 02/16/221999 Lactobacillus Combo No.10 (Probiotic) 1 Each Capsule, 1 CAP PO DAILY, (Reported) Entered as Reported by: HEATHER BERGERON on 05/21/18912 Melatonin (Melatonin) 5 Mg Capsule, 5 MG PO HS, (Reported) Entered as Reported by: HEATHER BERGERON on 05/21/18912 Nifedipine (Procardia Xl) 60 Mg Tab.er.24, 60 MG PO BID, (Reported) Entered as Reported by: MARY MCCRARY on 11/02/19 145 Promethazine HCl (Promethazine Tablet) 25 Mg Tablet, 25 MG PO Q6H PRN for NAUSEA/VOMITING Prescribed by: ALLAN LEACH on 12/05/19 1338 Promethazine HCl (Promethazine Tablet) 25 Mg Tablet, 25 MG PO Q6H PRN for NAUSEA/VOMITING Prescribed by: REBECCA RUVALCABA on 09/24/21 1414 Valerian Root (Valerian Root) 100 Mg Capsule, 100 MG PO HS, (Reported) Entered as Reported by: HEATHER BERGERON on 05/21/18 0913 Review of Systems Review of Systems Constitutional: see HPI; No chills, No fever EENTM: see HPI Respiratory: no symptoms reported Cardiovascular: no symptoms reported Genitourinary: see HPI, burning, dysuria; denies frequency, denies flank pain, denies hematuria Musculoskeletal: no symptoms reported Skin: no symptoms reported Psychiatric/Neurological: No Symptoms Reported Past [id number] Hx Patient Social History Tobacco Use?: No Use of E-Cig and/or Vaping dev: No Substance use?: No Alcohol Use?: No Pt feels they are or have been: No Immunizations Up To Date Tetanus Booster (TDap): Unknown PED Vaccines UTD: Yes First/Initial COVID19 Vaccinat: 07/03 Second COVID19 Vaccination Moises: 07/31 Third COVID19 Vaccination Date: 07/03 Seasonal Allergies Seasonal Allergies: Yes (MILD) Past Medical History Surgery/Hospitalization HX: PMH;SCOLIOSIS AND KIDNEY FAILURE. 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 SURGERY; ADRENAL GLAND MASS REMOVAL 2011; LEFT ARM A-V FISTULA/DIALYSIS GRAFT. Surgeries: Yes (L ADRENAL GLAND REMOVED, HEMODIALYSIS CATHETER/REMOVAL / REPLACEMENT X2) Adrenal, Dialysis, Vascular Surgery Respiratory: Yes (hx of pleural effusions; COVID + 05/21/20 AND [place] 2019) Pneumonia Currently Using CPAP: No Currently Using BIPAP: No Cardiac: Yes Hypertension Neurological: No Sexually Transmitted Disease: No HIV/AIDS: No Genitourinary: Yes (DIALYSIS M-W-F) Renal Failure, Dialysis Gastrointestinal: No Musculoskeletal: Yes Scoliosis 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, 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) Adrenal Disease HEENT: Yes (GLASSES) Loss of Vision: Bilateral Hearing Impairment: Denies Cancer: No Psychosocial: Yes Depression Integumentary: No Blood Disorders: Yes (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 0.0oz. [id number]; 20.00 BMI Method:Stated General Appearance: WD/WN, no apparent distress Neck: non-tender, full range of motion Cardiovascular: no murmur, tachycardia, other (narrow complex rate of 135. ) Respiratory: no respiratory distress, no accessory muscle use Gastrointestinal: normal bowel sounds, non tender, soft Extremities: normal range of motion, non-tender Neurologic/Psychiatric: alert, normal mood/affect, oriented x 3 Skin: normal color, warm/dry Progress/Results/Core Measures Suspected Sepsis SIRS Temperature: Pulse: 122 Respiratory Rate: 20 Laboratory Tests 02/16/22 18:30: White Blood Count 11.1H Blood Pressure 153 /113 Mean: 126 Laboratory Tests 02/16/22 18:30: Creatinine 3.55H, Platelet Count 361 Results/Orders Lab Results Laboratory Tests Test 02/16/22 18:30 02/16/22 19:46 Range/Units White Blood Count 11.1 H 4.3-11.0 10^3/uL Red Blood Count 3.93 L 4.30-5.52 10^6/uL Hemoglobin 11.4 L 13.3-17.7 g/dL Hematocrit 35 L 40-54 % Mean Corpuscular Volume 88 80-99 fL Mean Corpuscular Hemoglobin 29 25-34 pg Mean Corpuscular Hemoglobin Concent 33 32-36 g/dL Red Cell Distribution Width 14.7 H 10.0-14.5 % Platelet Count 361 130-400 10^3/uL Mean Platelet Volume 9.6 9.0-12.2 fL Immature Granulocyte % (Auto) 1 % Neutrophils (%) (Auto) 89 H 42-75 % Lymphocytes (%) (Auto) 6 L 12-44 % Monocytes (%) (Auto) 4 0-12 % Eosinophils (%) (Auto) 1 0-10 % Basophils (%) (Auto) 0 0-10 % Neutrophils # (Auto) 9.9 H 1.8-7.8 10^3/uL Lymphocytes # (Auto) 0.6 L 1.0-4.0 10^3/uL Monocytes # (Auto) 0.4 0.0-1.0 10^3/uL Eosinophils # (Auto) 0.1 0.0-0.3 10^3/uL Basophils # (Auto) 0.0 0.0-0.1 10^3/uL Immature Granulocyte # (Auto) 0.1 0.0-0.1 10^3/uL Neutrophils % (Manual) 85 % Lymphocytes % (Manual) 9 % Monocytes % (Manual) 4 % Eosinophils % (Manual) 1 % Basophils % (Manual) 1 % Blood Morphology Comment NORMAL Sodium Level 137 135-145 MMOL/L Potassium Level 3.8 3.6-5.0 MMOL/L Chloride Level 98 98-107 MMOL/L Carbon Dioxide Level 24 21-32 MMOL/L Anion Gap 15 H 5-14 MMOL/L Blood Urea Nitrogen 17 7-18 MG/DL Creatinine 3.55 H 0.60-1.30 MG/DL Estimat Glomerular Filtration Rate 17 BUN/Creatinine Ratio 5 Glucose Level 90 70-105 MG/DL Calcium Level 8.8 8.5-10.1 MG/DL Magnesium Level 1.9 1.6-2.4 MG/DL Urine Color YELLOW Urine Clarity CLEAR Urine pH 8.5 5-9 Urine Specific [place] 1.020 1.016-1.022 Urine Protein 3+ H NEGATIVE Urine Glucose (UA) TRACE H NEGATIVE Urine Ketones NEGATIVE NEGATIVE Urine Nitrite NEGATIVE NEGATIVE Urine Bilirubin NEGATIVE NEGATIVE Urine Urobilinogen 0.2 < = 1.0 MG/DL Urine Leukocyte Esterase NEGATIVE NEGATIVE Urine RBC (Auto) 2+ H NEGATIVE Urine RBC 10-25 H /HPF Urine WBC 5-10 H /HPF Urine Squamous Epithelial Cells NONE /HPF Urine Crystals NONE /LPF Urine Bacteria FEW H /HPF Urine Casts NONE /LPF Urine Mucus NEGATIVE /LPF Urine Culture Indicated YES My Orders Orders - TORREY ANDERS APRN Iv Heplock-Insert (Order) (02/16/22 18:18) Cbc With Automated Diff (02/16/22 18:18) Basic Metabolic Panel (02/16/22 18:18) Fentanyl Inj (Sublimaze Injection) (02/16/22 18:30) Ceftriaxone 1 Gm Pre-Mix (Rocephin 1 Gm (02/16/22 18:30) Ua Culture If Indicated (02/16/22 18:18) Lidocaine 2% (Urojet) (Xylocaine Urojet) (02/16/22 18:30) Ekg Tracing (02/16/22 18:45) Magnesium (02/16/22 18:45) Manual Differential (02/16/22 18:30) C Difficile Ag + Toxin A/B. (02/16/22 19:09) Ct Abd/Pelvis Wo(Kidney Stone) (02/16/22 19:12) Ketorolac Injection (Toradol Injection) (02/16/22 20:00) Metoprolol Tartrate Injection (Lopressor (02/16/22 20:00) Morphine Injection (Morphine Injection (02/16/22 19:57) Ondansetron Injection (Zofran Injectio (02/16/22 20:15) Ondansetron Injection (Zofran Injectio (02/16/22 20:04) Urine Culture (02/16/22 19:46) Medications Given in ED Current Medications Medications Dose Ordered Sig/Kailey Route Start Time Stop Time Status Last Admin Dose Admin Ceftriaxone Sodium/Dextrose 50 ml @ 100 mls/hr ONCE ONCE IV 02/16/22 18:30 02/16/22 18:59 DC 02/16/22 20:06 100 MLS/HR Fentanyl Citrate 50 mcg ONCE ONCE IVP 02/16/22 18:30 02/16/22 18:31 DC 02/16/22 18:36 50 MCG Ketorolac Tromethamine 15 mg ONCE ONCE IVP 02/16/22 20:00 02/16/22 20:01 DC 02/16/22 20:06 15 MG Lidocaine HCl 10 ml ONCE ONCE TOP 02/16/22 18:30 02/16/22 18:31 DC 02/16/22 18:36 10 ML Metoprolol Tartrate 5 mg ONCE ONCE IV 02/16/22 20:00 02/16/22 20:01 DC 02/16/22 20:06 5 MG Ondansetron HCl 4 mg ONCE ONCE IVP 02/16/22 20:15 02/16/22 20:16 DC 02/16/22 20:05 4 MG Vital Signs/I&O 02/16/22 18:15 Temp 36.5 Pulse 122 Resp 20 B/P (MAP) 153/113 (126) Pulse Ox 94 O2 Delivery Room Air Capillary Refill : Less Than 3 Seconds Blood Pressure Mean: 126 Departure Communication (Admissions) Family Conversation NAME: DENIS DAVIS [facility] REC#: [id number] PT STATUS: REG ER : 1945 PHYSICIAN: TORREY ANDERS APRN ADMIT DATE: 02/16/22/ER Signed Date of Exam:02/16/22 CT ABD/PELVIS WO(KIDNEY STONE) PROCEDURE: CT urinary tract, rule out kidney stone. TECHNIQUE: Multiple contiguous axial images were obtained through the abdomen and pelvis without the use of intravenous contrast. Auto Exposure Controls were utilized during the CT exam to meet ALARA standards for radiation dose reduction. INDICATION: Urinary pain. Diarrhea. COMPARISON: None. FINDINGS: Included portions of the lung bases show partially visualized moderate left and mild right pleural effusion. Note is also made of moderate cardiomegaly and small pericardial effusion. CT ABDOMEN: Normal appendix is identified. Small bowel loops are nondistended. There is moderate bilateral renal atrophy. Multiple hypodense renal cysts are present, bilaterally. There is no hydroureteronephrosis or other evidence of obstruction. Right adrenal gland has an unremarkable noncontrast CT appearance. Left adrenal gland cannot be adequately visualized and may be surgically absent. The spleen and liver have an unremarkable noncontrast CT appearance. Hypodense cystic-appearing structure is noted within the pancreatic head anteriorly and measures 2.2 x 1.6 cm (image 75, series 2). Spleen has an otherwise unremarkable noncontrast CT appearance. There is no loculated fluid collection free fluid or free air within the abdomen. No abnormal mesenteric or retroperitoneal adenopathy is seen. There is moderate diffuse calcified aortic arch or atherosclerosis. Osseous structures show no acute abnormality. CT PELVIS: Prostate is enlarged. It measures 4.8 x 5.8 cm. Urinary bladder is minimally distended. There is moderate urinary bladder wall thickening and mild stranding in the pericystic fat. There is a small amount of free fluid within the pelvis. No loculated fluid collection or free air is seen. Osseous structures show no acute abnormality. IMPRESSION: 1. Moderate bilateral renal atrophy. 2. Moderate prostatomegaly. 3. Moderate thickened appearance of the urinary bladder wall. This may be artifact and exaggerated by underdistention, but appearance may also be seen with cystitis as well as detrusor hypertrophy from chronic bladder outlet obstruction. Clinical correlation is advised. 4. Trace pelvic ascites. 5. Cystic structure within the region of the head of the pancreas. This may be on the basis of benign cyst. Neoplasm cannot be excluded. Follow-up in 3 months is recommended. 6. Bilateral pleural effusions, left greater than right. 7. Cardiomegaly with small pericardial effusion. Dictated by: Dictated on workstation # [id number] Dict: 02/16/221936 Trans: 02/16/221953 PJE [id number] Interpreted by: KIYA CAMPO MD Electronically signed by: KIYA CAMPO MD 02/16/221953-Has had no improvement after fentanyl + urethral viscous lidocaine. States he will not produce urine most likely until tomorrow. Impression Primary Impression: Cystitis Additional Impressions: ESRD (end stage renal disease) on dialysis Diarrhea Disposition: 01 HOME, SELF-CARE Condition: Stable Departure-Patient Inst. Decision time for Depature: 19:58 Referrals: ELLA CANTU DO (PCP/Family) Primary Care Physician Patient Instructions: Urinary Tract Infection, Adult (DC) Add. Discharge Instructions: 1. Continue the antibiotics as directed. Pain medication as directed. Return to ER for any worsening such as fevers or intolerable pain. Follow-up with your doctor next week. You will need a repeat CT scan of your abdomen and pelvis in about 3 months to reevaluate the cystic structure on the pancreas to see if there has been any adverse change. All discharge instructions reviewed with patient and/or family. Voiced understanding. Scripts Hydrocodone/Acetaminophen (Hydrocodone-Acetamin 5-325 mg) 5 Mg-325 Mg Tablet 1 TAB PO Q4H PRN for PAIN-MODERATE (5-7), #14 TAB Prov: TORREY ANDERS TEST ENGINEER 02/16/22 TORREY ANDERS TEST ENGINEER Feb 16, 2022 18:34
[2022-02-16 18:52] LABS: BASOPHILS % (AUTO) 0 % (0-10); EOSINOPHILS # (AUTO) 0.1 10^3/uL (0.0-0.3); EOSINOPHILS % (AUTO) 1 % (0-10); HEMATOCRIT 35 % (40-54); HEMOGLOBIN 11.4 g/dL (13.3-17.7); LYMPHOCYTES # (AUTO) 0.6 10^3/uL (1.0-4.0); LYMPHOCYTES % (AUTO) 6 % (12-44); MEAN CORPUSCULAR HEMOGLOBIN 29 pg (25-34); MEAN CORPUSCULAR HGB CONC 33 g/dL (32-36); MEAN CORPUSCULAR VOLUME 88 fL (80-99); MEAN PLATELET VOLUME 9.6 fL (9.0-12.2); MONOCYTES # (AUTO) 0.4 10^3/uL (0.0-1.0); MONOCYTES % (AUTO) 4 % (0-12); NEUTROPHILS # (AUTO) 9.9 10^3/uL (1.8-7.8); NEUTROPHILS % (AUTO) 89 % (42-75); PLATELET COUNT 361 10^3/uL (130-400); WHITE BLOOD COUNT 11.1 10^3/uL (4.3-11.0)
[2022-02-16 19:04] LABS: BASOPHILS % (MANUAL) 1 %; EOSINOPHILS % (MANUAL) 1 %; LYMPHOCYTES % (MANUAL) 9 %; MONOCYTES % (MANUAL) 4 %; NEUTROPHILS % (MANUAL) 85 %; RBC MORPH NORMAL
[2022-02-16 19:07] LABS: CALCIUM 8.8 MG/DL (8.5-10.1); CREATININE SERUM 3.55 MG/DL (0.60-1.30); MAGNESIUM 1.9 MG/DL (1.6-2.4); POTASSIUM 3.8 MMOL/L (3.6-5.0)
--- NOTE | 2022-02-16 19:53 | Diagnostic Imaging Report ---
PROCEDURE: CT urinary tract, rule out kidney stone. TECHNIQUE: Multiple contiguous axial images were obtained through the abdomen and pelvis without the use of intravenous contrast. Auto Exposure Controls were utilized during the CT exam to meet ALARA standards for radiation dose reduction. INDICATION: Urinary pain. Diarrhea. COMPARISON: None. FINDINGS: Included portions of the lung bases show partially visualized moderate left and mild right pleural effusion. Note is also made of moderate cardiomegaly and small pericardial effusion. CT ABDOMEN: Normal appendix is identified. Small bowel loops are nondistended. There is moderate bilateral renal atrophy. Multiple hypodense renal cysts are present, bilaterally. There is no hydroureteronephrosis or other evidence of obstruction. Right adrenal gland has an unremarkable noncontrast CT appearance. Left adrenal gland cannot be adequately visualized and may be surgically absent. The spleen and liver have an unremarkable noncontrast CT appearance. Hypodense cystic-appearing structure is noted within the pancreatic head anteriorly and measures 2.2 x 1.6 cm (image 75, series 2). Spleen has an otherwise unremarkable noncontrast CT appearance. There is no loculated fluid collection free fluid or free air within the abdomen. No abnormal mesenteric or retroperitoneal adenopathy is seen. There is moderate diffuse calcified aortic arch or atherosclerosis. Osseous structures show no acute abnormality. CT PELVIS: Prostate is enlarged. It measures 4.8 x 5.8 cm. Urinary bladder is minimally distended. There is moderate urinary bladder wall thickening and mild stranding in the pericystic fat. There is a small amount of free fluid within the pelvis. No loculated fluid collection or free air is seen. Osseous structures show no acute abnormality. IMPRESSION: 1. Moderate bilateral renal atrophy. 2. Moderate prostatomegaly. 3. Moderate thickened appearance of the urinary bladder wall. This may be artifact and exaggerated by underdistention, but appearance may also be seen with cystitis as well as detrusor hypertrophy from chronic bladder outlet obstruction. Clinical correlation is advised. 4. Trace pelvic ascites. 5. Cystic structure within the region of the head of the pancreas. This may be on the basis of benign cyst. Neoplasm cannot be excluded. Follow-up in 3 months is recommended. 6. Bilateral pleural effusions, left greater than right. 7. Cardiomegaly with small pericardial effusion. Dictated by: Dictated on workstation # [id number]
[2022-02-16 19:55] LABS: BILIRUBIN,URINE NEGATIVE (NEGATIVE); CLARITY,URINE CLEAR; COLOR,URINE YELLOW; GLUCOSE, URINE (UA) TRACE (NEGATIVE); KETONES,URINE NEGATIVE (NEGATIVE); LEUKOCYTE ESTERASE ,URINE NEGATIVE (NEGATIVE); NITRITE,URINE NEGATIVE (NEGATIVE); PH,URINE 8.5 (5-9); PROTEIN,URINE 3+ (NEGATIVE)
[2022-02-16] MEDS ORDERED: morphine INJ 10 MG/ML 1ML (SYR OR VIAL) IVP STA (19:57)
[2022-02-16] MEDS ORDERED: KETOROLAC 30 MG/ML VIAL IVP ONE (20:00)
[2022-02-16] MEDS ORDERED: ACHD5005 PO (20:00)
[2022-02-16] MEDS ORDERED: meTOprolol 5 MG/5 ML (LOPRESSOR) VIAL IV ONE (20:00)
[2022-02-16] MEDS ORDERED: ONDANSETRON 4 MG/2 ML (SDV) Z0FRAN ONE (20:04)
[2022-02-16 20:13] LABS: BACTERIA,URINE FEW /HPF
[2022-02-16] MEDS ORDERED: ONDANSETRON 4 MG/2 ML (SDV) Z0FRAN IVP ONE (20:15)
[2022-02-16 20:40] VITALS: BP 168/112
== END 2022-02-16 21:14 | disposition home or self-care (01) ==
LOC: EDUNIT# 17:59 → ER 18:02
DX: N30.90 Cystitis, unspecified without hematuria (principal); R19.7 Diarrhea, unspecified; I12.0 Hypertensive chronic kidney disease with stage 5 chronic kidney disease or end stage renal disease; N18.6 End stage renal disease; Z99.2 Dependence on renal dialysis; Z91.14 Patient's other noncompliance with medication regimen
CPT/HCPCS: 36415; 51701; 74176; 80048; 81000; 83735; 85007; 85027; 87088; 87324; 87449; 87493; 93005

== ENCOUNTER 2022-03-20 10:39 | Emergency (ER) | payer MEDICARE ==
[2022-03-20] MEDS ORDERED: RT-ALBUTEROL HFA 8.5 GM INHALER IH STA (11:02)
[2022-03-20 11:12] LABS: BASOPHILS % (AUTO) 1 % (0-10); EOSINOPHILS # (AUTO) 0.1 10^3/uL (0.0-0.3); EOSINOPHILS % (AUTO) 1 % (0-10); HEMATOCRIT 35 % (40-54); HEMOGLOBIN 10.9 g/dL (13.3-17.7); LYMPHOCYTES % (AUTO) 11 % (12-44); MEAN CORPUSCULAR HEMOGLOBIN 28 pg (25-34); MEAN CORPUSCULAR HGB CONC 32 g/dL (32-36); MEAN CORPUSCULAR VOLUME 88 fL (80-99); MEAN PLATELET VOLUME 10.2 fL (9.0-12.2); MONOCYTES # (AUTO) 0.5 10^3/uL (0.0-1.0); MONOCYTES % (AUTO) 5 % (0-12); NEUTROPHILS % (AUTO) 82 % (42-75); PLATELET COUNT 237 10^3/uL (130-400); WHITE BLOOD COUNT 8.6 10^3/uL (4.3-11.0)
[2022-03-20 11:21] LABS: ALBUMIN 3.9 GM/DL (3.2-4.5); POTASSIUM 4.5 MMOL/L (3.6-5.0)
[2022-03-20 11:22] LABS: CALCIUM 9.9 MG/DL (8.5-10.1)
[2022-03-20 11:23] LABS: TOTAL PROTEIN 7.5 GM/DL (6.4-8.2)
[2022-03-20 11:25] LABS: BILIRUBIN,TOTAL 0.8 MG/DL (0.1-1.0)
[2022-03-20 11:27] LABS: CREATININE SERUM 5.21 MG/DL (0.60-1.30)
--- NOTE | 2022-03-20 12:47 | Diagnostic Imaging Report ---
INDICATION: Shortness of breath, nausea, vomiting and hypoxia. Compared with study of 02/09/2022. FINDINGS: Bilateral pleural effusions greater left have increased. The heart size increased. There is vascular congestion and worsened pulmonary edema. There is no pneumothorax. IMPRESSION: Interval changes suggest worsened failure pattern. No pneumothorax. Dictated by: Dictated on workstation # [id number]
[2022-03-20] MEDS ORDERED: ONDANSETRON 4 MG/2 ML (SDV) Z0FRAN IVP ONE (14:00)
--- NOTE | 2022-03-20 15:06 | Diagnostic Imaging Report ---
HISTORY: Left pleural effusion. COMPARISON: Radiographs from 03/20/2022. TECHNIQUE: Ultrasound of the posterior left chest for thoracentesis marking. FINDINGS: There is a moderate left pleural effusion. The skin was marked by the technical services manager for paracentesis to be performed by Dr. Newton. IMPRESSION: 1. Moderate left pleural effusion. Dictated by: Dictated on workstation # [id number]
--- NOTE | 2022-03-20 15:11 | Consultation - Surgery ---
[facility] 03/20/22 1511: History of Present Illness History of Present Illness Patient Consulted On(cordelia/time) 03/20/22 15:06 Date Seen by Provider: Mar 20, 2022 Time Seen by Provider: 15:13 History of Present Illness Alli is a 76 yo M with a PMH of ESRD on dialysis, HTN and hx of pleural effusions. Pt presented to ED today via EMS c/o SOB and N/V at home. On arrival, O2 sats were 80% on RA and patient stated he used to wear oxygen at home 3 years ago but no longer needed it. Today he presents with SOB and hypoxia in the ED and is on nasal cannula for oxygen at time of arrival. He notes pain in the chest that is worse with moving and breathing and is not improved by anything. Ultrasound today showed bilateral pleural effusions, left increased since 02/09/22 study. Allergies and Home Medications Allergies Coded Allergies: No Known Drug Allergies (Unverified , 11/02/19) Patient Home Medication List Home Medication List Reviewed: Yes Ascorbate Calcium (Vitamin C) 500 Mg Tablet, 500 MG PO DAILY, (Reported) Entered as Reported by: HEATHER BERGERON on 05/21/18 0913 Aspirin (Aspir 81) 81 Mg Tablet.dr, 81 MG PO DAILY, (Reported) Entered as Reported by: MARY MCCRARY on 11/02/19 145 Azithromycin (Zithromax) 500 Mg Tablet, 500 MG PO DAILY Prescribed by: DOROTEO STEVENS on 05/23/20 235 Calcium Acetate (Calcium Acetate) 667 Mg Tablet, 4 CAP PO TID, (Reported) Entered as Reported by: MARY MCCRARY on 11/02/19 1455 Carvedilol (Carvedilol) 25 Mg Tablet, 25 MG PO BID, (Reported) Entered as Reported by: MARY MCCRARY on 11/02/19 1455 Cefdinir (Cefdinir) 300 Mg Capsule, 300 MG PO BID Prescribed by: DOROTEO STEVENS on 05/23/20 235 Cholecalciferol (Vitamin D3) (Vitamin D3) 25 Mcg Capsule, 25 MCG PO DAILY, (Reported) Entered as Reported by: MARY MCCRARY on 11/02/19 1455 Clonidine HCl (Clonidine HCl) 0.2 Mg Tablet, 0.4 MG PO BID, (Reported) Entered as Reported by: HEATHER BERGERON on 05/21/18909 Diphenhydramine HCl (Benadryl) 25 Mg Capsule, 25 MG PO HS, (Reported) Entered as Reported by: HEATHER BERGERON on 05/21/18912 Folic Acid/Vitamin B Comp W-C (Dialyvite Tablet) 1 Each Tablet, 1 EACH PO DAILY, (Reported) Entered as Reported by: MARY MCCRARY on 11/02/19 145 Guaifenesin (Guaifenesin) 400 Mg Tablet, 400 MG PO BID, (Reported) Entered as Reported by: MARY MCCRARY on 11/02/19 145 Hydrocodone/Acetaminophen (Hydrocodone-Acetamin 5-325 mg) 1 Each Tablet, 1 EACH PO PRN, (Reported) Entered as Reported by: MARY MCCRARY on 11/02/19 145 Hydrocodone/Acetaminophen (Hydrocodone-Acetamin 5-325 mg) 5 Mg-325 Mg Tablet, 1 TAB PO Q4H PRN for PAIN-MODERATE (5-7) Prescribed by: TORREY ANDERS on 02/16/221999 Lactobacillus Combo No.10 (Probiotic) 1 Each Capsule, 1 CAP PO DAILY, (Reported) Entered as Reported by: HEATHER BERGERON on 05/21/18912 Melatonin (Melatonin) 5 Mg Capsule, 5 MG PO HS, (Reported) Entered as Reported by: HEATHER BERGERON on 05/21/18912 Nifedipine (Procardia Xl) 60 Mg Tab.er.24, 60 MG PO BID, (Reported) Entered as Reported by: MARY MCCRARY on 11/02/19 145 Promethazine HCl (Promethazine Tablet) 25 Mg Tablet, 25 MG PO Q6H PRN for NAUSEA/VOMITING Prescribed by: ALLAN LEACH on 12/05/19 1338 Promethazine HCl (Promethazine Tablet) 25 Mg Tablet, 25 MG PO Q6H PRN for NAUSEA/VOMITING Prescribed by: REBECCA RUVALCABA on 09/24/21 1414 Valerian Root (Valerian Root) 100 Mg Capsule, 100 MG PO HS, (Reported) Entered as Reported by: HEATHER BERGERON on 05/21/18912 Past Iuqhzyc-Bxyzub-Pnsmkr Hx Patient Social History 2nd Hand Smoke Exposure: No Recent Hopitalizations: No Alcohol Use?: No Have you traveled recently?: No Immunizations Up To Date Tetanus Booster (TDap): Unknown PED Vaccines UTD: Yes Date of Pneumonia Vaccine: Dec 05, 2015 Seasonal Allergies Seasonal Allergies: Yes (MILD) Surgeries History of Surgeries: Yes (L ADRENAL GLAND REMOVED, HEMODIALYSIS CATHETER/ REMOVAL / REPLACEMENT X2) Surgeries: Adrenal, Dialysis, Vascular Surgery Respiratory History of Respiratory Disorde: Yes (hx of pleural effusions; COVID + 05/21/20 AND [place]) Respiratory Disorders: Pneumonia Cardiovascular History of Cardiac Disorders: Yes Cardiac Disorders: Hypertension Neurological History of Neurological Disord: No Reproductive System Sexually Transmitted Disease: No HIV/AIDS: No Genitourinary History of Genitourinary Disor: Yes (DIALYSIS M-W-F) Genitourinary Disorders: Renal Failure, Dialysis Gastrointestinal History of Gastrointestinal Di: No Musculoskeletal History of Musculoskeletal Dis: Yes Musculoskeletal Disorders: Scoliosis Endocrine History of Endocrine Disorders: Yes (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, adr enal gland was removed) Endocrine Disorders: Adrenal Disease HEENT History of HEENT Disorders: Yes (GLASSES) Loss of Vision: Bilateral Hearing Impairment: Denies Cancer History of Cancer: No Psychosocial History of Psychiatric Problem: Yes Behavioral Health Disorders: Depression Integumentary History of Skin or Integumenta: No Blood Transfusions History of Blood Disorders: Yes (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) Adverse Reaction to a Blood Tr: No Family Medical History Significant Family History: Cancer, Hypertension Family Medial History: Aneurysm 19 MOTHER FH: lung cancer 19 FATHER Hypertension 19 MOTHER G8 SISTER Review of Systems-General Constitutional: No chills, No diaphoresis EENTM: No ear discharge, No ear pain Respiratory: No hemoptysis; short of breath Cardiovascular: No palpitations, No syncope Gastrointestinal: No hematemesis; nausea Genitourinary: No decreased output, No discharge Musculoskeletal: back pain; No gout Skin: No change in color, No change in hair/nails Psychiatric/Neurological: Depressed; Denies Headache All Other Systems Reviewed Negative Unless Noted: Yes Physical Exam-General Problems Physical Exam Vital Signs Vital Signs - First Documented 03/20/22 10:39 Temp 36.6 Pulse 87 Resp 20 B/P (MAP) 191/118 (142) Pulse Ox 96 O2 Delivery Nasal Cannula O2 Flow Rate 2.00 Capillary Refill : General Appearance: mild distress, thin HEENT: PERRL/EOMI, normal ENT inspection Neck: non-tender, full range of motion Respiratory: accessory muscle use, other (chest TTP) Cardiovascular: no edema, no JVD Gastrointestinal: non tender, soft Back: normal inspection, decreased range of motion (2/2 pain) Extremities: normal range of motion, non-tender Neurologic/Psychiatric: alert, oriented x 3 Skin: normal color, warm/dry Lymphatic: no adenopathy Data Review Labs Laboratory Tests 03/20/22 10:43: White Blood Count 8.6, Red Blood Count 3.95L, Hemoglobin 10.9L, Hematocrit 35L, Mean Corpuscular Volume 88, Mean Corpuscular Hemoglobin 28, Mean Corpuscular Hemoglobin Concent 32, Red Cell Distribution Width 15.5H, Platelet Count 237, Mean Platelet Volume 10.2, Immature Granulocyte % (Auto) 0, Neutrophils (%) (Auto) 82H, Lymphocytes (%) (Auto) 11L, Monocytes (%) (Auto) 5, Eosinophils (%) (Auto) 1, Basophils (%) (Auto) 1, Neutrophils # (Auto) 7.0, Lymphocytes # (Auto) 1.0, Monocytes # (Auto) 0.5, Eosinophils # (Auto) 0.1, Basophils # (Auto) 0.0, Immature Granulocyte # (Auto) 0.0, Sodium Level 135, Potassium Level 4.5, Chloride Level 97L, Carbon Dioxide Level 24, Anion Gap 14, Blood Urea Nitrogen 25H, Creatinine 5.21H, Estimat Glomerular Filtration Rate 11, BUN/Creatinine Ratio 5, Glucose Level 97, Calcium Level 9.9, Corrected Calcium 10.0, Magnesium Level 2.0, Total Bilirubin 0.8, Aspartate Amino Transf (AST/SGOT) 18, Alanine Aminotransferase (ALT/SGPT) 17, Alkaline Phosphatase 147H, C-Reactive Protein High Sensitivity 1.56H, B-Type Natriuretic Peptide 3076.8H, Total Protein 7.5, Albumin 3.9 03/20/22 10:57: Influenza Type A (RT-PCR) Not Detected, Influenza Type B (RT-PCR) Not Detected, SARS-CoV-2 RNA (RT-PCR) Not Detected [facility] [place] [place] NAME: ALLI DAVIS [facility] REC#: [id number] PT STATUS: REG ER : 1945 PHYSICIAN: LIZETTE BOO MD ADMIT DATE: 03/20/22/ER Draft Date of Exam:03/20/22 CHEST PA/LAT (2 VIEW) INDICATION: Shortness of breath, nausea, vomiting and hypoxia. Compared with study of 02/09/2022. FINDINGS: Bilateral pleural effusions greater left have increased. The heart size increased. There is vascular congestion and worsened pulmonary edema. There is no pneumothorax. IMPRESSION: Interval changes suggest worsened failure pattern. No pneumothorax. Dictated on workstation # [id number] Dict: 03/20/22 1244 Trans: 03/20/22 1246 [id number] Interpreted by: KATLIN TYSON Electronically signed by: Assessment/Plan Assessment/Plan Assessment/Plan SOB, hypoxia, ESRD bilateral pleural effusion, left increased since 02/09/22 plan for left thoracentesis today in ED to drain effusion pt was consented discussed procedure, risks and benefits DUSTY MANJARREZ DO 03/22/22 1635: History of Present Illness History of Present Illness History of Present Illness Because requested by Dr. Malik for thoracentesis left side for pleural effusion. Patient is a 76-year-old male with end-stage renal disease on dialysis. Patient has pleural effusion on the left and having to come to the emergency department for increased shortness of breath and found to be hypoxic. Patient has had had previous thoracentesis's before. Patient having increasing shortness of breath. He was found to have oxygen saturation in the 80s. Patient had chest x-ray showing left pleural effusion ultrasound performed demonstrating a large pleural effusion. Patient is feels little bit weak. His symptoms are worse with moving. Sitting still helps a little bit. No other complaints at this time. Denies nausea vomiting fever sweats chills or chest pain. Allergies and Home Medications Allergies Coded Allergies: No Known Drug Allergies (Unverified , 11/02/19) Patient Home Medication List Home Medication List Reviewed: Yes Ascorbate Calcium (Vitamin C) 500 Mg Tablet, 500 MG PO DAILY, (Reported) Entered as Reported by: HEATHER BERGERON on 05/21/18 09 Aspirin (Aspir 81) 81 Mg Tablet.dr, 81 MG PO DAILY, (Reported) Entered as Reported by: MARY MCCRARY on 11/02/19 145 Azithromycin (Zithromax) 500 Mg Tablet, 500 MG PO DAILY Prescribed by: DOROTEO STEVENS on 05/23/202354 Calcium Acetate (Calcium Acetate) 667 Mg Tablet, 4 CAP PO TID, (Reported) Entered as Reported by: MARY MCCRARY on 11/02/19 145 Carvedilol (Carvedilol) 25 Mg Tablet, 25 MG PO BID, (Reported) Entered as Reported by: MARY MCCRARY on 11/02/19 145 Cefdinir (Cefdinir) 300 Mg Capsule, 300 MG PO BID Prescribed by: DOROTEO STEVENS on 05/23/202354 Cholecalciferol (Vitamin D3) (Vitamin D3) 25 Mcg Capsule, 25 MCG PO DAILY, (Reported) Entered as Reported by: MARY MCCRARY on 11/02/19 145 Clonidine HCl (Clonidine HCl) 0.2 Mg Tablet, 0.4 MG PO BID, (Reported) Entered as Reported by: HEATHER BERGERON on 05/21/18 09 Diphenhydramine HCl (Benadryl) 25 Mg Capsule, 25 MG PO HS, (Reported) Entered as Reported by: HEATHER BERGERON on 05/21/18 09 Folic Acid/Vitamin B Comp W-C (Dialyvite Tablet) 1 Each Tablet, 1 EACH PO DAILY, (Reported) Entered as Reported by: MARY MCCRARY on 11/02/19 1455 Guaifenesin (Guaifenesin) 400 Mg Tablet, 400 MG PO BID, (Reported) Entered as Reported by: MARY MCCRARY on 11/02/19 1458 Hydrocodone/Acetaminophen (Hydrocodone-Acetamin 5-325 mg) 1 Each Tablet, 1 EACH PO PRN, (Reported) Entered as Reported by: MARY MCCRARY on 11/02/19 145 Hydrocodone/Acetaminophen (Hydrocodone-Acetamin 5-325 mg) 5 Mg-325 Mg Tablet, 1 TAB PO Q4H PRN for PAIN-MODERATE (5-7) Prescribed by: TORREY ANDERS on 02/16/221999 Lactobacillus Combo No.10 (Probiotic) 1 Each Capsule, 1 CAP PO DAILY, (Reported) Entered as Reported by: HEATHER BERGERON on 05/21/18912 Melatonin (Melatonin) 5 Mg Capsule, 5 MG PO HS, (Reported) Entered as Reported by: HEATHER BERGERON on 05/21/18912 Nifedipine (Procardia Xl) 60 Mg Tab.er.24, 60 MG PO BID, (Reported) Entered as Reported by: MARY MCCRARY on 11/02/19 1455 Promethazine HCl (Promethazine Tablet) 25 Mg Tablet, 25 MG PO Q6H PRN for NAUSEA/VOMITING Prescribed by: ALLAN LEACH on 12/05/19 1338 Promethazine HCl (Promethazine Tablet) 25 Mg Tablet, 25 MG PO Q6H PRN for NAUSEA/VOMITING Prescribed by: REBECCA RUVALCABA on 09/24/21 1414 Valerian Root (Valerian Root) 100 Mg Capsule, 100 MG PO HS, (Reported) Entered as Reported by: HEATHER BERGERON on 05/21/18912 Past Zokyffi-Mtusxy-Paymyf Hx Reviewed Nursing Assessment Reviewed/Agree w Nursing PMH: Yes Family Medical History Significant Family History: No Pertinent Family Hx Family Medial History: Aneurysm 19 MOTHER FH: lung cancer 19 FATHER Hypertension 19 MOTHER G8 SISTER Review of Systems-General Constitutional: No chills, No diaphoresis EENTM: No ear discharge, No ear pain Respiratory: No hemoptysis; short of breath Cardiovascular: No chest pain, No palpitations, No syncope Gastrointestinal: No hematemesis, No nausea Genitourinary: No decreased output, No discharge Musculoskeletal: back pain; No gout Skin: No change in color, No change in hair/nails Psychiatric/Neurological: Denies Anxiety; Depressed; Denies Emotional Problems, Denies Headache All Other Systems Reviewed Negative Unless Noted: Yes (Negative excepted noted.) Physical Exam-General Problems Physical Exam General Appearance: mild distress, thin HEENT: PERRL/EOMI, normal ENT inspection Neck: non-tender, full range of motion Respiratory: chest non-tender, accessory muscle use Cardiovascular: no edema, no JVD Gastrointestinal: non tender, soft Rectal: deferred Back: normal inspection, decreased range of motion (2/2 pain) Extremities: normal range of motion, non-tender, other (lue fistula) Neurologic/Psychiatric: alert, oriented x 3 Skin: normal color, warm/dry Lymphatic: no adenopathy Assessment/Plan Assessment/Plan Assessment/Plan SOB, hypoxia, ESRD bilateral pleural effusion, left increased since 02/09/22 plan for left thoracentesis today in ED to drain effusion Consent obtained Patient understands risk and benefits of procedure and wishes to proceed. Procedure left ultrasound-guided thoracentesis Patient had ultrasound performed with pocket in the left chest. The area was prepped draped sterile fashion timeout was performed. Local anesthetic was i nfiltrated left blade scalpel was used to make a small skin incision safety centesis needle and catheter advanced through the chest wall until straw-colored fluid was withdrawn. Catheter was advanced and the needle was removed. 1700 mL of straw-colored fluid withdrawn. The catheter was then removed and sterile bandage was applied. Chest x-ray pending patient tolerated procedure well. Supervisory-Addendum Brief Verification & Attestation Participated in pt care: history, MDM, physical Personally performed: exam, history, MDM, supervision of care Care discussed with: Medical Student Procedures: n/a Results interpretation: Verified all documentation Verification and Attestation of Medical Student E/M Service A medical student performed and documented this service in my presence. I reviewed and verified all information documented by the medical student and made modifications to such information, when appropriate. I personally performed the physical exam and medical decision making. Dusty Manjarrez, Mar 22, 2022,16:40 OLIVIA DELEON Mar 20, 2022 15:11 DUSTY MANJARREZ DO Mar 22, 2022 16:35
--- NOTE | 2022-03-20 15:27 | Diagnostic Imaging Report ---
INDICATION: Pleural effusion. Frontal chest obtained at 3:05 p.m. and compared to 03/20/2022. Compared to the prior study, the left pleural effusion is nearly resolved. There is a [id number] left apical pneumothorax. There is central vascular congestion with bibasilar infiltrate. Small right pleural effusion unchanged. IMPRESSION: Status post left thoracentesis. There is a moderate-sized left apical pneumothorax with minimal remaining left pleural fluid. No change in bibasilar infiltrates are smaller right pleural effusion. Critical finding Faxed to [facility] at 3:26 p.m. by cvb. Dictated by: Dictated on workstation # [id number]
--- NOTE | 2022-03-20 16:17 | ED General ---
General Chief Complaint: Respiratory Problems Stated Complaint: DIZZINESS|NAUSEA|SOB Nursing Triage Note: PT TO [facility] BY [facility] WITH C/O SOB AT HOME, AND N/V. PT SATTING 80% ON RA UPON EMS ARRIVAL. PT STATES HE USED TO WEAR OXYGEN ABOUT 3 YEARS AGO BUT NO LONGER NEEDED IT Source of Information: Patient, EMS, Old Records Exam Limitations: No Limitations (LIZETTE BOO MD) History of Present Illness Date Seen by Provider: Mar 20, 2022 Time Seen by Provider: 10:41 Initial Comments This is 76-year-old gentleman is a dialysis patient who presents to the emergency room today via EMS with complaints of shortness of air, dizziness, and nausea. He had oxygen saturation of 80% on room air during EMSs initial assessment. Initial blood pressure was 218/115. He had not taken his morning medications due to nausea. EMS administered Zofran 4 mg and applied nasal cannula at 6 L/min resulting in resuscitation of oxygen saturation of 99%. Patient denies any significant cough, fever, chills, or other signs or symptoms of acute infectious illness. He is afebrile. Blood sugar was 106. Patient later divulged that he has had history of pleural effusions requiring thoracentesis which were previously done at [place]. His bellhop is Dr. Yao at [place]. His PCP is Dr. Aguirre in [place]. He received dialysis yesterday. His schedule is Saturday, Saturday, Saturday. (LIZETTE BOO MD) Initial Comments Agree with H&P (MICHELLE BRADSHAW MD) Allergies and Home Medications Allergies Coded Allergies: No Known Drug Allergies (Unverified , 11/02/19) Patient Home Medication List Home Medication List Reviewed: Yes (LIZETTE BOO MD) Home Medication List Reviewed: Yes (MICHELLE BRADSHAW MD) Ascorbate Calcium (Vitamin C) 500 Mg Tablet, 500 MG PO DAILY, (Reported) Entered as Reported by: HEATHER BERGERON on 05/21/18 0913 Aspirin (Aspir 81) 81 Mg Tablet.dr, 81 MG PO DAILY, (Reported) Entered as Reported by: MARY MCCRARY on 11/02/19 1455 Azithromycin (Zithromax) 500 Mg Tablet, 500 MG PO DAILY Prescribed by: DOROTEO STEVENS on 05/23/202354 Calcium Acetate (Calcium Acetate) 667 Mg Tablet, 4 CAP PO TID, (Reported) Entered as Reported by: MARY MCCRARY on 11/02/19 145 Carvedilol (Carvedilol) 25 Mg Tablet, 25 MG PO BID, (Reported) Entered as Reported by: MARY MCCRARY on 11/02/19 145 Cefdinir (Cefdinir) 300 Mg Capsule, 300 MG PO BID Prescribed by: DOROTEO STEVENS on 05/23/202354 Cholecalciferol (Vitamin D3) (Vitamin D3) 25 Mcg Capsule, 25 MCG PO DAILY, (Reported) Entered as Reported by: MARY MCCRARY on 11/02/19 145 Clonidine HCl (Clonidine HCl) 0.2 Mg Tablet, 0.4 MG PO BID, (Reported) Entered as Reported by: HEATHER BERGERON on 05/21/18 09 Diphenhydramine HCl (Benadryl) 25 Mg Capsule, 25 MG PO HS, (Reported) Entered as Reported by: HEATHER BERGERON on 05/21/18 09 Folic Acid/Vitamin B Comp W-C (Dialyvite Tablet) 1 Each Tablet, 1 EACH PO DAILY, (Reported) Entered as Reported by: MARY MCCRARY on 11/02/19 145 Guaifenesin (Guaifenesin) 400 Mg Tablet, 400 MG PO BID, (Reported) Entered as Reported by: MARY MCCRARY on 11/02/19 145 Hydrocodone/Acetaminophen (Hydrocodone-Acetamin 5-325 mg) 1 Each Tablet, 1 EACH PO PRN, (Reported) Entered as Reported by: MARY MCCRARY on 11/02/19 145 Hydrocodone/Acetaminophen (Hydrocodone-Acetamin 5-325 mg) 5 Mg-325 Mg Tablet, 1 TAB PO Q4H PRN for PAIN-MODERATE (5-7) Prescribed by: TORREY ANDERS on 02/16/221999 Lactobacillus Combo No.10 (Probiotic) 1 Each Capsule, 1 CAP PO DAILY, (Reported) Entered as Reported by: HEATHER BERGERON on 05/21/18 09 Melatonin (Melatonin) 5 Mg Capsule, 5 MG PO HS, (Reported) Entered as Reported by: HEATHER BERGERON on 05/21/18912 Nifedipine (Procardia Xl) 60 Mg Tab.er.24, 60 MG PO BID, (Reported) Entered as Reported by: MARY MCCRARY on 11/02/19 1455 Promethazine HCl (Promethazine Tablet) 25 Mg Tablet, 25 MG PO Q6H PRN for NAUSEA/VOMITING Prescribed by: ALLAN LEACH on 12/05/19 1338 Promethazine HCl (Promethazine Tablet) 25 Mg Tablet, 25 MG PO Q6H PRN for NAUSEA/VOMITING Prescribed by: REBECCA RUVALCABA on 09/24/21 1414 Valerian Root (Valerian Root) 100 Mg Capsule, 100 MG PO HS, (Reported) Entered as Reported by: HEATHER BERGERON on 05/21/18912 Review of Systems Review of Systems Constitutional: No fever; weakness EENTM: no symptoms reported Respiratory: see HPI Cardiovascular: see HPI Gastrointestinal: see HPI Genitourinary: see HPI Musculoskeletal: no symptoms reported Skin: no symptoms reported Psychiatric/Neurological: See HPI Hematologic/Lymphatic: No Symptoms Reported Immunological/Allergic: no symptoms reported (LIZETTE BOO MD) Past Zucorjg-Zmizfw-Lmattz Hx Patient Social History Tobacco Use?: No Substance use?: No Alcohol Use?: No Pt feels they are or have been: No (LIZETTE BOO MD) Immunizations Up To Date Tetanus Booster (TDap): Unknown PED Vaccines UTD: Yes Influenza Vaccine Up-to-Date: Yes; Up-to-Date First/Initial COVID19 Vaccinat: 07/03 Second COVID19 Vaccination Moises: 07/31 Third COVID19 Vaccination Date: 07/03 (LIZETTE BOO MD) Seasonal Allergies Seasonal Allergies: Yes (MILD) (LIZETTE BOO MD) Past Medical History Surgery/Hospitalization HX: PMH;SCOLIOSIS AND KIDNEY FAILURE. DIAYLSIS--PT STATES RENAL FAILURE ISFROM ALDOSTERONE SECRETING ADRENAL GLAND TUMOR.SURGERY; ADRENAL GLAND MASS REMOVAL 2011; LEFT ARM A-V FISTULA/DIALYSISGRAFT. 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, 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) Adrenal Disease HEENT: Yes (GLASSES) Loss of Vision: Bilateral Hearing Impairment: Denies Cancer: No Psychosocial: Yes Depression Integumentary: No Blood Disorders: Yes (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 0.0oz. 69.458591hp; 20.00 BMI Method:Stated General Appearance: WD/WN, Mild Distress, Thin HEENT: PERRL/EOMI, Normal ENT Inspection Neck: Normal Inspection; No JVD Respiratory: Decreased Breath Sounds, Wheezing, Other (Increased work of breathing) Cardiovascular: Regular Rate, Rhythm, No Murmur, Other (Mild lower extremity edema) Gastrointestinal: Normal Bowel Sounds, Non Tender, Soft Extremity: Non Tender, Swelling (Mild lower extremity edema) Neurologic/Psychiatric: Oriented x3, No Motor/Sensory Deficits, Normal Moo d/Affect, Other (Generalized weakness) Skin: Warm/Dry, Pallor (LIZETTE BOO MD) Progress/Results/Core Measures Suspected Sepsis SIRS Temperature: Pulse: 87 Respiratory Rate: 20 Laboratory Tests 03/20/22 10:43: White Blood Count 8.6 Blood Pressure 191 /118 Mean: 142 Laboratory Tests 03/20/22 10:43: Creatinine 5.21H, Platelet Count 237, Total Bilirubin 0.8 (LIZETTE BOO MD) Results/Orders Lab Results Laboratory Tests Test 03/20/22 10:43 03/20/22 10:57 Range/Units White Blood Count 8.6 4.3-11.0 10^3/uL Red Blood Count 3.95 L 4.30-5.52 10^6/uL Hemoglobin 10.9 L 13.3-17.7 g/dL Hematocrit 35 L 40-54 % Mean Corpuscular Volume 88 80-99 fL Mean Corpuscular Hemoglobin 28 25-34 pg Mean Corpuscular Hemoglobin Concent 32 32-36 g/dL Red Cell Distribution Width 15.5 H 10.0-14.5 % Platelet Count 237 130-400 10^3/uL Mean Platelet Volume 10.2 9.0-12.2 fL Immature Granulocyte % (Auto) 0 % Neutrophils (%) (Auto) 82 H 42-75 % Lymphocytes (%) (Auto) 11 L 12-44 % Monocytes (%) (Auto) 5 0-12 % Eosinophils (%) (Auto) 1 0-10 % Basophils (%) (Auto) 1 0-10 % Neutrophils # (Auto) 7.0 1.8-7.8 10^3/uL Lymphocytes # (Auto) 1.0 1.0-4.0 10^3/uL Monocytes # (Auto) 0.5 0.0-1.0 10^3/uL Eosinophils # (Auto) 0.1 0.0-0.3 10^3/uL Basophils # (Auto) 0.0 0.0-0.1 10^3/uL Immature Granulocyte # (Auto) 0.0 0.0-0.1 10^3/uL Sodium Level 135 135-145 MMOL/L Potassium Level 4.5 3.6-5.0 MMOL/L Chloride Level 97 L 98-107 MMOL/L Carbon Dioxide Level 24 21-32 MMOL/L Anion Gap 14 5-14 MMOL/L Blood Urea Nitrogen 25 H 7-18 MG/DL Creatinine 5.21 H 0.60-1.30 MG/DL Estimat Glomerular Filtration Rate 11 BUN/Creatinine Ratio 5 Glucose Level 97 70-105 MG/DL Calcium Level 9.9 8.5-10.1 MG/DL Corrected Calcium 10.0 8.5-10.1 MG/DL Magnesium Level 2.0 1.6-2.4 MG/DL Total Bilirubin 0.8 0.1-1.0 MG/DL Aspartate Amino Transf (AST/SGOT) 18 5-34 U/L Alanine Aminotransferase (ALT/SGPT) 17 0-55 U/L Alkaline Phosphatase 147 H 40-136 U/L C-Reactive Protein High Sensitivity 1.56 H 0.00-0.50 MG/DL B-Type Natriuretic Peptide 3076.8 H <100.0 PG/ML Total Protein 7.5 6.4-8.2 GM/DL Albumin 3.9 3.2-4.5 GM/DL Influenza Type A (RT-PCR) Not Detected Not Detecte Influenza Type B (RT-PCR) Not Detected Not Detecte SARS-CoV-2 RNA (RT-PCR) Not Detected Not Detecte (MICHELLE BRADSHAW MD) Medications Given in ED Current Medications Medications Dose Ordered Sig/Kailey Route Start Time Stop Time Status Last Admin Dose Admin Hydralazine HCl 10 mg ONCE ONCE IV 03/20/22 17:15 03/20/22 17:16 DC 03/20/22 17:53 10 MG Ondansetron HCl 4 mg ONCE ONCE IVP 03/20/22 14:00 03/20/22 14:01 DC 03/20/22 14:00 4 MG (MICHELLE BRADSHAW MD) Vital Signs/I&O 03/20/22 10:39 Temp 36.6 Pulse 87 Resp 20 B/P (MAP) 191/118 (142) Pulse Ox 96 O2 Delivery Nasal Cannula O2 Flow Rate 2.00 (MICHELLE BRADSHAW MD) Vital Signs/I&O Capillary Refill : (LIZETTE BOO MD) Blood Pressure Mean: 142 Progress Note : Time: 16:20 Progress Note Patient was interviewed and examined upon arrival. He was alert and short of breath with increased work of breathing. He did have some slight wheezing which was treated with albuterol, but he has no history of obstructive lung disease. Blood pressure remained elevated with systolic blood pressures in the 170s and 180s but did improve from the blood pressure measurements obtained by EMS. Patient was found to have a large left pleural effusion with about 1500 mL by ultrasound evaluation. Dr. Manjarrez was consulted and performed thoracentesis. Approximately 1700 mL was drained. Post thoracentesis x-ray revealed a apical pneumothorax. This was discussed with Dr. Manjarrez who requested a repeat x-ray in 4 hours to determine stability. If increasing, ThoraVent will need to be placed. Patient is stable at this time and work of breathing has improved significantly since thoracentesis. His blood pressure medications were given shortly after arrival. His usual dose of Lasix 80 mg p.o. has also now been given. Between the Lasix and thoracentesis, I am hopeful that his blood pressure will improve without further treatment. X-ray has been ordered for 1899. Patient was instructed to use call light if he had increasing shortness of breath. (LIZETTE BOO MD) Progress Note : Progress Note Pt signed out to me by day physician. Repeat chest x-ray shows a stable pneumothorax. Discussed with Dr. Manjarrez, and since pneumo is stable and likely caused by a little air from the tubing from the thoracentesis done earlier, advised to discharge the pt if the pt's oxygen saturation is normal. A factor contributing to this decision is also that patient has a dialysis session scheduled for tomorrow. Patient is stable in the ER with stable vitals and has an oxygen saturation of 90% on room air. We have arranged for patient to go home on home oxygen just in case he needs it and is feeling short of breath. Patient was discharged with instructions on how to use the oxygen. Advised to follow-up with PCP in the next 1 to 3 days. Also advised patient to follow-up with surgery clinic, Dr. Manjarrez. (MICHELLE BRADSHAW MD) ECG Initial ECG Impression Date: Mar 20, 2022 Initial ECG Impression Time: 11:57 Initial ECG Rate: 79 Initial ECG Rhythm: Normal Sinus Initial ECG Intervals: Normal Initial ECG Impression: Normal Comment Normal sinus rhythm with no ST elevation or depression. No abnormal intervals or axis deviation. (LIZETTE BOO MD) Diagnostic Imaging Diagonstic Imaging: Xray Plain Films/CT/US/NM/MRI: chest Comments Chest x-ray viewed by me and report reviewed. See report below: NAME: DENIS DAVIS MED REC#: [id number] PT STATUS: REG ER : 1945 PHYSICIAN: LIZETTE BOO MD ADMIT DATE: 03/20/22/ER Signed Date of Exam:03/20/22 CHEST PA/LAT (2 VIEW) INDICATION: Shortness of breath, nausea, vomiting and hypoxia. Compared with study of 02/09/2022. FINDINGS: Bilateral pleural effusions greater left have increased. The heart size increased. There is vascular congestion and worsened pulmonary edema. There is no pneumothorax. IMPRESSION: Interval changes suggest worsened failure pattern. No pneumothorax. Dictated by: Dictated on workstation # [id number] Dict: 03/20/22 1244 Trans: 03/20/22 1606 SA [id number] Interpreted by: KATLIN TYSON Electronically signed by: KATLIN TYSON 03/20/22 1606 Diagonstic Imaging: Ultrasound Plain Films/CT/US/NM/MRI: chest Comments NAME: SUSANDENIS MED REC#: [id number] PT STATUS: REG ER : 1945 PHYSICIAN: LIZETTE BOO MD ADMIT DATE: 03/20/22/ER Draft Date of Exam:03/20/22 US-NOCHG GUIDE PARA/THOR HISTORY: Left pleural effusion. COMPARISON: Radiographs from 03/20/2022. TECHNIQUE: Ultrasound of the posterior left chest for thoracentesis marking. FINDINGS: There is a moderate left pleural effusion. The skin was marked by the anesthesiology tech for paracentesis to be performed by Dr. Manjarrez. IMPRESSION: 1. Moderate left pleural effusion. Dictated on workstation # [id number] Dict: 03/20/22 1457 Trans: 03/20/[address] [facility] [id number] Interpreted by: CELI NOGUERA MD Diagonstic Imaging: Xray Plain Films/CT/US/NM/MRI: chest Comments NAME: ALINA DAVISJACEY Luna MED REC#: [id number] PT STATUS: REG ER : 1945 PHYSICIAN: LIZETTE BOO MD ADMIT DATE: 03/20/22/ER Draft Date of Exam:03/20/22 CHEST 1 VIEW, AP/PA ONLY INDICATION: Pleural effusion. Frontal chest obtained at 3:05 p.m. and compared to 03/20/2022. Compared to the prior study, the left pleural effusion is nearly resolved. There is a doeus-ro-ypbaqowg left apical pneumothorax. There is central vascular congestion with bibasilar infiltrate. Small right pleural effusion unchanged. IMPRESSION: Status post left thoracentesis. There is a moderate-sized left apical pneumothorax with minimal remaining left pleural fluid. No change in bibasilar infiltrates are smaller right pleural effusion. Critical finding Faxed to [facility] at 3:26 p.m. by cvb. Dictated on workstation # [id number] Dict: 03/20/22 1521 Trans: 03/20/22 1527 [id number] [id number] Interpreted by: MARISOL BURRIS MD (LIZETTE BOO MD) Departure Impression Primary Impression: Pleural effusion, left Additional Impressions: Pneumothorax, left End stage renal failure on dialysis Disposition: 01 HOME, SELF-CARE Condition: Improved Departure-Patient Inst. Referrals: ELLA AGUIRRE DO (PCP) Primary Care Physician DUSTY MANJARREZ DO Patient Instructions: Pneumothorax (Collapsed Lung) (DC), Pleural Effusion (DC), How to Care for a Pleural Catheter, Thoracentesis (DC) Add. Discharge Instructions: Patient was discharged with instructions on how to use the oxygen. Advised to follow-up with PCP in the next 1 to 3 days. Also advised patient to follow-up with surgery clinic, Dr. Manjarrez. All discharge instructions reviewed with patient and/or family. Voiced understanding. LIZETTE BOO MD Mar 20, 2022 16:17 MICHELLE BRADSHAW MD Mar 20, 2022 21:36
[2022-03-20] MEDS ORDERED: hydrALAZINE (APESOLINE) 20 MG/ML VIAL IV ONE (17:15)
--- NOTE | 2022-03-20 19:18 | Diagnostic Imaging Report ---
INDICATION: Pneumothorax AP view of the chest is obtained with comparison made to study of earlier in the day. There is no appreciable change in left apical pneumothorax. Bilateral basilar atelectasis/edema is similar to the previous study. There does appear to be mild pleural fluid, greater on the right. IMPRESSION: Stable appearance of left pneumothorax without midline shift. Dictated by: Dictated on workstation # [id number]
[2022-03-20 21:52] VITALS: BP 139/91
== END 2022-03-20 21:52 ==
LOC: EDUNIT# 10:40 → ER 10:41
DX: J90 Pleural effusion, not elsewhere classified (principal); J93.9 Pneumothorax, unspecified; I12.0 Hypertensive chronic kidney disease with stage 5 chronic kidney disease or end stage renal disease; N18.6 End stage renal disease; Z99.2 Dependence on renal dialysis; Z87.01 Personal history of pneumonia (recurrent); Z86.16 Personal history of COVID-19; Z20.822 Contact with and (suspected) exposure to COVID-19
CPT/HCPCS: 36415; 71045; 71046; 80053; 83735; 83880; 85025; 86141; 87636; 93005; 93041

== ENCOUNTER 2022-06-17 15:51 | Emergency (ER) | payer MEDICARE ==
[~2022-06-17] VITALS: Ht 172 cm; Wt 54.0 kg
--- NOTE | 2022-06-17 16:54 | ED General ---
General Chief Complaint: Lower Extremity Stated Complaint: FEET PAIN Nursing Triage Note: ARRIVED VIA WC TO FAST TRACK WITH BILAT LOWER LEG PAIN/ITCHING FOR A YEAR. DOES NOT KNOW WHAT MAKES IT WORSE TODAY. PT IS ON DIALYSIS MWF AND SHUNT IS IN LEFT ARM. Source of Information: Patient Exam Limitations: No Limitations History of Present Illness Date Seen by Provider: Jun 17, 2022 Time Seen by Provider: 16:32 Initial Comments Patient is a 76-year-old male with a history of hypertension and end-stage renal disease on hemodialysis for the last 3 years who presents to the emergency room with a chief complaint of burning in his feet that radiates up his legs with tingling bilaterally. He has had this problem for at least a year but he thinks it is gotten worse in the last month. He has not talked to his primary care doctor or his lead business systems analyst about it. He occasionally has back pain that is better with lidocaine patches. He takes Tylenol occasionally for the discomfort. He cannot quite delineate the story as to why he decided to come to the emergency department today. He tells me that his chiropractor diagnosed him with "scoliosis" and he thinks that is what is causing his pain. It has been longstanding, nothing acutely changed today. He denies leg swelling. He denies back pain currently. He has no numbness in his groin or loss of bowel or bladder control. He does occasionally still make urine. He denies weakness in his legs but states that he does have to use a cane to ambulate. He is not more short of breath today than usual, he does wear home oxygen. He s tates his cord for his oxygen frequently trips him at home. No chest pain today, no fevers, chills, URI symptoms. All other review of systems reviewed and negative except as stated. Timing/Duration: Other (Chronic, longstanding worse in the last month) Severity: Moderate Associated Systoms: Denies Symptoms, Weakness (mild; burning and tingling) Allergies and Home Medications Allergies Coded Allergies: No Known Drug Allergies (Unverified , 11/02/19) Patient Home Medication List Home Medication List Reviewed: Yes Ascorbate Calcium (Vitamin C) 500 Mg Tablet, 500 MG PO DAILY, (Reported) Entered as Reported by: HEATHER BERGERON on 05/21/18 0913 Aspirin (Aspir 81) 81 Mg Tablet.dr, 81 MG PO DAILY, (Reported) Entered as Reported by: MARY MCCRARY on 11/02/19 145 Azithromycin (Zithromax) 500 Mg Tablet, 500 MG PO DAILY Prescribed by: DOROTEO STEVENS on 05/23/20 235 Calcium Acetate (Calcium Acetate) 667 Mg Tablet, 4 CAP PO TID, (Reported) Entered as Reported by: MARY MCCRARY on 11/02/19 145 Carvedilol (Carvedilol) 25 Mg Tablet, 25 MG PO BID, (Reported) Entered as Reported by: MARY MCCRARY on 11/02/19 145 Cefdinir (Cefdinir) 300 Mg Capsule, 300 MG PO BID Prescribed by: DOROTEO STEVENS on 05/23/202354 Cholecalciferol (Vitamin D3) (Vitamin D3) 25 Mcg Capsule, 25 MCG PO DAILY, (Reported) Entered as Reported by: MARY MCCRARY on 11/02/19 145 Clonidine HCl (Clonidine HCl) 0.2 Mg Tablet, 0.4 MG PO BID, (Reported) Entered as Reported by: HEATHER BERGERON on 05/21/18 0910 Diphenhydramine HCl (Benadryl) 25 Mg Capsule, 25 MG PO HS, (Reported) Entered as Reported by: HEATHER BERGERON on 05/21/18 0913 Folic Acid/Vitamin B Comp W-C (Dialyvite Tablet) 1 Each Tablet, 1 EACH PO DAILY, (Reported) Entered as Reported by: MARY MCCRARY on 11/02/19 1455 Guaifenesin (Guaifenesin) 400 Mg Tablet, 400 MG PO BID, (Reported) Entered as Reported by: MARY MCCRARY on 11/02/19 1458 Hydrocodone/Acetaminophen (Hydrocodone-Acetamin 5-325 mg) 1 Each Tablet, 1 EACH PO PRN, (Reported) Entered as Reported by: MARY MCCRARY on 11/02/19 1455 Hydrocodone/Acetaminophen (Hydrocodone-Acetamin 5-325 mg) 5 Mg-325 Mg Tablet, 1 TAB PO Q4H PRN for PAIN-MODERATE (5-7) Prescribed by: TORREY ANDERS on 02/16/221999 Lactobacillus Combo No.10 (Probiotic) 1 Each Capsule, 1 CAP PO DAILY, (Reported) Entered as Reported by: HEATHER BERGERON on 05/21/18912 Melatonin (Melatonin) 5 Mg Capsule, 5 MG PO HS, (Reported) Entered as Reported by: HEATHER BERGERON on 05/21/18912 Nifedipine (Procardia Xl) 60 Mg Tab.er.24, 60 MG PO BID, (Reported) Entered as Reported by: MARY MCCRARY on 11/02/19 1455 Promethazine HCl (Promethazine Tablet) 25 Mg Tablet, 25 MG PO Q6H PRN for NAUSEA/VOMITING Prescribed by: ALLAN LEACH on 12/05/19 1338 Promethazine HCl (Promethazine Tablet) 25 Mg Tablet, 25 MG PO Q6H PRN for NAUSEA /VOMITING Prescribed by: REBECCA RUVALCABA on 09/24/21 1414 Valerian Root (Valerian Root) 100 Mg Capsule, 100 MG PO HS, (Reported) Entered as Reported by: HEATHER BERGERON on 05/21/18912 Review of Systems Review of Systems Constitutional: see HPI EENTM: no symptoms reported Respiratory: no symptoms reported Cardiovascular: no symptoms reported Gastrointestinal: no symptoms reported Genitourinary: no symptoms reported Musculoskeletal: back pain (Intermittent) Skin: no symptoms reported Psychiatric/Neurological: Paresthesia (Burning and tingling bilateral lower extremities, occasionally in his hands); Denies Weakness All Other Systems Reviewed Negative Unless Noted: Yes Past Mubetma-[id number]-[id number] Hx Patient Social History Substance use?: No Alcohol Use?: No Immunizations Up To Date Tetanus Booster (TDap): Unknown PED Vaccines UTD: Yes First/Initial COVID19 Vaccinat: 07/03 Second COVID19 Vaccination Moises: 07/31 Third COVID19 Vaccination Date: 07/03 COVID19 Vaccine Manager Strategic Development: UNKNOWN Seasonal Allergies Seasonal Allergies: Yes (MILD) Past Medical History Surgery/Hospitalization HX: PMH;SCOLIOSIS AND KIDNEY FAILURE. DIAYLSIS--PT STATES RENAL FAILURE ISFROM ALDOSTERONE SECRETING ADRENAL GLAND TUMOR.SURGERY; ADRENAL GLAND MASS REMOVAL 2011; LEFT ARM A-V FISTULA/DIALYSISGRAFT. 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, 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) Adrenal Disease HEENT: Yes (GLASSES) Loss of Vision: Bilateral Hearing Impairment: Denies Cancer: No Psychosocial: Yes Depression Integumentary: No Blood Disorders: Yes (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) Adverse Reaction/Blood Tranf: No Family Medical History Aneurysm 19 MOTHER FH: lung cancer 19 FATHER Hypertension 19 MOTHER G8 SISTER No Pertinent Family Hx Physical Exam Vital Signs Vital Signs - First Documented 06/17/22 16:00 Temp 36.3 Pulse 56 Resp 16 B/P (MAP) 143/75 (97) Pulse Ox 100 O2 Delivery Nasal Cannula O2 Flow Rate 4.00 Capillary Refill : Less Than 3 Seconds Height, Weight, BMI Height: 5'8.00" Weight: 154lbs. 0.0oz. 69.393185pt; 18.00 BMI Method:Stated General Appearance: No Apparent Distress, Chronically ill, Thin Eyes: Bilateral Eye Normal Inspection, Bilateral Eye PERRL, Bilateral Eye EOMI HEENT: PERRL/EOMI Respiratory: Lungs Clear, Normal Breath Sounds, No Accessory Muscle Use, No Respiratory Distress Cardiovascular: Regular Rate, Rhythm, Normal Peripheral Pulses, Systolic Murmur (Soft systolic ejection murmur right upper sternal border) Extremity: Normal Capillary Refill, Normal Inspection, Normal Range of Motion, Non Tender, No Calf Tenderness, No Pedal Edema Neurologic/Psychiatric: Alert, Oriented x3, No Motor/Sensory Deficits, Normal Mood/Affect, nurse school II-XII Norm as Tested; No Motor Weakness, No Sensory Deficit Skin: Normal Color, Warm/Dry Progress/Results/Core Measures Suspected Sepsis SIRS Temperature: Pulse: 56 Respiratory Rate: 16 Blood Pressure 143 /75 Mean: 97 Results/Orders Vital Signs/I&O 06/17/22 16:00 Temp 36.3 Pulse 56 Resp 16 B/P (MAP) 143/75 (97) Pulse Ox 100 O2 Delivery Nasal Cannula O2 Flow Rate 4.00 Capillary Refill : Less Than 3 Seconds Blood Pressure Mean: 97 Progress Note : Time: 17:50 Progress Note Patient seen and evaluated by me, 76-year-old with bilateral burning and tingling in his lower extremities and feet. Evaluation today includes history and physical exam. Notably the patient has a soft systolic ejection murmur, clear lungs, no increased work of breathing or respiratory distress. Moving all extremities equally, no focal neurological deficits. Intact sensation to the bilateral lower extremities in the groin. Normal dorsiflexion of the great toes and plantarflexion of both feet. Good strength in both knees. No rashes wounds or swelling is noted. Patient mentions that this is longstanding chronic discomfort. Nothing changed acutely today. Differential diagnosis includes peripheral neuropathy, nerve impingement. Based on history and physical examination I see no indications for lab work or advanced imaging such as CT of the lumbar spine. No trauma recently. No concern for acute cauda equina sy ndrome at this time. No indications for emergent MRI. I talked with the patient about follow-up with his primary care doctor, possibly getting started on gabapentin or Lyrica. As he has end-stage renal disease these medications need to be dosed based on creatinine clearance. There is no indication to get lab work from the emergency department at this time. Patient will be sent home to follow-up with his primary care physician. Return precautions have been provided. He verbalized understanding. All questions are sought and answered. Patient is stable for discharge. Departure Impression Primary Impression: paresthesia and pain of both lower extremities Disposition: 01 HOME, SELF-CARE Condition: Stable Departure-Patient Inst. Decision time for Depature: 17:27 Referrals: ELLA CANTU DO (PCP/Family) Primary Care Physician Patient Instructions: Peripheral Neuropathy Add. Discharge Instructions: Please call your doctor's office tomorrow for a follow-up appointment this week. Talk to him about starting the gabapentin which is the medication to treat neuropathy, the pain and burning in your legs and feet. If you have incontinence or loss of control of bowel function or bladder function along with weakness in your legs, worsening back pain please come back to the emergency department for reevaluation. Return to the emergency department for any new, concerning or emergent complaints. IRA ORR MD Jun 17, 2022 16:54
[2022-06-17] MEDS ORDERED: GABA300C PO (17:34)
[2022-06-17 17:48] VITALS: BP 143/75
== END 2022-06-17 17:48 | disposition home or self-care (01) ==
LOC: EDUNIT# 15:51 → ER 15:54
DX: M79.605 Pain in left leg (principal); M79.604 Pain in right leg; R20.2 Paresthesia of skin; I12.0 Hypertensive chronic kidney disease with stage 5 chronic kidney disease or end stage renal disease; N18.6 End stage renal disease; D63.1 Anemia in chronic kidney disease; Z99.2 Dependence on renal dialysis; Z99.81 Dependence on supplemental oxygen
CPT/HCPCS: 99281

== ENCOUNTER 2022-09-04 17:17 | Emergency (ER) | payer MEDICARE ==
[~2022-09-04] VITALS: Ht 172.7 cm; Wt 60.1 kg
[~2022-09-04 17:17] MED LIST changes: +GABA300C PO
--- NOTE | 2022-09-04 17:58 | ED General ---
General Chief Complaint: General Problems/Pain Stated Complaint: GENERAL SICKNESS Nursing Triage Note: PT TO ED BY EMS WITH C/ NO FEELING WELL. PT REPORTS HE HAS NOT BEEN FEELING WELL FOR SEVERAL YEARS NOW, WEAKNESS, DIZZINESS, NAUSEA, CHRONIC BACK PAIN R/T SCOLIOSIS. DENIES ANY NEW COMPLAINTS AT THIS TIME. Source of Information: Patient (EXTREMELY VAGUE, POOR AND DIFFICULT HISTORIAN), Old Records History of Present Illness Date Seen by Provider: Sep 04, 2022 Time Seen by Provider: 17:45 Initial Comments PT ARRIVES VIA POV FROM HOME PT STATES HE IS ON DIALYSIS [id number] ( TODAY IS SATURDAY) STATES HE ALWAYS HAS NAUSEA/VOMITING AND DIARRHEA AND IS ALWAYS WEAK AND DIZZY AND NO APPETITE STATES "I CAN'T DO ANYTHING" STATES HE "JUST DOESN'T FEEL GOOD"--THIS IS CHRONIC PROBLEM AND NO DIFFERENT TODAY THESE SYMPTOMS ARE ALL CHRONIC, AND NO DIFFERENT TODAY THAN NORMAL NO FEVER / SWEATS /CHILLS NO CHEST PAIN NO INCREASE IN CHRONIC SHORTNESS OF BREATH PT MAKES MINIMAL URINE, BUT DENIES ANY PAIN/BURNING ON URINATION --DOES NOT REMEMBER IF HE URINATED TODAY OR NOT. NO COUGH C/O CHRONIC BACK PAIN NO ABDOMINAL PAIN STATES HE HAS HAD DIARRHEA " A LITTLE BIT" "A TIME OR TWO" TODAY--HE "THINKS", STATES HE IS NOT SURE NO CURRENT SWELLING IN LEGS/FEET HE HAS NOT TAKEN ANYTHING FOR HIS SYMPTOMS PT STATES HE HAS PHENERGAN AT HOME, BUT HAS NOT TAKEN ANY TODAY. THINKS HE TOOK ONE YESTERDAY--"NOT SURE" PT HAS HAD COVID VACCINE X 2--OVER A YEAR AGO, AND FLU VACCINE. HE HAS HAD COVID INFECTION TWICE--FIRST TIME IN 2019, TRANSFERRED TO [place], [place]. SECOND TIME IN JUNE 2021 AND WAS TRANSFERRED TO [place], [place] PT DENIES DIABETES, DENIES CARDIAC OR LUNG PROBLEMS, AND IS NOT ON ANY BLOOD THINNERS. PT VAPES MARIJUANA DAILY DENIES SMOKING REGULAR CIGARETTES, DENIES ETOH USE. PCP: DR. CANTU WITH [facility] SENIOR CORPORATE STRATEGY MANAGER: DR. QUINTON ALMANZAR [facility] HERE IN [place] Allergies and Home Medications Allergies Coded Allergies: No Known Drug Allergies (Unverified , 11/02/19) Patient Home Medication List Home Medication List Reviewed: Yes Ascorbate Calcium (Vitamin C) 500 Mg Tablet, 500 MG PO DAILY, (Reported) Entered as Reported by: HEATHER BERGERON on 05/21/18 09 Aspirin (Aspir 81) 81 Mg Tablet.dr, 81 MG PO DAILY, (Reported) Entered as Reported by: MARY MCCRARY on 11/02/19 145 Azithromycin (Zithromax) 500 Mg Tablet, 500 MG PO DAILY Prescribed by: DOROTEO STEVENS on 05/23/202354 Calcium Acetate (Calcium Acetate) 667 Mg Tablet, 4 CAP PO TID, (Reported) Entered as Reported by: MARY MCCRARY on 11/02/19 145 Carvedilol (Carvedilol) 25 Mg Tablet, 25 MG PO BID, (Reported) Entered as Reported by: MARY MCCRARY on 11/02/19 145 Cefdinir (Cefdinir) 300 Mg Capsule, 300 MG PO BID Prescribed by: DOROTEO STEVENS on 05/23/202354 Cefdinir (Cefdinir) 300 Mg Capsule, 300 MG PO BID Prescribed by: DOROTEO STEVENS on 09/04/222114 Cholecalciferol (Vitamin D3) (Vitamin D3) 25 Mcg Capsule, 25 MCG PO DAILY, (Reported) Entered as Reported by: MARY MCCRARY on 11/02/19 145 Clonidine HCl (Clonidine HCl) 0.2 Mg Tablet, 0.4 MG PO BID, (Reported) Entered as Reported by: HEATHER BERGERON on 05/21/18 09 Diphenhydramine HCl (Benadryl) 25 Mg Capsule, 25 MG PO HS, (Reported) Entered as Reported by: HEATHER BERGERON on 05/21/18 09 Folic Acid/Vitamin B Comp W-C (Dialyvite Tablet) 1 Each Tablet, 1 EACH PO DAILY, (Reported) Entered as Reported by: MARY MCCRARY on 11/02/19 145 Guaifenesin (Guaifenesin) 400 Mg Tablet, 400 MG PO BID, (Reported) Entered as Reported by: MARY MCCRARY on 11/02/19 145 Hydrocodone/Acetaminophen (Hydrocodone-Acetamin 5-325 mg) 1 Each Tablet, 1 EACH PO PRN, (Reported) Entered as Reported by: MARY MCCRARY on 11/02/19 1455 Hydrocodone/Acetaminophen (Hydrocodone-Acetamin 5-325 mg) 5 Mg-325 Mg Tablet, 1 TAB PO Q4H PRN for PAIN-MODERATE (5-7) Prescribed by: TORREY ANDERS on 02/16/221999 Lactobacillus Combo No.10 (Probiotic) 1 Each Capsule, 1 CAP PO DAILY, (Reported) Entered as Reported by: HEATHER BERGERON on 05/21/18912 Melatonin (Melatonin) 5 Mg Capsule, 5 MG PO HS, (Reported) Entered as Reported by: HEATHER BERGERON on 05/21/18912 Nifedipine (Procardia Xl) 60 Mg Tab.er.24, 60 MG PO BID, (Reported) Entered as Reported by: MARY MCCRARY on 11/02/19 145 Ondansetron (Ondansetron Odt) 8 Mg Tab.rapdis, 8 MG PO Q6H Prescribed by: DOROTEO STEVENS on 09/04/22 210 Promethazine HCl (Promethazine Tablet) 25 Mg Tablet, 25 MG PO Q6H PRN for NAUSEA/VOMITING Prescribed by: ALLAN LEACH on 12/05/19 1338 Promethazine HCl (Promethazine Tablet) 25 Mg Tablet, 25 MG PO Q6H PRN for NAUSEA/VOMITING Prescribed by: REBECCA RUVALCABA on 09/24/21 1414 Valerian Root (Valerian Root) 100 Mg Capsule, 100 MG PO HS, (Reported) Entered as Reported by: HEATHER BERGERON on 05/21/18912 Review of Systems Review of Systems Constitutional: No chills, No diaphoresis; dizziness; No fever; malaise, weakness EENTM: no symptoms reported Respiratory: see HPI; No cough Cardiovascular: no symptoms reported; No chest pain Gastrointestinal: see HPI; No abdominal pain; diarrhea, loss of appetite, nausea, vomiting Genitourinary: see HPI Musculoskeletal: see HPI Skin: no symptoms reported Psychiatric/Neurological: No Symptoms Reported Hematologic/Lymphatic: No Symptoms Reported Immunological/Allergic: no symptoms reported Past Ontcely-Jfccie-Fskhzh Hx Patient Social History Tobacco Use?: No Smoking Status: Never a Smoker Use of E-Cig and/or Vaping dev: Yes E-Cig or Vaping type used: Marijuana, Synthetic Cannabinoids Use of E-Cig and/or Vaping Alfredo: Current Everyday User, Current Someday User Substance use?: No Alcohol Use?: No Pt feels they are or have been: No Immunizations Up To Date Tetanus Booster (TDap): Unknown PED Vaccines UTD: Yes Influenza Vaccine Up-to-Date: Yes; Up-to-Date First/Initial COVID19 Vaccinat: x2 Second COVID19 Vaccination Moises: x2 Third COVID19 Vaccination Date: 07/03 Seasonal Allergies Seasonal Allergies: Yes (MILD) Past Medical History Surgery/Hospitalization HX: PMH;SCOLIOSIS AND KIDNEY FAILURE. 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 SURGERY; ADRENAL GLAND MASS REMOVAL 2011; LEFT ARM A-V FISTULA/DIALYSISGRAFT. Surgeries: Yes (L ADRENAL GLAND REMOVED, HEMODIALYSIS CATHETER/REMOVAL / REPLACEMENT X2) Adrenal, Dialysis, Vascular Surgery Respiratory: Yes (hx of pleural effusions; COVID + 05/21/20 AND IN 2019) Pneumonia Currently Using CPAP: No Currently Using BIPAP: No Cardiac: Yes Hypertension Neurological: No Sexually Transmitted Disease: No HIV/AIDS: No Genitourinary: Yes (DIALYSIS M-W-F) Renal Failure, Dialysis Gastrointestinal: No Musculoskeletal: Yes Scoliosis, Chronic Back Pain 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, 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) Adrenal Disease HEENT: Yes (GLASSES) Loss of Vision: Bilateral Hearing Impairment: Denies Cancer: No Psychosocial: Yes Anxiety, Depression Integumentary: No Blood Disorders: Yes (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) Adverse Reaction/Blood Tranf: No Family Medical History Aneurysm 19 MOTHER FH: lung cancer 19 FATHER Hypertension 19 MOTHER G8 SISTER No Pertinent Family Hx SOCIAL HISTORY: -DENIES SMOKING REGULAR CIGARETTES -DENIES ETOH USE -VAPES AND SMOKES MARIJUANA AND SYNTHETIC MARIJUANA DAILY PAST SURGICAL HISTORY: -LEFT A-V FISTULA / DIALYSIS GRAFT -REMOVAL OF ADRENAL GLAND FOR BENIGN TUMOR Physical Exam Vital Signs Vital Signs - First Documented 09/04/22 17:20 Temp 36.5 Pulse 75 Resp 16 B/P (MAP) 151/96 (114) Pulse Ox 95 O2 Delivery Room Air Capillary Refill : Less Than 3 Seconds Height, Weight, BMI Height: 5'8.00" Weight: 154lbs. 0.0oz. 69.052087yl; 20.00 BMI Method:Stated General Appearance: No Apparent Distress, Chronically ill, Thin, Other (SLIGHTLY DYSPNEIC WITH MINIMAL EXERTION) Neck: Normal Inspection; No JVD Respiratory: Normal Breath Sounds, No Accessory Muscle Use, No Respiratory Distress Cardiovascular: Regular Rate, Rhythm, No JVD Gastrointestinal: Non Tender, Soft Back: No CVA Tenderness Extremity: No Pedal Edema Neurologic/Psychiatric: Alert, Oriented x3, No Motor/Sensory Deficits, plastic and reconstructive surgeon II- XII Norm as Tested Skin: Warm/Dry, Pallor (SALLOW / CARR COLOR) Progress/Results/Core Measures Suspected Sepsis SIRS Temperature: Pulse: 75 Respiratory Rate: 16 Laboratory Tests 09/04/22 18:04: White Blood Count 8.5 Blood Pressure 151 /96 Mean: 114 Laboratory Tests 09/04/22 18:04: Creatinine 5.92H, INR Comment 1.0, Platelet Count 246, Total Bilirubin 0.6 09/04/22 21:00: Creatinine 6.29H Results/Orders Lab Results Laboratory Tests Test 09/04/22 18:04 09/04/22 21:00 Range/Units White Blood Count 8.5 4.3-11.0 10^3/uL Red Blood Count 2.88 L 4.30-5.52 10^6/uL Hemoglobin 8.9 L 13.3-17.7 g/dL Hematocrit 27 L 40-54 % Mean Corpuscular Volume 92 80-99 fL Mean Corpuscular Hemoglobin 31 25-34 pg Mean Corpuscular Hemoglobin Concent 34 32-36 g/dL Red Cell Distribution Width 14.9 H 10.0-14.5 % Platelet Count 246 130-400 10^3/uL Mean Platelet Volume 8.7 L 9.0-12.2 fL Immature Granulocyte % (Auto) 1 % Neutrophils (%) (Auto) 72 42-75 % Lymphocytes (%) (Auto) 18 12-44 % Monocytes (%) (Auto) 8 0-12 % Eosinophils (%) (Auto) 1 0-10 % Basophils (%) (Auto) 0 0-10 % Neutrophils # (Auto) 6.2 1.8-7.8 10^3/uL Lymphocytes # (Auto) 1.5 1.0-4.0 10^3/uL Monocytes # (Auto) 0.7 0.0-1.0 10^3/uL Eosinophils # (Auto) 0.1 0.0-0.3 10^3/uL Basophils # (Auto) 0.0 0.0-0.1 10^3/uL Immature Granulocyte # (Auto) 0.0 0.0-0.1 10^3/uL Prothrombin Time 13.5 12.2-14.7 SEC INR Comment 1.0 0.8-1.4 Activated Partial Thromboplast Time 34 24-35 SEC Sodium Level 132 L 132 L 135-145 MMOL/L Potassium Level 5.7 H 4.9 3.6-5.0 MMOL/L Chloride Level 93 L 96 L 98-107 MMOL/L Carbon Dioxide Level 22 25 21-32 MMOL/L Anion Gap 17 H 11 5-14 MMOL/L Blood Urea Nitrogen 41 H 45 H 7-18 MG/DL Creatinine 5.92 H 6.29 H 0.60-1.30 MG/DL Estimat Glomerular Filtration Rate 9 9 BUN/Creatinine Ratio 7 7 Glucose Level 93 99 70-105 MG/DL Calcium Level 9.6 10.2 H 8.5-10.1 MG/DL Corrected Calcium 9.5 8.5-10.1 MG/DL Magnesium Level 2.0 1.6-2.4 MG/DL Total Bilirubin 0.6 0.1-1.0 MG/DL Aspartate Amino Transf (AST/SGOT) 24 5-34 U/L Alanine Aminotransferase (ALT/SGPT) 11 0-55 U/L Alkaline Phosphatase 117 40-136 U/L Troponin I < 0.028 <0.028 NG/ML Total Protein 7.0 6.4-8.2 GM/DL Albumin 4.1 3.2-4.5 GM/DL Amylase Level 92 25-125 U/L Lipase 54 8-78 U/L TSH White Testing 3.81 0.35-4.94 UIU/ML Influenza Type A (RT-PCR) Not Detected Not Detecte Influenza Type B (RT-PCR) Not Detected Not Detecte SARS-CoV-2 RNA (RT-PCR) Not Detected Not Detecte My Orders Orders - DOROTEO STEVENS DO Ed Iv/Invasive Line Start (09/04/22 17:51) O2 (09/04/22 17:51) Monitor-Rhythm Ecg Trace Only (09/04/22 17:51) Amylase (09/04/22 17:51) Cbc With Automated Diff (09/04/22 17:51) Comprehensive Metabolic Panel (09/04/22 17:51) Lipase (09/04/22 17:51) Magnesium (09/04/22 17:51) Protime With Inr (09/04/22 17:51) Partial Thromboplastin Time (09/04/22 17:51) Thyroid Analyzer (09/04/22 17:51) Troponin I [place] (09/04/22 17:51) Chest 1 View, Ap/Pa Only (09/04/22 17:51) Ondansetron Injection (Zofran Injectio (09/04/22 18:00) Covid 19 Inhouse Test (09/04/22 17:51) Influenza A And B By Pcr (09/04/22 17:51) Isolation Central Supply Req (09/04/22 17:51) Cefepime Injection (Maxipime Injection) (09/04/22 19:15) Sodium Polystyrene Powder (Kayexalate P (09/04/22 19:15) D50w (Emergency) Syringe (Dextrose 50% 5 (09/04/22 19:15) Insulin (Regular) Human (Novolin R (Per (09/04/22 19:15) Calcium Chloride 10% Injection (Calcium (09/04/22 19:15) Lorazepam Injection (Ativan Injection) (09/04/22 19:30) Basic Metabolic Panel (09/04/22 20:50) Medications Given in ED Current Medications Medications Dose Ordered Sig/Kailey Route Start Time Stop Time Status Last Admin Dose Admin Calcium Chloride 1 gm ONCE ONCE INJ 09/04/22 19:15 09/04/22 19:16 DC 09/04/22 20:00 1 GM Cefepime HCl 1000 mg/Sodium Chloride 50 ml @ 100 mls/hr ONCE ONCE IV 09/04/22 19:15 09/04/22 19:44 DC 09/04/22 19:33 100 MLS/HR Dextrose 50 ml ONCE ONCE IV 09/04/22 19:15 09/04/22 19:16 DC 09/04/22 19:37 50 ML Insulin Human Regular 10 unit ONCE ONCE IV 09/04/22 19:15 09/04/22 19:16 DC 09/04/22 19:36 10 UNIT Lorazepam 1 mg ONCE ONCE IVP 09/04/22 19:30 09/04/22 19:31 DC 09/04/22 19:39 1 MG Ondansetron HCl 4 mg ONCE ONCE IVP 09/04/22 18:00 09/04/22 18:01 DC 09/04/22 18:25 4 MG Sodium Polystyrene Sulfonate 15 gm ONCE ONCE PO 09/04/22 19:15 09/04/22 19:16 DC 09/04/22 19:43 15 GM Vital Signs/I&O 09/04/22 17:20 Temp 36.5 Pulse 75 Resp 16 B/P (MAP) 151/96 (114) Pulse Ox 95 O2 Delivery Room Air Capillary Refill : Less Than 3 Seconds Blood Pressure Mean: 114 Progress Note : Progress Note PPE WORN COVID AND FLU TESTING DONE GIVEN: -ZOFRAN FOR NAUSEA -CEFEPIME -INSULIN + D50 -KAYEXELATE -CALCIUM CHLORIDE NO VOMITING OR DIARRHEA DURING ER STAY PT PUSHING CALL LIGHT MULTITUDE OF TIMES DURING ER STAY--WANTING BLANKETS ADJUSTED, WANTING TO BE REPOSITIONED, WANTING TO SIT IN CHAIR, BECOMING VERBALLY AGGRESSIVE TO STAFF, ETC. 1914--PT WITH INCREASING ANXIETY, WANTING A MULTITUDE OF THINGS FROM STAFF ABOVE. ATIVAN GIVEN. PT CALMER. FLUIDS HELD PT IS DIALYSIS PT AND IS NOT HYPOTENSIVE OR TACHYCARDIC AT THIS TIME CXR READ LLL INFILTRATE VS ATELECTASIS--PT HAS NO RESPIRATORY SYMPTOMS OF ANY KIND, IS NOT HYPOXIC, AND AFEBRILE WILL TREAT WITH ANTIBIOTICS PRECAUTION PT IS ON DIALYSIS, WITH ELEVATED POTASSIUM LEVEL--WILL TREAT WITH KAYEXELATE, D50 + INSULIN, CALCIUM CHLORIDE. PT IS DUE FOR DIALYSIS IN THE MORNING PT DOES NOT MEET ANY CRITERIA FOR SEPSIS HE DOES NOT HAVE ANY ABDOMINAL PAIN, AND ALL HIS SYMPTOMS ARE CHRONIC FOR YEARS. 2029--PT'S SON IS HERE, PT STATES HE IS READY TO GO HOME NOW. ADVISED PT THAT WE WOULD NEED TO REPEAT LAB TO RECHECK POTASSIUM LEVEL, AND IF LESS THAN 5, HE MAY GO HOME. REPEAT POTASSIUM IS 4.9. PT IS ASYMPTOMATIC AT THIS TIME AND IS ANXIOUS TO GO HOME. VITALS ARE STABLE PT QUICKLY GOT INTO VEHICLE BY HIMSELF AND SHUT DOOR ON HIS OWN AT DISMISSAL DISCUSSED TEST RESULTS WITH PT AND SON, ANTICIPATED COURSE, MEDICATIONS, NEED FOR FOLLOW UP AND RETURN PRECAUTIONS. REVIEWED PRIOR RECORDS--MOSTLY ER VISITS, ADMITS/H&P'S/CONSULTS/DISCHARGE SUMMARIES, TESTS/PROCEDURES. REVIEWED PRIOR RECORDS, NEARLY ALL ARE ER VISITS, MANY FOR THIS SAME COMPLAINT. ECG Initial ECG Impression Date: Sep 04, 2022 Initial ECG Impression Time: 17:56 Initial ECG Rate: 71 Initial ECG Rhythm: Normal Sinus Initial ECG Intervals OK 159 QRS 109 QT/QTC 438/476 Initial ECG Impression: Nonspecific Changes Initial ECG Comparisson: Unchanged Comment INTERPRETED BY ME Diagnostic Imaging Comments CXR--PER RADIOLOGIST REPORT AT 1856 Heart size is stable. There appears to be some infiltrate or atelectasis in the left base as well as perhaps trace left pleural fluid. Right lung is clear. There is no pneumothorax. Left subclavian stent is noted. IMPRESSION: Minimal left basilar infiltrate or atelectasis with trace left effusion. Reviewed: Reviewed by Me Departure Impression Primary Impression: CHRONIC NAUSEA, VOMITING AND DIARRHEA Additional Impressions: ESRD on dialysis Hyperkalemia LLL INFILTRATE VS ATELECTASIS Chronic anemia Disposition: 01 HOME, SELF-CARE Condition: Stable Departure-Patient Inst. Referrals: ELLA CANTU DO (PCP/Family) Primary Care Physician Patient Instructions: Atelectasis, Community-Acquired Pneumonia, Adult (DC), End Stage Kidney Disease (DC), Hyperkalemia (DC) Add. Discharge Instructions: CONTINUE YOUR REGULAR MEDICATIONS PRESCRIBED KEEP YOUR APPOINTMENT FOR DIALYSIS TOMORROW FOLLOW UP WITH YOUR REGULAR DR THIS WEEK FOR FURTHER CARE RETURN TO ER IF SYMPTOMS WORSEN All discharge instructions reviewed with patient and/or family. Voiced understanding. Scripts Cefdinir (Cefdinir) 300 Mg Capsule 300 MG PO BID, #20 CAP Prov: DOROTEO STEVENS DO 09/04/22 Ondansetron (Ondansetron Odt) 8 Mg Tab.rapdis 8 MG PO Q6H, #10 TAB Prov: DOROTEO STEVENS DO 09/04/22 DOROTEO STEVENS DO Sep 04, 2022 17:58
[2022-09-04] MEDS ORDERED: ONDANSETRON 4 MG/2 ML (SDV) Z0FRAN IVP ONE (18:00)
[2022-09-04 18:11] LABS: BASOPHILS % (AUTO) 0 % (0-10); EOSINOPHILS # (AUTO) 0.1 10^3/uL (0.0-0.3); EOSINOPHILS % (AUTO) 1 % (0-10); HEMATOCRIT 27 % (40-54); HEMOGLOBIN 8.9 g/dL (13.3-17.7); LYMPHOCYTES # (AUTO) 1.5 10^3/uL (1.0-4.0); LYMPHOCYTES % (AUTO) 18 % (12-44); MEAN CORPUSCULAR HEMOGLOBIN 31 pg (25-34); MEAN CORPUSCULAR HGB CONC 34 g/dL (32-36); MEAN CORPUSCULAR VOLUME 92 fL (80-99); MEAN PLATELET VOLUME 8.7 fL (9.0-12.2); MONOCYTES # (AUTO) 0.7 10^3/uL (0.0-1.0); MONOCYTES % (AUTO) 8 % (0-12); NEUTROPHILS # (AUTO) 6.2 10^3/uL (1.8-7.8); NEUTROPHILS % (AUTO) 72 % (42-75); PLATELET COUNT 246 10^3/uL (130-400); WHITE BLOOD COUNT 8.5 10^3/uL (4.3-11.0)
[2022-09-04 18:26] LABS: ALBUMIN 4.1 GM/DL (3.2-4.5); CHLORIDE 93 MMOL/L (98-107); POTASSIUM 5.7 MMOL/L (3.6-5.0); SODIUM 132 MMOL/L (135-145)
[2022-09-04 18:27] LABS: AMYLASE 92 U/L (25-125); CALCIUM 9.6 MG/DL (8.5-10.1)
[2022-09-04 18:28] LABS: GLUCOSE 93 MG/DL (70-105)
[2022-09-04 18:29] LABS: CARBON DIOXIDE 22 MMOL/L (21-32)
[2022-09-04 18:30] LABS: BILIRUBIN,TOTAL 0.6 MG/DL (0.1-1.0)
[2022-09-04 18:32] LABS: ALKALINE PHOSPHATASE 117 U/L (40-136); CREATININE SERUM 5.92 MG/DL (0.60-1.30); GFR ESTIMATED 9; PROTHROMBIN TIME PATIENT 13.5 SEC (12.2-14.7)
[2022-09-04 18:33] LABS: BUN/CREATININE RATIO 7
[2022-09-04 18:35] LABS: ALANINE AMINOTRANSFERASE 11 U/L (0-55)
[2022-09-04 18:36] LABS: LIPASE 54 U/L (8-78)
--- NOTE | 2022-09-04 18:50 | Diagnostic Imaging Report ---
INDICATION: Weakness and dizziness. Time of Exam: 6:40 PM Correlation is made with prior chest of 03/20/2022. Heart size is stable. There appears to be some infiltrate or atelectasis in the left base as well as perhaps trace left pleural fluid. Right lung is clear. There is no pneumothorax. Left subclavian stent is noted. IMPRESSION: Minimal left basilar infiltrate or atelectasis with trace left effusion. Dictated by: Dictated on workstation # [id number]
[2022-09-04 18:56] LABS: TSH (THYROID ANALYZER) 3.81 UIU/ML (0.35-4.94)
[2022-09-04] MEDS ORDERED: DEXTROSE 50% 50 ML (IMS) SYR IV ONE (19:15)
[2022-09-04] MEDS ORDERED: inSUlin (REGULAR) HUMAN 1 UNIT/0.01 ML (CHARGE PER UNIT) IV ONE (19:15)
[2022-09-04] MEDS ORDERED: CALCIUM CHLORIDE 1 GM/10 ML (IMS) SYR INJ ONE (19:15)
[2022-09-04] MEDS ORDERED: CEFEPIME INJECTION 1,000 MG in NS (IVPB) 50 ML IV ONE (19:15)
[2022-09-04] MEDS ORDERED: SODIUM POLYSTYRENE POWDER 15 GM BOTTLE PO ONE (19:15)
[2022-09-04] MEDS ORDERED: LORazepam INJ 2 MG/ML (ATIVAN) VIAL IVP ONE (19:30)
[2022-09-04] MEDS ORDERED: ONDA8TAB13 PO (21:01)
[2022-09-04] MEDS ORDERED: CEFD300C3 PO (21:15)
[2022-09-04 21:28] LABS: CALCIUM 10.2 MG/DL (8.5-10.1); CREATININE SERUM 6.29 MG/DL (0.60-1.30); POTASSIUM 4.9 MMOL/L (3.6-5.0)
[2022-09-04 21:30] VITALS: BP 160/81
== END 2022-09-04 21:30 | disposition home or self-care (01) ==
LOC: EDUNIT# 17:17 → ER 17:18
DX: K52.9 Noninfective gastroenteritis and colitis, unspecified (principal); E87.5 Hyperkalemia; M54.9 Dorsalgia, unspecified; G89.29 Other chronic pain; I12.0 Hypertensive chronic kidney disease with stage 5 chronic kidney disease or end stage renal disease; N18.6 End stage renal disease; D63.1 Anemia in chronic kidney disease; E89.6 Postprocedural adrenocortical (-medullary) hypofunction; F41.9 Anxiety disorder, unspecified; F17.290 Nicotine dependence, other tobacco product, uncomplicated; Z99.2 Dependence on renal dialysis; Z20.822 Contact with and (suspected) exposure to COVID-19; Z90.89 Acquired absence of other organs; Z79.899 Other long term (current) drug therapy
CPT/HCPCS: 36415; 71045; 80048; 80053; 82150; 83690; 83735; 84443; 84484; 85025; 85610; 85730; 87636; 93005; 93041

== ENCOUNTER 2023-03-05 02:57 | Emergency (ER) | payer MEDICARE ==
[~2023-03-05] VITALS: Ht 175 cm; Wt 60.1 kg
[~2023-03-05 02:57] MED LIST changes: +ONDA8TAB13 PO
--- NOTE | 2023-03-05 03:03 | ED Lower Extremity ---
General Chief Complaint: Trauma-Non Activation Stated Complaint: FALL,HIP PX Source: patient, EMS Exam Limitations: no limitations History of Present Illness Date Seen by Provider: Mar 05, 2023 Time Seen by Provider: 02:56 Initial Comments 77-year-old male arrives via EMS for left hip pain. He rolled out of bed and was unable to get up secondary to pain in his left hip thereafter. Denies hitting his head or losing consciousness. He is not on any blood thinning medications All other systems reviewed and negative except per HPI Allergies and Home Medications Allergies Coded Allergies: No Known Drug Allergies (Unverified , 11/02/19) Patient Home Medication List Home Medication List Reviewed: Yes Ascorbate Calcium (Vitamin C) 500 Mg Tablet, 500 MG PO DAILY, (Reported) Entered as Reported by: HEATHER BERGERON on 05/21/18 09 Aspirin (Aspir 81) 81 Mg Tablet.dr, 81 MG PO DAILY, (Reported) Entered as Reported by: MARY MCCRARY on 11/02/19 1455 Calcium Acetate (Calcium Acetate) 667 Mg Tablet, 4 CAP PO TID, (Reported) Entered as Reported by: MARY MCCRARY on 11/02/19 1455 Carvedilol (Carvedilol) 25 Mg Tablet, 25 MG PO BID, (Reported) Entered as Reported by: MARY MCCRARY on 11/02/19 1455 Cholecalciferol (Vitamin D3) (Vitamin D3) 25 Mcg Capsule, 25 MCG PO DAILY, (Reported) Entered as Reported by: MARY MCCRARY on 11/02/19 1455 Clonidine HCl (Clonidine HCl) 0.2 Mg Tablet, 0.4 MG PO BID, (Reported) Entered as Reported by: HEATHER BERGERON on 05/21/18 0910 Diphenhydramine HCl (Benadryl) 25 Mg Capsule, 25 MG PO HS, (Reported) Entered as Reported by: HEATHER BERGERON on 05/21/18 09 Folic Acid/Vitamin B Comp W-C (Dialyvite Tablet) 1 Each Tablet, 1 EACH PO DAILY, (Reported) Entered as Reported by: MARY MCCRARY on 11/02/19 1455 Guaifenesin (Guaifenesin) 400 Mg Tablet, 400 MG PO BID, (Reported) Entered as Reported by: MARY MCCRARY on 11/02/19 145 Hydrocodone/Acetaminophen (Hydrocodone-Acetamin 5-325 mg) 5 Mg-325 Mg Tablet, 1 TAB PO Q4H PRN for PAIN-MODERATE (5-7) Prescribed by: TORREY ANDERS on 02/16/221999 Melatonin (Melatonin) 5 Mg Capsule, 5 MG PO HS, (Reported) Entered as Reported by: HEATHER BERGERON on 05/21/18912 Nifedipine (Procardia Xl) 60 Mg Tab.er.24, 60 MG PO BID, (Reported) Entered as Reported by: MARY MCCRARY on 11/02/19 145 Discontinued Medications Azithromycin (Zithromax) 500 Mg Tablet, 500 MG PO DAILY Discontinued Reason: No Longer Taking Prescribed by: DOROTEO STEVENS on 05/23/202354 Last Action: Discontinued Cefdinir (Cefdinir) 300 Mg Capsule, 300 MG PO BID Discontinued Reason: No Longer Taking Prescribed by: DOROTEO STEVENS on 05/23/202354 Last Action: Discontinued Cefdinir (Cefdinir) 300 Mg Capsule, 300 MG PO BID Discontinued Reason: No Longer Taking Prescribed by: DOROTEO STEVENS on 09/04/222114 Last Action: Discontinued Hydrocodone/Acetaminophen (Hydrocodone-Acetamin 5-325 mg) 1 Each Tablet, 1 EACH PO PRN, (Reported) Discontinued Reason: No Longer Taking Entered as Reported by: MARY MCCRARY on 11/02/19 145 Last Action: Discontinued Lactobacillus Combo No.10 (Probiotic) 1 Each Capsule, 1 CAP PO DAILY, (Reported) Discontinued Reason: No Longer Taking Entered as Reported by: HEATHER BERGERON on 05/21/18912 Last Action: Discontinued Ondansetron (Ondansetron Odt) 8 Mg Tab.rapdis, 8 MG PO Q6H Discontinued Reason: No Longer Taking Prescribed by: DOROTEO STEVENS on 09/04/222100 Last Action: Discontinued Promethazine HCl (Promethazine Tablet) 25 Mg Tablet, 25 MG PO Q6H PRN for NAUSEA/VOMITING Discontinued Reason: No Longer Taking Prescribed by: ALLAN LEACH on 12/05/19 1338 Last Action: Discontinued Promethazine HCl (Promethazine Tablet) 25 Mg Tablet, 25 MG PO Q6H PRN for NAUSEA/VOMITING Discontinued Reason: No Longer Taking Prescribed by: REBECCA RUVALCABA on 09/24/21 1414 Last Action: Discontinued Valerian Root (Valerian Root) 100 Mg Capsule, 100 MG PO HS, (Reported) Discontinued Reason: No Longer Taking Entered as Reported by: HEATHER BERGERON on 05/21/18 0913 Last Action: Discontinued Review of Systems Constitutional: see HPI Past Gcqfziv-Mipxnv-Tqarzi Hx Patient Social History Tobacco Use?: No Use of E-Cig and/or Vaping dev: No Substance use?: No Alcohol Use?: No Immunizations Up To Date Tetanus Booster (TDap): Unknown PED Vaccines UTD: Yes First/Initial COVID19 Vaccinat: x2 Second COVID19 Vaccination Moises: x2 Third COVID19 Vaccination Date: 07/03 Seasonal Allergies Seasonal Allergies: Yes (MILD) Past Medical History Surgery/Hospitalization HX: PMH;SCOLIOSIS AND KIDNEY FAILURE. 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 SURGERY; ADRENAL GLAND MASS REMOVAL 2011; LEFT ARM A-V FISTULA/DIALYSISGRAFT. Surgeries: Yes (L ADRENAL GLAND REMOVED, HEMODIALYSIS CATHETER/REMOVAL / REPLACEMENT X2) Adrenal, Dialysis, Vascular Surgery Respiratory: Yes (hx of pleural effusions; COVID + 05/21/20 AND [place] 2019) Pneumonia Currently Using CPAP: No Currently Using BIPAP: No Cardiac: Yes Hypertension Neurological: No Sexually Transmitted Disease: No HIV/AIDS: No Genitourinary: Yes (DIALYSIS M-W-F) Renal Failure, Dialysis Gastrointestinal: No Musculoskeletal: Yes Scoliosis, Chronic Back Pain 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, 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) Adrenal Disease HEENT: Yes (GLASSES) Loss of Vision: Bilateral Hearing Impairment: Denies Cancer: No Psychosocial: Yes Anxiety, Depression Integumentary: No Blood Disorders: Yes (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) Adverse Reaction/Blood Tranf: No Family Medical History Aneurysm 19 MOTHER FH: lung cancer 19 FATHER Hypertension 19 MOTHER G8 SISTER No Pertinent Family Hx SOCIAL HISTORY: -DENIES SMOKING REGULAR CIGARETTES -DENIES ETOH USE -VAPES AND SMOKES MARIJUANA AND SYNTHETIC MARIJUANA DAILY PAST SURGICAL HISTORY: -LEFT A-V FISTULA / DIALYSIS GRAFT -REMOVAL OF ADRENAL GLAND FOR BENIGN TUMOR Physical Exam Vital Signs Vital Signs - First Documented 03/05/23 03:00 Temp 35.0 Pulse 71 Resp 16 B/P (MAP) 149/89 (109) Pulse Ox 99 O2 Delivery Room Air Capillary Refill : Height, Weight, BMI Height: 5'8.00" Weight: 154lbs. 0.0oz. [id number]; 20.00 BMI Method:Stated General Appearance: WD/WN, no apparent distress HEENT: normal ENT inspection, pharynx normal Neck: non-tender, supple Cardiovascular: regular rate, rhythm, no murmur Respiratory: chest non-tender, lungs clear, normal breath sounds, no respiratory distress Gastrointestinal: normal bowel sounds, non tender, soft Hips: left hip other (Palpation left lateral hip. Neurovascular motor and sensory intact. Extremity is shortened, externally rotated) Legs: bilateral leg non-tender, bilateral leg normal inspection, bilateral leg normal range of motion Knees: bilateral knee non-tender, bilateral knee normal inspection, bilateral knee normal range of motion Ankles: bilateral ankle non-tender, bilateral ankle normal inspection, bilateral ankle normal range of motion Feet: bilateral foot non-tender, bilateral foot normal inspection, bilateral foot normal range of motion Neurologic/Tendon: normal sensation, normal motor functions, normal tendon functions Neurologic/Psychiatric: alert, oriented x 3 Skin: normal color, warm/dry Progress/Results/Core Measures Results/Orders Lab Results Laboratory Tests Test 03/05/23 03:08 Range/Units White Blood Count 10.2 4.3-11.0 10^3/uL Red Blood Count 4.91 4.30-5.52 10^6/uL Hemoglobin 14.3 13.3-17.7 g/dL Hematocrit 45 40-54 % Mean Corpuscular Volume 91 80-99 fL Mean Corpuscular Hemoglobin 29 25-34 pg Mean Corpuscular Hemoglobin Concent 32 32-36 g/dL Red Cell Distribution Width 16.8 H 10.0-14.5 % Platelet Count 235 130-400 10^3/uL Mean Platelet Volume 9.0 9.0-12.2 fL Immature Granulocyte % (Auto) 0 % Neutrophils (%) (Auto) 76 H 42-75 % Lymphocytes (%) (Auto) 13 12-44 % Monocytes (%) (Auto) 7 0-12 % Eosinophils (%) (Auto) 2 0-10 % Basophils (%) (Auto) 1 0-10 % Neutrophils # (Auto) 7.8 1.8-7.8 10^3/uL Lymphocytes # (Auto) 1.3 1.0-4.0 10^3/uL Monocytes # (Auto) 0.7 0.0-1.0 10^3/uL Eosinophils # (Auto) 0.2 0.0-0.3 10^3/uL Basophils # (Auto) 0.1 0.0-0.1 10^3/uL Immature Granulocyte # (Auto) 0.0 0.0-0.1 10^3/uL Sodium Level 131 L 135-145 MMOL/L Potassium Level 5.1 H 3.6-5.0 MMOL/L Chloride Level 93 L 98-107 MMOL/L Carbon Dioxide Level 23 21-32 MMOL/L Anion Gap 15 H 5-14 MMOL/L Blood Urea Nitrogen 35 H 7-18 MG/DL Creatinine 5.24 H 0.60-1.30 MG/DL Estimat Glomerular Filtration Rate 11 BUN/Creatinine Ratio 7 Glucose Level 106 H 70-105 MG/DL Calcium Level 9.5 8.5-10.1 MG/DL My Orders Orders - TRISTAMARIA A DO Pelvis With Left Hip 2-3 Views (03/05/23 03:06) Cbc And Automated Diff (03/05/23 03:06) Basic Metabolic Panel (03/05/23 03:06) Chest 1 View, Ap/Pa Only (03/05/23 ) Fentanyl Injection (Fentanyl Injection (03/05/23 03:45) Morphine Injection (Morphine Injection (03/05/23 05:20) Vital Signs/I&O 03/05/23 03/05/23 03/05/23 03:00 08:47 09:38 Temp 35.0 35.0 36.0 Pulse 71 69 Resp 16 18 B/P (MAP) 149/89 (109) 151/99 (116) Pulse Ox 99 98 O2 Delivery Room Air Room Air Departure Communication (Admissions) Is hemodynamically stable. He has left hip pain with no other obvious injury. He is not on any blood thinning medications and denies hitting his head or losing consciousness. He is neurovascular motor and sensory intact. X-ray shows a left femoral neck fracture. Unfortunately patient is on dialysis and would not have inpatient dialysis capabilities here so he will need to be zhao sferred. 0345: [facility]- accepted by Dr Nicole to ER. Pending transport Impression Primary Impression: Left displaced femoral neck fracture Additional Impression: ESRD on dialysis Disposition: XFER SHT-TRM HOSP Condition: Stable Departure-Patient Inst. Referrals: ELLA CANTU DO (PCP/Family) Primary Care Physician MARIA A WESTON DO Mar 05, 2023 03:03
[2023-03-05 03:19] LABS: BASOPHILS # (AUTO) 0.1 10^3/uL (0.0-0.1); BASOPHILS % (AUTO) 1 % (0-10); EOSINOPHILS # (AUTO) 0.2 10^3/uL (0.0-0.3); EOSINOPHILS % (AUTO) 2 % (0-10); HEMATOCRIT 45 % (40-54); HEMOGLOBIN 14.3 g/dL (13.3-17.7); LYMPHOCYTES # (AUTO) 1.3 10^3/uL (1.0-4.0); LYMPHOCYTES % (AUTO) 13 % (12-44); MEAN CORPUSCULAR HEMOGLOBIN 29 pg (25-34); MEAN CORPUSCULAR HGB CONC 32 g/dL (32-36); MEAN CORPUSCULAR VOLUME 91 fL (80-99); MONOCYTES # (AUTO) 0.7 10^3/uL (0.0-1.0); MONOCYTES % (AUTO) 7 % (0-12); NEUTROPHILS # (AUTO) 7.8 10^3/uL (1.8-7.8); NEUTROPHILS % (AUTO) 76 % (42-75); PLATELET COUNT 235 10^3/uL (130-400); WHITE BLOOD COUNT 10.2 10^3/uL (4.3-11.0)
[2023-03-05 03:33] LABS: POTASSIUM 5.1 MMOL/L (3.6-5.0)
[2023-03-05 03:34] LABS: CALCIUM 9.5 MG/DL (8.5-10.1)
[2023-03-05 03:39] LABS: CREATININE SERUM 5.24 MG/DL (0.60-1.30)
[2023-03-05] MEDS ORDERED: fentaNYL INJECTION 100 MCG/2 ML VIAL IVP ONE (03:45)
[2023-03-05] MEDS ORDERED: morphine INJ 10 MG/ML 1ML (SYR OR VIAL) IVP STA (05:20)
--- NOTE | 2023-03-05 07:31 | Diagnostic Imaging Report ---
EXAMINATION: Chest radiograph, portable AP view. DATE: 03/05/2023 3:50 AM INDICATION: 77-year-old male, fall. Chest pain. COMPARISON: September 04, 2022. FINDINGS: The right-sided central venous line overlies the lower SVC. Heart size and mediastinal contours are grossly unremarkable. There is a graft in the left subclavian region. There is no identified pneumothorax. There is no large pleural effusion. There is no identified focal airspace consolidation. IMPRESSION: 1. No identified acute cardiopulmonary abnormality. Dictated by: Dictated on workstation # [id number]
--- NOTE | 2023-03-05 07:33 | Diagnostic Imaging Report ---
EXAMINATION: Pelvis, single view. Left hip, 2 views. COMPARISON: None. HISTORY: 77-year-old male, pelvic and left hip pain. FINDINGS: There is a displaced fracture at the level left femoral neck with medial angulation of the distal fracture fragment. The joint spaces of both hips are well preserved. The femoral heads are not dislocated. The pubic symphysis and sacral iliac joints are normally aligned. There is scoliosis with advanced degenerative changes of the imaged lower lumbar spine. There are vascular related calcifications. IMPRESSION: 1. Displaced fracture of the left femoral neck. Dictated by: Dictated on workstation # [id number]
[2023-03-05] MEDS ORDERED: morphine INJ 4 MG/ML 1 ML (VIAL/SYRINGE) IVP ONE (08:30)
[2023-03-05 09:38] VITALS: BP 151/99
== END 2023-03-05 09:38 | disposition short-term general hospital (02) ==
LOC: EDUNIT# 02:57 → ER 02:58
DX: S72.002A Fracture of unspecified part of neck of left femur, initial encounter for closed fracture (principal); I12.0 Hypertensive chronic kidney disease with stage 5 chronic kidney disease or end stage renal disease; N18.6 End stage renal disease; Z99.2 Dependence on renal dialysis; X50.1XXA Overexertion from prolonged static or awkward postures, initial encounter
CPT/HCPCS: 36415; 71045; 80048; 85025; 96374; 96375; 96376